=== PATIENT | female | born 1930 | race Caucasian/White ===

== ENCOUNTER → 2016-06-21 | Outpatient (CLI) | payer OTHER, MEDICARE ==
[~2016-06-21] MED LIST: ALPR-411 PO; ASPI81TA21 PO; CRG125 PO; CYM/30 PO; DLM30 PO; FEBU40TA PO; LZL125 PO
[2016-06-21 12:59] LABS: BASO % 0.5 %; BASO ABS # 0.03 K/uL (0-0.2); COMPLETE YES; EOS % 7.6 %; HEMATOCRIT 43.6 % (37-47); IG% 0.3 %; LYMPH % 29.8 %; LYMPH ABS # 1.95 K/uL (1.2-3.4); MEAN CELL VOLUME 91.4 fL (80-100); MEAN CORPUSCULAR HEMOGLOBIN 30.4 pg (25-34); MEAN CORPUSCULAR HGB CONC 33.3 g/dl (32-36); MEAN PLATELET VOLUME 12.8 fL (7.4-10.4); MONO % 9.5 %; NEUT % 52.3 %; PLATELET COUNT 169 K/uL (130-400); RED BLOOD COUNT 4.77 M/uL (4.2-5.4); WHITE BLOOD COUNT 6.55 K/uL (4.8-10.8)
[2016-06-21 13:07] LABS: BLOOD UREA NITROGEN 35 mg/dl (7-18); BUN/CREATININE RATIO 23.3 (10-20); CALCIUM 9.9 mg/dl (8.5-10.1); CARBON DIOXIDE 24 mmol/L (21-32); CHLORIDE 110 mmol/L (98-107); GLUCOSE 96 mg/dl (70-99); POTASSIUM 4.9 mmol/L (3.5-5.1); SODIUM 142 mmol/L (136-145)
== END | disposition home or self-care (01) ==
LOC: C.LAB1850 11:29
PROVIDERS: ATTEND Internal Medicine
DX: I10 Essential (primary) hypertension (principal)

== ENCOUNTER 2016-08-06 18:25 | Emergency (ER) | payer OTHER, MEDICARE ==
[~2016-08-06] VITALS: Ht 160 cm; Wt 82.5 kg
[2016-08-06 18:28] VITALS: BP 167/81; PULSE 85; TEMP 36.9; O2SAT 95; Ht 160 cm; Wt 82.5 kg
--- NOTE | 2016-08-06 19:19 | DIAGNOSTIC IMAGING REPORT ---
LEFT FOOT MIN 3 VIEWS ROUTINE CLINICAL HISTORY: Left foot pain. Trauma. COMPARISON: 07/21/2015 DISCUSSION: The bones are osteopenic. There is a stable spur arising from the lateral aspect of the fifth metatarsal head. There is a plantar calcaneal spur. There are small erosions at the level the first metatarsal phalangeal joint. There are cystic changes/erosions involving the bases of the mid tarsals. IMPRESSION: 1. No acute fractures 2. Stable fifth metatarsal head spur 3. Stable erosive changes 4. Osteopenia Electronically signed by: Philippe Sullivan M.D. 08/06/2016 7:17 PM Dictated Date/Time: 08/06/2016 7:16 PM
--- NOTE | 2016-08-06 19:46 | EMERGENCY ROOM VISIT NOTE ---
ED Visit Note First contact with patient: 18:33 CHIEF COMPLAINT: Foot pain HISTORY OF PRESENT ILLNESS: This 85-year-old female patient presents to the emergency department ambulatory complaining of swelling and pain in the left foot at rest and worse with weight bearing. The patient reports that 4 days ago , she caught her left foot caught in a doorway. She reports that the same day, she again got her foot caught in the door of an elevator. She reports pain and bruising in the foot. She rates the discomfort a 5/10. She has been taking Tylenol at home for the pain with some relief. The patient is able to walk with the aid of her walker. No numbness or weakness. No ankle pain. There are no lacerations of the foot. The patient is able to move all of their toes and their ankle without pain. No previous fracture to this foot. REVIEW OF SYSTEMS: GENERAL: A 6 system review of systems was completed with positives and pertinent negatives in the HPI. ALLERGIES: See EMR MEDICATIONS: See med list PMH: Hypertension, DJD SOCIAL HISTORY: The patient lives locally with family. PHYSICAL EXAM: Vital Signs: Reviewed Nurse's notes, vital signs stable. GENERAL : This is an 85-year-old female, in no acute distress, but appears in pain, well -developed, well-nourished. MUSCULOSKELETAL: There is no visual deformity of the left foot. There is ecchymosis over the area of the distal fifth metatarsal. There is no warmth. There is tenderness and swelling over the lateral aspect of the left foot. There is no tenderness over the lateral or medial malleolus. No tenderness of the tib/fib. The range of motion of the ankle is full. The patient is able to wiggle her toes. There is no tenderness over the plantar fascia. The skin is intact and there are no lacerations or puncture wounds. Dorsalis pedis pulse 2+. Capillary refill less than 2 seconds. RADIOGRAPHIC FINDINGS: LEFT FOOT MIN 3 VIEWS ROUTINE DISCUSSION: The bones are osteopenic. There is a stable spur arising from the lateral aspect of the fifth metatarsal head. There is a plantar calcaneal spur. There are small erosions at the level the first metatarsal phalangeal joint. There are cystic changes/erosions involving the bases of the mid tarsals. IMPRESSION: 1. No acute fractures 2. Stable fifth metatarsal head spur 3. Stable erosive changes 4. Osteopenia EMERGENCY DEPARTMENT COURSE: I examined the patient. An X-ray of the left foot was reviewed by myself and radiology and reveals no acute fracture. The patient was placed in a postoperative shoe. She has a walker at home and will continue to use this. The patient declined analgesics. The patient was independently evaluated by Dr. Johnson, ED attending physician, who agreed with my assessment and treatment plan. The patient was discharged home in good condition. DIAGNOSIS: Foot pain Problem List Medical Problems: (1) Benign essential hypertension Status: Chronic (2) Degenerative joint disease Status: Chronic (3) Gout Status: Chronic (4) Renal insufficiency Status: Chronic (5) solitary left kidney Status: Chronic (6) Spinal stenosis of lumbar region Status: Chronic Current/Historical Medications Scheduled Aspirin Enteric Coated (Ecotrin Or Generic), 81 MG PO QAM Carvedilol (Carvedilol), 12.5 MG PO BID Duloxetine HCl (Cymbalta), 30 MG PO QAM Flurazepam Hcl (Dalmane), 30 MG PO HS Indapamide (Indapamide), 1.25 MG PO QAM Scheduled PRN Alprazolam (Alprazolam), 0.5 MG PO TID PRN for Anxiety Febuxostat (Uloric), 1 TAB PO DAILY PRN for GOUT Allergies Coded Allergies: Amoxicillin (Verified Allergy, Unknown, RASH AND SWELLING TONGUE, 08/06/16) Levofloxacin (Verified Allergy, Unknown, RASH AND SWELLING TONGUE, 08/06/16 ) Penicillins (Verified Allergy, Unknown, RASH & HIVES, 08/06/16) Sulfamethoxazole w/Trimethoprim (Verified Allergy, Unknown, ?, 08/06/16) Nitrofurantoin (Verified Adverse Reaction, Mild, HEADACHE, 08/06/16) Vital Signs Date Time Temp Pulse Resp B/P Pulse Ox O2 Delivery O2 Flow Rate FiO2 08/06/16 18:28 36.9 85 18 167/81 95 Room Air Departure Information Impression Primary Impression: Injury of foot, left Dispostion Home / Self-Care Condition GOOD Referrals Soto Sloan M.D. (PCP) Patient Instructions My [facility] Additional Instructions You have been treated in the Emergency Department for a foot injury. For pain control, you can use the following [id number] medicines (if >12 yo): - Regular strength (325mg/tab) Tylenol (acetaminophen) 2 tabs every 4-6 hours as needed. Do not exceed 12 tablets in a 24 hour period. Avoid taking more than 4 grams (4000 mg) of Tylenol per day. This includes any other sources of acetaminophen you may take on a regular basis. - Regular strength (200 mg/tab) Advil (ibuprofen) 1-2 tabs every 4-6 hours as needed. Do not exceed a dose of 3200 mg per day. If this is a recent injury (<24 hrs), ice can be applied to the area of pain for the first 3 days to help decrease pain and inflammation. Wear the boot and use the walker until you are able to bear weight without any pain. Follow up with your primary care provider in 4-5 days if you have continued pain. Return to the Emergency Department if your current symptoms worsen despite treatment course outlined above, or if you develop any of the following symptoms : intractable pain despite aforementioned treatment course or new onset of numbness or tingling of the foot. Problem Qualifiers Primary Impression: Injury of foot, left Encounter type: initial encounter Qualified Codes: S99.922A - Unspecified injury of left foot, initial encounter
--- NOTE | 2016-08-07 21:33 | EMERGENCY ROOM VISIT NOTE ---
ED Visit Note First contact with patient: 18:33 I have personally evaluated this patient examined her and reviewed the pertinent labs and data. I have discussed the case with Katt Caraballo, the physician physician assistant primary care and agree with the plan. Please refer to the PA note This patient comes in after injuring her foot. On my exam , she has a bruise along the dorsal aspect. She seems comfortable. X-rays do not show any fractures. She is can use a walker and follow-up with her doctor symptoms worsen and return ER if any new problems or concerns.
== END 2016-08-06 19:50 | disposition home or self-care (01) ==
LOC: C.EDB 18:26 → C.EDD 19:50
DX: S99.922A Unspecified injury of left foot, initial encounter (principal); W23.0XXA Caught, crushed, jammed, or pinched between moving objects, initial encounter; I12.9 Hypertensive chronic kidney disease with stage 1 through stage 4 chronic kidney disease, or unspecified chronic kidney disease; M10.9 Gout, unspecified; N18.9 Chronic kidney disease, unspecified; Z90.5 Acquired absence of kidney; Z79.82 Long term (current) use of aspirin; Z88.1 Allergy status to other antibiotic agents; Z88.0 Allergy status to penicillin; Z82.2 Family history of deafness and hearing loss; Z88.8 Allergy status to other drugs, medicaments and biological substances

== ENCOUNTER → 2016-11-30 | Day surgery (SDC) | payer OTHER, MEDICARE ==
[2016-11-15 07:36] VITALS: Ht 161.3 cm; Wt 81.4 kg
[~2016-11-30] VITALS: Ht 161.3 cm; Wt 81.4 kg
[~2016-11-30] MED LIST changes: +BUPIVACAINE 0.25% 2.5MG/ML PF 10 ML VIAL ONE; +CEFD300C2 PO; +IOPAMIDOL INJ 61% 15 ML VIAL ONE; +KETO75CA PO; +LIDOCAINE HCL 1% MPF 5 ML VIAL ONE; +LISI-729 PO
--- NOTE | 2016-11-30 13:52 | History & Physical Bridge - SC ---
H&P Re-Evaluation Bridge Note: I have examined the patient, reviewed the History & Physical and in the interval since the performance of the History & Physical I have noted the following changes of clinical significance: No changes noted
[2016-11-30 14:14] VITALS: TEMP 36.9
--- NOTE | 2016-11-30 14:22 | Discharge Instructions ---
Discharge Instructions Date of Service Nov 30, 2016. Visit Reason for Visit: Sacroiliitis Discharge Discharge Diagnosis / Problem: low back pain Discharge Goals Goal(s): Decrease discomfort, Improve function Medications Stopped Medications Name(s): did not take baby asprin today Activity Recommendations Activity Limitations: resume your previous activity Anesthesia . Post Anesthesia Instructions: If you have had General Anesthesia or IV Sedation: * Do not drive today. * Resume driving when surgeon permits. * Do not make important decisions or sign legal documents today. * Call surgeon for: 1. Temperature elevations greater than 101 degrees F. 2. Uncontrollable pain. 3. Excessive bleeding. 4. Persistent nausea and vomiting. 5. Medication intolerance (nausea, vomiting or rash). * For nausea and vomiting use only clear liquids such as: tea, soda, bouillon until nausea subsides, then gradually increase diet as tolerated. * If you have any concerns or questions, call your surgeon's office. If physician is unavailable and it is an emergency, call 911 or go to the nearest emergency room. . Diet Recommendations Recommended Home Diet: resume previous diet Procedures Procedures Performed: Bilateral Sacroiliac Joint Injections Pending Studies Studies pending at discharge: no Medical Emergencies . Who to Call and When: Medical Emergencies: If at any time you feel your situation is an emergency, please call 911 immediately. . Non-Emergent Contact Non-Emergency issues call your: Specialist . . "Provider Documentation" section prepared by Warren Rios. .
[2016-11-30 14:35] VITALS: BP 169/66; PULSE 73; O2SAT 94
--- NOTE | 2016-11-30 14:38 | OPERATIVE REPORT ---
DATE OF OPERATION: 11/30/2016 PREOPERATIVE DIAGNOSIS: Bilateral sacroiliitis, underlying lumbar fusion. POSTOPERATIVE DIAGNOSIS: Same. PROCEDURE: Bilateral sacroiliac joint injections under fluoroscopic guidance. INDICATIONS: The patient is an 86-year-old white female who presents today for sacroiliac joint injection. She has received these in the past, most recently in February 2006, in which she had great benefit up until recently began having increasing pain. PHYSICAL EXAMINATION: GENERAL: Pleasant female seated comfortably in no apparent distress. MUSCULOSKELETAL: Lumbar paraspinal muscles were palpated and noted to be nontender. She had tenderness to palpation of her SI joints bilaterally, more on the right than the left. She had normal lower extremity strength. Negative seated straight leg raises. Positive modified Arlin maneuver bilaterally and a sacral compression maneuver. CONSENT: Verbal and written consent was obtained from the patient. Risks and benefits were reviewed. Risks include but are not limited to abscess and allergic reaction. She wishes to proceed. PROCEDURE IN DETAIL: The patient was taken back to the special procedures room of the [facility] where she was maintained in a prone position. Backside was cleansed with Betadine x3 and a dry sterile dressing was applied. Fluoroscope was used to identify the left SI joint and the overlying skin was anesthetized with 2.5 mL of lidocaine 1% with a 25 gauge 1.5-inch needle. A 25 gauge 3.5-inch needle was then under fluoroscopic guidance, placed into the joint. Isovue-300 contrast 0.25 mL demonstrated intraarticular uptake. This was then followed by injection of 40 mg of Depo-Medrol and 1.5 mL of bupivacaine 0.25%. The right SI joint was then fluoroscopically identified. The overlying skin was anesthetized with 2.5 mL of lidocaine 1% and then she underwent injection of 40 mg of Depo-Medrol and 1.5 mL of bupivacaine 0.25%. Injection was well tolerated. DISPOSITION: 1. The patient is taken out into the discharge recovery area where she will be discharged home once discharge criteria have been met. 2. Follow up in the [facility] office in 4 weeks' time. I attest to the content of the Intraoperative Record and any orders documented therein. Any exception s are noted below.
== END | disposition home or self-care (01) ==
LOC: X.SURG 12:49
PROVIDERS: ATTEND Physical Medicine & Rehabilitation
DX: M46.1 Sacroiliitis, not elsewhere classified (principal); Z98.890 Other specified postprocedural states; Z79.82 Long term (current) use of aspirin

== ENCOUNTER → 2017-01-02 | Outpatient (CLI) | payer OTHER, MEDICARE ==
[~2017-01-02] MED LIST changes: -BUPIVACAINE 0.25% 2.5MG/ML PF 10 ML VIAL ONE; -CEFD300C2 PO; -IOPAMIDOL INJ 61% 15 ML VIAL ONE; -KETO75CA PO; -LIDOCAINE HCL 1% MPF 5 ML VIAL ONE; -LISI-729 PO
== END | disposition home or self-care (01) ==
LOC: C.RDSM 13:47
PROVIDERS: ATTEND Physical Medicine & Rehabilitation
DX: M53.3 Sacrococcygeal disorders, not elsewhere classified (principal); R29.898 Other symptoms and signs involving the musculoskeletal system

== ENCOUNTER 2017-03-26 19:50 | Emergency (ER) | payer OTHER, MEDICARE ==
[~2017-03-26] VITALS: Ht 157.5 cm; Wt 84.9 kg
[2017-03-26 19:57] VITALS: TEMP 36.5; Ht 157.5 cm; Wt 84.9 kg
[2017-03-26] MEDS ORDERED: LISI-729 PO (20:18)
[2017-03-26] MEDS ORDERED: KETO75CA PO (20:18)
[2017-03-26] MEDS ORDERED: SODIUM CHLORIDE 0.9% 1000ML 250 ML IV STA (20:19)
[2017-03-26] MEDS ORDERED: SODIUM CHLORIDE 0.9% 1000ML 1,000 ML IV STA (20:19)
[2017-03-26 20:46] LABS: BASO % 0.3 %; BASO ABS # 0.02 K/uL (0-0.2); COMPLETE YES; EOS % 8.9 %; HEMATOCRIT 41.3 % (37-47); IG% 0.2 %; LYMPH % 33.2 %; LYMPH ABS # 2.09 K/uL (1.2-3.4); MEAN CELL VOLUME 90.4 fL (80-100); MEAN CORPUSCULAR HEMOGLOBIN 30.2 pg (25-34); MEAN CORPUSCULAR HGB CONC 33.4 g/dl (32-36); MEAN PLATELET VOLUME 12.7 fL (7.4-10.4); MONO % 12.9 %; NEUT % 44.5 %; PLATELET COUNT 165 K/uL (130-400); RED BLOOD COUNT 4.57 M/uL (4.2-5.4); WHITE BLOOD COUNT 6.29 K/uL (4.8-10.8)
[2017-03-26 20:55] LABS: ALT/SGPT 17 U/L (12-78); BLOOD UREA NITROGEN 50 mg/dl (7-18); BUN/CREATININE RATIO 25.7 (10-20); CALCIUM 9.3 mg/dl (8.5-10.1); CARBON DIOXIDE 23 mmol/L (21-32); CHLORIDE 110 mmol/L (98-107); CREATININE 1.95 mg/dl (0.60-1.20); GLUCOSE 102 mg/dl (70-99); POTASSIUM 4.4 mmol/L (3.5-5.1); SODIUM 141 mmol/L (136-145)
[2017-03-26 20:57] LABS: MANUAL MICROSCOPIC REQUIRED? NO; REVIEW REQ? NO; URINE APPEARANCE CLOUDY (CLEAR); URINE BILIRUBIN NEG (NEG); URINE COLOR YELLOW; URINE NITRITE NEG (NEG); URINE PH 5.5 (4.5-7.5); URINE SPECIFIC GRAVITY 1.014 (1.000-1.030); UROBILINOGEN NEG (NEG); ZZURINE CULT IF INDIC CATH YES
[2017-03-26 20:59] LABS: PROTHROMBIN TIME (PATIENT) 10.4 SECONDS (9.0-12.0)
[2017-03-26 21:00] LABS: ALKALINE PHOSPHATASE 122 U/L (45-117); AST/SGOT 17 U/L (15-37); CKMB/CK RATIO 1.3 (0-3.0)
--- NOTE | 2017-03-26 21:04 | DIAGNOSTIC IMAGING REPORT ---
CHEST ONE VIEW PORTABLE CLINICAL HISTORY: Chest pain. COMPARISON STUDY: Chest radiograph September 20, 2015. FINDINGS: Lumbar spine fusion hardware is partially imaged. Widening of the right paratracheal stripe is unchanged. There is no evidence of pulmonary edema. Mild left lower lung opacity favors atelectasis or epicardial fat pad. Cardiomediastinal silhouette is stable. 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 IMPRESSION: No acute cardiopulmonary findings. No change in appearance of the chest. Electronically signed by: Ender Coulter M.D. 03/26/2017 9:02 PM Dictated Date/Time: 03/26/2017 9:00 PM
--- NOTE | 2017-03-26 21:49 | DIAGNOSTIC IMAGING REPORT ---
CT OF THE LUMBAR SPINE WITHOUT CONTRAST CLINICAL HISTORY: Bilateral leg weakness. COMPARISON STUDY: Lumbar spine CT September 12, 2013 and lumbar spine radiographs January 02, 2017. TECHNIQUE: Axial images of the lumbar spine were obtained without IV contrast. Sagittal and coronal reconstructions were viewed. FINDINGS: For purposes of numbering on this exam, the L5-S1 disc space is assigned to axial image 257 of [id number]. Moderate levoscoliosis of the lumbar spine is unchanged. There are findings consistent with a posterior decompression with bilateral pedicle screws at the L3, L4 and L5 levels. Hardware is intact. No acute lumbar spine fracture is identified. Moderate to severe multilevel disc space narrowing, osteophytosis and vacuum disc phenomenon is noted at multiple levels. The patient is status post L4-L5 discectomy. Postoperative appearance is similar to CT of September 12, 2013. Central canal and neural foramen are suboptimally assessed by CT. Slight retrolisthesis of L1 on L2 and slight anterolisthesis of L4 and L5 is unchanged. Paravertebral soft tissues are unremarkable by CT. No suspicious osseous lesion is identified. IMPRESSION: 1. No acute lumbar spine fracture or subluxation. 2. Posterior decompression from L3 through L5. Hardware intact. 3. No change in moderate levoscoliosis of lumbar spine. 4. Multilevel degenerative disc disease and facet arthrosis, as described above. Suboptimal evaluation of the central canal and neural foramen given CT technique. Electronically signed by: Ender Coulter M.D. 03/26/2017 9:48 PM Dictated Date/Time: 03/26/2017 9:38 PM
[2017-03-27 00:39] VITALS: BP 156/76; PULSE 63; O2SAT 95
--- NOTE | 2017-03-27 04:01 | EMERGENCY ROOM VISIT NOTE ---
History Report prepared by Leyla: Madiha Hines Under the Supervision of: Dr. Andrei Johnson M.D. First contact with patient: 20:01 Chief Complaint: BILATERAL LEG WEAKNESS Stated Complaint: LEG WEAKNESS History of Present Illness The patient is an 86 year old female who presents to the Emergency Room with complaints of worsening bilateral leg weakness starting a few months ago. The patient states that she was trying to get ready for bed and she couldn't stay standing to take her pants off. She reports that her legs felt like rubber and she kept falling onto the bed. She reports that she has a history of chronic back pain that she wears a brace for when she walks. She reports that she has had back surgery in the past. She notes that she has bladder incontinence, but that is normal. The patient complains of chills. The patient denies chest pain, shortness of breath, numbness in legs, fever, urinary symptoms, and head trauma. She notes that she takes half an Aspirin daily. Source of History: patient Onset: a few months ago Position: leg (bilateral) Quality: other (weakness) Timing: worsening Modifying Factors (Worsening): other (standing) Associated Symptoms: + chills, No fevers, No chest pain, No SOB, No urinary symptoms, No numbness Note: The patient denies head trauma. Review of Systems See HPI for pertinent positives & negatives. A total of 10 systems reviewed and were otherwise negative. 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 Surgical Problems: (1) History of bilateral knee replacement Family History No significant family history Social History Smoking Status: Never Smoker Drug Use: none Marital Status: Housing Status: lives alone Occupation Status: retired Current/Historical Medications Scheduled Aspirin Enteric Coated (Ecotrin Or Generic), 81 MG PO QAM Carvedilol (Carvedilol), 12.5 MG PO BID Duloxetine HCl (Cymbalta), 30 MG PO QAM Flurazepam Hcl (Dalmane), 30 MG PO HS Indapamide (Indapamide), 1.25 MG PO QAM Ketoprofen (Ketoprofen), 75 MG PO QAM Lisinopril (Prinivil), 5 MG PO QAM Scheduled PRN Alprazolam (Alprazolam), 0.5 MG PO TID PRN for Anxiety Febuxostat (Uloric), 1 TAB PO DAILY PRN for GOUT Allergies Coded Allergies: Amoxicillin (Verified Allergy, Unknown, RASH AND SWELLING TONGUE, 03/26/17 ) Levofloxacin (Verified Allergy, Unknown, RASH AND SWELLING TONGUE, ) Penicillins (Verified Allergy, Unknown, RASH & HIVES, 03/26/17) Sulfamethoxazole w/Trimethoprim (Verified Allergy, Unknown, ?, 03/26/17) Nitrofurantoin (Verified Adverse Reaction, Mild, HEADACHE, 03/26/17) Physical Exam Vital Signs Date Time Temp Pulse Resp B/P (MAP) Pulse Ox O2 Delivery O2 Flow Rate FiO2 03/27/17 00:39 63 18 156/76 95 03/27/17 00:19 64 03/26/17 23:10 64 18 163/63 95 Room Air 03/26/17 22:16 68 20 141/68 94 Room Air 03/26/17 21:04 65 19 137/55 94 Room Air 03/26/17 20:23 74 03/26/17 19:57 36.5 77 22 145/72 94 Room Air Physical Exam General: Non-ill appearing older female in no acute distress. HEENT: Normal cephalic atraumatic. Pupils are equal round and reactive to light. Extraocular movements are intact. Oropharynx is pink with moist mucous membranes. No swelling of the mouth lips or tongue. Neck: Supple with a midline trachea. No meningeal signs or stiffness, no JVD or bruits. No Stridor. Chest: Clear to auscultation bilaterally. No wheezes or rhonchi. No increased work of breathing. Heart: regular rate and rhythm. Abdomen: Soft nontender, nondistended without rebound guarding or rigidity. Extremities: No cyanosis clubbing or edema. No calf tenderness or assymetry Spine/Back. Non tender to palpation. No CVA tenderness Skin: Good turgor without rashes. Neurologic exam: Cranial nerves two through 12 are intact. Mild weakness in both legs, left greater than right which she states is chronic. Normal vascular and sensation on exam. Medical Decision & Procedures ER Provider Diagnostic Interpretation: Radiology results as stated below per my review and radiologist interpretation: CT OF THE LUMBAR SPINE WITHOUT CONTRAST CLINICAL HISTORY: Bilateral leg weakness. COMPARISON STUDY: Lumbar spine CT September 12, 2013 and lumbar spine radiographs January 02, 2017. TECHNIQUE: Axial images of the lumbar spine were obtained without IV contrast. Sagittal and coronal reconstructions were viewed. FINDINGS: For purposes of numbering on this exam, the L5-S1 disc space is assigned to axial image 257 of [id number]. Moderate levoscoliosis of the lumbar spine is unchanged. There are findings consistent with a posterior decompression with bilateral pedicle screws at the L3, L4 and L5 levels. Hardware is intact. No acute lumbar spine fracture is identified. Moderate to severe multilevel disc space narrowing, osteophytosis and vacuum disc phenomenon is noted at multiple levels. The patient is status post L4-L5 discectomy. Postoperative appearance is similar to CT of September 12, 2013. Central canal and neural foramen are suboptimally assessed by CT. Slight retrolisthesis of L1 on L2 and slight anterolisthesis of L4 and L5 is unchanged. Paravertebral soft tissues are unremarkable by CT. No suspicious osseous lesion is identified. IMPRESSION: 1. No acute lumbar spine fracture or subluxation. 2. Posterior decompression from L3 through L5. Hardware intact. 3. No change in moderate levoscoliosis of lumbar spine. 4. Multilevel degenerative disc disease and facet arthrosis, as described above. Suboptimal evaluation of the central canal and neural foramen given CT technique. Electronically signed by: Ender Coulter M.D. 03/26/2017 9:48 PM Dictated Date/Time: 03/26/2017 9:38 PM CHEST ONE VIEW PORTABLE CLINICAL HISTORY: Chest pain. COMPARISON STUDY: Chest radiograph September 20, 2015. FINDINGS: Lumbar spine fusion hardware is partially imaged. Widening of the right paratracheal stripe is unchanged. There is no evidence of pulmonary edema. Mild left lower lung opacity favors atelectasis or epicardial fat pad. Cardiomediastinal silhouette is stable. 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 IMPRESSION: No acute cardiopulmonary findings. No change in appearance of the chest. Electronically signed by: Ender Coulter M.D. 03/26/2017 9:02 PM Dictated Date/Time: 03/26/2017 9:00 PM Laboratory Results 03/26/17 20:08 Red Blood Count 4.57, Mean Corpuscular Volume 90.4, Mean Corpuscular Hemoglobin 30.2, Mean Corpuscular Hemoglobin Concent 33.4, Mean Platelet Volume 12.7, Neutrophils (%) (Auto) 44.5, Lymphocytes (%) (Auto) 33.2, Monocytes (%) (Auto) 12.9, Eosinophils (%) (Auto) 8.9, Basophils (%) (Auto) 0.3, Neutrophils # (Auto ) 2.80, Lymphocytes # (Auto) 2.09, Monocytes # (Auto) 0.81, Eosinophils # (Auto ) 0.56, Basophils # (Auto) 0.02 03/26/17 20:08 Test 03/26/17 20:08 03/26/17 20:19 03/26/17 20:30 03/26/17 20:37 White Blood Count 6.29 K/uL (4.8-10.8) Red Blood Count 4.57 M/uL (4.2-5.4) Hemoglobin 13.8 g/dL (12.0-16.0) Hematocrit 41.3 % (37-47) Mean Corpuscular Volume 90.4 fL (80-100) Mean Corpuscular Hemoglobin 30.2 pg (25-34) Mean Corpuscular Hemoglobin Concent 33.4 g/dl (32-36) Platelet Count 165 K/uL (130-400) Mean Platelet Volume 12.7 fL (7.4-10.4) Neutrophils (%) (Auto) 44.5 % Lymphocytes (%) (Auto) 33.2 % Monocytes (%) (Auto) 12.9 % Eosinophils (%) (Auto) 8.9 % Basophils (%) (Auto) 0.3 % Neutrophils # (Auto) 2.80 K/uL (1.4-6.5) Lymphocytes # (Auto) 2.09 K/uL (1.2-3.4) Monocytes # (Auto) 0.81 K/uL (0.11-0.59) Eosinophils # (Auto) 0.56 K/uL (0-0.5) Basophils # (Auto) 0.02 K/uL (0-0.2) RDW Standard Deviation 42.2 fL (36.4-46.3) RDW Coefficient of Variation 12.8 % (11.5-14.5) Immature Granulocyte % (Auto) 0.2 % Immature Granulocyte # (Auto) 0.01 K/uL (0.00-0.02) Prothrombin Time 10.4 SECONDS (9.0-12.0) Prothromb Time International Ratio 1.0 (0.9-1.1) Activated Partial Thromboplast Time 26.5 SECONDS (21.0-31.0) Partial Thromboplastin Ratio 1.0 Anion Gap 9.0 mmol/L (3-11) Est Creatinine Clear Calc Drug Dose 21.7 ml/min Estimated GFR () 26.7 Estimated GFR (Non- 23.1 BUN/Creatinine Ratio 25.7 (10-20) Calcium Level 9.3 mg/dl (8.5-10.1) Total Bilirubin 0.3 mg/dl (0.2-1) Direct Bilirubin < 0.1 mg/dl (0-0.2) Aspartate Amino Transf (AST/SGOT) 17 U/L (15-37) Alanine Aminotransferase (ALT/SGPT) 17 U/L (12-78) Alkaline Phosphatase 122 U/L (45-117) Total Creatine Kinase 62 U/L (26-192) Creatine Kinase MB 0.8 ng/ml (0.5-3.6) Total Protein 7.2 gm/dl (6.4-8.2) Albumin 3.9 gm/dl (3.4-5.0) Lipase 359 U/L (73-393) Creatine Kinase MB Ratio (0-3.0) Urine Color YELLOW Urine Appearance CLOUDY (CLEAR) Urine pH 5.5 (4.5-7.5) Urine Specific [place] 1.014 (1.000-1.030) Urine Protein 1+ (NEG) Urine Glucose (UA) NEG (NEG) Urine Ketones NEG (NEG) Urine Occult Blood TRACE (NEG) Urine Nitrite NEG (NEG) Urine Bilirubin NEG (NEG) Urine Urobilinogen NEG (NEG) Urine Leukocyte Esterase LARGE (NEG) Urine WBC (Auto) >30 /hpf (0-5) Urine RBC (Auto) 0-4 /hpf (0-4) Urine Hyaline Casts (Auto) 0 /lpf (0-5) Urine Epithelial Cells (Auto) 10-20 /lpf (0-5) Urine Bacteria (Auto) 4+ (NEG) Bedside Troponin I < 0.030 ng/ml (0-0.045) Laboratory studies as stated above per my review. Medications Administered Medications (Trade) Dose Ordered Sig/Jasmina Route Start Time Stop Time Status Last Admin Dose Admin Sodium Chloride 250 ml @ 999 mls/hr Q16M STAT IV 03/26/17 20:19 03/26/17 20:34 DC 03/26/17 20:58 999 MLS/HR Sodium Chloride 1,000 ml @ 100 mls/hr Q10H STAT IV 03/26/17 20:19 03/27/17 06:18 03/26/17 20:57 100 MLS/HR ECG Indication: weakness Rate (beats per minute): 79 Rhythm: normal sinus Findings: no acute ischemic change, no ectopy, other (old inferior infarct) Comparison ECG Date: September 19, 2015 Change: no significant change ED Course 2002: Past medical records reviewed. The patient was evaluated in room C2B, and a complete history and physical examination were performed. 2019: Ordered NSS 1000 mml @ 100 mls/hr IV, NSS 250 ml @ 999 mls/hr IV. 9: I spoke with the patient's family and they reported this has happened once before. They state that it required rehab. 2238: I reevaluated the patient and she is doing fine. The family does not believe she can go home. 2344: The patient refuses to go to [facility]. We are going to do an ambulatory trial and then talk. 0020: Upon reevaluation, the patient is resting comfortably. She does not want to stay and she wants to go home. Her family believes that she is at baseline. I discussed the results and treatment plan with her. She verbalized agreement of the treatment plan. The patient was discharged home. Medical Decision Differential diagnoses include infection, UTI, electrolyte abnormality, metabolic abnormality, spinous process, dehydration. This patient comes in as described above. She was placed in room C2. She is here for treatment evaluation of bilateral lower extremity weakness. She does live by herself and walk with a walker . She's had no recent fall or traum. A she's had no recent illness. No dysuria or hematuria. Denies any urinary symptoms at all. No back pain or abdominal pain. She has had weakness like this before and is adamant that she doesn't want to be placed or go to [facility]. She wants to be at home. EKG does not suggest acute coronary syndrome or arrhythmia. Chest x-ray was unremarkable lumbar spine CT shows no acute findings. Her urinalysis does suggest a UTI however she has no urinary symptoms and has multiple antibiotic allergies at this point we will wait on a culture as she does not want to put on antibiotics either. She has renal insufficiency. She is slightly worse than her previous however it's been worse than this in the past as well so she is about baseline. I had our case management team talked to her she does not want to go to [facility]. She does not want to be admitted. They're going to help arrange that she gets in with Dr. Lerner this week and will help arrange for outpatient rehabilitation at home. The patient and her family are happy the plan and as per her desire she was discharged to home. Medication Reconcilliation Current Medication List: was personally reviewed by me Blood Pressure Screening Patient's blood pressure: Elevated blood pressure Blood pressure disposition: Referred to PCP Impression Primary Impression: Weakness Scribe Attestation The scribe's documentation has been prepared under my direction and personally reviewed by me in its entirety. I confirm that the note above accurately reflects all work, treatment, procedures, and medical decision making performed by me. Departure Information Dispostion Home / Self-Care Referrals Soto Sloan M.D. (PCP) Forms HOME CARE DOCUMENTATION FORM, IMPORTANT VISIT INFORMATION Patient Instructions My [facility] Additional Instructions Rest. Use your walker and be extremely careful getting up and down Follow up with Dr. Sloan over the next couple days and increase your help at home Return to the ER if: Worsening of symptoms, fever or chills, chest pain, shortness of breath, any new problems or concerns.
== END 2017-03-27 00:39 | disposition home or self-care (01) ==
LOC: EDBD 19:50 → C.EDC 19:52
DX: R53.1 Weakness (principal); I12.9 Hypertensive chronic kidney disease with stage 1 through stage 4 chronic kidney disease, or unspecified chronic kidney disease; I42.9 Cardiomyopathy, unspecified; N18.4 Chronic kidney disease, stage 4 (severe); Z96.653 Presence of artificial knee joint, bilateral; Z79.82 Long term (current) use of aspirin; Z79.899 Other long term (current) drug therapy

== ENCOUNTER 2017-03-28 10:57 | Inpatient (IN) | payer OTHER, MEDICARE ==
[~2017-03-28] VITALS: Ht 162.6 cm; Wt 83.0 kg
[~2017-03-28 10:57] MED LIST changes: +KETO75CA PO; +LISI-729 PO
[2017-03-28] MEDS ORDERED: CEFEPIME IV 2,000 MG in DEXTROSE 5% 100ML 100 ML IV STA (11:04)
[2017-03-28] MEDS ORDERED: SODIUM CHLORIDE 0.9% 1000ML 500 ML IV ONE (11:04)
--- NOTE | 2017-03-28 11:17 | EMERGENCY ROOM VISIT NOTE ---
History Report prepared by Leyla: Berenice Leos Under the Supervision of: Dr. Nilson Denis M.D. First contact with patient: 11:02 Chief Complaint: ABNORMAL LABS Stated Complaint: ABNORMAL LAB History of Present Illness The patient is an 86 year old female who presents to the Emergency Room with complaints of persistent weakness for the past several days. Per records, the patient was evaluated in the emergency department on March 26 with persistent weakness. Records indicate that the patient was discharged home and had a blood culture that returned with gram negative bacilli and a urine culture that showed Klebsiella pneumoniae, which was [place]-sensitive. Records indicate that the patient was called this morning regarding her results and instructed to come back to the emergency department. The patient states that she has not felt different since her emergency department visit. She denies any recent fall. The patient reports diaphoresis, but denies any chills or fever. She states that she is always incontinent of urine. The patient states that she is experiencing lower back pain. She denies any abdominal pain. The patient's states that the patient has been fatigued with short, small exertions. Source of History: patient, other (records) Onset: past several days Position: other (global) Quality: other (weakness) Timing: other (persistent) Associated Symptoms: + fatigue, No fevers, No chills Review of Systems See HPI for pertinent positives & negatives. A total of 10 systems reviewed and were otherwise negative. 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 Surgical Problems: (1) History of bilateral knee replacement Family History No significant family history Social History Smoking Status: Never Smoker Drug Use: none Marital Status: Housing Status: lives alone Occupation Status: retired Current/Historical Medications Scheduled Aspirin Enteric Coated (Ecotrin Or Generic), 81 MG PO QAM Carvedilol (Carvedilol), 12.5 MG PO BID Duloxetine HCl (Cymbalta), 30 MG PO QAM Flurazepam Hcl (Dalmane), 30 MG PO HS Indapamide (Indapamide), 1.25 MG PO QAM Ketoprofen (Ketoprofen), 75 MG PO QAM Lisinopril (Prinivil), 5 MG PO QAM Scheduled PRN Alprazolam (Alprazolam), 0.5 MG PO TID PRN for Anxiety Febuxostat (Uloric), 1 TAB PO DAILY PRN for GOUT Allergies Coded Allergies: Amoxicillin (Verified Allergy, Unknown, RASH AND SWELLING TONGUE, 03/28/17 ) Levofloxacin (Verified Allergy, Unknown, RASH AND SWELLING TONGUE, ) Penicillins (Verified Allergy, Unknown, RASH & HIVES, 03/28/17) Sulfamethoxazole w/Trimethoprim (Verified Allergy, Unknown, ?, 03/28/17) Nitrofurantoin (Verified Adverse Reaction, Mild, HEADACHE, 03/28/17) Physical Exam Vital Signs Date Time Temp Pulse Resp B/P (MAP) Pulse Ox O2 Delivery O2 Flow Rate FiO2 03/28/17 11:02 36.8 72 18 129/70 96 Room Air Physical Exam GENERAL: Patient is in no acute distress. HEENT: No acute trauma, normocephalic atraumatic, mucous membranes moist, no nasal congestion, no scleral icterus. NECK: No stridor, no adenopathy, no meningismus, trachea is midline. LUNGS: Clear to auscultation bilaterally, no wheeze, no rhonchi, breath sounds equal. HEART: Without murmurs gallops or rubs, regular rate and rhythm. ABDOMEN: Soft, nontender, bowel sounds positive, no hernias, no peritonitis. EXTREMITIES: No cyanosis or edema, full range of motion of all the joints without pain or difficulty, no signs for acute trauma. NEUROLOGIC: Oriented x 3, no acute motor or sensory deficits, no focal weakness. SKIN: No rash, no jaundice, no diaphoresis. Medical Decision & Procedures ER Provider Diagnostic Interpretation: X-ray results as stated below per interpretation by me and the radiologist: CHEST ONE VIEW PORTABLE CLINICAL HISTORY: Sepsis COMPARISON STUDY: 03/26/2017 FINDINGS: The heart is at the upper limits of normal in size. There is a stable right paratracheal soft tissue opacity, likely representing either a thoracic inlet mass as a thyroid goiter or ectatic or aneurysmal great vessels. There is no focal pulmonary consolidation. There is no failure. There are no pleural effusions. There is chronic left basilar scarring.[ Advanced arthritic changes are present within the left shoulder. IMPRESSION: No active disease in the chest. Electronically signed by: Philippe Sullivan M.D. 03/28/2017 11:29 AM Dictated Date/Time: 03/28/2017 11:28 AM Laboratory Results 03/28/17 11:30 Red Blood Count 4.59, Mean Corpuscular Volume 91.7, Mean Corpuscular Hemoglobin 29.8, Mean Corpuscular Hemoglobin Concent 32.5, Mean Platelet Volume 12.9, Neutrophils (%) (Auto) 61.8, Lymphocytes (%) (Auto) 17.1, Monocytes (%) (Auto) 12.1, Eosinophils (%) (Auto) 8.4, Basophils (%) (Auto) 0.4, Neutrophils # (Auto ) 2.86, Lymphocytes # (Auto) 0.79, Monocytes # (Auto) 0.56, Eosinophils # (Auto ) 0.39, Basophils # (Auto) 0.02 03/28/17 11:30 Test 03/28/17 11:30 03/28/17 11:36 White Blood Count 4.63 K/uL (4.8-10.8) Red Blood Count 4.59 M/uL (4.2-5.4) Hemoglobin 13.7 g/dL (12.0-16.0) Hematocrit 42.1 % (37-47) Mean Corpuscular Volume 91.7 fL (80-100) Mean Corpuscular Hemoglobin 29.8 pg (25-34) Mean Corpuscular Hemoglobin Concent 32.5 g/dl (32-36) Platelet Count 143 K/uL (130-400) Mean Platelet Volume 12.9 fL (7.4-10.4) Neutrophils (%) (Auto) 61.8 % Lymphocytes (%) (Auto) 17.1 % Monocytes (%) (Auto) 12.1 % Eosinophils (%) (Auto) 8.4 % Basophils (%) (Auto) 0.4 % Neutrophils # (Auto) 2.86 K/uL (1.4-6.5) Lymphocytes # (Auto) 0.79 K/uL (1.2-3.4) Monocytes # (Auto) 0.56 K/uL (0.11-0.59) Eosinophils # (Auto) 0.39 K/uL (0-0.5) Basophils # (Auto) 0.02 K/uL (0-0.2) RDW Standard Deviation 43.5 fL (36.4-46.3) RDW Coefficient of Variation 13.0 % (11.5-14.5) Immature Granulocyte % (Auto) 0.2 % Immature Granulocyte # (Auto) 0.01 K/uL (0.00-0.02) Prothrombin Time 10.7 SECONDS (9.0-12.0) Prothromb Time International Ratio 1.0 (0.9-1.1) Activated Partial Thromboplast Time 27.2 SECONDS (21.0-31.0) Partial Thromboplastin Ratio 1.0 Anion Gap 5.0 mmol/L (3-11) Est Creatinine Clear Calc Drug Dose 23.0 ml/min Estimated GFR () 27.6 Estimated GFR (Non- 23.8 BUN/Creatinine Ratio 25.5 (10-20) Calcium Level 9.5 mg/dl (8.5-10.1) Magnesium Level 2.1 mg/dl (1.8-2.4) Total Bilirubin 0.5 mg/dl (0.2-1) Aspartate Amino Transf (AST/SGOT) 13 U/L (15-37) Alanine Aminotransferase (ALT/SGPT) 14 U/L (12-78) Alkaline Phosphatase 120 U/L (45-117) Total Protein 7.3 gm/dl (6.4-8.2) Albumin 3.8 gm/dl (3.4-5.0) Globulin 3.5 gm/dl (2.5-4.0) Albumin/Globulin Ratio 1.1 (0.9-2) Bedside Lactic Acid Venous 0.73 mmol/L (0.90-1.70) Laboratory results reviewed by me. Medications Administered Medications (Trade) Dose Ordered Sig/Jasmina Route Start Time Stop Time Status Last Admin Dose Admin Sodium Chloride 500 ml @ 999 mls/hr Q31M ONCE IV 03/28/17 11:04 03/28/17 11:34 DC 03/28/17 11:50 999 MLS/HR Cefepime HCl 2000 mg/Dextrose 112.5 ml @ 200 mls/hr ONE STAT IV 03/28/17 11:04 03/28/17 11:37 DC 03/28/17 11:51 200 MLS/HR ED Course 1104: Ordered Cefepime HCl 2000 mg/Dextrose 112.5 ml @ 200 mls/hr IV, Sodium Chloride 500 ml @ 999 mls/hr IV. 1107: The patient was evaluated in room B6. A complete history and physical exam was performed. 1116: LAYO Trejo was notified about the patient. He is going to evaluate the patient for further treatment. 1132: I discussed the patients case with LAYO Trejo. He is going to evaluate the patient for further treatment. Medical Decision The patient is an 86 year old female who presents to the ED with complaints of weakness. Differential diagnoses considered include bacteremia, sepsis, UTI, pyelonephritis, pneumonia, electrolyte imbalance, dehydration, anemia. There is no leukocytosis or concerning anemia. There is renal insufficiency noted. This appears baseline looking back at previous numbers. No significant electrolyte abnormality requiring correction. There was no hepatitis. Lactic acid level is not elevated making severe sepsis less likely. Chest film does not show pneumonia or CHF. Urinalysis does suggest infection. Urine culture and blood cultures are pending. I reviewed the testing from a few days ago, the urine did show Klebsiella. This organism was pansensitive. Blood cultures have returned with one of 2 positive for gram-negative bacilli. The patient received IV saline, she was given IV cefepime. Given the positive blood culture and the positive urine culture, given her weakness and lack of improvement from a few days ago, admission/observation was felt warranted. I spoke to the patient and the family independence case manager. The on-call hospitalist was consulted. Medication Reconcilliation Current Medication List: was personally reviewed by me Blood Pressure Screening Patient's blood pressure: Normal blood pressure Blood pressure disposition: Did not require urgent referral Consults Time Called: 1113 Consulting Physician: LAYO Trejo Returned Call: 1132 I discussed the patients case with LAYO Trejo. He is going to evaluate the patient for further treatment. Impression Primary Impression: Bacteremia Additional Impressions: UTI (urinary tract infection) Weakness Scribe Attestation The scribe's documentation has been prepared under my direction and personally reviewed by me in its entirety. I confirm that the note above accurately reflects all work, treatment, procedures, and medical decision making performed by me. Departure Information Dispostion Being Evaluated By Hospitalist Referrals Soto Sloan M.D. (PCP) Problem Qualifiers
--- NOTE | 2017-03-28 11:31 | DIAGNOSTIC IMAGING REPORT ---
CHEST ONE VIEW PORTABLE CLINICAL HISTORY: Sepsis COMPARISON STUDY: 03/26/2017 FINDINGS: The heart is at the upper limits of normal in size. There is a stable right paratracheal soft tissue opacity, likely representing either a thoracic inlet mass as a thyroid goiter or ectatic or aneurysmal great vessels. There is no focal pulmonary consolidation. There is no failure. There are no pleural effusions. There is chronic left basilar scarring.[ Advanced arthritic changes are present within the left shoulder. IMPRESSION: No active disease in the chest. Electronically signed by: Philippe Sullivan M.D. 03/28/2017 11:29 AM Dictated Date/Time: 03/28/2017 11:28 AM
[2017-03-28] MEDS ORDERED: SODIUM CHLORIDE 0.9% 1000ML 1,000 ML IV SCH (11:45)
[2017-03-28] MEDS ORDERED: ALUMINUM/MAGNESIUM/SIMETH (MAALOX MAX) 30 ML UDC PO PRN (11:45)
[2017-03-28] MEDS ORDERED: TRAMADOL HCL 50 MG TAB PO PRN (11:45)
[2017-03-28] MEDS ORDERED: ONDANSETRON INJ 2 MG/ML 2 ML VIAL IV. SCH (11:45)
[2017-03-28] MEDS ORDERED: ALPRAZOLAM 0.5 MG TAB PO PRN (11:45)
[2017-03-28] MEDS ORDERED: MAGNESIUM HYDROXIDE SUSP 30 ML UDC PO PRN (11:45)
[2017-03-28] MEDS ORDERED: ONDANSETRON INJ 2 MG/ML 2 ML VIAL IV PRN (11:45)
[2017-03-28] MEDS ORDERED: ACETAMINOPHEN 325 MG TAB PO PRN ×2 (11:45)
[2017-03-28] MEDS ORDERED: POLYETHYLENE (MIRALAX) 17 GM PACK PO PRN (11:45)
--- NOTE | 2017-03-28 11:52 | History and Physical ---
History & Physical Date & Time of Service: Mar 28, 2017 at 11:44 Chief Complaint: Abnormal Lab Primary Care Physician: Soto Sloan M.D. History of Present Illness Source: patient 85 y/o F Hx HTN, gout, anxiety, CKD III - solitary L kidney, lumbar stenosis. Pt was in the ER 2 days prior with c/o weakness. A UA was obtained in addition to blood cultures. She was treated for mild dehydration and discharged. Blood cultures returned as + for G- bacteremia 2 days later. Urine culture returned + for rowland-sensitive Klebsiella. The pt was phoned at home and reported that she continued to feel very week and was having chills. She was instructed to attend the hospital for admission. She denies any CP, SOB, N/V/D or significant dysuria although she is chronically incontinent. Labs are pending on admission. Labs from 2 days prior were notable for a degree of acute on chronic RF. Past Medical/Surgical History Medical Problems: (1) Benign essential hypertension Status: Chronic (2) Degenerative joint disease Status: Chronic (3) Gout Status: Chronic (4) CKD III Status: Chronic (5) Solitary left kidney Status: Chronic (6) Spinal stenosis of lumbar region Status: Chronic Family History No significant family history Father NC Mother "old age" mid 80s Social History Smoking Status: Never Smoker Drug Use: none Marital Status: Housing status: lives alone Occupational Status: retired Immunizations History of Influenza Vaccine: Yes History of Tetanus Vaccine?: Yes History of Pneumococcal: Yes Pneumococcal Date: Mar 01, 2011 History of Hepatitis B Vaccine: No Multi-Drug Resistant Organisms History of MDRO: No Allergies Coded Allergies: Amoxicillin (Verified Allergy, Unknown, RASH AND SWELLING TONGUE, 03/26/17 ) Levofloxacin (Verified Allergy, Unknown, RASH AND SWELLING TONGUE, ) Penicillins (Verified Allergy, Unknown, RASH & HIVES, 03/26/17) Sulfamethoxazole w/Trimethoprim (Verified Allergy, Unknown, ?, 03/26/17) Nitrofurantoin (Verified Adverse Reaction, Mild, HEADACHE, 03/26/17) Home Medications Scheduled Aspirin Enteric Coated (Ecotrin Or Generic), 81 MG PO QAM Carvedilol (Carvedilol), 12.5 MG PO BID Duloxetine HCl (Cymbalta), 30 MG PO QAM Flurazepam Hcl (Dalmane), 30 MG PO HS Indapamide (Indapamide), 1.25 MG PO QAM Ketoprofen (Ketoprofen), 75 MG PO QAM Lisinopril (Prinivil), 5 MG PO QAM Scheduled PRN Alprazolam (Alprazolam), 0.5 MG PO TID PRN for Anxiety Febuxostat (Uloric), 1 TAB PO DAILY PRN for GOUT Review of Systems Constitutional: + sweats, + weakness, + fatigue, + problem reported (Describes chills/rigors - could not confirm a fever) Eyes: No worsening of vision ENT: No hearing loss, No unusual epistaxis, No nasal symptoms Respiratory: No cough, No sputum, No wheezing Cardiovascular: No chest pain Abdomen: No pain, No nausea, No vomiting Musculoskeletal: + muscle pain (Chronic LBP), No joint pain Genitourinary - Female: + urinary incontinence (chronic), No dysuria, No urinary frequency Neurologic: No memory loss, No paralysis, No weakness Psychiatric: No depression symptoms Endocrine: No fatigue Hematologic / Lymphatic: No abnormal bleeding/bruising Integumentary: No rash Allergic / Immunologic: No environmental allergies Physical Exam Vital Signs Date Time Temp Pulse Resp B/P (MAP) Pulse Ox O2 Delivery O2 Flow Rate FiO2 03/28/17 11:02 36.8 72 18 129/70 96 Room Air General Appearance: WD/WN, no apparent distress, + pertinent finding (PLeasant elderly female - AAO x 3 - no distress ) Head: normocephalic Eyes: normal inspection ENT: normal ENT inspection, pharynx normal Neck: supple, no JVD Respiratory/Chest: chest non-tender, lungs clear, normal breath sounds Cardiovascular: regular rate, rhythm, no edema, no gallop Abdomen/GI: normal bowel sounds, non tender, soft Back: normal inspection, no CVA tenderness Extremities/Musculoskelatal: normal inspection, no calf tenderness, normal capillary refill, no pedal edema, normal range of motion Neurologic/Psych: multimedia artist II-XII nml as tested, no motor/sensory deficits, alert, oriented x 3 Skin: normal color, warm/dry, no rash Diagnostics Laboratory Results Results Past 24 Hours Test 03/28/17 11:04 Range/Units Microbiology Results 03/28/17 Blood Culture, Ordered Pending 03/28/17 Blood Culture, Ordered Pending Diagnostic Radiology CXR: no infiltrates noted Impression Assessment and Plan 85 y/o F Hx HTN, gout, anxiety, CKD III - solitary L kidney, lumbar stenosis. Pt was in the ER 2 days prior with c/o weakness. A UA was obtained in addition to blood cultures. She was treated for mild dehydration and discharged. Blood cultures returned as + for G- bacteremia 2 days later. Urine culture returned + for rowland-sensitive Klebsiella. The pt was phoned at home and reported that she continued to feel very week and was having chills. She was instructed to attend the hospital for admission. She denies any CP, SOB, N/V/D or significant dysuria although she is chronically incontinent. Labs are pending on admission. Labs from 2 days prior were notable for a degree of acute on chronic RF. 1) Klebsiella UTI with bacteremia - Pt placed on Ceftriaxone per sensitivities and allergy restrictions. Eventual DC can be considered with Omnicef. 2) CKD - acute impairment on labs 2 days prior - placed on IVF - trend BMP 3) HTN - Lisinopril held pending BMP result Full code - Heparin prophylaxis - total time for this admit including review of labs, meds, imaging - discussion with pt, family, ER attending - 34 min Level of Care Med/Surg Resuscitation Status FULL RESUSCITATION VTE Prophylaxis VTE Risk Assessment Done? Y/N: Yes Risk Level: Moderate Given or contraindicated: Unfractionated heparin SQ
[2017-03-28 11:56] VITALS: Ht 162.6 cm; Wt 83.0 kg
[2017-03-28 11:56] LABS: BASO % 0.4 %; BASO ABS # 0.02 K/uL (0-0.2); COMPLETE YES; EOS % 8.4 %; HEMATOCRIT 42.1 % (37-47); IG% 0.2 %; LYMPH % 17.1 %; LYMPH ABS # 0.79 K/uL (1.2-3.4); MEAN CELL VOLUME 91.7 fL (80-100); MEAN CORPUSCULAR HEMOGLOBIN 29.8 pg (25-34); MEAN CORPUSCULAR HGB CONC 32.5 g/dl (32-36); MEAN PLATELET VOLUME 12.9 fL (7.4-10.4); MONO % 12.1 %; NEUT % 61.8 %; PLATELET COUNT 143 K/uL (130-400); RED BLOOD COUNT 4.59 M/uL (4.2-5.4); WHITE BLOOD COUNT 4.63 K/uL (4.8-10.8)
[2017-03-28 12:06] LABS: PROTHROMBIN TIME (PATIENT) 10.7 SECONDS (9.0-12.0)
[2017-03-28 12:07] LABS: URINE APPEARANCE CLOUDY (CLEAR); URINE BILIRUBIN NEG (NEG); URINE COLOR YELLOW; URINE EPITHELIAL CELL AUTO 0-5 /lpf (0-5); URINE NITRITE POS (NEG); URINE PH 5.5 (4.5-7.5); URINE SPECIFIC GRAVITY 1.015 (1.000-1.030); UROBILINOGEN NEG (NEG)
[2017-03-28 12:08] LABS: MANUAL MICROSCOPIC REQUIRED? NO; REVIEW REQ? NO
[2017-03-28 12:14] LABS: BUN/CREATININE RATIO 25.5 (10-20); CALCIUM 9.5 mg/dl (8.5-10.1); CREATININE 1.9 mg/dl (0.60-1.20); MAGNESIUM 2.1 mg/dl (1.8-2.4); POTASSIUM 4.4 mmol/L (3.5-5.1)
[2017-03-28 12:17] LABS: ALB/GLOB RATIO 1.1 (0.9-2)
[2017-03-28 13:35] VITALS: BP 141/65; PULSE 61; TEMP 36.3; O2SAT 95
[2017-03-28] MEDS ORDERED: FEBUXOSTAT 40 MG TAB PO PRN (14:15)
[2017-03-28] MEDS ORDERED: INFLUENZA VACCINE HIGH DOSE 65+ 0.5 ML SYR IM. ONE (14:30)
[2017-03-28] MEDS ORDERED: INFLUENZA ADMINISTRATION CHARGE ONE (14:30)
[2017-03-28 20:00] VITALS: O2SAT 95
[2017-03-28] MEDS: CEFTRIAXONE SOD INJ 1 GM in DEXTROSE 5% ADD-VANTAGE 50ML 50 ML IV SCH (20:27)
[2017-03-28] MEDS: CARVEDILOL 12.5 MG TAB PO SCH (20:28)
[2017-03-28] MEDS: HEPARIN SOD 5000 UNIT/0.5 ML CARP SQ SCH (21:04)
[2017-03-28] MEDS: FLURAZEPAM HCL 15 MG CAP PO SCH (21:37)
[2017-03-28 23:00] VITALS: BP 109/50; PULSE 73; TEMP 36.4; O2SAT 97
[2017-03-29] VITALS: O2SAT 95
[2017-03-29 06:52] LABS: HEMATOCRIT 38.8 % (37-47); MEAN CELL VOLUME 92.4 fL (80-100); MEAN CORPUSCULAR HEMOGLOBIN 29.3 pg (25-34); MEAN CORPUSCULAR HGB CONC 31.7 g/dl (32-36); MEAN PLATELET VOLUME 12.9 fL (7.4-10.4); PLATELET COUNT 123 K/uL (130-400); WHITE BLOOD COUNT 5.19 K/uL (4.8-10.8)
[2017-03-29 06:53] LABS: PLT ESTIMATE DECREASED
[2017-03-29 06:59] LABS: CREATININE 1.89 mg/dl (0.60-1.20); MAGNESIUM 1.9 mg/dl (1.8-2.4); POTASSIUM 4.7 mmol/L (3.5-5.1)
[2017-03-29 08:10] VITALS: BP 102/55; PULSE 60; TEMP 36.7; O2SAT 98
[2017-03-29] MEDS: ASPIRIN 81 MG ECTAB PO SCH (08:24)
[2017-03-29] MEDS: DULOXETINE (CYMBALTA) 30 MG CAP PO SCH (08:24)
[2017-03-29] MEDS: CARVEDILOL 12.5 MG TAB PO SCH ×2 (08:25→20:31)
[2017-03-29] MEDS: INDAPAMIDE 1.25 MG TAB PO SCH (08:25)
[2017-03-29] MEDS: HEPARIN SOD 5000 UNIT/0.5 ML CARP SQ SCH ×2 (08:38→20:41)
--- NOTE | 2017-03-29 12:26 | Clinical Documentation Query ---
CLINICAL DOCUMENTATION QUERY 85 y/o F Hx HTN, gout, anxiety, CKD III - solitary L kidney, lumbar stenosis. Pt was in the ER 2 days prior with c/o weakness. A UA was obtained in addition to blood cultures. In your clinical opinion is this patient being managed for: ( x ) Chronic kidney disease, stage 4 ( ) Not Agree ( ) Other explanation of clinical findings (Please Explain) ( ) Unable to determine (Please Define) ( ) Need to Discuss The medical record reflects the following clinical findings, treatment, and risk factors. Clinical Indicators: GFR's in 23 range x 1 year Treatment: IV hydration, monitor PRP/BMP Risk Factors: Age, hx CKD 4 documented in Problem list, solitary L kidney Chronic Kidney Disease (CKD), stages 1-5. Documenting the stage of CKD will improve data integrity and will help clarify vague terms such as "renal insufficiency" or "chronic renal failure." The stages of CKD according to the [employer] are as follows: Stage I: GFR >90 Stage II: GFR 60-89 Stage III: GFR 30-59 Stage IV: GFR 15-29 Stage V: GFR <15 Please clarify and document your clinical opinion in the progress notes and discharge summary. Terms such as "probable", "suspected", "likely", "questionable", "possible", or "still to be ruled out" are acceptable. IF IN AGREEMENT, YOU MUST DOCUMENT ABOVE DIAGNOSTIC STATEMENT IN DAILY PROGRESS NOTES AND DISCHARGE SUMMARY. This document is not part of the patient's record. Thank You, Jenn Good RN [phone]
--- NOTE | 2017-03-29 13:21 | Hospitalist Progress Note ---
Hospitalist Progress Note Date of Service Mar 29, 2017. (Aurea Pacheco ., CHERRIEC) Subjective Pt evaluation today including: conversation w/ patient, physical exam, lab review, review of studies, review of inpatient medication list Voiding: no voiding problems Patient states she is feeling well. +fever/sweats. Eating and drinking OK. +constipation- no BM since Monday- usually takes MiraLAX at home with resolution. Denies urinary symptoms. Patient denies any chills, sweats, lightheadedness, dizziness, vision changes, CP, palpitations, edema, SOB, wheezing, cough, abdominal pain, nausea, vomiting , diarrhea, urinary symptoms, melena, numbness/tingling, weakness, muscle/joint pain, anxiety/depression, active bleeding, or new skin discoloration/changes. (Aurea Pacheco ., KENNETH-C) Medications Current Inpatient Medications Medications (Trade) Dose Ordered Sig/Jasmina Route Start Time Stop Time Status Last Admin Dose Admin Alprazolam (Xanax Tab) 0.5 mg TID PRN PO 03/28/17 11:45 04/27/17 11:44 03/29/17 00:20 0.5 MG Aspirin (Ecotrin Tab) 81 mg QAM PO 03/29/17 08:00 04/28/17 08:59 03/29/17 08:24 81 MG Carvedilol (Coreg Tab) 12.5 mg BID PO 03/28/17 20:00 04/27/17 20:59 03/29/17 08:25 12.5 MG Duloxetine HCl (Cymbalta Cap) 30 mg QAM PO 03/29/17 08:00 04/28/17 08:59 03/29/17 08:24 30 MG Flurazepam HCl (Dalmane Cap) 30 mg HS PO 03/28/17 22:00 04/27/17 21:59 03/28/17 21:37 30 MG Indapamide (Lozol Tab) 1.25 mg QAM PO 03/29/17 08:00 04/28/17 08:59 03/29/17 08:25 1.25 MG Febuxostat (Uloric) 40 mg DAILY PRN PO 03/28/17 14:15 04/27/17 14:14 Ceftriaxone Sodium 1 gm/ Dextrose 50 ml @ 100 mls/hr Q24H IV 03/28/17 21:00 04/07/17 20:59 03/28/17 20:27 100 MLS/HR Acetaminophen (Tylenol Tab) 650 mg Q4H PRN PO 03/28/17 11:45 04/27/17 11:44 Al Hydrox/Mg Hydrox/Simethicone (Maalox Max Susp) 15 ml Q4H PRN PO 03/28/17 11:45 04/27/17 11:44 Magnesium Hydroxide (Milk Of Magnesia Susp) 30 ml Q6H PRN PO 03/28/17 11:45 04/27/17 11:44 Polyethylene (Miralax Powder Packet) 17 gm DAILY PRN PO 03/28/17 11:45 04/27/17 11:44 03/28/17 16:30 17 GM Ondansetron HCl (Zofran Inj) 4 mg Q6H PRN IV 03/28/17 11:45 04/27/17 11:44 Heparin Sodium (Porcine) (Heparin Sq 5000 Unit/0.5ml) 5,000 unit Q12 SQ 03/28/17 21:00 04/27/17 20:59 03/29/17 08:38 5,000 UNIT Tramadol HCl (Ultram Tab) 50 mg Q4H PRN PO 03/28/17 11:45 04/27/17 11:44 (Aurea Pacheco, CHERRIEC) Objective Vital Signs Date Time Temp Pulse Resp B/P (MAP) Pulse Ox O2 Delivery O2 Flow Rate FiO2 03/29/17 08:10 36.7 60 18 102/55 (71) 98 2.0 03/29/17 08:00 Room Air 03/29/17 00:00 95 Nasal Cannula 2.0 03/28/17 23:00 36.4 73 18 109/50 (69) 97 Nasal Cannula 1.0 03/28/17 20:00 95 Nasal Cannula 2.0 03/28/17 16:00 Room Air 03/28/17 13:35 36.3 61 20 141/65 (90) 95 03/28/17 13:13 64 22 131/72 94 Room Air (Aurea Pacheco PA-C) Physical Exam General Appearance: no apparent distress Eyes: normal inspection, PERRL ENT: hearing grossly normal Neck: supple Respiratory/Chest: lungs clear, no respiratory distress, no accessory muscle use Cardiovascular: regular rate, rhythm Abdomen: normal bowel sounds, non tender, soft Extremities: no pedal edema, no calf tenderness Neurologic/Psychiatric: alert, normal mood/affect, oriented x 3 Skin: normal color, warm/dry, no rash (Aurea Pacheco ., PA-C) Laboratory Results Last 24 Hours Test 03/29/17 06:00 White Blood Count 5.19 K/uL Red Blood Count 4.20 M/uL Hemoglobin 12.3 g/dL Hematocrit 38.8 % Mean Corpuscular Volume 92.4 fL Mean Corpuscular Hemoglobin 29.3 pg Mean Corpuscular Hemoglobin Concent 31.7 g/dl RDW Standard Deviation 43.1 fL RDW Coefficient of Variation 12.8 % Platelet Count 123 K/uL Mean Platelet Volume 12.9 fL Platelet Estimate DECREASED Sodium Level 142 mmol/L Potassium Level 4.7 mmol/L Chloride Level 113 mmol/L Carbon Dioxide Level 25 mmol/L Anion Gap 4.0 mmol/L Blood Urea Nitrogen 45 mg/dl Creatinine 1.89 mg/dl Est Creatinine Clear Calc Drug Dose 23.1 ml/min Estimated GFR () 27.8 Estimated GFR (Non- 23.9 BUN/Creatinine Ratio 24.0 Random Glucose 91 mg/dl Calcium Level 9.0 mg/dl Magnesium Level 1.9 mg/dl (Aurea Pacheco ., PA-C) Assessment and Plan 85 y/o F Hx HTN, gout, anxiety, CKD III - solitary L kidney, lumbar stenosis. Pt was in the ER 2 days prior with c/o weakness. A UA was obtained in addition to blood cultures. She was treated for mild dehydration and discharged. Blood cultures returned as + for G- bacteremia 2 days later. Urine culture returned + for rowland-sensitive Klebsiella. Klebsiella UTI with bacteremia: - Admitted to med/surg - IV Rocephin- started on 03/28 - Treated w/ IV NSS x2 - Repeat BCx pending - Repeat UCx- GNR- final pending CKD stage IV- baseline Cr. 1.80- STABLE, congenital solitary L kidney- follows w / Dr. Sloan: Follow PRP HTN: - Lisinopril 5 mg daily held due to pending BMP result at admission- will continue to hold due to low/normal BPs - Continue Coreg 12.5 mg BID w/ hold parameters, Lozol 1.25 mg daily Anxiety: Xanax 0.5 mg TID PRN, Cymbalta 30 mg daily, Dalmane 30 mg HS Gout: Uloric 40 mg PRN Constipation: MiraLAX daily DVT prophylaxis: Heparin SQ BID Code Status: LEVEL I, FULL Dispo: Hope discharge within the next 1-2 days- CM consulted (Aurea Pacheco, PADarrickC) Reviewed: Pt Seen/Exam by Me (Ashanti Young MD) History Physician Inking Machine Tender Supervision Note: I interviewed and examined the patient. Discussed with KENNETH Pacheco and agree with findings and plan as documented in the note. Any exceptions or clarifications are listed here: Pt says she feels stronger today than yesterday, but RN said pt was very weak with transfer from bed to bedside commode and back again. Had large BM recently so Miralax not given as ordered. Pt adamantly against going to a SNF/Rehab upon discharge. No CP or SOB, no abd pain. Vitals reviewed NAD, obese, lying in bed, pleasant RRR no mgr CTAB no wcr but diminished slightly throughout Abd +BS, soft NT ND Ext trace pitting edema legs to knees bilat SKin no rashes 86 yo female with a h/o CKD stage III and congenital solitary kidney, HTN, gout , anxiety, ambulatory dysfunction, lumbar stenosis, here with Klebsiella UTI and GNR bacteremia. Most likely will be Klebsiella bacteremia as well but awaiting BCxs I&D from to result. Following repeat BCx and Urine cx now with 2 GNRs organisms. -continue Rocephin and will need 14 day course of po abx if sensitivities allow for po abx -Creatinine at baseline, renally dose meds -PT/OT evals, pt adamantly against rehab but may need 24 hr caregiver upon discharge-perhaps her DIL can help Documented By: Ashanti Young (Ashanti Young MD)
[2017-03-29] MEDS: POLYETHYLENE (MIRALAX) 17 GM PACK PO SCH (13:59)
[2017-03-29 15:36] VITALS: BP 114/72; PULSE 59; TEMP 36.3; O2SAT 94
[2017-03-29 15:56] VITALS: O2SAT 94
[2017-03-29] MEDS: CEFTRIAXONE SOD INJ 1 GM in DEXTROSE 5% ADD-VANTAGE 50ML 50 ML IV SCH (20:31)
[2017-03-29] MEDS: FLURAZEPAM HCL 15 MG CAP PO SCH (20:32)
[2017-03-29 20:40] VITALS: PULSE 66
[2017-03-29 22:54] VITALS: BP 114/71; PULSE 62; TEMP 36.8; O2SAT 94
[2017-03-30] VITALS: O2SAT 95
[2017-03-30 07:10] LABS: BUN/CREATININE RATIO 25.1 (10-20); CREATININE 1.63 mg/dl (0.60-1.20); POTASSIUM 4.8 mmol/L (3.5-5.1)
[2017-03-30 07:35] VITALS: BP 145/54; PULSE 61; TEMP 36.6; O2SAT 94
[2017-03-30] MEDS: HEPARIN SOD 5000 UNIT/0.5 ML CARP SQ SCH ×2 (08:45→20:07)
[2017-03-30] MEDS: CARVEDILOL 12.5 MG TAB PO SCH ×2 (08:45→20:03)
[2017-03-30] MEDS: POLYETHYLENE (MIRALAX) 17 GM PACK PO SCH (08:46)
[2017-03-30] MEDS: INDAPAMIDE 1.25 MG TAB PO SCH (08:46)
[2017-03-30] MEDS: ASPIRIN 81 MG ECTAB PO SCH (08:46)
[2017-03-30] MEDS: DULOXETINE (CYMBALTA) 30 MG CAP PO SCH (08:46)
[2017-03-30] MEDS ORDERED: NURSING DECISION MEDICATION ORDER SCH (09:45)
[2017-03-30] MEDS ORDERED: ALBUT/IPRATROP 3MG/0.5MG NEB 3 ML VIAL INH PRN (09:45)
[2017-03-30] MEDS ORDERED: MICONAZOLE NITRATE POWDER 43 GM EXT PRN (10:00)
[2017-03-30 10:08] VITALS: PULSE 64; O2SAT 96
[2017-03-30 10:21] VITALS: PULSE 64; O2SAT 93
--- NOTE | 2017-03-30 10:58 | Hospitalist Progress Note ---
Hospitalist Progress Note Date of Service Mar 30, 2017. (Aurea Pacheco ., PA-C) Subjective Pt evaluation today including: conversation w/ patient, physical exam, lab review, review of studies, review of inpatient medication list Voiding: no voiding problems Patient states she is feeling well. Eating and drinking OK. +BM yesterday. +wheezing and non-productive cough. +weakness, feels as though she is getting stronger. Patient denies any fever, chills, sweats, lightheadedness, dizziness, vision changes, CP, palpitations, edema, SOB, abdominal pain, nausea, vomiting, diarrhea, urinary symptoms, melena, numbness/tingling, muscle/joint pain, anxiety/depression, active bleeding, or new skin discoloration/changes. Per RN, patient is extremely weak. It takes 1-2 max assist to transition patient. (Aurea Pacheco ., PA-C) Medications Current Inpatient Medications Medications (Trade) Dose Ordered Sig/Jasmina Route Start Time Stop Time Status Last Admin Dose Admin Alprazolam (Xanax Tab) 0.5 mg TID PRN PO 03/28/17 11:45 04/27/17 11:44 03/29/17 00:20 0.5 MG Aspirin (Ecotrin Tab) 81 mg QAM PO 03/29/17 08:00 04/28/17 08:59 03/30/17 08:46 81 MG Carvedilol (Coreg Tab) 12.5 mg BID PO 03/28/17 20:00 04/27/17 20:59 03/30/17 08:45 12.5 MG Duloxetine HCl (Cymbalta Cap) 30 mg QAM PO 03/29/17 08:00 04/28/17 08:59 03/30/17 08:46 30 MG Flurazepam HCl (Dalmane Cap) 30 mg HS PO 03/28/17 22:00 04/27/17 21:59 03/29/17 20:32 30 MG Indapamide (Lozol Tab) 1.25 mg QAM PO 03/29/17 08:00 04/28/17 08:59 03/30/17 08:46 1.25 MG Febuxostat (Uloric) 40 mg DAILY PRN PO 03/28/17 14:15 04/27/17 14:14 Ceftriaxone Sodium 1 gm/ Dextrose 50 ml @ 100 mls/hr Q24H IV 03/28/17 21:00 04/07/17 20:59 03/29/17 20:31 100 MLS/HR Acetaminophen (Tylenol Tab) 650 mg Q4H PRN PO 03/28/17 11:45 04/27/17 11:44 Al Hydrox/Mg Hydrox/Simethicone (Maalox Max Susp) 15 ml Q4H PRN PO 03/28/17 11:45 04/27/17 11:44 Magnesium Hydroxide (Milk Of Magnesia Susp) 30 ml Q6H PRN PO 03/28/17 11:45 04/27/17 11:44 Polyethylene (Miralax Powder Packet) 17 gm DAILY PRN PO 03/28/17 11:45 04/27/17 11:44 03/28/17 16:30 17 GM Ondansetron HCl (Zofran Inj) 4 mg Q6H PRN IV 03/28/17 11:45 04/27/17 11:44 Heparin Sodium (Porcine) (Heparin Sq 5000 Unit/0.5ml) 5,000 unit Q12 SQ 03/28/17 21:00 04/27/17 20:59 03/30/17 08:45 5,000 UNIT Tramadol HCl (Ultram Tab) 50 mg Q4H PRN PO 03/28/17 11:45 04/27/17 11:44 Polyethylene (Miralax Powder Packet) 17 gm DAILY PO 03/29/17 14:00 04/28/17 13:59 03/30/17 08:46 17 GM Albuterol/ Ipratropium (Duoneb) 3 ml Q4R PRN INH 03/30/17 09:45 04/29/17 09:44 UNV Miscellaneous Information (Nursing Decision Medication Order) 1 ea UD N/A 03/30/17 09:45 04/29/17 09:44 UNV (Aurea Pacheco PA-C) Objective Vital Signs Date Time Temp Pulse Resp B/P (MAP) Pulse Ox O2 Delivery O2 Flow Rate FiO2 03/30/17 09:00 Room Air 03/30/17 07:35 36.6 61 18 145/54 (84) 94 Room Air 03/30/17 00:00 95 Room Air 03/29/17 22:54 36.8 62 18 114/71 (85) 94 Room Air 03/29/17 20:40 66 03/29/17 15:56 94 Room Air 03/29/17 15:36 36.3 59 18 114/72 (86) 94 Room Air (Aurea Pacheco, KENNETH-C) Physical Exam General Appearance: no apparent distress Eyes: PERRL ENT: hearing grossly normal Neck: supple Respiratory/Chest: no respiratory distress, no accessory muscle use, + wheezing (bilateral anterior/upper lobes expiratory wheeze) Cardiovascular: regular rate, rhythm Abdomen: normal bowel sounds, non tender, soft Extremities: no pedal edema, no calf tenderness Neurologic/Psychiatric: alert, normal mood/affect, oriented x 3 Skin: normal color, warm/dry, no rash (Aurea Pacheco, KENNETH-C) Laboratory Results Last 24 Hours Test 03/30/17 06:26 Sodium Level 142 mmol/L Potassium Level 4.8 mmol/L Chloride Level 112 mmol/L Carbon Dioxide Level 22 mmol/L Anion Gap 8.0 mmol/L Blood Urea Nitrogen 41 mg/dl Creatinine 1.63 mg/dl Est Creatinine Clear Calc Drug Dose 26.8 ml/min Estimated GFR () 33.2 Estimated GFR (Non- 28.6 BUN/Creatinine Ratio 25.1 Random Glucose 89 mg/dl Calcium Level 9.0 mg/dl (Aurea Pacheco ., KENNETH-C) Assessment and Plan 85 y/o F Hx HTN, gout, anxiety, CKD III - solitary L kidney, lumbar stenosis. Pt was in the ER 2 days prior with c/o weakness. A UA was obtained in addition to blood cultures. She was treated for mild dehydration and discharged. Blood cultures returned as + for G- bacteremia 2 days later. Urine culture returned + for rowland-sensitive Klebsiella. Pansensitive Klebsiella UTI w/GNR bacteremia: - Admitted to med/surg - IV Rocephin- started on 03/28 - Treated w/ IV NSS x2 - BCx on 03/26- 12 +GNR, pending final; repeat BCx NGTD - UCx on 03/26- Klebsiella, pansensitive; repeat UCx- Klebsiella, pansensitive Weakness: PT/OT consultation Wheezing, ?secondary to inactivity vs fluid overload vs chronic lung disease: - CXR on 03/28- unremarkable - Incentive spirometer, DuoNeb PRN, and encouraged bedside chair - ECHO in 11/2015- EF= 50%%, diastolic dysfunction - Continue to monitor for fluid overload- no JVD, SOB, edema, hypoxia- if worsens, consider repeat CXR and/or diuretic treatment - Per records, was instructed to have PFTs outpatient at prior admission- no PFTs found on record- recommend f/u outpatient and complete PFTs Right paratracheal soft tissue opacity- STABLE: Studies reviewed back to 2007, unchanged- continue outpatient f/u CKD stage IV- baseline Cr. 1.80- STABLE, congenital solitary L kidney- follows w / Dr. 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, chronic diastolic CHF: - Lisinopril 5 mg daily held due to pending BMP result at admission- BPs stable , continue to hold - Continue Coreg 12.5 mg BID w/ hold parameters, Lozol 1.25 mg daily Anxiety: Xanax 0.5 mg TID PRN, Cymbalta 30 mg daily, Dalmane 30 mg HS Gout: Uloric 40 mg PRN Constipation: MiraLAX daily DVT prophylaxis: Heparin SQ BID Code Status: LEVEL I, FULL Dispo: Pending final BCx results and PT/OT evaluations- ?home w/ HHS vs acute rehab- CM consulted (Aurea Pacheco, DANII) Reviewed: Pt Seen/Exam by Me (Ashanti Young MD) History Physician Gunstock Spray Unit Adjuster Supervision Note: I interviewed and examined the patient. Discussed with KENNETH Pacheco and agree with findings and plan as documented in the note. Any exceptions or clarifications are listed here: Pt feeling well, RN reports pt still very weak, has not yet had PT/OT evals. Pt still adamant against SNF or rehab placement. Pt reports long h/o both secondhand smoke exposure from her father in childhood, as well as thirdhand and some secondhand smoker from her son and DIL. No formal dx ever of asthma or COPD, no h/o allergies. Does note MILLS with getting dressed each AM; has not had formal PFTs as recommended last year after wheezing noted during hospitalization. Feels better now after receiving albuterol here today. Vitals reviewed NAD, obese, sitting in chair, AAOx3 RRR no mgr CTAB no wcr but diminished slightly throughout Abd +BS, soft NT ND Ext no edema SKin no rashes 86 yo female with a h/o CKD stage III and congenital solitary kidney, HTN, gout , anxiety, ambulatory dysfunction, lumbar stenosis, here with Klebsiella UTI and GNR bacteremia. Most likely will be Klebsiella bacteremia as well but awaiting BCxs I&D from to result. Following repeat BCx and Urine cx now with Klebsiella again -continue Rocephin and will need 14 day course of po abx if sensitivities allow for po abx--> most likely will be same Klebsiella as noted on both Ur cxs and could do po Omnicef or Levaquin renally dosed -Creatinine now below baseline, renally dose meds -Ok to restart lisinopril in AM -albuterol prn wheezing, needs PFTs as outpt--> suspect asthma or COPD -Will send home with Ventolin inhaler for prn use -Anxiety-on long acting benzo qhs and xanax prn throughout the day, Cymbalta- continue those and avoid abrupt withdrawal of benzos -PT/OT evals, pt adamantly against rehab but may need 24 hr caregiver upon discharge-perhaps her DIL can help Dispo- to home likely tomorrow Documented By: Ashanti Young (Ashanti Young MD)
--- NOTE | 2017-03-30 12:32 | Clinical Documentation Query ---
CLINICAL DOCUMENTATION QUERY 85 y/o F admitted with blood cultures returned as + for G- bacteremia 2 days later. Urine culture returned + for rowland-sensitive Klebsiella. In your clinical opinion is this patient being managed for: ( X ) Sepsis, in the setting of UTI treated with IV rocephin ( ) Not Agree ( ) Other explanation of clinical findings (Please Explain) ( ) Unable to determine (Please Define) ( ) Need to Discuss The medical record reflects the following clinical findings, treatment, and risk factors. Clinical Indicator: Klebsiella UTI w/bacteremia, weakness Treatment:IV Rocephin, BC, UC Risk Factors: Age, CKD, CHF, solitary kidney, freq UTIs Please clarify and document your clinical opinion in the progress notes and discharge summary. Terms such as "probable", "suspected", "likely", "questionable", "possible", or "still to be ruled out" are acceptable. IF IN AGREEMENT, YOU MUST DOCUMENT ABOVE DIAGNOSTIC STATEMENT IN DAILY PROGRESS NOTES AND DISCHARGE SUMMARY. This document is not part of the patient's record. Thank You, Jenn Good RN [phone]
[2017-03-30 15:53] VITALS: BP 113/64; PULSE 64; TEMP 36.4; O2SAT 93
[2017-03-30 16:00] VITALS: O2SAT 93
[2017-03-30] MEDS: CEFTRIAXONE SOD INJ 1 GM in DEXTROSE 5% ADD-VANTAGE 50ML 50 ML IV SCH (20:04)
[2017-03-30] MEDS: FLURAZEPAM HCL 15 MG CAP PO SCH (21:38)
[2017-03-31] VITALS: O2SAT 95
[2017-03-31 00:12] VITALS: BP 108/63; PULSE 60; TEMP 37.1; O2SAT 94
[2017-03-31 07:44] VITALS: BP 132/76; PULSE 57; TEMP 36.5; O2SAT 94
[2017-03-31 07:46] VITALS: BP 132/76; PULSE 57; TEMP 36.5; O2SAT 94
[2017-03-31 07:54] LABS: BUN/CREATININE RATIO 25.3 (10-20); CALCIUM 9.1 mg/dl (8.5-10.1); CREATININE 1.88 mg/dl (0.60-1.20); POTASSIUM 5.4 mmol/L (3.5-5.1)
[2017-03-31] MEDS: ASPIRIN 81 MG ECTAB PO SCH (07:59)
[2017-03-31] MEDS: DULOXETINE (CYMBALTA) 30 MG CAP PO SCH (07:59)
[2017-03-31] MEDS: CARVEDILOL 12.5 MG TAB PO SCH (07:59)
[2017-03-31] MEDS: POLYETHYLENE (MIRALAX) 17 GM PACK PO SCH (08:00)
[2017-03-31] MEDS: INDAPAMIDE 1.25 MG TAB PO SCH (08:00)
[2017-03-31] MEDS ORDERED: LISINOPRIL 5 MG TAB PO SCH (08:00)
[2017-03-31] MEDS: HEPARIN SOD 5000 UNIT/0.5 ML CARP SQ SCH (08:03)
[2017-03-31 08:13] LABS: HEMATOCRIT 38.9 % (37-47); MEAN CELL VOLUME 91.7 fL (80-100); MEAN CORPUSCULAR HEMOGLOBIN 29.2 pg (25-34); MEAN CORPUSCULAR HGB CONC 31.9 g/dl (32-36); MEAN PLATELET VOLUME 13.2 fL (7.4-10.4); PLATELET COUNT 120 K/uL (130-400); RED BLOOD COUNT 4.24 M/uL (4.2-5.4)
[2017-03-31 08:16] LABS: PLT ESTIMATE DECREASED
[2017-03-31] MEDS ORDERED: CEFD300C2 PO (11:00)
--- NOTE | 2017-03-31 11:03 | Discharge Instructions ---
Discharge Instructions Date of Service Mar 31, 2017. Admission Reason for Admission: Bacteremia, Uti Discharge Discharge Diagnosis / Problem: Bacteremia, UTI Discharge Goals Goal(s): Decrease discomfort, Improve function, Increase independence, Improve disease control, Learn about illness, Diagnostic testing, Therapeutic intervention, Prevent Disease Progression Activity Recommendations Activity Limitations: resume your previous activity Exercise/Sports Limitations: as tolerated Shower/Bathe: no limitations . Instructions / Follow-Up Instructions / Follow-Up Patient to be discharged home with home health Please take antibiotic omnicef twice a day (with meals) for 10 more days Please do not stop taking antibiotic even if feeling better Please resume all other medications as indicated If worsening fever, shortness of breath, chest pain, weakness, urinary symptoms please report to ER Please follow up with Dr Sloan in 1-2 weeks Current Hospital Diet Patient's current hospital diet: Regular Diet Discharge Diet Recommended Diet: Regular Diet Pending Studies Studies pending at discharge: no Medical Emergencies . Who to Call and When: Medical Emergencies: If at any time you feel your situation is an emergency, please call 911 immediately. . Non-Emergent Contact Non-Emergency issues call your: Primary Care Provider Call Non-Emergent contact if: you have a fever, your pain is worsening . . "Provider Documentation" section prepared by Luigi Johns. . VTE Core Measure Inpt VTE Proph given/why not?: Unfractionated heparin SQ
[2017-03-31 11:48] VITALS: BP 132/76; PULSE 57; TEMP 36.5; O2SAT 94
--- NOTE | 2017-03-31 13:09 | Discharge Summary ---
Discharge Summary Date of Service Mar 31, 2017. Discharge Summary Admission Date: Mar 28, 2017 at 11:40 Discharge Date: Mar 31, 2017 Discharge Disposition: Home with services Principal Diagnosis: UTI, bacteremia Immunizations: Have You Had Influenza Vaccine: Yes History of Tetanus Vaccine?: Yes History of Pneumococcal: Yes Pneumococcal Date: Mar 01, 2011 History of Hepatitis B Vaccine: No Medication Reconciliation New Medications: Cefdinir (Omnicef) 300 Mg Cap 1 CAP PO BID for 10 Days, #20 CAP Continued Medications: Alprazolam (Alprazolam) 0.5 Mg Tab 0.5 MG PO TID PRN for Anxiety Aspirin Enteric Coated (Ecotrin Or Generic) 81 Mg Tab 81 MG PO QAM, TAB Carvedilol (Carvedilol) 12.5 Mg Tab 12.5 MG PO BID for 30 Days, #60 TAB Duloxetine HCl (Cymbalta) 30 Mg Cap 30 MG PO QAM, CAP Febuxostat (Uloric) 40 Mg Tab 1 TAB PO DAILY PRN for GOUT for 90 Days, #90 TAB 3 Refills Flurazepam Hcl (Dalmane) 30 Mg Cap 30 MG PO HS, CAP Indapamide (Indapamide) 1.25 Mg Tab 1.25 MG PO QAM Ketoprofen (Ketoprofen) 75 Mg Cap 75 MG PO QAM, CAP Lisinopril (Prinivil) 5 Mg Tab 5 MG PO QAM, TAB Discharge Exam Review of Systems: Constitutional: + weakness, + fatigue, No fever, No chills, No sweats Respiratory: No cough, No sputum, No wheezing, No shortness of breath, No dyspnea on exertion, No dyspnea at rest Cardiovascular: No chest pain, No orthopnea, No PND, No edema, No claudication Abdomen: No pain, No nausea, No vomiting, No diarrhea, No constipation Musculoskeletal: No joint pain, No muscle pain, No swelling, No calf pain Genitourinary - Female: No dysuria, No urinary frequency, No urinary urgency , No urinary incontinence Neurologic: No memory loss, No paralysis, No weakness, No numbness/tingling Psychiatric: No depression symptoms, No anhedonism, No anxiety, No insomnia Endocrine: No fatigue, No excessive thirst Integumentary: No rash, No itch Physical Exam: General Appearance: WD/WN, no apparent distress Eyes: normal inspection, PERRL, EOMI, sclerae normal Neck: supple, no adenopathy, thyroid normal, no JVD Respiratory/Chest: chest non-tender, lungs clear, normal breath sounds, no respiratory distress Cardiovascular: regular rate, rhythm, no edema, no gallop, no JVD Abdomen / GI: normal bowel sounds, non tender, soft, no organomegaly Neurologic/Psychiatric: no motor/sensory deficits, alert, normal mood/affect , oriented x 3 Skin: normal color, warm/dry, no rash Lymphatic: no adenopathy Hospital Course 85 y/o F Hx HTN, gout, anxiety, CKD III - solitary L kidney, lumbar stenosis. Pt was in the ER 2 days prior with c/o weakness. A UA was obtained in addition to blood cultures. She was treated for mild dehydration and discharged. Blood cultures returned as + for G- bacteremia 2 days later. Urine culture returned + for rowland-sensitive Klebsiella. Pansensitive Klebsiella UTI w/GNR bacteremia: - Admitted to med/surg - IV Rocephin- started on 03/28 - Treated w/ IV NSS x2 - BCx on 03/26- 06/13 +GNR, pending final; repeat BCx NGTD - UCx on 03/26- Klebsiella, pansensitive; repeat UCx- Klebsiella, pansensitive - DC on omnicef 300 mg PO x 10 more days for 14 day total course Weakness: PT/OT consultation, rec rehab, pt refuses, dc home with home health Wheezing, ?secondary to inactivity vs fluid overload vs chronic lung disease: - CXR on 03/28- unremarkable - Incentive spirometer, DuoNeb PRN, and encouraged bedside chair - ECHO in 11/2015- EF= 50%%, diastolic dysfunction - Continue to monitor for fluid overload- no JVD, SOB, edema, hypoxia- if worsens, consider repeat CXR and/or diuretic treatment - Per records, was instructed to have PFTs outpatient at prior admission- no PFTs found on record- recommend f/u outpatient and complete PFTs Right paratracheal soft tissue opacity- STABLE: Studies reviewed back to 2007, unchanged- continue outpatient f/u CKD stage IV- baseline Cr. 1.80- STABLE, congenital solitary L kidney- follows w / Dr. 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 Discharge Instructions Please refer to the electronic Patient Visit Report (Discharge Instructions) for additional information. Additional Copies To Soto Sloan M.D.
== END 2017-03-31 13:24 | disposition home health service (06) | DRG 690 ==
LOC: C.EDB 10:59 → C.MS4W 11:40 → ENRESERV 12:33
PROVIDERS: ADMIT Internal Medicine; ATTEND Hospitalist
DX: N39.0 Urinary tract infection, site not specified (principal); Q60.0 Renal agenesis, unilateral; I13.0 Hypertensive heart and chronic kidney disease with heart failure and stage 1 through stage 4 chronic kidney disease, or unspecified chronic kidney disease; N18.4 Chronic kidney disease, stage 4 (severe); R78.81 Bacteremia; I50.32 Chronic diastolic (congestive) heart failure; B96.1 Klebsiella pneumoniae [K. pneumoniae] as the cause of diseases classified elsewhere; M10.9 Gout, unspecified; F41.9 Anxiety disorder, unspecified; K59.00 Constipation, unspecified; Z79.82 Long term (current) use of aspirin; Z79.899 Other long term (current) drug therapy

== ENCOUNTER 2017-07-08 00:15 | Inpatient (IN) | payer OTHER, MEDICARE ==
[~2017-07-08] VITALS: Ht 162.6 cm; Wt 82.0 kg
[2017-07-08 00:31] VITALS: Ht 162.6 cm; Wt 82.0 kg
[2017-07-08] MEDS ORDERED: ONDANSETRON INJ 2 MG/ML 2 ML VIAL IV STA ×2 (00:54→19:08)
[2017-07-08] MEDS ORDERED: SODIUM CHLORIDE 0.9% 500ML 500 ML IV STA (00:54)
[2017-07-08 01:15] LABS: MEAN CORPUSCULAR HGB CONC 32.8 g/dl (32-36)
[2017-07-08 01:22] LABS: HEMATOCRIT 46.1 % (37-47); HEMOGLOBIN 15.1 g/dL (12.0-16.0); MEAN CELL VOLUME 92.4 fL (80-100); MEAN CORPUSCULAR HEMOGLOBIN 30.3 pg (25-34); RED CELL DISTRIBUTION WIDTH CV 13.2 % (11.5-14.5); RED CELL DISTRIBUTION WIDTH SD 44.6 fL (36.4-46.3); WHITE BLOOD COUNT 10.18 K/uL (4.8-10.8)
[2017-07-08 01:32] LABS: ALBUMIN 3.8 gm/dl (3.4-5.0); ALT/SGPT 16 U/L (12-78); AST/SGOT 12 U/L (15-37); BLOOD UREA NITROGEN 43 mg/dl (7-18); CALCIUM 9.1 mg/dl (8.5-10.1); CARBON DIOXIDE 24 mmol/L (21-32); CREATININE 1.82 mg/dl (0.60-1.20); GLUCOSE 136 mg/dl (70-99); LIPASE 1277 U/L (73-393); POTASSIUM 4.5 mmol/L (3.5-5.1); SODIUM 140 mmol/L (136-145)
[2017-07-08 01:35] LABS: EOS ABS # 0.41 K/uL (0-0.5); IG# 0.03 K/uL (0.00-0.02); LYMPH % 2.5 %; LYMPH ABS # 0.25 K/uL (1.2-3.4); MEAN PLATELET VOLUME 12.9 fL (7.4-10.4); MONO % 5.7 %; MONO ABS # 0.58 K/uL (0.11-0.59); NEUT % 87.5 %; NEUT ABS # 8.91 K/uL (1.4-6.5); PLATELET COUNT 143 K/uL (130-400)
[2017-07-08 01:37] LABS: ALKALINE PHOSPHATASE 137 U/L (45-117); CKMB 0.9 ng/ml (0.5-3.6); TOTAL PROTEIN 7.5 gm/dl (6.4-8.2)
[2017-07-08 02:36] LABS: INFLUENZA B ANTIGEN Neg for Influ B (NEG)
[2017-07-08] MEDS ORDERED: SODIUM CHLORIDE 0.9% 1000ML 1,000 ML IV STA (04:41)
[2017-07-08] MEDS ORDERED: FENTANYL CITRATE INJ 50 MCG/1 ML 2 ML VIAL IV STA (04:55)
[2017-07-08] MEDS ORDERED: ALPRAZOLAM 0.5 MG TAB PO PRN (05:00)
[2017-07-08] MEDS ORDERED: POLYETHYLENE (MIRALAX) 17 GM PACK PO PRN (05:00)
[2017-07-08] MEDS ORDERED: FEBUXOSTAT 40 MG TAB PO PRN (05:00)
[2017-07-08] MEDS ORDERED: MoRPHine SULFATE 2 MG/ML CARP IV PRN (05:00)
--- NOTE | 2017-07-08 05:39 | History and Physical ---
History & Physical Date & Time of Service: Jul 08, 2017 at 05:38 Chief Complaint: Nausea/Vomiting/Diarrhea Primary Care Physician: Soto Sloan M.D. History of Present Illness Source: patient, family 86-year-old female with a past medical history of hypertension, cardiomyopathy, gout, solitary left kidney present to the ER with complaints of sudden onset nausea and vomiting which started when she was getting prepared to go to bed. She also complained of several episodes of watery, nonbloody diarrhea associated with vomiting. Denies any abdominal pain, fevers or chills. Denies any exposure to sick contacts, traveling or eating unusual food. Past Medical/Surgical History Medical Problems: (1) Benign essential hypertension Status: Chronic (2) Degenerative joint disease Status: Chronic (3) Gout Status: Chronic (4) Renal insufficiency Status: Chronic (5) solitary left kidney Status: Chronic (6) Spinal stenosis of lumbar region Status: Chronic Family History No significant family history Social History Smoking Status: Never Smoker Smokeless Tobacco Use: No Alcohol Use: none Drug Use: none Marital Status: Housing status: lives alone Occupational Status: retired Immunizations History of Influenza Vaccine: Yes History of Tetanus Vaccine?: Yes History of Pneumococcal: Yes Pneumococcal Date: Mar 01, 2011 History of Hepatitis B Vaccine: No Multi-Drug Resistant Organisms History of MDRO: No Allergies Coded Allergies: Amoxicillin (Verified Allergy, Unknown, RASH AND SWELLING TONGUE, 07/08/17) Levofloxacin (Verified Allergy, Unknown, RASH AND SWELLING TONGUE, 07/08/17 ) Penicillins (Verified Allergy, Unknown, RASH & HIVES, 07/08/17) Sulfamethoxazole w/Trimethoprim (Verified Allergy, Unknown, ?, 07/08/17) Nitrofurantoin (Verified Adverse Reaction, Mild, HEADACHE, 07/08/17) Home Medications Scheduled Aspirin Enteric Coated (Ecotrin Or Generic), 81 MG PO QAM Carvedilol (Carvedilol), 12.5 MG PO BID Duloxetine HCl (Cymbalta), 30 MG PO QAM Flurazepam Hcl (Dalmane), 30 MG PO HS Indapamide (Indapamide), 1.25 MG PO QAM Ketoprofen (Ketoprofen), 75 MG PO QAM Lisinopril (Prinivil), 5 MG PO QAM Scheduled PRN Alprazolam (Alprazolam), 0.5 MG PO TID PRN for Anxiety Febuxostat (Uloric), 1 TAB PO DAILY PRN for GOUT Review of Systems Constitutional: No fever, No chills Eyes: No worsening of vision ENT: No hearing loss Respiratory: No cough Cardiovascular: No chest pain Abdomen: + nausea, + vomiting, + diarrhea Musculoskeletal: No joint pain Genitourinary - Female: No dysuria, No urinary frequency, No urinary urgency Neurologic: No memory loss Psychiatric: No depression symptoms Endocrine: No fatigue Physical Exam Vital Signs Date Time Temp Pulse Resp B/P (MAP) Pulse Ox O2 Delivery O2 Flow Rate FiO2 07/08/17 04:31 154/68 07/08/17 04:30 89 24 94 Room Air 07/08/17 04:00 85 20 163/72 94 Room Air 07/08/17 03:30 89 20 154/68 94 Room Air 07/08/17 03:00 91 20 159/84 94 Room Air 07/08/17 02:43 87 18 159/76 95 Room Air 07/08/17 01:54 85 16 146/63 94 Room Air 07/08/17 00:39 87 07/08/17 00:31 36.9 87 18 156/71 96 Room Air General Appearance: WD/WN, no apparent distress Eyes: normal inspection ENT: normal ENT inspection, hearing grossly normal Neck: supple Respiratory/Chest: chest non-tender, lungs clear, normal breath sounds Cardiovascular: regular rate, rhythm Abdomen/GI: normal bowel sounds, non tender, soft Neurologic/Psych: alert, normal mood/affect, oriented x 3 Skin: normal color Diagnostics Laboratory Results Results Past 24 Hours Test 07/08/17 01:04 07/08/17 01:31 Range/Units White Blood Count 10.18 4.8-10.8 K/uL Red Blood Count 4.99 4.2-5.4 M/uL Hemoglobin 15.1 12.0-16.0 g/dL Hematocrit 46.1 37-47 % Mean Corpuscular Volume 92.4 80-100 fL Mean Corpuscular Hemoglobin 30.3 25-34 pg Mean Corpuscular Hemoglobin Concent 32.8 32-36 g/dl Platelet Count 143 130-400 K/uL Mean Platelet Volume 12.9 7.4-10.4 fL Neutrophils (%) (Auto) 87.5 % Lymphocytes (%) (Auto) 2.5 % Monocytes (%) (Auto) 5.7 % Eosinophils (%) (Auto) 4.0 % Basophils (%) (Auto) 0.0 % Neutrophils # (Auto) 8.91 1.4-6.5 K/uL Lymphocytes # (Auto) 0.25 1.2-3.4 K/uL Monocytes # (Auto) 0.58 0.11-0.59 K/uL Eosinophils # (Auto) 0.41 0-0.5 K/uL Basophils # (Auto) 0.00 0-0.2 K/uL RDW Standard Deviation 44.6 36.4-46.3 fL RDW Coefficient of Variation 13.2 11.5-14.5 % Immature Granulocyte % (Auto) 0.3 % Immature Granulocyte # (Auto) 0.03 0.00-0.02 K/uL Platelet Estimate NORMAL Sodium Level 140 136-145 mmol/L Potassium Level 4.5 3.5-5.1 mmol/L Chloride Level 109 98-107 mmol/L Carbon Dioxide Level 24 21-32 mmol/L Anion Gap 7.0 3-11 mmol/L Blood Urea Nitrogen 43 7-18 mg/dl Creatinine 1.82 0.60-1.20 mg/dl Est Creatinine Clear Calc Drug Dose 23.8 ml/min Estimated GFR () 29.0 Estimated GFR (Non- 25.1 BUN/Creatinine Ratio 23.7 10-20 Random Glucose 136 70-99 mg/dl Calcium Level 9.1 8.5-10.1 mg/dl Total Bilirubin 0.4 0.2-1 mg/dl Direct Bilirubin < 0.1 0-0.2 mg/dl Aspartate Amino Transf (AST/SGOT) 12 15-37 U/L Alanine Aminotransferase (ALT/SGPT) 16 12-78 U/L Alkaline Phosphatase 137 45-117 U/L Total Creatine Kinase 40 26-192 U/L Creatine Kinase MB 0.9 0.5-3.6 ng/ml Creatine Kinase MB Ratio 2.3 0-3.0 Troponin I < 0.015 0-0.045 ng/ml Total Protein 7.5 6.4-8.2 gm/dl Albumin 3.8 3.4-5.0 gm/dl Lipase 1277 73-393 U/L Influenza Type A Antigen Neg for Influ A NEG Influenza Type B Antigen Neg for Influ B NEG Impression Assessment and Plan 86-year-old female with a past medical history of hypertension, cardiomyopathy , gout, solitary left kidney present to the ER with complaints of sudden onset nausea and vomiting and diarrhea which started when she was getting prepared to go to bed. She did not have any associated abdominal pain. Partial small bowel obstruction versus nonspecific enteritis - CT abdomen and pelvis suggestive of mildly dilated loops of small bowel with gradual decrease in bowel caliber distally suggesting nonspecific enteritis versus low-grade partial small bowel obstruction - Nasogastric tube to suction - Stool cultures currently pending - Lipase elevated at 1277, trend lipases - Nothing by mouth - IV fluids - Morphine as needed for pain, Zofran for nausea Hypertension: - Continue lisinopril 5 mg Cardiomyopathy: - Continue Coreg 12.5 mg twice a day - Continue aspirin Gout - Continue febuxostat Anxiety: -Continue Xanax and Cymbalta Left solitary kidney with elevated creatinine: Stable Creatinine at baseline DVT prophylaxis: Heparin subcutaneous DO NOT RESUSCITATE Disposition: Admitted to [facility] Attending addendum: I have physically seen this patient, have supervised the medical residents activities, and agree with the H&P unless as otherwise noted. Assessment and Plan: Partial small bowel obstruction/nonspecific enteritis-- NG tube to low intermittent suction Follow stool culture and C. difficile testing IV fluid Serial CBC with differential, chemistry profile and magnesium levels May have a mild element of pancreatitis not seen on CT, follow serial lipase levels Hypertension/cardiomyopathy-- Hold lisinopril and aspirin Continue carvedilol 12.5 mg twice a day with hold parameters Level of Care Med/Surg Resuscitation Status DO NOT RESUSCITATE VTE Prophylaxis VTE Risk Assessment Done? Y/N: Yes Risk Level: Moderate Resident Tracking Resident Involvement: Resident Care Provided Care Provided: Adult Hospital Medicine
[2017-07-08] MEDS: SODIUM CHLORIDE 0.9% 1000ML 1,000 ML IV SCH ×2 (07:18→18:29)
[2017-07-08] MEDS: ONDANSETRON INJ 2 MG/ML 2 ML VIAL IV PRN ×3 (07:18→19:09)
[2017-07-08 07:22] VITALS: BP 130/67; PULSE 95; TEMP 36.7; O2SAT 94
[2017-07-08] MEDS: CARVEDILOL 12.5 MG TAB PO SCH ×2 (08:00→20:35)
[2017-07-08] MEDS: INDAPAMIDE 1.25 MG TAB PO SCH (08:00)
[2017-07-08] MEDS: DULOXETINE (CYMBALTA) 30 MG CAP PO SCH (08:00)
[2017-07-08] MEDS: ASPIRIN 81 MG ECTAB PO SCH (08:00)
[2017-07-08] MEDS: LISINOPRIL 5 MG TAB PO SCH (08:00)
--- NOTE | 2017-07-08 08:45 | DIAGNOSTIC IMAGING REPORT ---
CHEST ONE VIEW PORTABLE CLINICAL HISTORY: Shortness of breath COMPARISON STUDY: Chest radiograph March 28, 2017. FINDINGS: Left basilar opacity is unchanged and represents epicardial fat pad. Cardiomediastinal silhouette is stable. There is no evidence for pulmonary edema. No pneumothorax or pleural effusion is noted. Upper mediastinal widening is unchanged. IMPRESSION: No acute cardiopulmonary findings. No change in appearance of the chest. Electronically signed by: Ender Coulter M.D. 07/08/2017 8:43 AM Dictated Date/Time: 07/08/2017 8:42 AM
[2017-07-08] MEDS: HEPARIN SOD 5000 UNIT/0.5 ML CARP SQ SCH ×3 (09:01→20:44)
--- NOTE | 2017-07-08 09:11 | DIAGNOSTIC IMAGING REPORT ---
CT OF THE ABDOMEN AND PELVIS WITHOUT CONTRAST CLINICAL HISTORY: Abdominal pain, nausea and vomiting. Evaluate for pancreatitis COMPARISON STUDY: CT of the pelvis April 07, 2016. TECHNIQUE: Axial images of the abdomen and pelvis were obtained without IV contrast. Images were reviewed in the axial, sagittal, and coronal planes. A dose lowering technique was utilized adhering to the principles of ALARA. FINDINGS: No pneumatosis, free air or portal venous gas is present. A small hiatal hernia is present. Evaluation of the abdomen and pelvis is suboptimal on this unenhanced examination. The right kidney is not visualized. Linear material within the right nephrectomy bed is unchanged and CT of March 26, 2017. Several water attenuation left renal lesions are suboptimally assessed on this unenhanced exam but favor cysts. There are postoperative finding within the spine. No abdominal or pelvic lymphadenopathy is present. Unenhanced images of the liver, right adrenal gland and pancreas are unremarkable. Mild left adrenal gland nodularity is unchanged since prior CT of March 26, 2017. The proximal to mid small bowel is mildly dilated and fluid-filled. There is no transition point. There is relative decrease in caliber of the distal small bowel. The appendix is normal. Portions of the colon are also fluid-filled. No suspicious osseous lesions are present. IMPRESSION: 1. Mildly dilated fluid-filled proximal to mid small bowel with relative decrease in caliber of the distal small bowel without discrete transition point. The findings favor an enteritis or ileus. A low-grade partial small bowel obstruction could appear similar. Normal appendix. 2. Several water attenuation left renal lesions which are suboptimally assessed on this unenhanced exam but favor cysts. Electronically signed by: Ender Coulter M.D. 07/08/2017 9:10 AM Dictated Date/Time: 07/08/2017 9:04 AM
[2017-07-08 10:08] LABS: ALBUMIN 3.3 gm/dl (3.4-5.0); CALCIUM 8.8 mg/dl (8.5-10.1); CREATININE 1.58 mg/dl (0.60-1.20); TOTAL PROTEIN 6.6 gm/dl (6.4-8.2)
[2017-07-08] MEDS: ACETAMINOPHEN IV 100 ML IV PRN ×2 (10:09→19:41)
[2017-07-08 11:10] LABS: POTASSIUM 4.7 mmol/L (3.5-5.1)
[2017-07-08] MEDS ORDERED: NURSING VERBAL MED ORDER ONE ×2 (13:30→19:15)
[2017-07-08] MEDS: LIDODERM (LIDOCAINE) PATCH 5% TD SCH (15:07)
--- NOTE | 2017-07-08 15:19 | DIAGNOSTIC IMAGING REPORT ---
KUB HISTORY: Verify NGT placement COMPARISON: Abdomen and pelvis CT 07/08/2017. FINDINGS: Nasogastric tube is seen within the distal esophagus. This should be advanced by at least 15 cm. Mildly dilated small bowel loops are again noted. There is gas seen within the colon. Lumbar spinal fusion hardware is again noted. No renal calculi. No ureteral calculi. No pneumoperitoneum or pneumatosis. IMPRESSION: The nasogastric tube terminates in the distal esophagus. This should be advanced by at least 15 cm. Electronically signed by: Kali Levine M.D. 07/08/2017 3:18 PM Dictated Date/Time: 07/08/2017 3:17 PM
--- NOTE | 2017-07-08 18:21 | Family Medicine Progress Note ---
Progress Note Date of Service Jul 08, 2017. Subjective Pt evaluation today including: conversation w/ patient, conversation w/ family , physical exam, chart review, lab review Patient describes diffused abdominal tenderness and nausea. She denies vomiting since last evening. She has a NG tube in place. Pt reports in the past having open cholecystectomy and nephrectomy. Patient describes having intermittent diarrhea in the days prior to acute onset of N/V. Otherwise, the patient reports normal bowel habits at baseline, one movement every other day. During the family meeting, the pt family reports that the patient nutrition and bowel habits are less than ideal. Constitutional: No fever, No chills Respiratory: No cough, No sputum, No wheezing Cardiovascular: No chest pain, No orthopnea Abdomen: + pain, + nausea, No vomiting, No diarrhea Female : No dysuria Medications Current Inpatient Medications Medications (Trade) Dose Ordered Sig/Jasmina Route Start Time Stop Time Status Last Admin Dose Admin Acetaminophen (Tylenol Tab) 650 mg Q4H PRN PO 07/08/17 05:00 08/07/17 04:59 Polyethylene (Miralax Powder Packet) 17 gm DAILY PRN PO 07/08/17 05:00 08/07/17 04:59 Ondansetron HCl (Zofran Inj) 4 mg Q6H PRN IV 07/08/17 05:00 08/07/17 04:59 07/08/17 15:49 4 MG Alprazolam (Xanax Tab) 0.5 mg TID PRN PO 07/08/17 05:00 08/07/17 04:59 Aspirin (Ecotrin Tab) 81 mg QAM PO 07/08/17 08:00 08/07/17 08:59 Carvedilol (Coreg Tab) 12.5 mg BID PO 07/08/17 08:00 08/07/17 08:59 Duloxetine HCl (Cymbalta Cap) 30 mg QAM PO 07/08/17 08:00 08/07/17 08:59 Flurazepam HCl (Dalmane Cap) 30 mg HS PO 07/08/17 21:00 08/07/17 20:59 Indapamide (Lozol Tab) 1.25 mg QAM PO 07/08/17 08:00 08/07/17 08:59 Lisinopril (Zestril Tab) 5 mg QAM PO 07/08/17 08:00 08/07/17 08:59 Febuxostat (Uloric) 40 mg DAILY PRN PO 07/08/17 05:00 08/07/17 04:59 Sodium Chloride 1,000 ml @ 80 mls/hr [id number] IV 07/08/17 07:00 08/07/17 06:59 07/08/17 07:18 80 MLS/HR Morphine Sulfate (MoRPHine SULFATE INJ) 2 mg Q4H PRN IV 07/08/17 05:00 07/22/17 04:59 07/08/17 15:16 2 MG Heparin Sodium (Porcine) (Heparin Sq 5000 Unit/0.5ml) 5,000 unit Q8 SQ 07/08/17 08:00 08/07/17 07:59 07/08/17 15:10 5,000 UNIT Acetaminophen 100 ml @ 400 mls/hr Q8H PRN IV 07/08/17 09:30 08/07/17 09:29 07/08/17 10:09 400 MLS/HR Lidocaine (Lidoderm Patch 5%) 1 patch DAILY@09 TD 07/08/17 14:00 08/07/17 13:59 07/08/17 15:07 1 PATCH Miscellaneous (Remove Lidoderm Patch) 1 ea HS N/A 07/08/17 22:00 08/07/17 21:59 Objective Vital Signs Date Time Temp Pulse Resp B/P (MAP) Pulse Ox O2 Delivery O2 Flow Rate FiO2 07/08/17 08:00 Room Air 07/08/17 07:22 36.7 95 18 130/67 (88) 94 07/08/17 05:36 86 25 96 07/08/17 05:30 163/68 07/08/17 05:06 89 34 94 07/08/17 05:01 166/86 07/08/17 04:36 87 13 93 07/08/17 04:31 154/68 07/08/17 04:30 89 24 94 Room Air 07/08/17 04:00 85 20 163/72 94 Room Air 07/08/17 03:30 89 20 154/68 94 Room Air 07/08/17 03:00 91 20 159/84 94 Room Air 07/08/17 02:43 87 18 159/76 95 Room Air 07/08/17 01:54 85 16 146/63 94 Room Air 07/08/17 00:39 87 07/08/17 00:31 36.9 87 18 156/71 96 Room Air Physical Exam General Appearance: WD/WN, no apparent distress Respiratory/Chest: chest non-tender, lungs clear, normal breath sounds Cardiovascular: regular rate, rhythm, no murmur Abdomen: non tender, soft, + abnormal bowel sounds (hyperactive), + distended Neurologic/Psychiatric: alert, normal mood/affect, oriented x 3 Skin: normal color, warm/dry, no rash Laboratory Results 07/08/17 01:04 Red Blood Count 4.99, Mean Corpuscular Volume 92.4, Mean Corpuscular Hemoglobin 30.3, Mean Corpuscular Hemoglobin Concent 32.8, Mean Platelet Volume 12.9, Neutrophils (%) (Auto) 87.5, Lymphocytes (%) (Auto) 2.5, Monocytes (%) (Auto) 5.7, Eosinophils (%) (Auto) 4.0, Basophils (%) (Auto) 0.0, Neutrophils # (Auto) 8.91, Lymphocytes # (Auto) 0.25, Monocytes # (Auto) 0.58, Eosinophils # (Auto) 0.41, Basophils # (Auto) 0.00 07/08/17 09:21 07/08/17 10:22 Test 07/08/17 00:00 07/08/17 01:04 07/08/17 01:31 07/08/17 07:07 Urine Color YELLOW Urine Appearance CLOUDY (CLEAR) Urine pH 5.0 (4.5-7.5) Urine Specific [place] 1.014 (1.000-1.030) Urine Protein TRACE (NEG) Urine Glucose (UA) NEG (NEG) Urine Ketones NEG (NEG) Urine Occult Blood NEG (NEG) Urine Nitrite POS (NEG) Urine Bilirubin NEG (NEG) Urine Urobilinogen NEG (NEG) Urine Leukocyte Esterase SMALL (NEG) Urine WBC (Auto) 10-30 /hpf (0-5) Urine RBC (Auto) 0-4 /hpf (0-4) Urine Hyaline Casts (Auto) 5-10 /lpf (0-5) Urine Epithelial Cells (Auto) >30 /lpf (0-5) Urine Bacteria (Auto) 2+ (NEG) Urine Renal Epithelial Cells /lpf (0-5) White Blood Count 10.18 K/uL (4.8-10.8) Red Blood Count 4.99 M/uL (4.2-5.4) Hemoglobin 15.1 g/dL (12.0-16.0) Hematocrit 46.1 % (37-47) Mean Corpuscular Volume 92.4 fL (80-100) Mean Corpuscular Hemoglobin 30.3 pg (25-34) Mean Corpuscular Hemoglobin Concent 32.8 g/dl (32-36) Platelet Count 143 K/uL (130-400) Mean Platelet Volume 12.9 fL (7.4-10.4) Neutrophils (%) (Auto) 87.5 % Lymphocytes (%) (Auto) 2.5 % Monocytes (%) (Auto) 5.7 % Eosinophils (%) (Auto) 4.0 % Basophils (%) (Auto) 0.0 % Neutrophils # (Auto) 8.91 K/uL (1.4-6.5) Lymphocytes # (Auto) 0.25 K/uL (1.2-3.4) Monocytes # (Auto) 0.58 K/uL (0.11-0.59) Eosinophils # (Auto) 0.41 K/uL (0-0.5) Basophils # (Auto) 0.00 K/uL (0-0.2) RDW Standard Deviation 44.6 fL (36.4-46.3) RDW Coefficient of Variation 13.2 % (11.5-14.5) Immature Granulocyte % (Auto) 0.3 % Immature Granulocyte # (Auto) 0.03 K/uL (0.00-0.02) Platelet Estimate NORMAL Direct Bilirubin < 0.1 mg/dl (0-0.2) Total Creatine Kinase 40 U/L (26-192) Creatine Kinase MB 0.9 ng/ml (0.5-3.6) Creatine Kinase MB Ratio 2.3 (0-3.0) Troponin I < 0.015 ng/ml (0-0.045) Influenza Type A Antigen Neg for Influ A (NEG) Influenza Type B Antigen Neg for Influ B (NEG) Prothrombin Time 10.1 SECONDS (9.0-12.0) Prothromb Time International Ratio 1.0 (0.9-1.1) Test 07/08/17 09:21 07/08/17 10:22 Anion Gap 7.0 mmol/L (3-11) Est Creatinine Clear Calc Drug Dose 27.5 ml/min Estimated GFR () 34.5 Estimated GFR (Non- 29.7 BUN/Creatinine Ratio 24.6 (10-20) Calcium Level 8.8 mg/dl (8.5-10.1) Total Bilirubin 0.6 mg/dl (0.2-1) Alanine Aminotransferase (ALT/SGPT) 14 U/L (12-78) Alkaline Phosphatase 111 U/L (45-117) Total Protein 6.6 gm/dl (6.4-8.2) Albumin 3.3 gm/dl (3.4-5.0) Globulin 3.3 gm/dl (2.5-4.0) Albumin/Globulin Ratio 1.0 (0.9-2) Lipase 259 U/L (73-393) Aspartate Amino Transf (AST/SGOT) 11 U/L (15-37) Assessment and Plan 86-year-old female with a past medical history of hypertension, cardiomyopathy , gout, solitary left kidney present to the ER with complaints of sudden onset nausea and vomiting and diarrhea which started when she was getting prepared to go to bed. She did not have any associated abdominal pain. 07/08-- Pt did not have any episodes of emesis throughout the day. Pt is being treated for SBO with bowel rest, IVF. While reassessing the patient in the evening, the patients sx are improving and it was decided to remove the NG tube. Patients symptoms have subsided throughout the day; decreased ab tenderness, less nausea once the NG tube was withdrawn. Decided to advance diet to clear liquids tonight. Will continue to advance as tolerated and access tomorrow. Patient can continue PO medications. Partial small bowel obstruction versus nonspecific enteritis - CT abdomen and pelvis suggestive of mildly dilated loops of small bowel with gradual decrease in bowel caliber distally suggesting nonspecific enteritis versus low-grade partial small bowel obstruction - Nasogastric tube dc'ed. - Stool cultures currently pending - Lipase elevated at 1277. Second lipase decreased to 259, likely 2/2 to acute vomiting - Advancing diet to clear liquids - IV fluids - Zofran for nausea Hypertension: - Continue lisinopril 5 mg Cardiomyopathy: - Continue Coreg 12.5 mg twice a day - Continue aspirin Gout - Continue febuxostat Anxiety: -Continue Xanax and Cymbalta Left solitary kidney with elevated creatinine: Stable Creatinine 1.58 DVT prophylaxis: Heparin subcutaneous DO NOT RESUSCITATE Resident Physician Supervision Note: I interviewed and examined the patient. Discussed with Dr. Braxton and agree with findings and plan as documented in the note. Any exceptions or clarifications are listed here: None Documented By: Roe Buchanan NGT out and actually feeling better abd softer nontender vitals noted nad SBO vs less likely infectious enteritis (progression of sx fitting better w SBO) -likely adhesional -getting better -clear liquids
[2017-07-08 18:35] VITALS: BP 156/67; PULSE 102; TEMP 37.2; O2SAT 90
--- NOTE | 2017-07-08 19:18 | Progress Note ---
Progress Note Date of Service Jul 08, 2017. Progress Note Called by nursing to assess the patient. Nurse reported episode of emesis while lying. On arrival patient was actively vomiting. She reported becoming nauseous following advancing diet this evening to clears. Patient had bilateral wheezes on exam and sats were at 90%. Ordered KUB and portable CXR. Pt given 4mg of IV Zofran. Ordered NPO.
[2017-07-08 19:26] VITALS: BP 151/68; PULSE 91; TEMP 39.3; O2SAT 91
--- NOTE | 2017-07-08 19:50 | DIAGNOSTIC IMAGING REPORT ---
CHEST ONE VIEW PORTABLE HISTORY: dyspnea, possible aspiration COMPARISON: Chest 07/08/2017. FINDINGS: There are low lung volumes. The heart is stable in size. Mild diffuse interstitial thickening, unchanged. No pneumothorax. Stable left basilar density. This is consistent with epicardial fat. No pleural effusions. No new focal lung consolidations to suggest pneumonia. IMPRESSION: Low lung volumes. Otherwise, no change compared to the prior study. No acute process within the chest. Electronically signed by: Kali Levine M.D. 07/08/2017 7:48 PM Dictated Date/Time: 07/08/2017 7:47 PM
--- NOTE | 2017-07-08 19:53 | DIAGNOSTIC IMAGING REPORT ---
KUB HISTORY: Small bowel obstruction. COMPARISON: KUB 07/08/2017. FINDINGS: A few borderline gas-filled loops of small bowel are again seen throughout the abdomen. There is gas within the colon. Lumbar spinal fusion hardware is noted. No renal or ureteral calculi. There are surgical clips seen within the left side the abdomen. No definite pneumoperitoneum. No pneumatosis. IMPRESSION: No change in the borderline dilated gas-filled loops of small bowel. This could represent an ileus versus a low-grade partial small bowel obstruction. Electronically signed by: Kali Levine M.D. 07/08/2017 7:52 PM Dictated Date/Time: 07/08/2017 7:50 PM
[2017-07-08 20:00] VITALS: PULSE 82
[2017-07-08] MEDS: ALBUT/IPRATROP 3MG/0.5MG NEB 3 ML VIAL INH SCH (20:00)
[2017-07-08] MEDS: FLURAZEPAM HCL 15 MG CAP PO SCH (20:41)
[2017-07-08 21:31] VITALS: TEMP 37.1
[2017-07-08] MEDS: CLINDAMYCIN IV 600 MG in DEXTROSE 5% 50ML 50 ML IV SCH (22:20)
--- NOTE | 2017-07-08 22:38 | EMERGENCY ROOM VISIT NOTE ---
History Report prepared by Leyla: Madiha Hines Under the Supervision of: Dr. Aparna Castillo D.O. First contact with patient: 00:19 Chief Complaint: ILLNESS Stated Complaint: NAUSEA/VOMITING/DIARRHEA History of Present Illness The patient is an 86 year old female who presents to the Emergency Room with complaints of sudden illness starting five hours ago. The patient states that she felt fine all day and was getting ready for bed when all of a sudden she felt nauseous. She reports that when she laid down, she started vomiting. The patient states that soon after diarrhea started and she would have a bowel movement each time she vomited. She reports that after 3 hours she called 911 because she couldn't take it anymore. The patient complains of nausea, headache , shortness of breath, and abdominal pain from vomiting. She notes that she ate a cup of mixed fruit and a glass of iced tea for dinner which is normal for her. Source of History: patient Onset: five hours ago Position: other (global) Quality: other (global) Timing: other (sudden) Associated Symptoms: + headache, + nausea, + vomiting, + abdominal pain, + diarrhea Review of Systems See HPI for pertinent positives & negatives. A total of 10 systems reviewed and were otherwise negative. 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 Surgical Problems: (1) History of bilateral knee replacement Family History No significant family history Social History Smoking Status: Never Smoker Drug Use: none Marital Status: Housing Status: lives alone Occupation Status: retired Current/Historical Medications Scheduled Aspirin Enteric Coated (Ecotrin Or Generic), 81 MG PO QAM Carvedilol (Carvedilol), 12.5 MG PO BID Duloxetine HCl (Cymbalta), 30 MG PO QAM Flurazepam Hcl (Dalmane), 30 MG PO HS Indapamide (Indapamide), 1.25 MG PO QAM Ketoprofen (Ketoprofen), 75 MG PO QAM Lisinopril (Prinivil), 5 MG PO QAM Scheduled PRN Alprazolam (Alprazolam), 0.5 MG PO TID PRN for Anxiety Febuxostat (Uloric), 1 TAB PO DAILY PRN for GOUT Allergies Coded Allergies: Amoxicillin (Verified Allergy, Unknown, RASH AND SWELLING TONGUE, 07/08/17) Levofloxacin (Verified Allergy, Unknown, RASH AND SWELLING TONGUE, 07/08/17 ) Penicillins (Verified Allergy, Unknown, RASH & HIVES, 07/08/17) Sulfamethoxazole w/Trimethoprim (Verified Allergy, Unknown, ?, 07/08/17) Nitrofurantoin (Verified Adverse Reaction, Mild, HEADACHE, 07/08/17) Physical Exam Vital Signs Date Time Temp Pulse Resp B/P (MAP) Pulse Ox O2 Delivery O2 Flow Rate FiO2 07/08/17 04:36 87 13 93 07/08/17 04:31 154/68 07/08/17 04:30 89 24 94 Room Air 07/08/17 04:00 85 20 163/72 94 Room Air 07/08/17 03:30 89 20 154/68 94 Room Air 07/08/17 03:00 91 20 159/84 94 Room Air 07/08/17 02:43 87 18 159/76 95 Room Air 07/08/17 01:54 85 16 146/63 94 Room Air 07/08/17 00:39 87 07/08/17 00:31 36.9 87 18 156/71 96 Room Air Physical Exam General: Tachypneic, pale. HEENT: Head - normocephalic and atraumatic Pupils are equal, round, and reactive to light. Extraocular eye muscles are intact, and sclera are anicteric. Nose - moist nasal mucosa without discharge. Mouth - moist buccal mucosa. Oropharynx is nonerythematous and there is no tonsillar exudate or edema noted. Neck: Supple; no JVD, nuchal rigidity, cervical lymphadenopathy, or auscultated bruits. Heart: Regular rate and rhythm. There is a normal S1 and S2 with no murmurs, clicks, or gallops appreciated. Lungs: Clear to auscultation bilaterally with no wheezes, rales, or rhonchi. Abdomen: Soft, completely nontender, nondistended, with good bowel sounds. There are no palpable pulsatile masses or hepatosplenomegaly. There is no guarding, rigidity, or rebound noted. Extremities: No evidence of cyanosis, clubbing, or edema. There are easily palpable peripheral pulses. Skin: Pale warm and dry with good turgor and no rashes. Medical Decision & Procedures ER Provider Diagnostic Interpretation: Radiology results as stated below per my review and the radiologist's interpretation: CHEST X-RAY: The results were interpreted by me. Cardiomegaly. No free air under the diaphragm. Possible lower left lobe infiltrate. CT ABDOMEN & PELVIS Without Contrast: Clear lung bases. Small sliding-type hiatal hernia. Gallbladder is not visualized and may be surgically absent. The liver, spleen, pancreas, and adrenal glands are unremarkable. Left kidney cysts. No hydronephrosis. Absent right kidney. Normal appendix. Fluid-filled, mildly dilated loops of small bowel with gradual decrease in bowel caliber distally suggesting nonspecific enteritis versus low- grade partial small bowel obstruction. No free fluid or free air. Status post hysterectomy. Urinary bladder is unremarkable. Levoconvex curvature of the lumbar spine. Previous posterior decompression and fusion from L3-L5. Multilevel degenerative disc disease. No acute osseous findings. Radiologist: Agusto Valenzuela MD Study ready at 02:32 and initial results transmitted at 03:07. Laboratory Results 07/08/17 01:04 Red Blood Count 4.99, Mean Corpuscular Volume 92.4, Mean Corpuscular Hemoglobin 30.3, Mean Corpuscular Hemoglobin Concent 32.8, Mean Platelet Volume 12.9, Neutrophils (%) (Auto) 87.5, Lymphocytes (%) (Auto) 2.5, Monocytes (%) (Auto) 5.7, Eosinophils (%) (Auto) 4.0, Basophils (%) (Auto) 0.0, Neutrophils # (Auto) 8.91, Lymphocytes # (Auto) 0.25, Monocytes # (Auto) 0.58, Eosinophils # (Auto) 0.41, Basophils # (Auto) 0.00 Test 07/08/17 00:00 07/08/17 01:04 07/08/17 01:31 Urine Color YELLOW Urine Appearance CLOUDY (CLEAR) Urine pH 5.0 (4.5-7.5) Urine Specific [place] 1.014 (1.000-1.030) Urine Protein TRACE (NEG) Urine Glucose (UA) NEG (NEG) Urine Ketones NEG (NEG) Urine Occult Blood NEG (NEG) Urine Nitrite POS (NEG) Urine Bilirubin NEG (NEG) Urine Urobilinogen NEG (NEG) Urine Leukocyte Esterase SMALL (NEG) Urine WBC (Auto) 10-30 /hpf (0-5) Urine RBC (Auto) 0-4 /hpf (0-4) Urine Hyaline Casts (Auto) 5-10 /lpf (0-5) Urine Epithelial Cells (Auto) >30 /lpf (0-5) Urine Bacteria (Auto) 2+ (NEG) Urine Renal Epithelial Cells /lpf (0-5) White Blood Count 10.18 K/uL (4.8-10.8) Red Blood Count 4.99 M/uL (4.2-5.4) Hemoglobin 15.1 g/dL (12.0-16.0) Hematocrit 46.1 % (37-47) Mean Corpuscular Volume 92.4 fL (80-100) Mean Corpuscular Hemoglobin 30.3 pg (25-34) Mean Corpuscular Hemoglobin Concent 32.8 g/dl (32-36) Platelet Count 143 K/uL (130-400) Mean Platelet Volume 12.9 fL (7.4-10.4) Neutrophils (%) (Auto) 87.5 % Lymphocytes (%) (Auto) 2.5 % Monocytes (%) (Auto) 5.7 % Eosinophils (%) (Auto) 4.0 % Basophils (%) (Auto) 0.0 % Neutrophils # (Auto) 8.91 K/uL (1.4-6.5) Lymphocytes # (Auto) 0.25 K/uL (1.2-3.4) Monocytes # (Auto) 0.58 K/uL (0.11-0.59) Eosinophils # (Auto) 0.41 K/uL (0-0.5) Basophils # (Auto) 0.00 K/uL (0-0.2) RDW Standard Deviation 44.6 fL (36.4-46.3) RDW Coefficient of Variation 13.2 % (11.5-14.5) Immature Granulocyte % (Auto) 0.3 % Immature Granulocyte # (Auto) 0.03 K/uL (0.00-0.02) Platelet Estimate NORMAL Direct Bilirubin < 0.1 mg/dl (0-0.2) Total Creatine Kinase 40 U/L (26-192) Creatine Kinase MB 0.9 ng/ml (0.5-3.6) Creatine Kinase MB Ratio 2.3 (0-3.0) Troponin I < 0.015 ng/ml (0-0.045) Influenza Type A Antigen Neg for Influ A (NEG) Influenza Type B Antigen Neg for Influ B (NEG) Laboratory results per my review. Medications Administered Medications (Trade) Dose Ordered Sig/Jasmina Route Start Time Stop Time Status Last Admin Dose Admin Sodium Chloride 500 ml @ 999 mls/hr Q31M STAT IV 07/08/17 00:54 07/08/17 01:24 DC 07/08/17 01:17 999 MLS/HR Ondansetron HCl (Zofran Inj) 4 mg NOW STAT IV 07/08/17 00:54 07/08/17 00:56 DC 07/08/17 01:17 4 MG Sodium Chloride 1,000 ml @ 200 mls/hr Q5H STAT IV 07/08/17 04:41 07/08/17 06:44 DC 07/08/17 04:41 200 MLS/HR Fentanyl Citrate (Fentanyl Inj) 50 mcg NOW STAT IV 07/08/17 04:55 07/08/17 04:56 DC 07/08/17 05:32 50 MCG Procedure 0054: Ordered Zofran Inj 4 mg IV, NSS 500 ml @ 999 mls/hr IV. 0441: Ordered NSS 1000 ml @ 200 mls/hr IV. 0455: Ordered Fentanyl Inj 50 mcg IV. NG tube placement ECG Indication: vomiting Rate (beats per minute): 88 Rhythm: normal sinus Findings: no acute ischemic change, no ectopy ED Course 0042: Past medical records reviewed. The patient was evaluated in room B2. A complete history and physical exam was performed. A twelve-lead EKG was obtained. An IV lock was initiated and labs were drawn as above. A chest x- ray was performed. 0048: I interpreted the patient's EKG at this time. 0054: Ordered Zofran Inj 4 mg IV, NSS 500 ml @ 999 mls/hr IV. The patient has an elevated lipase with epigastric pain. She'll go for CT scan of the abdomen/ pelvis [id number]: I reevaluated the patient, but she is in CT. I discussed the labs with the family. 0340: I updated the family and the patient. The patient vomited bile twice. An NG tube be placed 0344: Discussed the patient's case with Dr. Claudette VASQUES. The patient will be evaluated for further management. 0441: Ordered NSS 1000 ml @ 200 mls/hr IV. 0456: The patient is uncomfortable in bed from back pain and has asked for something. 0457: Ordered Fentanyl Inj 50 mcg IV. Medical Decision The patient is an 86 year old female who presents to the Emergency Room with complaints of sudden illness starting five hours ago. Differential diagnoses include gastroenteritis, pancreatitis, influenza, small bowel obstruction, diverticulitis, viral illness, cardiac ischemia, dehydration. LABS: No leukocytosis Stable H&H Lipase 1277 Glucose 136 BUN 43 Creatine 1.8 LFTs normal Influenza negative This is an 86-year-old female patient presents to emergency department with a sudden onset of epigastric abdominal pain and vomiting and diarrhea. Otherwise , the patient had had a good day today. Her symptoms started abruptly prior to bed. The patient thought that she was suffering from the flu. While here in the emergency room, the patient continued to vomit bile. CT scan of the abdomen /pelvis showed a probable partial small bowel obstruction. An NG tube was placed. She remained hemodynamically stable. I discussed the case with the [facility] Hospitalist and they will evaluate for further management. Medication Reconcilliation Current Medication List: was personally reviewed by me Blood Pressure Screening Patient's blood pressure: Elevated blood pressure Will be further monitored by the hospitalist. Consults Time Called: 341 Consulting Physician: Dr. Claudette VASQUES Returned Call: [phone] Discussed the patient's case with Dr. Claudette VASQUES. The patient will be evaluated for further management. Impression Primary Impression: Partial small bowel obstruction Scribe Attestation The scribe's documentation has been prepared under my direction and personally reviewed by me in its entirety. I confirm that the note above accurately reflects all work, treatment, procedures, and medical decision making performed by me. Departure Information Dispostion Being Evaluated By Hospitalist Referrals Soto Sloan M.D. (PCP) Patient Instructions My [facility]
[2017-07-08 23:09] VITALS: BP 92/51; PULSE 76; TEMP 37.4; O2SAT 92
[2017-07-09] VITALS (9 sets, daily range): BP systolic 96–111; BP diastolic 58–61; PULSE 57–72; TEMP 36.5–36.7; O2SAT 90–96
[2017-07-09] MEDS: CLINDAMYCIN IV 600 MG in DEXTROSE 5% 50ML 50 ML IV SCH (05:51)
[2017-07-09] MEDS: HEPARIN SOD 5000 UNIT/0.5 ML CARP SQ SCH ×3 (05:53→20:39)
[2017-07-09 07:19] LABS: CALCIUM 8.4 mg/dl (8.5-10.1); CREATININE 2.01 mg/dl (0.60-1.20); POTASSIUM 4.6 mmol/L (3.5-5.1)
[2017-07-09 07:29] LABS: MEAN CELL VOLUME 93.4 fL (80-100); MEAN CORPUSCULAR HEMOGLOBIN 30.3 pg (25-34); MEAN CORPUSCULAR HGB CONC 32.4 g/dl (32-36); MEAN PLATELET VOLUME 12.9 fL (7.4-10.4); PLATELET COUNT 90 K/uL (130-400); RED CELL DISTRIBUTION WIDTH CV 13.7 % (11.5-14.5); RED CELL DISTRIBUTION WIDTH SD 46.7 fL (36.4-46.3); WHITE BLOOD COUNT 3.47 K/uL (4.8-10.8)
[2017-07-09] MEDS: ALBUT/IPRATROP 3MG/0.5MG NEB 3 ML VIAL INH SCH ×4 (07:30→19:06)
[2017-07-09] MEDS: INDAPAMIDE 1.25 MG TAB PO SCH (08:00)
[2017-07-09] MEDS: ASPIRIN 81 MG ECTAB PO SCH (08:00)
[2017-07-09] MEDS: LISINOPRIL 5 MG TAB PO SCH (08:00)
[2017-07-09] MEDS: CARVEDILOL 12.5 MG TAB PO SCH ×2 (08:00→20:35)
[2017-07-09] MEDS: DULOXETINE (CYMBALTA) 30 MG CAP PO SCH (08:16)
[2017-07-09] MEDS: LIDODERM (LIDOCAINE) PATCH 5% TD SCH (08:19)
[2017-07-09] MEDS: SODIUM CHLORIDE 0.9% 1000ML 1,000 ML IV SCH ×2 (08:19→20:31)
--- NOTE | 2017-07-09 09:23 | DIAGNOSTIC IMAGING REPORT ---
CHEST ONE VIEW PORTABLE CLINICAL HISTORY: Crackles within the left lung base. COMPARISON STUDY: Chest radiograph July 08, 2017. FINDINGS: Lung volumes are diminished. This is unchanged. Cardiomediastinal silhouette is stable. There is no evidence for pulmonary edema. Left basilar opacity is unchanged. IMPRESSION: Diminished lung volumes with left basilar opacity which is unchanged since previous exam. This favors atelectasis with epicardial fat pad. Electronically signed by: Ender Coultre M.D. 07/09/2017 9:21 AM Dictated Date/Time: 07/09/2017 9:16 AM
--- NOTE | 2017-07-09 10:05 | Family Medicine Progress Note ---
Progress Note Date of Service Jul 09, 2017. Subjective Pt evaluation today including: conversation w/ patient, physical exam, chart review, lab review Patient reports feeling well this am. Denies abdominal pain, nausea or vomiting. Pt denies chest pain, SOB or cough. Constitutional: No fever, No chills Respiratory: No cough, No sputum, No wheezing, No shortness of breath, No dyspnea on exertion Cardiovascular: No chest pain, No palpitations Abdomen: No pain, No nausea, No vomiting Medications Current Inpatient Medications Medications (Trade) Dose Ordered Sig/Jasmina Route Start Time Stop Time Status Last Admin Dose Admin Acetaminophen (Tylenol Tab) 650 mg Q4H PRN PO 07/08/17 05:00 08/07/17 04:59 Polyethylene (Miralax Powder Packet) 17 gm DAILY PRN PO 07/08/17 05:00 08/07/17 04:59 Ondansetron HCl (Zofran Inj) 4 mg Q6H PRN IV 07/08/17 05:00 08/07/17 04:59 07/08/17 19:09 4 MG Alprazolam (Xanax Tab) 0.5 mg TID PRN PO 07/08/17 05:00 08/07/17 04:59 Aspirin (Ecotrin Tab) 81 mg QAM PO 07/08/17 08:00 08/07/17 08:59 Carvedilol (Coreg Tab) 12.5 mg BID PO 07/08/17 08:00 08/07/17 08:59 07/08/17 20:35 12.5 MG Duloxetine HCl (Cymbalta Cap) 30 mg QAM PO 07/08/17 08:00 08/07/17 08:59 07/09/17 08:16 30 MG Flurazepam HCl (Dalmane Cap) 30 mg HS PO 07/08/17 21:00 08/07/17 20:59 07/08/17 20:41 30 MG Indapamide (Lozol Tab) 1.25 mg QAM PO 07/08/17 08:00 08/07/17 08:59 Lisinopril (Zestril Tab) 5 mg QAM PO 07/08/17 08:00 08/07/17 08:59 Febuxostat (Uloric) 40 mg DAILY PRN PO 07/08/17 05:00 08/07/17 04:59 Sodium Chloride 1,000 ml @ 80 mls/hr [id number] IV 07/08/17 07:00 08/07/17 06:59 07/09/17 08:19 80 MLS/HR Morphine Sulfate (MoRPHine SULFATE INJ) 2 mg Q4H PRN IV 07/08/17 05:00 07/22/17 04:59 07/08/17 15:16 2 MG Heparin Sodium (Porcine) (Heparin Sq 5000 Unit/0.5ml) 5,000 unit Q8 SQ 07/08/17 08:00 08/07/17 07:59 07/09/17 05:53 5,000 UNIT Acetaminophen 100 ml @ 400 mls/hr Q8H PRN IV 07/08/17 09:30 08/07/17 09:29 07/08/17 19:41 400 MLS/HR Lidocaine (Lidoderm Patch 5%) 1 patch DAILY@09 TD 07/08/17 14:00 08/07/17 13:59 07/09/17 08:19 1 PATCH Miscellaneous (Remove Lidoderm Patch) 1 ea HS N/A 07/08/17 22:00 08/07/17 21:59 07/08/17 22:21 1 EA Albuterol/ Ipratropium (Duoneb) 3 ml QIDR INH 07/08/17 20:00 08/07/17 19:59 07/09/17 07:30 3 ML Clindamycin Phosphate 300 mg/ Dextrose 52 ml @ 100 mls/hr Q8H IV 07/09/17 14:00 07/16/17 08:44 Objective Vital Signs Date Time Temp Pulse Resp B/P (MAP) Pulse Ox O2 Delivery O2 Flow Rate FiO2 07/09/17 07:30 63 16 92 Room Air 07/09/17 07:21 36.6 57 18 96/61 (73) 91 Room Air 07/09/17 00:00 96 Room Air 07/08/17 23:09 37.4 76 18 92/51 (65) 92 Room Air 07/08/17 21:31 37.1 07/08/17 20:00 82 16 Room Air 07/08/17 19:26 39.3 91 20 151/68 (95) 91 07/08/17 18:35 37.2 102 28 156/67 (96) 90 Room Air 07/08/17 16:00 Room Air Physical Exam General Appearance: WD/WN, no apparent distress Respiratory/Chest: chest non-tender, normal breath sounds, no respiratory distress, + crackles (left base) Cardiovascular: regular rate, rhythm, no edema, no gallop Abdomen: normal bowel sounds, non tender, soft Neurologic/Psychiatric: alert, normal mood/affect, oriented x 3 Skin: normal color, warm/dry, no rash Laboratory Results 07/09/17 06:22 07/09/17 06:22 Test 07/08/17 10:22 07/09/17 06:22 Aspartate Amino Transf (AST/SGOT) 11 U/L (15-37) Red Blood Count 3.96 M/uL (4.2-5.4) Mean Corpuscular Volume 93.4 fL (80-100) Mean Corpuscular Hemoglobin 30.3 pg (25-34) Mean Corpuscular Hemoglobin Concent 32.4 g/dl (32-36) RDW Standard Deviation 46.7 fL (36.4-46.3) RDW Coefficient of Variation 13.7 % (11.5-14.5) Mean Platelet Volume 12.9 fL (7.4-10.4) Anion Gap 5.0 mmol/L (3-11) Est Creatinine Clear Calc Drug Dose 21.6 ml/min Estimated GFR () 25.8 Estimated GFR (Non- 22.2 BUN/Creatinine Ratio 21.8 (10-20) Calcium Level 8.4 mg/dl (8.5-10.1) Lipase 87 U/L (73-393) Assessment and Plan 07/09- Last night - the patient became nauseous and had several episodes of emesis following NG tube removal and diet advancement. Patient was returned to NPO. There was concern for aspiration and today the patient had crackles in the left base. Sats were normal overnight. Chest Xray this am was normal as compared to previous films. Continuing IVF and bowel rest at this time, NPO. Would like to advance her diet to clear liquids this afternoon. Pressures were low overnight, holding BP meds this am, but continuing other PO medications. Serial BP throughout the day. Partial small bowel obstruction versus nonspecific enteritis - CT abdomen and pelvis suggestive of mildly dilated loops of small bowel with gradual decrease in bowel caliber distally suggesting nonspecific enteritis versus low-grade partial small bowel obstruction - Nasogastric tube dc'ed. - Stool cultures currently pending - Lipase elevated at 1277. Second lipase decreased to 259, likely 2/2 to acute vomiting - Advancing diet to clear liquids - IV fluids - Zofran for nausea Emesis/concern for aspiration PNA -Added Clindamycin -CXR was normal, crackles in left base -Zofran for nausea -Continue to access breathing, O2 sats Hypertension: - Hold lisinopril 5 mg Cardiomyopathy: - Hold Coreg 12.5 mg twice a day - Continue aspirin Gout - Continue febuxostat Anxiety: -Continue Xanax and Cymbalta Left solitary kidney with elevated creatinine: Stable Creatinine 1.58 DVT prophylaxis: Heparin subcutaneous DO NOT RESUSCITATE Resident Physician Supervision Note: I interviewed and examined the patient. Discussed with Dr. Braxton and agree with findings and plan as documented in the note. Any exceptions or clarifications are listed here: None Documented By: Roe Buchanan feeling better agian no sob. abdomen soft nd surprisingly nontender no guarding no hernias lungs base rales otherwise clear SBO -improving again, after last nights vomiting and concern on aspiration will hold on restartign diet until ongoing improvement - probalby tomorrow vomitign and aspiration event, probable aspiration pneumonitis - clinda started , no evidence of evolving pneumonia, possibly can stop by tomorrow
[2017-07-09] MEDS: CLINDAMYCIN IV 300 MG in DEXTROSE 5% 50ML 50 ML IV SCH ×2 (14:38→20:31)
[2017-07-09] MEDS: FLURAZEPAM HCL 15 MG CAP PO SCH (20:35)
[2017-07-10] VITALS (10 sets, daily range): BP systolic 94–112; BP diastolic 51–61; PULSE 57–129; TEMP 36.4–36.7; O2SAT 92–94
[2017-07-10] MEDS: CLINDAMYCIN IV 300 MG in DEXTROSE 5% 50ML 50 ML IV SCH ×2 (05:41→14:17)
[2017-07-10] MEDS: HEPARIN SOD 5000 UNIT/0.5 ML CARP SQ SCH ×3 (05:44→20:41)
--- NOTE | 2017-07-10 06:39 | Family Medicine Progress Note ---
Progress Note Date of Service Jul 10, 2017. Subjective Patient is doing well. Denies ab pain, N/V. Says that her appetite has returned. Medications Current Inpatient Medications Medications (Trade) Dose Ordered Sig/Jasmina Route Start Time Stop Time Status Last Admin Dose Admin Acetaminophen (Tylenol Tab) 650 mg Q4H PRN PO 07/08/17 05:00 08/07/17 04:59 Polyethylene (Miralax Powder Packet) 17 gm DAILY PRN PO 07/08/17 05:00 08/07/17 04:59 Ondansetron HCl (Zofran Inj) 4 mg Q6H PRN IV 07/08/17 05:00 08/07/17 04:59 07/08/17 19:09 4 MG Alprazolam (Xanax Tab) 0.5 mg TID PRN PO 07/08/17 05:00 08/07/17 04:59 Aspirin (Ecotrin Tab) 81 mg QAM PO 07/08/17 08:00 08/07/17 08:59 07/10/17 09:10 81 MG Carvedilol (Coreg Tab) 12.5 mg BID PO 07/08/17 08:00 08/07/17 08:59 07/10/17 09:10 12.5 MG Duloxetine HCl (Cymbalta Cap) 30 mg QAM PO 07/08/17 08:00 08/07/17 08:59 07/10/17 09:10 30 MG Flurazepam HCl (Dalmane Cap) 30 mg HS PO 07/08/17 21:00 08/07/17 20:59 07/09/17 20:35 30 MG Indapamide (Lozol Tab) 1.25 mg QAM PO 07/08/17 08:00 08/07/17 08:59 07/10/17 09:10 1.25 MG Lisinopril (Zestril Tab) 5 mg QAM PO 07/08/17 08:00 08/07/17 08:59 07/10/17 09:10 5 MG Febuxostat (Uloric) 40 mg DAILY PRN PO 07/08/17 05:00 08/07/17 04:59 Sodium Chloride 1,000 ml @ 80 mls/hr [id number] IV 07/08/17 07:00 08/07/17 06:59 07/10/17 09:09 80 MLS/HR Morphine Sulfate (MoRPHine SULFATE INJ) 2 mg Q4H PRN IV 07/08/17 05:00 07/22/17 04:59 07/08/17 15:16 2 MG Heparin Sodium (Porcine) (Heparin Sq 5000 Unit/0.5ml) 5,000 unit Q8 SQ 07/08/17 08:00 08/07/17 07:59 07/10/17 05:44 5,000 UNIT Acetaminophen 100 ml @ 400 mls/hr Q8H PRN IV 07/08/17 09:30 08/07/17 09:29 07/08/17 19:41 400 MLS/HR Lidocaine (Lidoderm Patch 5%) 1 patch DAILY@09 TD 07/08/17 14:00 08/07/17 13:59 07/10/17 09:10 1 PATCH Miscellaneous (Remove Lidoderm Patch) 1 ea HS N/A 07/08/17 22:00 08/07/17 21:59 07/09/17 20:36 1 EA Albuterol/ Ipratropium (Duoneb) 3 ml QIDR INH 07/08/17 20:00 08/07/17 19:59 07/10/17 15:14 3 ML Cefdinir (Omnicef Cap) 300 mg DAILY PO 07/11/17 08:00 07/18/17 07:59 UNV Metronidazole (Flagyl Tab) 500 mg TID PO 07/10/17 20:00 07/17/17 19:59 UNV Objective Vital Signs Date Time Temp Pulse Resp B/P (MAP) Pulse Ox O2 Delivery O2 Flow Rate FiO2 07/10/17 15:14 60 14 93 Room Air 07/10/17 14:49 36.4 57 20 94/52 (66) 94 Room Air 07/10/17 11:15 129 15 93 Room Air 07/10/17 08:32 92 Room Air 07/10/17 07:09 36.7 69 18 106/61 (76) 93 Room Air 07/10/17 07:05 70 15 92 Room Air 07/10/17 00:00 92 Room Air 07/09/17 22:56 36.7 63 18 107/59 (75) 93 Room Air 07/09/17 19:08 69 16 91 Room Air 07/09/17 16:00 Room Air Physical Exam General Appearance: WD/WN, no apparent distress Respiratory/Chest: chest non-tender, no respiratory distress, no accessory muscle use, + crackles (left base) Cardiovascular: regular rate, rhythm, no murmur Abdomen: normal bowel sounds, non tender, soft Neurologic/Psychiatric: alert, normal mood/affect, oriented x 3 Skin: normal color, warm/dry, no rash Laboratory Results 07/10/17 06:03 07/10/17 06:03 Test 07/10/17 06:03 Red Blood Count 4.14 M/uL (4.2-5.4) Mean Corpuscular Volume 92.3 fL (80-100) Mean Corpuscular Hemoglobin 30.0 pg (25-34) Mean Corpuscular Hemoglobin Concent 32.5 g/dl (32-36) RDW Standard Deviation 45.8 fL (36.4-46.3) RDW Coefficient of Variation 13.6 % (11.5-14.5) Mean Platelet Volume 12.5 fL (7.4-10.4) Anion Gap 8.0 mmol/L (3-11) Est Creatinine Clear Calc Drug Dose 26.0 ml/min Estimated GFR () 32.2 Estimated GFR (Non- 27.8 BUN/Creatinine Ratio 23.9 (10-20) Calcium Level 8.6 mg/dl (8.5-10.1) Assessment and Plan 86-year-old female with a past medical history of hypertension, cardiomyopathy , gout, solitary left kidney present to the ER with complaints of sudden onset nausea and vomiting and diarrhea which started when she was getting prepared to go to bed. She did not have any associated abdominal pain. 07/10- Patient appetite has returned. Abdominal exam; patient is soft, NT, normal bowel sounds. Will advance diet to clear liquids today and proceed to full liquids tomorrow am. Patient still has some crackles in bottom left bases. Will continue to treat for suspected aspiration pneumonia. Switching to PO medications; Omnicef and Flagyl. Continue to hold BP medications. Pressure likely low due to volume status, nutrition. Partial small bowel obstruction versus nonspecific enteritis - CT abdomen and pelvis suggestive of mildly dilated loops of small bowel with gradual decrease in bowel caliber distally suggesting nonspecific enteritis versus low-grade partial small bowel obstruction - Nasogastric tube dc'ed. - Stool cultures currently pending - Lipase elevated at 1277. Second lipase decreased to 259, likely 2/2 to acute vomiting - Advancing diet to clear liquids - Continue IV fluids - Zofran for nausea Emesis/concern for aspiration PNA -Abx day 2; switching to Omnicef and Flagyl PO -CXR was normal, crackles in left base -Zofran for nausea -Continue to access breathing, O2 sats Asymptomatic UTI - Ecoli +culture - Afebrile, asymptomatic - Cross coverage from abx; Omnicef, Flagyl Hypertension: - Hold lisinopril 5 mg. Cardiomyopathy: - Hold Coreg 12.5 mg twice a day - Continue aspirin Gout - Continue febuxostat Anxiety: -Continue Xanax and Cymbalta Left solitary kidney with elevated creatinine: Stable Creatinine 1.58 DVT prophylaxis: Heparin subcutaneous History Resident Physician Supervision Note: I was present with Dr. Braxton during the history and exam. I discussed the case with the resident and agree with the findings and plan as documented in the note. Any exceptions or clarifications are listed here. Pt reports resolved nausea and abdominal pain, currently with returned alimentary drive. General Appearance: WD/WN, no apparent distress Respiratory: chest non-tender, lungs clear, normal breath sounds, no respiratory distress Cardiovascular: normal peripheral pulses, regular rate, rhythm, no murmur Gastrointestinal: normal bowel sounds, non tender, soft, no organomegaly Assessment/Plan 86 y/o female h/o HTN, gout, cardiomyopathy, solitary kidney w/ enteritis w/ ? pSBO Enteritis - advance diet, if tolerated and hydrating can D/C IVF. Zofran PRN nausea. Aspiration pneumonitis/PNA - transition to omnicef and metronidazole 2/2 allergy profile as noted. Monitor Asymptomatic bacturia - covered by above. HTN - holding lisinopril
[2017-07-10 06:52] LABS: HEMATOCRIT 38.2 % (37-47); HEMOGLOBIN 12.4 g/dL (12.0-16.0); MEAN CELL VOLUME 92.3 fL (80-100); MEAN CORPUSCULAR HGB CONC 32.5 g/dl (32-36); MEAN PLATELET VOLUME 12.5 fL (7.4-10.4); PLATELET COUNT 105 K/uL (130-400); RED CELL DISTRIBUTION WIDTH CV 13.6 % (11.5-14.5); RED CELL DISTRIBUTION WIDTH SD 45.8 fL (36.4-46.3); WHITE BLOOD COUNT 4.86 K/uL (4.8-10.8)
[2017-07-10] MEDS: ALBUT/IPRATROP 3MG/0.5MG NEB 3 ML VIAL INH SCH ×4 (07:04→19:05)
[2017-07-10 07:16] LABS: CALCIUM 8.6 mg/dl (8.5-10.1); CREATININE 1.67 mg/dl (0.60-1.20); POTASSIUM 3.9 mmol/L (3.5-5.1)
[2017-07-10] MEDS: SODIUM CHLORIDE 0.9% 1000ML 1,000 ML IV SCH ×2 (09:09→20:31)
[2017-07-10] MEDS: INDAPAMIDE 1.25 MG TAB PO SCH (09:10)
[2017-07-10] MEDS: LISINOPRIL 5 MG TAB PO SCH (09:10)
[2017-07-10] MEDS: LIDODERM (LIDOCAINE) PATCH 5% TD SCH (09:10)
[2017-07-10] MEDS: ASPIRIN 81 MG ECTAB PO SCH (09:10)
[2017-07-10] MEDS: CARVEDILOL 12.5 MG TAB PO SCH ×2 (09:10→20:28)
[2017-07-10] MEDS: DULOXETINE (CYMBALTA) 30 MG CAP PO SCH (09:10)
[2017-07-10] MEDS ORDERED: DEXTROSE 50% 50 ML SYR IV ONE (11:15)
[2017-07-10] MEDS: METRONIDAZOLE 500 MG TAB PO SCH ×2 (16:43→20:28)
[2017-07-10] MEDS: CEFDINIR 300 MG CAP PO SCH (16:43)
[2017-07-10] MEDS: FLURAZEPAM HCL 15 MG CAP PO SCH (20:31)
[2017-07-11] VITALS (9 sets, daily range): BP systolic 110–149; BP diastolic 52–77; PULSE 58–76; TEMP 36.6–36.8; O2SAT 92–96
[2017-07-11] MEDS: HEPARIN SOD 5000 UNIT/0.5 ML CARP SQ SCH ×3 (06:17→21:01)
[2017-07-11] MEDS: ALBUT/IPRATROP 3MG/0.5MG NEB 3 ML VIAL INH SCH ×4 (07:08→20:23)
[2017-07-11 07:39] LABS: HEMATOCRIT 35.8 % (37-47); HEMOGLOBIN 11.7 g/dL (12.0-16.0); MEAN CELL VOLUME 91.3 fL (80-100); MEAN CORPUSCULAR HEMOGLOBIN 29.8 pg (25-34); MEAN CORPUSCULAR HGB CONC 32.7 g/dl (32-36); MEAN PLATELET VOLUME 12.8 fL (7.4-10.4); PLATELET COUNT 113 K/uL (130-400); RED CELL DISTRIBUTION WIDTH CV 13.6 % (11.5-14.5); RED CELL DISTRIBUTION WIDTH SD 45.3 fL (36.4-46.3); WHITE BLOOD COUNT 5.47 K/uL (4.8-10.8)
[2017-07-11 07:41] LABS: CALCIUM 8.2 mg/dl (8.5-10.1); CREATININE 1.46 mg/dl (0.60-1.20); POTASSIUM 3.8 mmol/L (3.5-5.1)
--- NOTE | 2017-07-11 08:30 | Family Medicine Progress Note ---
Progress Note Date of Service Jul 11, 2017. Subjective Pt evaluation today including: conversation w/ patient, physical exam, chart review, lab review Patient is doing well, tolerating full liquids, denies nvd or f Constitutional: No fever, No chills, No sweats Respiratory: No cough, No sputum, No wheezing Cardiovascular: No chest pain, No palpitations Abdomen: No pain, No nausea, No vomiting Female : No dysuria Medications Current Inpatient Medications Medications (Trade) Dose Ordered Sig/Jasmina Route Start Time Stop Time Status Last Admin Dose Admin Acetaminophen (Tylenol Tab) 650 mg Q4H PRN PO 07/08/17 05:00 08/07/17 04:59 Polyethylene (Miralax Powder Packet) 17 gm DAILY PRN PO 07/08/17 05:00 08/07/17 04:59 Ondansetron HCl (Zofran Inj) 4 mg Q6H PRN IV 07/08/17 05:00 08/07/17 04:59 07/08/17 19:09 4 MG Alprazolam (Xanax Tab) 0.5 mg TID PRN PO 07/08/17 05:00 08/07/17 04:59 07/10/17 22:25 0.5 MG Aspirin (Ecotrin Tab) 81 mg QAM PO 07/08/17 08:00 08/07/17 08:59 07/11/17 08:31 81 MG Carvedilol (Coreg Tab) 12.5 mg BID PO 07/08/17 08:00 08/07/17 08:59 07/11/17 08:32 12.5 MG Duloxetine HCl (Cymbalta Cap) 30 mg QAM PO 07/08/17 08:00 08/07/17 08:59 07/11/17 08:32 30 MG Flurazepam HCl (Dalmane Cap) 30 mg HS PO 07/08/17 21:00 08/07/17 20:59 07/10/17 20:31 30 MG Indapamide (Lozol Tab) 1.25 mg QAM PO 07/08/17 08:00 08/07/17 08:59 07/11/17 08:31 1.25 MG Lisinopril (Zestril Tab) 5 mg QAM PO 07/08/17 08:00 08/07/17 08:59 07/11/17 08:32 5 MG Febuxostat (Uloric) 40 mg DAILY PRN PO 07/08/17 05:00 08/07/17 04:59 Morphine Sulfate (MoRPHine SULFATE INJ) 2 mg Q4H PRN IV 07/08/17 05:00 07/22/17 04:59 07/08/17 15:16 2 MG Heparin Sodium (Porcine) (Heparin Sq 5000 Unit/0.5ml) 5,000 unit Q8 SQ 07/08/17 08:00 08/07/17 07:59 07/11/17 13:57 5,000 UNIT Acetaminophen 100 ml @ 400 mls/hr Q8H PRN IV 07/08/17 09:30 08/07/17 09:29 07/08/17 19:41 400 MLS/HR Lidocaine (Lidoderm Patch 5%) 1 patch DAILY@09 TD 07/08/17 14:00 08/07/17 13:59 07/11/17 08:32 1 PATCH Miscellaneous (Remove Lidoderm Patch) 1 ea HS N/A 07/08/17 22:00 08/07/17 21:59 07/10/17 20:29 1 EA Albuterol/ Ipratropium (Duoneb) 3 ml QIDR INH 07/08/17 20:00 08/07/17 19:59 07/11/17 20:23 3 ML Cefdinir (Omnicef Cap) 300 mg DAILY PO 07/10/17 16:00 07/17/17 15:59 07/11/17 09:04 300 MG Metronidazole (Flagyl Tab) 500 mg TID PO 07/10/17 16:00 07/17/17 15:59 07/11/17 13:55 500 MG Objective Vital Signs Date Time Temp Pulse Resp B/P (MAP) Pulse Ox O2 Delivery O2 Flow Rate FiO2 07/11/17 20:23 65 16 93 Room Air 07/11/17 16:22 36.6 58 18 110/63 (79) 94 Room Air 07/11/17 15:42 69 16 94 Room Air 07/11/17 15:30 Room Air 07/11/17 11:16 62 15 92 Room Air 07/11/17 08:00 Room Air 07/11/17 07:22 36.8 66 20 112/56 (74) 94 1/30/18 07:11 76 14 96 Room Air 07/11/17 00:13 Room Air 07/11/17 00:13 36.8 59 16 115/52 (73) 94 Room Air 07/10/17 20:45 Room Air Physical Exam General Appearance: WD/WN, no apparent distress Respiratory/Chest: chest non-tender, lungs clear, normal breath sounds Cardiovascular: regular rate, rhythm, no edema, no murmur Abdomen: normal bowel sounds, non tender, soft, no organomegaly Neurologic/Psychiatric: alert, normal mood/affect, oriented x 3 Skin: normal color, warm/dry, no rash Laboratory Results 07/11/17 06:35 07/11/17 06:35 Test 07/11/17 06:35 Red Blood Count 3.92 M/uL (4.2-5.4) Mean Corpuscular Volume 91.3 fL (80-100) Mean Corpuscular Hemoglobin 29.8 pg (25-34) Mean Corpuscular Hemoglobin Concent 32.7 g/dl (32-36) RDW Standard Deviation 45.3 fL (36.4-46.3) RDW Coefficient of Variation 13.6 % (11.5-14.5) Mean Platelet Volume 12.8 fL (7.4-10.4) Anion Gap 9.0 mmol/L (3-11) Est Creatinine Clear Calc Drug Dose 29.7 ml/min Estimated GFR () 37.9 Estimated GFR (Non- 32.7 BUN/Creatinine Ratio 22.1 (10-20) Calcium Level 8.2 mg/dl (8.5-10.1) Assessment and Plan 86-year-old female with a past medical history of hypertension, cardiomyopathy , gout, solitary left kidney present to the ER with complaints of sudden onset nausea and vomiting and diarrhea which started when she was getting prepared to go to bed. She did not have any associated abdominal pain. 07/11- Patient tolerating full liquid diet, will advance tomorrow to low residual. Patient was seen by PT who recommends outpatient rehab. The patient refuses inpatient or outpatient therapy. Of concern, when addressing reason against, the patient admitted to not having anything to live for and expressing occassional suicide ideation. On attending rounds, assessed the patient for depression. Patient reports follow up regarding geriatric depression with her PCP, Dr. Sloan. Recommend that the patient continue depression meds and f/u upon discharge. Will continue to reassess pt mental state. Likely Dc tomorrow. Partial small bowel obstruction versus nonspecific enteritis - CT abdomen and pelvis suggestive of mildly dilated loops of small bowel with gradual decrease in bowel caliber distally suggesting nonspecific enteritis versus low-grade partial small bowel obstruction - Nasogastric tube dc'ed. - Lipase elevated at 1277. Second lipase decreased to 259, likely 2/2 to acute vomiting - Advancing diet to low residual - Continue IV fluids - Zofran for nausea Emesis/concern for aspiration PNA -Abx day 3; switching to Omnicef and Flagyl PO -CXR negative -Zofran for nausea -Continue to access breathing, O2 sats Asymptomatic UTI - Ecoli +culture - Afebrile, asymptomatic - Cross coverage from abx; Omnicef, Flagyl Hypertension: - Hold lisinopril 5 mg. Cardiomyopathy: - Hold Coreg 12.5 mg twice a day - Continue aspirin Gout - Continue febuxostat Depression/anxiety: -Continue Xanax and Cymbalta Left solitary kidney with elevated creatinine: Stable Creatinine 1.46 DVT prophylaxis: Heparin subcutaneous History Resident Physician Supervision Note: I was present with Dr. Braxton during the history and exam. I discussed the case with the resident and agree with the findings and plan as documented in the note. Any exceptions or clarifications are listed here. Pt reports improving appetite and lack of abdominal discomfort at this time. Upon discussing further management including rehab, the patient expresses a lack of motivation or interest that spreads to many aspects of her life. She reports having lots of contact with her grandchildren and multiple hobbies, but has a passive borderline suicidal disinterest in her life. She has discussed this previously with her PCP (Dr. Sloan) and has been on medication which she does not feel has been greatly helpful. General Appearance: WD/WN, no apparent distress Respiratory: chest non-tender, lungs clear, normal breath sounds, no respiratory distress Cardiovascular: normal peripheral pulses, regular rate, rhythm, no murmur Gastrointestinal: normal bowel sounds, non tender, soft, no organomegaly Assessment/Plan 86 y/o female h/o HTN, gout, cardiomyopathy, solitary kidney w/ enteritis w/ ? pSBO Enteritis - advance diet, D/C IVF. Zofran PRN nausea. Deconditioning - has been an issue in the past and has had home PT twice with no benefit subjectively. When confronted with a strong recommendation, she expresses disinterest and hopelessness and wishes to go home and 'take her chances' with falls, knowing the consequences and understanding that she may come back. Will d/w her and family tm if willing. Depression - continue cymbalta. Will defer changes/escalation to PCP per patient request, but strongly recommend further intervention to improve anhedonia Aspiration pneumonitis/PNA - omnicef and metronidazole 2/2 allergy profile as noted. Monitor Asymptomatic bacturia - covered by above. HTN - lisinopril
[2017-07-11] MEDS: ASPIRIN 81 MG ECTAB PO SCH (08:31)
[2017-07-11] MEDS: METRONIDAZOLE 500 MG TAB PO SCH ×3 (08:31→20:55)
[2017-07-11] MEDS: INDAPAMIDE 1.25 MG TAB PO SCH (08:31)
[2017-07-11] MEDS: LISINOPRIL 5 MG TAB PO SCH (08:32)
[2017-07-11] MEDS: CARVEDILOL 12.5 MG TAB PO SCH ×2 (08:32→20:55)
[2017-07-11] MEDS: LIDODERM (LIDOCAINE) PATCH 5% TD SCH (08:32)
[2017-07-11] MEDS: DULOXETINE (CYMBALTA) 30 MG CAP PO SCH (08:32)
[2017-07-11] MEDS: CEFDINIR 300 MG CAP PO SCH (09:04)
[2017-07-11] MEDS: SODIUM CHLORIDE 0.9% 1000ML 1,000 ML IV SCH (09:37)
[2017-07-11] MEDS: FLURAZEPAM HCL 15 MG CAP PO SCH (20:56)
[2017-07-12] MEDS: HEPARIN SOD 5000 UNIT/0.5 ML CARP SQ SCH ×3 (05:58→21:28)
[2017-07-12 06:16] LABS: HEMATOCRIT 36.2 % (37-47); HEMOGLOBIN 11.9 g/dL (12.0-16.0); MEAN CELL VOLUME 90.3 fL (80-100); MEAN CORPUSCULAR HEMOGLOBIN 29.7 pg (25-34); MEAN CORPUSCULAR HGB CONC 32.9 g/dl (32-36); PLATELET COUNT 113 K/uL (130-400); RED CELL DISTRIBUTION WIDTH CV 13.3 % (11.5-14.5); RED CELL DISTRIBUTION WIDTH SD 43.8 fL (36.4-46.3); WHITE BLOOD COUNT 4.92 K/uL (4.8-10.8)
[2017-07-12 06:53] LABS: CALCIUM 8.3 mg/dl (8.5-10.1); CREATININE 1.47 mg/dl (0.60-1.20); POTASSIUM 3.6 mmol/L (3.5-5.1)
[2017-07-12] MEDS: ALBUT/IPRATROP 3MG/0.5MG NEB 3 ML VIAL INH SCH (06:57)
[2017-07-12 06:58] VITALS: PULSE 61; O2SAT 95
[2017-07-12 07:13] VITALS: BP 129/70; PULSE 64; TEMP 36.4; O2SAT 94
[2017-07-12] MEDS ORDERED: ALBUT/IPRATROP 3MG/0.5MG NEB 3 ML VIAL INH PRN (08:00)
[2017-07-12] MEDS: ASPIRIN 81 MG ECTAB PO SCH (08:06)
[2017-07-12] MEDS: METRONIDAZOLE 500 MG TAB PO SCH ×3 (08:06→20:07)
[2017-07-12] MEDS: CARVEDILOL 12.5 MG TAB PO SCH ×2 (08:06→20:07)
[2017-07-12] MEDS: DULOXETINE (CYMBALTA) 30 MG CAP PO SCH (08:06)
[2017-07-12] MEDS: INDAPAMIDE 1.25 MG TAB PO SCH (08:07)
[2017-07-12] MEDS: CEFDINIR 300 MG CAP PO SCH (08:07)
[2017-07-12] MEDS: LISINOPRIL 5 MG TAB PO SCH (08:07)
[2017-07-12] MEDS: LIDODERM (LIDOCAINE) PATCH 5% TD SCH (08:08)
[2017-07-12 08:46] VITALS: O2SAT 94
[2017-07-12] MEDS: ACETAMINOPHEN 325 MG TAB PO PRN (11:03)
[2017-07-12 15:26] VITALS: BP 119/72; PULSE 62; TEMP 36.6; O2SAT 94
[2017-07-12 16:41] VITALS: O2SAT 94
--- NOTE | 2017-07-12 17:52 | Family Medicine Progress Note ---
Progress Note Date of Service Jul 12, 2017. Subjective Pt evaluation today including: conversation w/ patient, physical exam, chart review, lab review Patient doing well. Will work with PT today. Denies n/v/d. Tolerating low residual diet well. Constitutional: No fever, No chills Respiratory: No cough, No sputum Cardiovascular: No chest pain, No palpitations Abdomen: No pain, No nausea, No vomiting, No diarrhea Female : No dysuria Medications Current Inpatient Medications Medications (Trade) Dose Ordered Sig/Jasmina Route Start Time Stop Time Status Last Admin Dose Admin Acetaminophen (Tylenol Tab) 650 mg Q4H PRN PO 07/08/17 05:00 08/07/17 04:59 07/12/17 11:03 650 MG Polyethylene (Miralax Powder Packet) 17 gm DAILY PRN PO 07/08/17 05:00 08/07/17 04:59 Ondansetron HCl (Zofran Inj) 4 mg Q6H PRN IV 07/08/17 05:00 08/07/17 04:59 07/08/17 19:09 4 MG Alprazolam (Xanax Tab) 0.5 mg TID PRN PO 07/08/17 05:00 08/07/17 04:59 07/10/17 22:25 0.5 MG Aspirin (Ecotrin Tab) 81 mg QAM PO 07/08/17 08:00 08/07/17 08:59 07/12/17 08:06 81 MG Carvedilol (Coreg Tab) 12.5 mg BID PO 07/08/17 08:00 08/07/17 08:59 07/12/17 20:07 12.5 MG Duloxetine HCl (Cymbalta Cap) 30 mg QAM PO 07/08/17 08:00 08/07/17 08:59 07/12/17 08:06 30 MG Flurazepam HCl (Dalmane Cap) 30 mg HS PO 07/08/17 21:00 08/07/17 20:59 07/12/17 21:25 30 MG Indapamide (Lozol Tab) 1.25 mg QAM PO 07/08/17 08:00 08/07/17 08:59 07/12/17 08:07 1.25 MG Lisinopril (Zestril Tab) 5 mg QAM PO 07/08/17 08:00 08/07/17 08:59 07/12/17 08:07 5 MG Febuxostat (Uloric) 40 mg DAILY PRN PO 07/08/17 05:00 08/07/17 04:59 Heparin Sodium (Porcine) (Heparin Sq 5000 Unit/0.5ml) 5,000 unit Q8 SQ 07/08/17 08:00 08/07/17 07:59 07/12/17 21:28 5,000 UNIT Acetaminophen 100 ml @ 400 mls/hr Q8H PRN IV 07/08/17 09:30 08/07/17 09:29 07/08/17 19:41 400 MLS/HR Lidocaine (Lidoderm Patch 5%) 1 patch DAILY@09 TD 07/08/17 14:00 08/07/17 13:59 07/12/17 08:08 1 PATCH Miscellaneous (Remove Lidoderm Patch) 1 ea HS N/A 07/08/17 22:00 08/07/17 21:59 07/12/17 21:30 1 EA Cefdinir (Omnicef Cap) 300 mg DAILY PO 07/10/17 16:00 07/17/17 15:59 07/12/17 08:07 300 MG Metronidazole (Flagyl Tab) 500 mg TID PO 07/10/17 16:00 07/17/17 15:59 07/12/17 20:07 500 MG Albuterol/ Ipratropium (Duoneb) 3 ml QIDR PRN INH 07/12/17 08:00 08/11/17 07:59 Objective Vital Signs Date Time Temp Pulse Resp B/P (MAP) Pulse Ox O2 Delivery O2 Flow Rate FiO2 07/12/17 16:41 94 Room Air 07/12/17 15:26 36.6 62 18 119/72 (88) 94 Room Air 07/12/17 08:46 94 Room Air 07/12/17 08:00 Room Air 07/12/17 07:13 36.4 64 18 129/70 (89) 94 Room Air 07/12/17 06:58 61 16 95 Room Air 07/12/17 00:22 Room Air 07/11/17 22:55 36.8 66 18 119/61 (80) 94 Room Air Physical Exam General Appearance: WD/WN, no apparent distress Respiratory/Chest: chest non-tender, lungs clear, normal breath sounds Cardiovascular: regular rate, rhythm, no edema, no murmur Abdomen: normal bowel sounds, non tender, soft Extremities: no pedal edema, no calf tenderness Neurologic/Psychiatric: alert, normal mood/affect, oriented x 3 Skin: normal color, warm/dry, no rash Laboratory Results 07/12/17 05:39 07/12/17 05:39 Test 07/12/17 05:39 Red Blood Count 4.01 M/uL (4.2-5.4) Mean Corpuscular Volume 90.3 fL (80-100) Mean Corpuscular Hemoglobin 29.7 pg (25-34) Mean Corpuscular Hemoglobin Concent 32.9 g/dl (32-36) RDW Standard Deviation 43.8 fL (36.4-46.3) RDW Coefficient of Variation 13.3 % (11.5-14.5) Mean Platelet Volume 13.0 fL (7.4-10.4) Anion Gap 8.0 mmol/L (3-11) Est Creatinine Clear Calc Drug Dose 29.5 ml/min Estimated GFR () 37.6 Estimated GFR (Non- 32.4 BUN/Creatinine Ratio 17.9 (10-20) Calcium Level 8.3 mg/dl (8.5-10.1) Assessment and Plan 86-year-old female with a past medical history of hypertension, cardiomyopathy , gout, solitary left kidney present to the ER with complaints of sudden onset nausea and vomiting and diarrhea which started when she was getting prepared to go to bed. She did not have any associated abdominal pain. 07/12- Patient tolerating low residual diet. Patient was seen by PT who recommends outpatient rehab. The patient refuses inpatient or outpatient therapy. Of concern, when addressing reason against, the patient admitted to not having anything to live for and expressing occasional suicide ideation. On attending rounds, assessed the patient for depression. Patient reports follow up regarding geriatric depression with her PCP, Dr. Sloan. Recommend that the patient continue depression meds and f/u upon discharge. Will continue to reassess pt mental state. Likely Dc tomorrow. Recommend repeat BMP in the outpatient. Partial small bowel obstruction versus nonspecific enteritis - CT abdomen and pelvis suggestive of mildly dilated loops of small bowel with gradual decrease in bowel caliber distally suggesting nonspecific enteritis versus low-grade partial small bowel obstruction - Nasogastric tube dc'ed. - Lipase elevated at 1277. Second lipase decreased to 259, likely 2/2 to acute vomiting - Advancing diet to low residual - Continue IV fluids - Zofran for nausea Emesis/concern for aspiration PNA -Abx day 4; switching to Omnicef and Flagyl PO -CXR negative -Zofran for nausea -Continue to access breathing, O2 sats Asymptomatic UTI - Ecoli +culture - Afebrile, asymptomatic - Cross coverage from abx; Omnicef, Flagyl Hypertension: - Hold lisinopril 5 mg. Cardiomyopathy: - Hold Coreg 12.5 mg twice a day - Continue aspirin Gout - Continue febuxostat Depression/anxiety: -Continue Xanax and Cymbalta Left solitary kidney with elevated creatinine: Stable baseline Creatinine 1.46 DVT prophylaxis: Heparin subcutaneous History Pt reports diminished appetite in the setting of recent complaints but tolerating full diet without nausea vomiting and with loose bowel movement this AM. On discussion, the patient is willing to participate in inpatient physical therapy but, after much consideration, still declines a course of inpatient rehabilitation. We asked to discuss this with her and family, she was not keen on the idea. General Appearance: WD/WN, no apparent distress Respiratory: chest non-tender, lungs clear, normal breath sounds, no respiratory distress Cardiovascular: normal peripheral pulses, regular rate, rhythm, no murmur Gastrointestinal: normal bowel sounds, non tender, soft, no organomegaly Assessment/Plan 86 y/o female h/o HTN, gout, cardiomyopathy, solitary kidney w/ enteritis w/ ? pSBO Deconditioning - known issue to patient and has had home PT twice. Willing to participate here but still declining inpatient rehab. Enteritis - tolerating regular diet with minimal sx. Zofran PRN nausea. Depression - continue cymbalta. Will defer changes/escalation to PCP per patient request, but strongly recommend further intervention to improve anhedonia Aspiration pneumonitis/PNA - omnicef and metronidazole 2/2 allergy profile as noted. Monitor Asymptomatic bacturia - covered by above. HTN - lisinopril
[2017-07-12] MEDS: FLURAZEPAM HCL 15 MG CAP PO SCH (21:25)
[2017-07-12 23:05] VITALS: BP 130/66; PULSE 65; TEMP 36.5; O2SAT 95
[2017-07-13] MEDS: ACETAMINOPHEN 325 MG TAB PO PRN (04:07)
[2017-07-13] MEDS: HEPARIN SOD 5000 UNIT/0.5 ML CARP SQ SCH (05:10)
--- NOTE | 2017-07-13 07:34 | Family Medicine Progress Note ---
Progress Note Date of Service Jul 13, 2017. History Pt seen and examined at bedside. Tolerating full diet without nausea, abd pain or distention. Bowel movements have been improved per patient, no diarrhea/ constipation. Still feeling unsteady on her feet and refusing to do rehab or home PT despite encouragement and support. General Appearance: no apparent distress, obese Respiratory: chest non-tender, lungs clear, normal breath sounds, no respiratory distress Cardiovascular: normal peripheral pulses, regular rate, rhythm, no murmur Gastrointestinal: normal bowel sounds, non tender, soft, no organomegaly Assessment/Plan 86 y/o female h/o HTN, gout, cardiomyopathy, solitary kidney w/ enteritis w/ ? pSBO Deconditioning - known issue to patient and has had home PT twice. Willing to participate inpatient but still declining inpatient rehab. Enteritis - tolerating regular diet with minimal sx Depression - continue cymbalta. Will defer changes/escalation to PCP per patient request, but strongly recommend further intervention to improve anhedonia Aspiration pneumonitis/PNA - omnicef and metronidazole 2/2 allergy profile as noted. Monitor Asymptomatic bacturia - covered by above. HTN - lisinopril
[2017-07-13 07:49] VITALS: BP 118/77; PULSE 64; TEMP 36.4; O2SAT 92
[2017-07-13] MEDS: CEFDINIR 300 MG CAP PO SCH (08:03)
[2017-07-13] MEDS: LISINOPRIL 5 MG TAB PO SCH (08:03)
[2017-07-13] MEDS: CARVEDILOL 12.5 MG TAB PO SCH (08:03)
[2017-07-13] MEDS: ASPIRIN 81 MG ECTAB PO SCH (08:03)
[2017-07-13] MEDS: METRONIDAZOLE 500 MG TAB PO SCH ×2 (08:03→13:57)
[2017-07-13] MEDS: DULOXETINE (CYMBALTA) 30 MG CAP PO SCH (08:03)
[2017-07-13] MEDS: LIDODERM (LIDOCAINE) PATCH 5% TD SCH (08:40)
[2017-07-13] MEDS: INDAPAMIDE 1.25 MG TAB PO SCH (08:40)
[2017-07-13 11:57] VITALS: BP 118/77; PULSE 64; TEMP 36.4; O2SAT 92
[2017-07-13] MEDS ORDERED: MTR500 PO (13:19)
[2017-07-13] MEDS ORDERED: CEFD300C3 PO (13:19)
--- NOTE | 2017-07-13 13:34 | Discharge Instructions ---
Discharge Instructions Date of Service Jul 13, 2017. Admission Reason for Admission: SBO Discharge Discharge Diagnosis / Problem: Small bowel obstruction Discharge Goals Goal(s): Decrease discomfort, Improve function, Improve disease control, Improve nutritional status Activity Recommendations Activity Limitations: per Instructions/Follow-up section . Instructions / Follow-Up Instructions / Follow-Up Ms. Moran, Teofilo came into to the hospital for treatment for a small bowel obstruction. When you came in, you had severe vomiting and nausea. The cause of your bowel obstruction is likely related to you past bowel surgeries. While in the hospital , we treated your small bowel obstruction with IV fluids and bowel rest. Throughout the course of your illness, you showed marked improvements and we were able to advance your diet to a low fiber diet. In addition, we treated you for a possible lung infection. We were concerned for aspiration of vomit. We are sending you home to finish a course of antibiotics. Plan after discharge; 1. Follow up with Dr. Sloan in the next week. Take it slow with foods and continue to eat low fiber soft foods until you feel you can tolerate a a diabetic diet. 2. Continue antibiotics; Cefdinir once a day for 4 days, Metronidazole three times a day for 2 more days 3. During your stay we highly recommended inpatient rehab and physical therapy despite your choice not to pursue such therapies. Keep in mind that you are deconditioned from your illness and stay in the hospital. Continue home exercise regimen, get help from family and follow up with Dr. Sloan if are interested in referral for physical therapy. Current Hospital Diet Patient's current hospital diet: Low Fiber Diet, AHA Diet (Heart Healthy) Discharge Diet Recommended Diet: Diabetes Type 2 Diet, Low Fiber Diet Pending Studies Studies pending at discharge: no Medical Emergencies . Who to Call and When: Medical Emergencies: If at any time you feel your situation is an emergency, please call 911 immediately. . Non-Emergent Contact Non-Emergency issues call your: Primary Care Provider . . "Provider Documentation" section prepared by Jarad Braxton. . VTE Core Measure Inpt VTE Proph given/why not?: Unfractionated heparin SQ
--- NOTE | 2017-07-13 22:01 | Discharge Summary ---
Discharge Summary Date of Service Jul 13, 2017. Discharge Summary Admission Date: Jul 08, 2017 at 04:57 Discharge Date: Jul 13, 2017 Discharge Disposition: Home Principal Diagnosis: small bowel obstruction Immunizations: Have You Had Influenza Vaccine: Yes History of Tetanus Vaccine?: Yes History of Pneumococcal: Yes Pneumococcal Date: Mar 01, 2011 History of Hepatitis B Vaccine: No Discharge Exam Review of Systems: Constitutional: No fever, No chills, No sweats Respiratory: No cough, No sputum, No wheezing Cardiovascular: No chest pain, No orthopnea, No palpitations Abdomen: No pain, No nausea, No vomiting Genitourinary - Female: No dysuria Physical Exam: General Appearance: WD/WN, no apparent distress Respiratory/Chest: chest non-tender, lungs clear, normal breath sounds Cardiovascular: regular rate, rhythm, no edema, no murmur Abdomen / GI: normal bowel sounds, non tender, soft Neurologic/Psychiatric: alert, normal mood/affect, normal reflexes Skin: normal color, warm/dry, no rash Hospital Course 86 female presents to [facility] with acute vomiting, nausea and abdominal distension. CT revealed SBO obstruction. The patient was put on bowel rest, administered NG tube and put on IVF. After one day, the patient abdomen was soft with normal bowel sounds. It was then decided to remove the patients NG tube and advance her diet to clear liquids. Following removal and diet advancement, the pt had a couple episodes of emesis, one episode while the patient was lying down. There was concern for aspiration following incident despite unremarkable CXR. Patient lung exam demonstrated crackles in left bases. Pt was subsequently started on IV clindamycin. Patient was stepped down to PO cefdinir and Flagyl. Patient's condition improved progressively. At discharge patient was tolerating a low fiber diet without ab pain, n or vomiting. Physical therapy recommended that the pt receive inpt rehab. Pt adamantly refuses care despite counseling regarding deconditioning and falls risk. During her visit the patient expressed anhedonia and suicide ideation. She is currently treated for depression which is managed by Dr. Sloan who was informed. Patient recommended to follow up this week with PCP. Total Time Spent: Less than 30 minutes This includes examination of the patient, discharge planning, medication reconciliation, and communication with other providers. Discharge Instructions Please refer to the electronic Patient Visit Report (Discharge Instructions) for additional information. Additional Copies To Soto Sloan M.D. Assessment/Plan Resident Physician Supervision Note: I was present with Dr. Braxton during the history and exam. I discussed the case with the resident and agree with the findings and plan as documented in the note. Any exceptions or clarifications are listed here: For full attending history and exam, please see note from day of discharge. 86 y/o female h/o HTN, gout, cardiomyopathy, solitary kidney w/ enteritis w/ ? pSBO Deconditioning - known issue to patient and has had home PT twice. Willing to participate inpatient but still declining inpatient rehab. Enteritis - tolerating regular diet with minimal sx Depression - continue cymbalta. Will defer changes/escalation to PCP per patient request, but strongly recommend further intervention to improve anhedonia Aspiration pneumonitis/PNA - omnicef and metronidazole 2/2 allergy profile as noted. Monitor Asymptomatic bacturia - covered by above. HTN - lisinopril
== END 2017-07-13 14:15 | disposition home health service (06) | DRG 388 ==
LOC: EDBD 00:15 → C.EDB 00:16 → C.MS4W 04:57 → ENRESERV 05:16 → C.MS4W 07-12 19:11
PROVIDERS: ADMIT Family Medicine; ATTEND Family Medicine
DX: K56.51 Intestinal adhesions [bands], with partial obstruction (principal); J69.0 Pneumonitis due to inhalation of food and vomit; A09 Infectious gastroenteritis and colitis, unspecified; N39.0 Urinary tract infection, site not specified; I42.9 Cardiomyopathy, unspecified; B96.20 Unspecified Escherichia coli [E. coli] as the cause of diseases classified elsewhere; I10 Essential (primary) hypertension; M10.9 Gout, unspecified; F41.9 Anxiety disorder, unspecified; F32.9 Major depressive disorder, single episode, unspecified; Z66 Do not resuscitate; Z90.5 Acquired absence of kidney; Z90.49 Acquired absence of other specified parts of digestive tract; Z79.1 Long term (current) use of non-steroidal anti-inflammatories (NSAID); Z79.82 Long term (current) use of aspirin; Z79.899 Other long term (current) drug therapy; Z88.0 Allergy status to penicillin; Z88.1 Allergy status to other antibiotic agents; Z88.2 Allergy status to sulfonamides

== ENCOUNTER 2017-09-14 20:52 | Inpatient (IN) | payer OTHER, MEDICARE ==
[~2017-09-14] VITALS: Ht 160 cm; Wt 79.8 kg
[~2017-09-14 20:52] MED LIST changes: -ASPI81TA21 PO; +CEFD300C3 PO; +MTR500 PO
[2017-09-14] MEDS ORDERED: CARV12.52 PO (21:35)
[2017-09-14] MEDS ORDERED: SODIUM CHLORIDE 0.9% 1000ML 1,000 ML IV STA (21:45)
--- NOTE | 2017-09-14 22:01 | DIAGNOSTIC IMAGING REPORT ---
HEAD WITHOUT CONTRAST (CT) CLINICAL HISTORY: 86 years-old Female presenting with EVALUATE ALTERED MENTAL STATUS/WEAKNESS. TECHNIQUE: Multidetector CT imaging of the head was performed without the use of intravenous contrast. IV contrast: None. A dose lowering technique was used consistent with the principles of ALARA (as low as reasonably achievable). COMPARISON: 09/17/2015. CT DOSE (mGy.cm): The estimated cumulative dose is 623.48 mGy.cm. FINDINGS: [employer] Project Manager topogram: Unremarkable. Proportional ventricular and sulcal prominence, likely age-related parenchymal volume loss. Periventricular and subcortical white matter hypoattenuation, nonspecific but likely indicative of chronic small vessel ischemic change. Old lacunar infarct suggested in the bilateral basal ganglia. No mass effect or midline shift. No hemorrhage or acute territorial infarct. No extra-axial fluid collection. Paranasal sinuses and mastoid air cells clear. Calvarium intact. IMPRESSION: 1. Chronic small vessel ischemic change. No acute intracranial abnormality. Electronically signed by: Isidro Archibald M.D. 09/14/2017 10:00 PM Dictated Date/Time: 09/14/2017 9:57 PM
[2017-09-14 22:11] LABS: BASO % 0.4 %; BASO ABS # 0.03 K/uL (0-0.2); EOS % 8.5 %; EOS ABS # 0.59 K/uL (0-0.5); HEMOGLOBIN 13.6 g/dL (12.0-16.0); IG# 0.02 K/uL (0.00-0.02); LYMPH % 18.9 %; LYMPH ABS # 1.31 K/uL (1.2-3.4); MEAN CELL VOLUME 91.3 fL (80-100); MEAN CORPUSCULAR HEMOGLOBIN 30.3 pg (25-34); MEAN CORPUSCULAR HGB CONC 33.2 g/dl (32-36); MEAN PLATELET VOLUME 12.3 fL (7.4-10.4); MONO % 9.7 %; MONO ABS # 0.67 K/uL (0.11-0.59); NEUT % 62.2 %; PLATELET COUNT 157 K/uL (130-400); RED CELL DISTRIBUTION WIDTH CV 13.5 % (11.5-14.5); RED CELL DISTRIBUTION WIDTH SD 44.7 fL (36.4-46.3); WHITE BLOOD COUNT 6.92 K/uL (4.8-10.8)
[2017-09-14 22:34] LABS: PTT PATIENT 25.3 SECONDS (21.0-31.0)
--- NOTE | 2017-09-14 22:36 | DIAGNOSTIC IMAGING REPORT ---
CHEST ONE VIEW PORTABLE CLINICAL HISTORY: 86 years-old Female presenting with EVALUATE ALTERED MENTAL STATUS/WEAKNESS. TECHNIQUE: Portable upright AP view of the chest was obtained. COMPARISON: 07/09/2017. FINDINGS: Atherosclerosis of the aortic arch. Cardiac silhouette top normal in size. Mild apparent prominence of the right paratracheal region in the superior mediastinum may relate to vascular prominence. Mildly low lung volumes, unchanged. No focal opacity. No large effusion or pneumothorax. Degenerative changes of the thoracic spine. Upper abdomen normal. IMPRESSION: 1. Borderline cardiomegaly. Otherwise no acute cardiopulmonary disease. 2. Prominence of the right paratracheal region is felt to most likely be vascular in etiology. Electronically signed by: Isidro Archibald M.D. 09/14/2017 10:34 PM Dictated Date/Time: 09/14/2017 10:33 PM
[2017-09-14 22:39] LABS: ALBUMIN 3.6 gm/dl (3.4-5.0); ALKALINE PHOSPHATASE 109 U/L (45-117); ALT/SGPT 26 U/L (12-78); AST/SGOT 29 U/L (15-37); BLOOD UREA NITROGEN 35 mg/dl (7-18); CALCIUM 9.1 mg/dl (8.5-10.1); CARBON DIOXIDE 23 mmol/L (21-32); CKMB 0.7 ng/ml (0.5-3.6); CREATININE 1.89 mg/dl (0.60-1.20); GLUCOSE 106 mg/dl (70-99); LIPASE 247 U/L (73-393); POTASSIUM 4.4 mmol/L (3.5-5.1); SODIUM 140 mmol/L (136-145); TOTAL PROTEIN 6.8 gm/dl (6.4-8.2)
[2017-09-14] MEDS ORDERED: ASPI-319 PO (23:00)
[2017-09-14] MEDS ORDERED: CEFTRIAXONE SOD INJ 1 GM ADDVIAL IV STA (23:30)
[2017-09-15] VITALS (8 sets, daily range): BP systolic 117–178; BP diastolic 60–75; PULSE 62–78; TEMP 36.4–36.7; O2SAT 92–95; Ht 160 cm; Wt 79.8 kg
--- NOTE | 2017-09-15 00:11 | History and Physical ---
History & Physical Date & Time of Service: Sep 15, 2017 at 00:08 Chief Complaint: Weakness Primary Care Physician: Soto Sloan M.D. History of Present Illness Source: patient 86F with a PMH of CHF (Echo in 2017 had an EF of 35% & multiple wall motion abnormalities) p/w confusion starting tonight. She states she has had 100s of UTIs in the past and thinks she might have a UTI because she is peeing more frequently, but her urine isn't burning. She was sleeping when I entered the room but able to successfully tell me the time, date and place. When asked if she wanted to go home she said she thinks she should stay because she is still confused and feels weak. PMHx: Sees Dr. Sloan, many UTIs in the past. Denies any cardiac history. SHX: Lives by herself, having difficulty taking care of herself in the past two weeks. ROS: Pt reports a longstanding history of loose stools alternating with hard stools. Past Medical/Surgical History Medical Problems: (1) Back pain (2) Bacteremia (3) Benign essential hypertension (4) Cardiomyopathy (5) Contusion (6) Contusion of foot (7) Degenerative joint disease (8) Fall (9) Falls (10) Gout (11) Hyperkalemia, diminished renal excretion (12) Injury of foot, left (13) Injury of foot, left (14) left leg weakness (15) Leg weakness (16) Neck strain (17) NSTEMI (non-ST elevated myocardial infarction) (18) Partial small bowel obstruction (19) Renal insufficiency (20) SBO (small bowel obstruction) (21) Sciatica (22) Shoulder contusion (23) SOB (shortness of breath) (24) solitary left kidney (25) Spinal stenosis of lumbar region (26) 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 (27) Urinary tract infection (28) Urinary tract infection (29) UTI (urinary tract infection) (30) Weakness (31) Weakness (32) Weakness Surgical Problems: (1) History of bilateral knee replacement Family History No significant family history Social History Smoking Status: Never Smoker Smokeless Tobacco Use: No Alcohol Use: none Drug Use: none Marital Status: Housing status: lives alone Occupational Status: retired Immunizations History of Influenza Vaccine: Yes History of Tetanus Vaccine?: Yes History of Pneumococcal: Yes Pneumococcal Date: Mar 01, 2011 History of Hepatitis B Vaccine: No Allergies Coded Allergies: Amoxicillin (Verified Allergy, Unknown, RASH AND SWELLING TONGUE, 07/08/17) Levofloxacin (Verified Allergy, Unknown, RASH AND SWELLING TONGUE, 07/08/17 ) Penicillins (Verified Allergy, Unknown, RASH & HIVES, 07/08/17) Sulfamethoxazole w/Trimethoprim (Verified Allergy, Unknown, ?, 07/08/17) Nitrofurantoin (Verified Adverse Reaction, Mild, HEADACHE, 07/08/17) Home Medications Scheduled Aspirin Enteric Coated (Ecotrin Or Generic), 81 MG PO QAM Carvedilol (Coreg), 12.5 MG PO BID Duloxetine HCl (Cymbalta), 30 MG PO QAM Febuxostat (Uloric), 1 TAB PO DAILY Flurazepam Hcl (Dalmane), 30 MG PO HS Indapamide (Indapamide), 1.25 MG PO QAM Lisinopril (Prinivil), 5 MG PO QAM Scheduled PRN Alprazolam (Alprazolam), 0.5 MG PO TID PRN for Anxiety Review of Systems Constitutional: No fever, No chills Respiratory: No cough, No sputum, No wheezing, No shortness of breath Abdomen: No pain, No nausea, No vomiting, No diarrhea, No constipation Musculoskeletal: No joint pain Genitourinary - Female: + urinary frequency, + urinary urgency, + urinary incontinence, No dysuria, No urinary retention Neurologic: + problem reported (confusion) Integumentary: No rash Physical Exam Vital Signs Date Time Temp Pulse Resp B/P (MAP) Pulse Ox O2 Delivery O2 Flow Rate FiO2 09/14/17 23:08 71 22 161/71 93 Room Air 09/14/17 22:30 88 20 178/84 97 Room Air 09/14/17 21:43 70 09/14/17 21:01 36.5 73 20 132/61 95 Room Air General Appearance: WD/WN, + pertinent finding (appears tired ) Eyes: normal inspection, PERRL ENT: normal ENT inspection Neck: supple, no adenopathy Respiratory/Chest: chest non-tender, lungs clear, normal breath sounds, no respiratory distress, no accessory muscle use Cardiovascular: regular rate, rhythm, no edema, no gallop, no JVD, normal peripheral pulses Abdomen/GI: normal bowel sounds, no organomegaly, no pulsatile mass, + pertinent finding (suprapubic tenderness) Back: normal inspection, no CVA tenderness Extremities/Musculoskelatal: normal inspection, no calf tenderness, normal capillary refill, no pedal edema 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, no motor/sensory deficits, alert, normal mood/affect, oriented x 3 Skin: normal color, warm/dry, no rash Diagnostics Laboratory Results Results Past 24 Hours Test 09/14/17 21:31 09/14/17 21:50 09/14/17 22:09 09/14/17 22:21 Range/Units White Blood Count 6.92 4.8-10.8 K/uL Red Blood Count 4.49 4.2-5.4 M/uL Hemoglobin 13.6 12.0-16.0 g/dL Hematocrit 41.0 37-47 % Mean Corpuscular Volume 91.3 80-100 fL Mean Corpuscular Hemoglobin 30.3 25-34 pg Mean Corpuscular Hemoglobin Concent 33.2 32-36 g/dl Platelet Count 157 130-400 K/uL Mean Platelet Volume 12.3 7.4-10.4 fL Neutrophils (%) (Auto) 62.2 % Lymphocytes (%) (Auto) 18.9 % Monocytes (%) (Auto) 9.7 % Eosinophils (%) (Auto) 8.5 % Basophils (%) (Auto) 0.4 % Neutrophils # (Auto) 4.30 1.4-6.5 K/uL Lymphocytes # (Auto) 1.31 1.2-3.4 K/uL Monocytes # (Auto) 0.67 0.11-0.59 K/uL Eosinophils # (Auto) 0.59 0-0.5 K/uL Basophils # (Auto) 0.03 0-0.2 K/uL RDW Standard Deviation 44.7 36.4-46.3 fL RDW Coefficient of Variation 13.5 11.5-14.5 % Immature Granulocyte % (Auto) 0.3 % Immature Granulocyte # (Auto) 0.02 0.00-0.02 K/uL Sodium Level 140 136-145 mmol/L Potassium Level 4.4 3.5-5.1 mmol/L Chloride Level 110 98-107 mmol/L Carbon Dioxide Level 23 21-32 mmol/L Anion Gap 7.0 3-11 mmol/L Blood Urea Nitrogen 35 7-18 mg/dl Creatinine 1.89 0.60-1.20 mg/dl Est Creatinine Clear Calc Drug Dose 23.3 ml/min Estimated GFR () 27.8 Estimated GFR (Non- 23.9 BUN/Creatinine Ratio 18.5 10-20 Random Glucose 106 70-99 mg/dl Calcium Level 9.1 8.5-10.1 mg/dl Magnesium Level 1.8 1.8-2.4 mg/dl Total Bilirubin 0.4 0.2-1 mg/dl Direct Bilirubin 0-0.2 mg/dl Aspartate Amino Transf (AST/SGOT) 29 15-37 U/L Alanine Aminotransferase (ALT/SGPT) 26 12-78 U/L Alkaline Phosphatase 109 45-117 U/L Total Creatine Kinase 64 26-192 U/L Creatine Kinase MB 0.7 0.5-3.6 ng/ml Creatine Kinase MB Ratio 1.1 0-3.0 Troponin I < 0.015 0-0.045 ng/ml Total Protein 6.8 6.4-8.2 gm/dl Albumin 3.6 3.4-5.0 gm/dl Lipase 247 73-393 U/L Thyroid Stimulating Hormone (TSH) 3.900 0.300-4.500 uIu/ml Chemistry Specimen Hemolysis Bedside Glucose 107 70-90 mg/dl Prothrombin Time 10.2 9.0-12.0 SECONDS Prothromb Time International Ratio 1.0 0.9-1.1 Activated Partial Thromboplast Time 25.3 21.0-31.0 SECONDS Partial Thromboplastin Ratio 1.0 Urine Color YELLOW Urine Appearance CLOUDY CLEAR Urine pH 7.0 4.5-7.5 Urine Specific Sheldon 1.014 1.000-1.030 Urine Protein 2+ NEG Urine Glucose (UA) NEG NEG Urine Ketones NEG NEG Urine Occult Blood TRACE NEG Urine Nitrite POS NEG Urine Bilirubin NEG NEG Urine Urobilinogen NEG NEG Urine Leukocyte Esterase LARGE NEG Urine WBC (Auto) >30 0-5 /hpf Urine RBC (Auto) 0-4 0-4 /hpf Urine Hyaline Casts (Auto) 1-5 0-5 /lpf Urine Epithelial Cells (Auto) 0-5 0-5 /lpf Urine Bacteria (Auto) 4+ NEG Microbiology Results 09/14/17 Blood Culture, Received Pending 09/14/17 Blood Culture, Received Pending 09/14/17 Urine Culture, Received Pending Diagnostic Radiology HEAD WITHOUT CONTRAST (CT) CLINICAL HISTORY: 86 years-old Female presenting with EVALUATE ALTERED MENTAL STATUS/WEAKNESS. TECHNIQUE: Multidetector CT imaging of the head was performed without the use of intravenous contrast. IV contrast: None. A dose lowering technique was used consistent with the principles of ALARA (as low as reasonably achievable). COMPARISON: 09/17/2015. CT DOSE (mGy.cm): The estimated cumulative dose is 623.48 mGy.cm. FINDINGS: Stage Technician topogram: Unremarkable. Proportional ventricular and sulcal prominence, likely age-related parenchymal volume loss. Periventricular and subcortical white matter hypoattenuation, nonspecific but likely indicative of chronic small vessel ischemic change. Old lacunar infarct suggested in the bilateral basal ganglia. No mass effect or midline shift. No hemorrhage or acute territorial infarct. No extra-axial fluid collection. Paranasal sinuses and mastoid air cells clear. Calvarium intact. IMPRESSION: 1. Chronic small vessel ischemic change. No acute intracranial abnormality. Electronically signed by: Isidro Archibald M.D. 09/14/2017 10:00 PM Dictated Date/Time: 09/14/2017 9:57 PM CHEST ONE VIEW PORTABLE CLINICAL HISTORY: 86 years-old Female presenting with EVALUATE ALTERED MENTAL STATUS/WEAKNESS. TECHNIQUE: Portable upright AP view of the chest was obtained. COMPARISON: 07/09/2017. FINDINGS: Atherosclerosis of the aortic arch. Cardiac silhouette top normal in size. Mild apparent prominence of the right paratracheal region in the superior mediastinum may relate to vascular prominence. Mildly low lung volumes, unchanged. No focal opacity. No large effusion or pneumothorax. Degenerative changes of the thoracic spine. Upper abdomen normal. IMPRESSION: 1. Borderline cardiomegaly. Otherwise no acute cardiopulmonary disease. 2. Prominence of the right paratracheal region is felt to most likely be vascular in etiology. Electronically signed by: Isidro Archibald M.D. 09/14/2017 10:34 PM Dictated Date/Time: 09/14/2017 10:33 PM MRI Head: Artifact or tiny infarct in the left cerebellar vermis region. Query lesion, possibly meningioma measuring 8 mm in the right tentorial region Involutional changes with small vessel disease. Cataract surgery. Retention cyst in left maxillary sinus. Radiologist: Adrian Felix M.D. Study ready at 23:09 and initial results transmitted at 23:16. 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 Found to have a UTI. Head MRI ordered by ER doc because per nurse there was facial droop and acute worsening of mentation. Encephalopathy 2/2 UTI Pt talks to me and is oriented x 3. Appears tired. UA dirty & pt symptomatic. We ordered a CT Abdomen to assess for obstruction or other renal pathology. IVF at 70mls/hr - low rate due to low EF. Ceftriaxone IV daily. Follow urine and blood cultures. CAD / HTN ASA, coreg, indapamide, Lisinopril Mood - c/w cymbalta Gout - HOLD uloric Insomnia - c/w Flurazepam. Anxiety - Alprazolam PRN. DVT Proph: Hep SQ BID Diet: Heart Healthy Dispo: Pt lives on her own, family told her to move to a different place with services, takes care of herself but has found it difficult to do so in the past two weeks, will get Discharge planning eval. PT and OT ordered. FULL CODE Attending addendum: I have physically seen this patient, have supervised the medical residents activities, and agree with the H&P unless as otherwise noted. Assessment and Plan: Encephalopathy/sepsis secondary to UTI-- Normal saline at 70 mL's per hour. Follow urine culture and sensitivity Ceftriaxone 1 g IV daily CAD/hypertension-- Continue aspirin, Coreg and lisinopril. Hold indapamide. Advanced Directives Existing Advance Directive: No Existing Living Will: No Existing Power of Tailor Garment Fitter: No Resuscitation Status VTE Prophylaxis Will order VTE Prophylaxis: Yes Resident Involvement: Resident Care Provided Care Provided: Adult Hospital Medicine
--- NOTE | 2017-09-15 00:20 | EMERGENCY ROOM VISIT NOTE ---
History Report prepared by Leyla: Jaswant Ortiz Under the Supervision of: Dr. Adam Combs D.O. First contact with patient: 21:31 Chief Complaint: WEAKNESS Stated Complaint: WEAKNESS Nursing Triage Summary: see triage note History of Present Illness The patient is a 86 year old female who presents to the Emergency Room with complaints of worsening weakness that began 2 hours ago. She was brought from her apartment via EMS; per nursing staff, when the patient arrived, she was forming complete sentences and her facial droop and confusion is new from baseline. She was confused that her doctor's appointment, scheduled for 09/15/2017 , was actually today. Per her family, she states she has diarrhea and weakness. The patient denies nausea and vomiting. Per her family, the patient wears diapers and potentially might have a bladder infection. Per family, she has an appointment with Dr. Rios because she has difficulty walking due to a previous back surgery. Source of History: patient, family Onset: 2 hours ago Position: other (global) Symptom Intensity: pain rated as 0/10 Quality: other (weakness) Timing: worsening Associated Symptoms: + diarrhea, + weakness, No nausea, No vomiting Review of Systems See HPI for pertinent positives & negatives. A total of 10 systems reviewed and were otherwise negative. 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 Surgical Problems: (1) History of bilateral knee replacement Family History No significant family history Social History Smoking Status: Never Smoker Drug Use: none Marital Status: Housing Status: lives alone Occupation Status: retired Current/Historical Medications Scheduled Aspirin Enteric Coated (Ecotrin Or Generic), 81 MG PO QAM Carvedilol (Coreg), 12.5 MG PO BID Duloxetine HCl (Cymbalta), 30 MG PO QAM Febuxostat (Uloric), 1 TAB PO DAILY Flurazepam Hcl (Dalmane), 30 MG PO HS Indapamide (Indapamide), 1.25 MG PO QAM Lisinopril (Prinivil), 5 MG PO QAM Scheduled PRN Alprazolam (Alprazolam), 0.5 MG PO TID PRN for Anxiety Allergies Coded Allergies: Amoxicillin (Verified Allergy, Unknown, RASH AND SWELLING TONGUE, 07/08/17) Levofloxacin (Verified Allergy, Unknown, RASH AND SWELLING TONGUE, 07/08/17 ) Penicillins (Verified Allergy, Unknown, RASH & HIVES, 07/08/17) Sulfamethoxazole w/Trimethoprim (Verified Allergy, Unknown, ?, 07/08/17) Nitrofurantoin (Verified Adverse Reaction, Mild, HEADACHE, 07/08/17) Physical Exam Vital Signs Date Time Temp Pulse Resp B/P (MAP) Pulse Ox O2 Delivery O2 Flow Rate FiO2 09/15/17 00:01 167/72 09/14/17 23:52 71 25 94 Room Air 09/14/17 23:31 169/84 09/14/17 23:08 71 22 161/71 93 Room Air 09/14/17 23:06 161/71 09/14/17 22:31 178/84 09/14/17 22:30 88 20 178/84 97 Room Air 09/14/17 21:43 70 09/14/17 21:01 36.5 73 20 132/61 95 Room Air 09/14/17 20:57 132/61 Physical Exam CONSTITUTIONAL/VITAL SIGNS: Reviewed / noted above. GENERAL: Generalized weakness. Non-toxic in appearance. INTEGUMENTARY: Warm, dry, and [place]. HEAD: Normocephalic. EYES: without scleral icterus or trauma. ENT/OROPHARYNX: clear and moist. LYMPHADENOPATHY/NECK: Is supple without lymphadenopathy or meningismus. RESPIRATORY: Lungs clear and equal. CARDIOVASCULAR: Regular rate and rhythm. GI/ABDOMEN: Soft and nontender. No organomegaly or pulsatile mass. No rebound or guarding. Normal bowel sounds. EXTREMITIES: Warm and well perfused. BACK: No CVA tenderness. NEUROLOGICAL: Slurring speech. No clear focal deficits. PSYCHIATRIC: normal affect. MUSCULOSKELETAL: Normally developed with good muscle tone. Medical Decision & Procedures ER Provider Diagnostic Interpretation: Radiology results as stated below per my review and radiologist interpretation: HEAD WITHOUT CONTRAST (CT) CLINICAL HISTORY: 86 years-old Female presenting with EVALUATE ALTERED MENTAL STATUS/WEAKNESS. TECHNIQUE: Multidetector CT imaging of the head was performed without the use of intravenous contrast. IV contrast: None. A dose lowering technique was used consistent with the principles of ALARA (as low as reasonably achievable). COMPARISON: 09/17/2015. CT DOSE (mGy.cm): The estimated cumulative dose is 623.48 mGy.cm. FINDINGS: Water Meter Reader topogram: Unremarkable. Proportional ventricular and sulcal prominence, likely age-related parenchymal volume loss. Periventricular and subcortical white matter hypoattenuation, nonspecific but likely indicative of chronic small vessel ischemic change. Old lacunar infarct suggested in the bilateral basal ganglia. No mass effect or midline shift. No hemorrhage or acute territorial infarct. No extra-axial fluid collection. Paranasal sinuses and mastoid air cells clear. Calvarium intact. IMPRESSION: 1. Chronic small vessel ischemic change. No acute intracranial abnormality. Electronically signed by: Isidro Archibald M.D. 09/14/2017 10:00 PM Dictated Date/Time: 09/14/2017 9:57 PM CHEST ONE VIEW PORTABLE CLINICAL HISTORY: 86 years-old Female presenting with EVALUATE ALTERED MENTAL STATUS/WEAKNESS. TECHNIQUE: Portable upright AP view of the chest was obtained. COMPARISON: 07/09/2017. FINDINGS: Atherosclerosis of the aortic arch. Cardiac silhouette top normal in size. Mild apparent prominence of the right paratracheal region in the superior mediastinum may relate to vascular prominence. Mildly low lung volumes, unchanged. No focal opacity. No large effusion or pneumothorax. Degenerative changes of the thoracic spine. Upper abdomen normal. IMPRESSION: 1. Borderline cardiomegaly. Otherwise no acute cardiopulmonary disease. 2. Prominence of the right paratracheal region is felt to most likely be vascular in etiology. Electronically signed by: Isidro Archibald M.D. 09/14/2017 10:34 PM Dictated Date/Time: 09/14/2017 10:33 PM MRI Head: Artifact or tiny infarct in the left cerebellar vermis region. Query lesion, possibly meningioma measuring 8 mm in the right tentorial region Involutional changes with small vessel disease. Cataract surgery. Retention cyst in left maxillary sinus. Radiologist: Adrian Felix M.D. Study ready at 23:09 and initial results transmitted at 23:16. Laboratory Results 09/14/17 21:31 Red Blood Count 4.49, Mean Corpuscular Volume 91.3, Mean Corpuscular Hemoglobin 30.3, Mean Corpuscular Hemoglobin Concent 33.2, Mean Platelet Volume 12.3, Neutrophils (%) (Auto) 62.2, Lymphocytes (%) (Auto) 18.9, Monocytes (%) (Auto) 9.7, Eosinophils (%) (Auto) 8.5, Basophils (%) (Auto) 0.4, Neutrophils # (Auto) 4.30, Lymphocytes # (Auto) 1.31, Monocytes # (Auto) 0.67, Eosinophils # (Auto) 0.59, Basophils # (Auto) 0.03 09/14/17 21:31 Test 09/14/17 21:31 09/14/17 21:50 09/14/17 22:09 09/14/17 22:21 White Blood Count 6.92 K/uL (4.8-10.8) Red Blood Count 4.49 M/uL (4.2-5.4) Hemoglobin 13.6 g/dL (12.0-16.0) Hematocrit 41.0 % (37-47) Mean Corpuscular Volume 91.3 fL (80-100) Mean Corpuscular Hemoglobin 30.3 pg (25-34) Mean Corpuscular Hemoglobin Concent 33.2 g/dl (32-36) Platelet Count 157 K/uL (130-400) Mean Platelet Volume 12.3 fL (7.4-10.4) Neutrophils (%) (Auto) 62.2 % Lymphocytes (%) (Auto) 18.9 % Monocytes (%) (Auto) 9.7 % Eosinophils (%) (Auto) 8.5 % Basophils (%) (Auto) 0.4 % Neutrophils # (Auto) 4.30 K/uL (1.4-6.5) Lymphocytes # (Auto) 1.31 K/uL (1.2-3.4) Monocytes # (Auto) 0.67 K/uL (0.11-0.59) Eosinophils # (Auto) 0.59 K/uL (0-0.5) Basophils # (Auto) 0.03 K/uL (0-0.2) RDW Standard Deviation 44.7 fL (36.4-46.3) RDW Coefficient of Variation 13.5 % (11.5-14.5) Immature Granulocyte % (Auto) 0.3 % Immature Granulocyte # (Auto) 0.02 K/uL (0.00-0.02) Anion Gap 7.0 mmol/L (3-11) Est Creatinine Clear Calc Drug Dose 23.3 ml/min Estimated GFR () 27.8 Estimated GFR (Non- 23.9 BUN/Creatinine Ratio 18.5 (10-20) Calcium Level 9.1 mg/dl (8.5-10.1) Magnesium Level 1.8 mg/dl (1.8-2.4) Total Bilirubin 0.4 mg/dl (0.2-1) Direct Bilirubin mg/dl (0-0.2) Aspartate Amino Transf (AST/SGOT) 29 U/L (15-37) Alanine Aminotransferase (ALT/SGPT) 26 U/L (12-78) Alkaline Phosphatase 109 U/L (45-117) Total Creatine Kinase 64 U/L (26-192) Creatine Kinase MB 0.7 ng/ml (0.5-3.6) Creatine Kinase MB Ratio 1.1 (0-3.0) Troponin I < 0.015 ng/ml (0-0.045) Total Protein 6.8 gm/dl (6.4-8.2) Albumin 3.6 gm/dl (3.4-5.0) Lipase 247 U/L (73-393) Thyroid Stimulating Hormone (TSH) 3.900 uIu/ml (0.300-4.500) Chemistry Specimen Hemolysis Bedside Glucose 107 mg/dl (70-90) Prothrombin Time 10.2 SECONDS (9.0-12.0) Prothromb Time International Ratio 1.0 (0.9-1.1) Activated Partial Thromboplast Time 25.3 SECONDS (21.0-31.0) Partial Thromboplastin Ratio 1.0 Urine Color YELLOW Urine Appearance CLOUDY (CLEAR) Urine pH 7.0 (4.5-7.5) Urine Specific [place] 1.014 (1.000-1.030) Urine Protein 2+ (NEG) Urine Glucose (UA) NEG (NEG) Urine Ketones NEG (NEG) Urine Occult Blood TRACE (NEG) Urine Nitrite POS (NEG) Urine Bilirubin NEG (NEG) Urine Urobilinogen NEG (NEG) Urine Leukocyte Esterase LARGE (NEG) Urine WBC (Auto) >30 /hpf (0-5) Urine RBC (Auto) 0-4 /hpf (0-4) Urine Hyaline Casts (Auto) 1-5 /lpf (0-5) Urine Epithelial Cells (Auto) 0-5 /lpf (0-5) Urine Bacteria (Auto) 4+ (NEG) Laboratory results as stated above per my review. Medications Administered Medications (Trade) Dose Ordered Sig/Jasmina Route Start Time Stop Time Status Last Admin Dose Admin Sodium Chloride 1,000 ml @ 200 mls/hr Q5H STAT IV 09/14/17 21:45 09/15/17 02:44 09/14/17 22:10 200 MLS/HR Ceftriaxone Sodium (Rocephin Inj) 1 gm NOW STAT IV 09/14/17 23:30 09/14/17 23:31 DC 09/14/17 23:39 1 GM ECG Per My Interpretation Indication: weakness, other (confusion) Rate (beats per minute): 68 Rhythm: normal sinus Findings: no ectopy, other (No ST elevation) ED Course 2130: Previous medical records were reviewed. The patient was evaluated in room A2. A complete history and physical examination was performed. 5: Sodium Chloride 1000 ml @ 200 mls/hr IV. 2330: Rocephin Inj, 1 gm, IV. 2355: Discussed the patient's case with Dr. Garcia. The patient will be evaluated for further treatment and disposition. 2350: On reevaluation, the patient is resting. I discussed the results and findings with the patient and her family. They verbalized agreement of the treatment plan. I spoke with Dr. Garcia of the [facility] Hospitalist Service. The patient will be evaluated for further management and care. Medical Decision Differential includes acute coronary syndrome, myocardial infarction, CVA, TIA, anemia, infection, pneumonia, UTI, pyelonephritis, poor nutrition, dehydration, electrolyte disturbance,hypoglycemia. This is an 86-year-old female who presents to the ED with a chief complaint of generalized weakness and confusion. The symptoms were noticed around 8 PM tonight. The patient feels confused. The patient on her arrival was more conversant but when I saw the patient, the patient seems to be slurring her words somewhat and seems to be increasingly tired. The nurse that originally saw the patient felt that her right face might be drooping slightly and she might have a slight increase weakness in her right arm. The patient's physical exam for myself revealed some generalized weakness. She also appears tired. Her vital signs are normal. EKG shows a normal sinus rhythm. CT scan of the brain did not show acute process. CBC and complete metabolic panel were normal , BUN is 35 and creatinine is 1.8. Troponin was negative and a TSH was normal. Urine is suggestive of UTI. An MRI of the brain was also performed that did not show acute findings to suggest CVA. The patient was treated with IV Rocephin and IV fluids. She will be seen by the hospitalist service for further inpatient evaluation and care. Medication Reconcilliation Current Medication List: was personally reviewed by me Blood Pressure Screening Patient's blood pressure: Normal blood pressure Blood pressure disposition: Did not require urgent referral Consults Time Called: [phone] Consulting Physician: Returned Call: [phone] Discussed the patient's case. The patient will be evaluated for further treatment and disposition. Impression Primary Impression: UTI (urinary tract infection) Additional Impression: Confusion Scribe Attestation The scribe's documentation has been prepared under my direction and personally reviewed by me in its entirety. I confirm that the note above accurately reflects all work, treatment, procedures, and medical decision making performed by me. Departure Information Dispostion Being Evaluated By Hospitalist Referrals Soto Sloan M.D. (PCP) Patient Instructions My [facility] Problem Qualifiers
[2017-09-15] MEDS ORDERED: ONDANSETRON INJ 2 MG/ML 2 ML VIAL IV PRN (00:30)
[2017-09-15] MEDS ORDERED: POLYETHYLENE (MIRALAX) 17 GM PACK PO PRN (00:30)
[2017-09-15] MEDS ORDERED: ALPRAZOLAM 0.5 MG TAB PO PRN (00:30)
[2017-09-15] MEDS ORDERED: ALUMINUM/MAGNESIUM/SIMETH (MAALOX MAX) 30 ML UDC PO PRN (00:30)
[2017-09-15] MEDS ORDERED: MAGNESIUM HYDROXIDE SUSP 30 ML UDC PO PRN (00:30)
[2017-09-15] MEDS ORDERED: IV FLUIDS COMPLETED PRN (01:15)
[2017-09-15] MEDS ORDERED: D5W AND 1/2NSS + 20MEQ KCL 1,000 ML IV SCH (01:45)
[2017-09-15] MEDS: ACETAMINOPHEN 325 MG TAB PO PRN ×4 (02:05→23:27)
--- NOTE | 2017-09-15 07:21 | DIAGNOSTIC IMAGING REPORT ---
Brain MRI WITHOUT CONTRAST HISTORY: Altered mental status. r/o stroke TECHNIQUE: Multiplanar multisequence MRI of the brain was performed without the use of contrast. COMPARISON STUDY: Head CT 09/14/2017. FINDINGS: There is no hematoma, midline shift, or acute infarct. Small retention cysts within the left maxillary sinus.. The mastoid air cells are clear. The ventricles and sulci demonstrate mild age-related involutional changes. Scattered foci of T2 hyperintensity seen within the periventricular and subcortical white matter are nonspecific but suggestive of mild microvascular ischemic changes. The major vascular flow voids at the skull base are well-maintained. There is a 1 cm T2 hyperintense extra-axial well-circumscribed focus along the midline of the tentorium. This is best seen on coronal image 20. This demonstrates restricted diffusion. Therefore, this favors a small meningioma. IMPRESSION: 1. No acute intracranial abnormality. 2. A 1 cm extra-axial lesion along the midline of the tentorium. This favors a meningioma. Electronically signed by: Kali Levine M.D. 09/15/2017 7:20 AM Dictated Date/Time: 09/15/2017 7:14 AM
--- NOTE | 2017-09-15 07:59 | Progress Note ---
Subjective Date of Service: Sep 15, 2017. Subjective this pt is intermittently confused, she is concerned about not returning home but family is concerned about her falling frequently Problem List Medical Problems: (1) Bacteremia Status: Acute (2) Confusion Status: Acute (3) Fall Status: Acute (4) Injury of foot, left Status: Acute (5) Neck strain Status: Acute (6) NSTEMI (non-ST elevated myocardial infarction) Status: Acute (7) Partial small bowel obstruction Status: Acute (8) Shoulder contusion Status: Acute (9) UTI (urinary tract infection) Status: Acute (10) Weakness Status: Acute (11) Weakness Status: Acute (12) Weakness Status: Acute Review of Systems Constitutional: No fever, No chills, No weakness, No fatigue Respiratory: No cough, No shortness of breath Cardiac: No chest pain, No edema Abdomen: No pain, No nausea, No vomiting, No diarrhea Neurologic: + memory loss, + weakness Psychiatric: + depression symptoms, + anxiety Objective Vital Signs Date Time Temp Pulse Resp B/P (MAP) Pulse Ox O2 Delivery O2 Flow Rate FiO2 09/15/17 07:45 36.4 65 17 140/60 (86) 92 Room Air 128/67 (87) 09/15/17 06:37 36.5 62 18 123/68 (86) 94 Room Air 09/15/17 01:45 36.5 72 20 178/75 Room Air 09/15/17 01:21 77 24 146/77 92 09/15/17 00:01 167/72 09/14/17 23:52 71 25 94 Room Air 09/14/17 23:31 169/84 09/14/17 23:08 71 22 161/71 93 Room Air 09/14/17 23:06 161/71 09/14/17 22:31 178/84 09/14/17 22:30 88 20 178/84 97 Room Air 09/14/17 21:43 70 09/14/17 21:01 36.5 73 20 132/61 95 Room Air 09/14/17 20:57 132/61 Physical Exam General Appearance: WD/WN, + mild distress Eyes: normal inspection, sclerae normal Neck: supple Respiratory/Chest: chest non-tender, lungs clear, normal breath sounds Cardiovascular: regular rate, rhythm, no murmur Abdomen: normal bowel sounds, non tender, soft Neurologic/Psychiatric: alert, + depressed affect, + disoriented Laboratory Results Last 24 Hours Test 09/14/17 21:31 09/14/17 21:50 09/14/17 22:09 09/14/17 22:21 White Blood Count 6.92 K/uL Red Blood Count 4.49 M/uL Hemoglobin 13.6 g/dL Hematocrit 41.0 % Mean Corpuscular Volume 91.3 fL Mean Corpuscular Hemoglobin 30.3 pg Mean Corpuscular Hemoglobin Concent 33.2 g/dl Platelet Count 157 K/uL Mean Platelet Volume 12.3 fL Neutrophils (%) (Auto) 62.2 % Lymphocytes (%) (Auto) 18.9 % Monocytes (%) (Auto) 9.7 % Eosinophils (%) (Auto) 8.5 % Basophils (%) (Auto) 0.4 % Neutrophils # (Auto) 4.30 K/uL Lymphocytes # (Auto) 1.31 K/uL Monocytes # (Auto) 0.67 K/uL Eosinophils # (Auto) 0.59 K/uL Basophils # (Auto) 0.03 K/uL RDW Standard Deviation 44.7 fL RDW Coefficient of Variation 13.5 % Immature Granulocyte % (Auto) 0.3 % Immature Granulocyte # (Auto) 0.02 K/uL Sodium Level 140 mmol/L Potassium Level 4.4 mmol/L Chloride Level 110 mmol/L Carbon Dioxide Level 23 mmol/L Anion Gap 7.0 mmol/L Blood Urea Nitrogen 35 mg/dl Creatinine 1.89 mg/dl Est Creatinine Clear Calc Drug Dose 23.3 ml/min Estimated GFR () 27.8 Estimated GFR (Non- 23.9 BUN/Creatinine Ratio 18.5 Random Glucose 106 mg/dl Calcium Level 9.1 mg/dl Magnesium Level 1.8 mg/dl Total Bilirubin 0.4 mg/dl Direct Bilirubin mg/dl Aspartate Amino Transf (AST/SGOT) 29 U/L Alanine Aminotransferase (ALT/SGPT) 26 U/L Alkaline Phosphatase 109 U/L Total Creatine Kinase 64 U/L Creatine Kinase MB 0.7 ng/ml Creatine Kinase MB Ratio 1.1 Troponin I < 0.015 ng/ml Total Protein 6.8 gm/dl Albumin 3.6 gm/dl Lipase 247 U/L Thyroid Stimulating Hormone (TSH) 3.900 uIu/ml Chemistry Specimen Hemolysis Bedside Glucose 107 mg/dl Prothrombin Time 10.2 SECONDS Prothromb Time International Ratio 1.0 Activated Partial Thromboplast Time 25.3 SECONDS Partial Thromboplastin Ratio 1.0 Urine Color YELLOW Urine Appearance CLOUDY Urine pH 7.0 Urine Specific [place] 1.014 Urine Protein 2+ Urine Glucose (UA) NEG Urine Ketones NEG Urine Occult Blood TRACE Urine Nitrite POS Urine Bilirubin NEG Urine Urobilinogen NEG Urine Leukocyte Esterase LARGE Urine WBC (Auto) >30 /hpf Urine RBC (Auto) 0-4 /hpf Urine Hyaline Casts (Auto) 1-5 /lpf Urine Epithelial Cells (Auto) 0-5 /lpf Urine Bacteria (Auto) 4+ Assessment and Plan 89F metabolic encephalopathy with UTI poa. Encephalopathy 2/2 UTI poa , gram negative bacteria seen in urine IVF at 70mls/hr - low rate due to low EF. Ceftriaxone IV daily. pending urine and blood cultures. CAD / HTN ASA, coreg, indapamide, Lisinopril depression - c/w cymbalta Gout - HOLD uloric, no clinical issues noted Insomnia - seems to work with Flurazepam. Anxiety - Alprazolam PRN. DVT Proph: Hep SQ BID Dispo: Pt lives on her own, family told her to move to a different place with services, takes care of herself but has found it difficult to do so in the past two weeks, will get Discharge planning eval. PT and OT ordered. FULL CODE
[2017-09-15] MEDS: INDAPAMIDE 1.25 MG TAB PO SCH (08:09)
[2017-09-15] MEDS: DULOXETINE (CYMBALTA) 30 MG CAP PO SCH (08:09)
[2017-09-15] MEDS: CARVEDILOL 12.5 MG TAB PO SCH ×2 (08:10→20:32)
[2017-09-15] MEDS: ASPIRIN 81 MG ECTAB PO SCH (08:10)
[2017-09-15] MEDS: LISINOPRIL 5 MG TAB PO SCH (08:10)
[2017-09-15] MEDS: HEPARIN SOD 5000 UNIT/0.5 ML CARP SQ SCH ×2 (08:16→20:30)
[2017-09-15] MEDS: FLURAZEPAM HCL 15 MG CAP PO SCH (20:35)
[2017-09-15] MEDS: CEFTRIAXONE SOD INJ 1 GM in DEXTROSE 5% ADD-VANTAGE 50ML 50 ML IV SCH (23:15)
[2017-09-16] VITALS (7 sets, daily range): BP systolic 116–167; BP diastolic 61–79; PULSE 58–69; TEMP 36.2–36.7; O2SAT 93–96
--- NOTE | 2017-09-16 07:27 | Progress Note ---
Subjective Date of Service: Sep 16, 2017. Subjective pt remains pleasantly confused is incontinent of urine and c/o right rib pain, son is at bedside and updated Problem List Medical Problems: (1) Bacteremia Status: Acute (2) Confusion Status: Acute (3) Fall Status: Acute (4) Injury of foot, left Status: Acute (5) Neck strain Status: Acute (6) NSTEMI (non-ST elevated myocardial infarction) Status: Acute (7) Partial small bowel obstruction Status: Acute (8) Shoulder contusion Status: Acute (9) UTI (urinary tract infection) Status: Acute (10) Weakness Status: Acute (11) Weakness Status: Acute (12) Weakness Status: Acute Review of Systems Constitutional: + weakness, + fatigue, No fever Eyes: No worsening of vision, No redness Cardiac: + chest pain (right rib and reproduceable), No edema Abdomen: No pain, No nausea, No vomiting, No diarrhea Female : + incontinence, No dysuria Neurologic: + memory loss, + weakness Objective Vital Signs Date Time Temp Pulse Resp B/P (MAP) Pulse Ox O2 Delivery O2 Flow Rate FiO2 09/16/17 00:00 95 Room Air 09/15/17 23:22 36.7 73 19 174/72 (106) 95 Room Air 09/15/17 16:00 Room Air 09/15/17 15:28 36.6 68 17 159/68 (98) 95 Room Air 09/15/17 15:22 71 95 09/15/17 14:46 36.6 78 20 117/72 (87) 95 Room Air 09/15/17 08:33 92 Room Air 09/15/17 08:00 Room Air 09/15/17 07:45 36.4 65 17 140/60 (86) 92 Room Air 128/67 (87) Physical Exam General Appearance: WD/WN, + mild distress Eyes: normal inspection, PERRL, EOMI, sclerae normal Respiratory/Chest: chest non-tender, lungs clear, normal breath sounds Cardiovascular: regular rate, rhythm, no murmur Abdomen: normal bowel sounds, soft, + tenderness (right ribs not robin sign like) Extremities: no pedal edema, no calf tenderness Neurologic/Psychiatric: alert, + disoriented Assessment and Plan 89F metabolic encephalopathy with UTI poa. likely from chronic incontinence , has right rib pain and suspect fracture of ribs Encephalopathy 2/2 UTI poa , gram negative bacteria seen in urine, sensitivities are pending IVF at 70mls/hr - low rate due to low EF. Ceftriaxone IV daily. Rib pain with recent fall, given the degree of pain look for alternate issues such as shingles but no signs currently will use scheduled tylenol and celebrex CAD / HTN ASA, coreg, indapamide, Lisinopril depression - c/w cymbalta Gout - HOLD uloric, no clinical issues noted Insomnia - seems to work with Flurazepam. Anxiety - Alprazolam PRN. DVT Proph: Hep SQ BID Dispo: Pt lives on her own, family is looking into [facility] in [place], PT and OT ordered. case management assistance in process FULL CODE
[2017-09-16] MEDS ORDERED: OXYCODONE HCL IR 5 MG TAB (IMMEDIATE RELEASE) PO PRN (09:15)
[2017-09-16] MEDS: CARVEDILOL 12.5 MG TAB PO SCH ×2 (09:17→20:53)
[2017-09-16] MEDS: ASPIRIN 81 MG ECTAB PO SCH (09:20)
[2017-09-16] MEDS: DULOXETINE (CYMBALTA) 30 MG CAP PO SCH (09:20)
[2017-09-16] MEDS: INDAPAMIDE 1.25 MG TAB PO SCH (09:21)
[2017-09-16] MEDS: LISINOPRIL 5 MG TAB PO SCH (09:21)
[2017-09-16] MEDS: ACETAMINOPHEN 325 MG TAB PO PRN (09:23)
[2017-09-16] MEDS: HEPARIN SOD 5000 UNIT/0.5 ML CARP SQ SCH ×2 (09:28→20:51)
[2017-09-16] MEDS: LIDODERM (LIDOCAINE) PATCH 5% TD SCH (09:57)
[2017-09-16] MEDS: CeleBREX 100 MG CAP PO SCH (16:00)
[2017-09-16] MEDS: ACETAMINOPHEN 500 MG TAB PO SCH (20:53)
[2017-09-16] MEDS: FLURAZEPAM HCL 15 MG CAP PO SCH (20:58)
[2017-09-16] MEDS: CEFTRIAXONE SOD INJ 1 GM in DEXTROSE 5% ADD-VANTAGE 50ML 50 ML IV SCH (23:34)
[2017-09-17] MEDS: ACETAMINOPHEN 500 MG TAB PO SCH ×3 (04:37→20:53)
[2017-09-17 06:59] VITALS: BP 149/67; PULSE 63; TEMP 36.5; O2SAT 91
--- NOTE | 2017-09-17 07:06 | DIAGNOSTIC IMAGING REPORT ---
CT HEAD WITHOUT CONTRAST (CT) CLINICAL HISTORY: aphasia COMPARISON STUDY: 09/14/2017 TECHNIQUE: Axial CT of the brain is performed from the vertex to the skull base. IV contrast was not administered for this examination. A dose lowering technique was utilized adhering to the principles of ALARA. CT DOSE: 614.27 mGy.cm FINDINGS: No intra or extra-axial mass lesions are visualized. There is no CT evidence of acute cortical infarction. There is no evidence of midline shift. There is no acute hemorrhage. No calvarial fractures are visualized. There are patchy white matter hypodensities likely on a small vessel basis. There is no evidence of pathologic ventricular dilatation. There is a left maxillary sinus retention cyst. There is no evidence of acute sinusitis. IMPRESSION: No acute intracranial findings Electronically signed by: Philippe Sullivan M.D. 09/17/2017 7:04 AM Dictated Date/Time: 09/17/2017 7:04 AM
[2017-09-17] MEDS: ASPIRIN 81 MG ECTAB PO SCH (08:07)
[2017-09-17] MEDS: DULOXETINE (CYMBALTA) 30 MG CAP PO SCH (08:07)
[2017-09-17] MEDS: CARVEDILOL 12.5 MG TAB PO SCH ×2 (08:07→20:52)
[2017-09-17] MEDS: INDAPAMIDE 1.25 MG TAB PO SCH (08:07)
[2017-09-17] MEDS: CeleBREX 100 MG CAP PO SCH (08:07)
[2017-09-17] MEDS: LISINOPRIL 5 MG TAB PO SCH (08:08)
[2017-09-17] MEDS: LIDODERM (LIDOCAINE) PATCH 5% TD SCH (08:08)
[2017-09-17] MEDS: HEPARIN SOD 5000 UNIT/0.5 ML CARP SQ SCH ×2 (08:10→20:55)
--- NOTE | 2017-09-17 14:43 | Progress Note ---
Subjective Date of Service: Sep 17, 2017. Subjective Pt is having intermittent episodes of confusion and sundowning, overnight 09/16- did have CT head due to same, no focal changes seen Family is at bedside and informs of desire to take to [facility] after discharge, we did discuss that the pt has to see PT/OT first and then will apply Pt is pleasantly confused and only states she does not want to go to assisted Problem List Medical Problems: (1) Bacteremia Status: Acute (2) Confusion Status: Acute (3) Fall Status: Acute (4) Injury of foot, left Status: Acute (5) Neck strain Status: Acute (6) NSTEMI (non-ST elevated myocardial infarction) Status: Acute (7) Partial small bowel obstruction Status: Acute (8) Shoulder contusion Status: Acute (9) UTI (urinary tract infection) Status: Acute (10) Weakness Status: Acute (11) Weakness Status: Acute (12) Weakness Status: Acute Review of Systems Constitutional: + weakness, + fatigue, No fever, No chills Respiratory: No cough, No shortness of breath Cardiac: No chest pain, No edema Abdomen: No pain, No nausea, No vomiting Neurologic: + memory loss, + weakness, + balance problems Objective Vital Signs Date Time Temp Pulse Resp B/P (MAP) Pulse Ox O2 Delivery O2 Flow Rate FiO2 09/17/17 06:59 36.5 63 18 149/67 (94) 91 Room Air 09/17/17 00:00 Room Air 09/16/17 22:56 36.6 67 20 116/61 (79) 93 Room Air 09/16/17 22:47 36.2 64 19 135/73 (93) 93 Room Air 09/16/17 21:02 65 96 Room Air 09/16/17 16:00 94 Room Air 09/16/17 15:21 36.6 58 20 121/66 (84) 94 Room Air 09/16/17 14:26 Room Air Physical Exam General Appearance: WD/WN, + mild distress Eyes: normal inspection, sclerae normal Neck: supple, no JVD Respiratory/Chest: chest non-tender, lungs clear, normal breath sounds Cardiovascular: regular rate, rhythm, + systolic murmur Neurologic/Psychiatric: alert, + depressed affect, + disoriented Assessment and Plan 91F metabolic encephalopathy with Pansensitive Ecoi UTI poa. likely from chronic incontinence, has right rib pain and suspect fracture of ribs Encephalopathy 2/2 UTI poa , Perez sensitive E coli Ceftriaxone IV daily. urinary incontinence, family states pt typically does not change depends regularly and this may lead to issue Rib pain with recent fall, given the degree of pain look for alternate issues such as shingles but no signs currently greatly improved with scheduled tylenol and celebrex CAD / HTN ASA, coreg, indapamide, Lisinopril depression - c/w cymbalta Gout - HOLD uloric, no clinical issues noted Insomnia - seems to work with Flurazepam. Anxiety - Alprazolam PRN. DVT Proph: Hep SQ BID Dispo: Pt lives on her own, family is looking into [facility] [employer], PT and OT ordered. case management assistance in process FULL CODE
[2017-09-17 14:49] VITALS: BP 129/66; PULSE 60; TEMP 36.4; O2SAT 95
[2017-09-17] MEDS: CEFTRIAXONE SOD INJ 1 GM in DEXTROSE 5% ADD-VANTAGE 50ML 50 ML IV SCH (22:59)
[2017-09-17 23:52] VITALS: BP 114/65; PULSE 70; TEMP 36.4; O2SAT 92
[2017-09-18] VITALS: O2SAT 92
[2017-09-18] MEDS: ACETAMINOPHEN 500 MG TAB PO SCH ×3 (04:30→20:16)
[2017-09-18 07:53] VITALS: BP 116/68; PULSE 65; TEMP 36.4; O2SAT 92
[2017-09-18] MEDS: HEPARIN SOD 5000 UNIT/0.5 ML CARP SQ SCH ×2 (08:09→20:19)
[2017-09-18] MEDS: CeleBREX 100 MG CAP PO SCH (08:10)
[2017-09-18] MEDS: INDAPAMIDE 1.25 MG TAB PO SCH (08:11)
[2017-09-18] MEDS: CARVEDILOL 12.5 MG TAB PO SCH ×2 (08:11→20:16)
[2017-09-18] MEDS: LISINOPRIL 5 MG TAB PO SCH (08:11)
[2017-09-18] MEDS: LIDODERM (LIDOCAINE) PATCH 5% TD SCH (08:11)
[2017-09-18] MEDS: ASPIRIN 81 MG ECTAB PO SCH (08:11)
[2017-09-18] MEDS: DULOXETINE (CYMBALTA) 30 MG CAP PO SCH (08:11)
[2017-09-18 09:46] LABS: HEMATOCRIT 38.3 % (37-47); HEMOGLOBIN 12.5 g/dL (12.0-16.0); MEAN CELL VOLUME 93.2 fL (80-100); MEAN CORPUSCULAR HEMOGLOBIN 30.4 pg (25-34); MEAN CORPUSCULAR HGB CONC 32.6 g/dl (32-36); MEAN PLATELET VOLUME 12.3 fL (7.4-10.4); PLATELET COUNT 146 K/uL (130-400); RED CELL DISTRIBUTION WIDTH CV 13.5 % (11.5-14.5); RED CELL DISTRIBUTION WIDTH SD 46.2 fL (36.4-46.3); WHITE BLOOD COUNT 5.89 K/uL (4.8-10.8)
[2017-09-18 10:15] VITALS: O2SAT 92
[2017-09-18 10:23] LABS: CALCIUM 9.1 mg/dl (8.5-10.1); CREATININE 2.05 mg/dl (0.60-1.20); POTASSIUM 4.1 mmol/L (3.5-5.1)
[2017-09-18 14:48] VITALS: BP 146/78; PULSE 66; TEMP 36.4; O2SAT 94
--- NOTE | 2017-09-18 16:00 | Hospitalist Progress Note ---
Hospitalist Progress Note Date of Service Sep 18, 2017. (Anupama Guzman ., PA-C) Subjective Pt evaluation today including: conversation w/ patient, conversation w/ family (niece at bedside), physical exam, chart review, lab review, review of inpatient medication list Pain: Rib pain PO Intake: Tolerating PO diet Voiding: incontinence Patient reports feeling. She denies any dysuria. She states she is incontinent of urine. She denies any fevers, chills, or sweats and is eating well. Per her niece, the patient appears less confused. The patient does continue to complain of right lateral rib pain, although currently it is improved. She currently rates it a 5/10 aching pain. Today she also noticed back pain when she sat up. She states today is the first day she's been sitting up. The patient denies fevers, chills, sweats, chest pain, palpitations , claudication, cough, wheezing, shortness of breath, nausea, vomiting, abdominal pain, dysuria, hematuria, urinary retention, paralysis, weakness, numbness and tingling. Additional Comments: See HPI for pertinent positives and negatives. All other systems reviewed and negative. (Anupama Guzman ., PA-C) Objective Vital Signs Date Time Temp Pulse Resp B/P (MAP) Pulse Ox O2 Delivery O2 Flow Rate FiO2 09/18/17 14:48 36.4 66 18 146/78 (100) 94 Room Air 09/18/17 10:33 Room Air 09/18/17 10:15 92 Room Air 09/18/17 07:53 36.4 65 16 116/68 (84) 92 Room Air 09/18/17 00:00 92 Room Air 09/17/17 23:52 36.4 70 20 114/65 (81) 92 Room Air 09/17/17 16:00 Room Air (Anupama Guzman ., PA-C) Physical Exam Notes: General appearance: +Obese. Well-developed, well-nourished, no apparent distress Head: Normocephalic, atraumatic Eyes: Normal inspection, PERRL, EOMI ENT: Normal ENT inspection, hearing grossly normal, pharynx normal Neck: Supple, no JVD, trachea midline Respiratory/Chest: +Decreased breath sounds due to poor effort. Right lateral ribs under breast TTP (recent fall). Lungs clear to auscultation, no respiratory distress Cardiovascular: Regular rate & rhythm, no gallop, no murmur Abdomen/GI: Normal bowel sounds, non-tender, soft Extremities/Musculoskeletal: Normal inspection, no calf tenderness, no pedal edema Neurological/Psych: +Disoriented to time. Alert, normal mood/affect, oriented x 2 Skin: Normal color, warm/dry, no rash (Anupama Guzman ., PA-C) Laboratory Results Last 24 Hours Test 09/18/17 09:37 White Blood Count 5.89 K/uL Red Blood Count 4.11 M/uL Hemoglobin 12.5 g/dL Hematocrit 38.3 % Mean Corpuscular Volume 93.2 fL Mean Corpuscular Hemoglobin 30.4 pg Mean Corpuscular Hemoglobin Concent 32.6 g/dl RDW Standard Deviation 46.2 fL RDW Coefficient of Variation 13.5 % Platelet Count 146 K/uL Mean Platelet Volume 12.3 fL Sodium Level 140 mmol/L Potassium Level 4.1 mmol/L Chloride Level 108 mmol/L Carbon Dioxide Level 24 mmol/L Anion Gap 8.0 mmol/L Blood Urea Nitrogen 41 mg/dl Creatinine 2.05 mg/dl Est Creatinine Clear Calc Drug Dose 20.4 ml/min Estimated GFR () 25.2 Estimated GFR (Non- 21.7 BUN/Creatinine Ratio 20.2 Random Glucose 112 mg/dl Calcium Level 9.1 mg/dl (Anupama Guzman ., PA-C) Assessment and Plan 86 y/o female a history of HTN, COPD, neuropathy, gout, anxiety and depression who presents with altered mental status. Metabolic encephalopathy due to UTI POA, chronic urge incontinence--improving -Admit to med/surg -Urine culture positive for pansensitive E. coli -Continue Rocephin 1 gm IV qd, day #5 -Per family, does not change Depends regularly enough Rib pain, back pain, recent fall--stable -Continue Tylenol 1000 mg PO q8h scheduled, Celebrex 100 mg PO qd, Lidoderm patch -Continue oxycodone prn HTN -Continue ASA, Coreg 12.5 mg PO BID, lisinopril 5 mg PO qd, indapamide 1.25 COPD--stable -No maintenance meds at home Neuropathy, anxiety, depression, insomnia -Continue Cymbalta 30 mg PO qd, Xanax 0.5 mg PO TID prn anxiety, flurazepam 30 mg PO hs Gout -Uloric held DVT prophylaxis -Heparin 5000 units SC q12h Code Status -Level I, FULL RESUSCITATION STATUS Dispo -Currently lives alone at home -PT/OT recommend rehab -Case management following, medically stable for discharge Continued [facility] stay due to: home environment unsafe for pt (Anupama Guzman, DANII) I personally interviewed and examined the patient. I agree with history of present illness and physical exam mentioned above, I also performed my own history taking and examination. Past medical history and review of system has been obtained by myself I reviewed all pertinent labs and studies Reviewed current medications I discussed and formulated of the assessment and plan mentioned above. Please refer to the Summary mentioned below. 86-year-old female with past medical history of COPD, hypertension, neuropathy, gout and anxiety presented to the hospital with urinary tract infection and metabolic encephalopathy. Urine culture grew pansensitive E. coli, patient is being treated with ceftriaxone with a good response. Also Lactinex was added to prevent C. difficile, patient was found to have deconditioning and protein caloric malnutrition. Also have generalized weakness and decreased mobility. Currently looking into inpatient rehab discharge. General Appearance: not in acute distress Eyes: normal Sclerae, extraocular muscle intact ENT: hearing grossly normal Neck: supple Respiratory/Chest: normal air entry bilateral ,no respiratory distress, no accessory muscle use Cardiovascular: regular rate, rhythm, no murmur Abdomen: non tender, soft, no masses Extremities: no edema musculoskeletal: no significant swelling or inflammation in any joint Neurologic/Psychiatric: Awake despite of slight confusion she followed command and moves all extremities sensation intact cranial nerves II-12 appear to be intact Skin: normal color, warm/dry, no rash Rashid Warren MD, [facility] hospitalist group (Rashid Watt MD)
[2017-09-18 16:29] VITALS: O2SAT 94
[2017-09-18] MEDS: CEFTRIAXONE SOD INJ 1 GM in DEXTROSE 5% ADD-VANTAGE 50ML 50 ML IV SCH (20:15)
[2017-09-18] MEDS: ZOLPIDEM TARTRATE 10 MG TAB PO PRN (20:25)
[2017-09-18 23:09] VITALS: BP 130/68; PULSE 60; TEMP 36.3; O2SAT 93
[2017-09-19] MEDS: ACETAMINOPHEN 500 MG TAB PO SCH ×3 (04:30→20:40)
[2017-09-19 07:05] LABS: HEMATOCRIT 38.1 % (37-47); HEMOGLOBIN 12.5 g/dL (12.0-16.0); MEAN CELL VOLUME 92.5 fL (80-100); MEAN CORPUSCULAR HEMOGLOBIN 30.3 pg (25-34); MEAN CORPUSCULAR HGB CONC 32.8 g/dl (32-36); MEAN PLATELET VOLUME 12.3 fL (7.4-10.4); PLATELET COUNT 156 K/uL (130-400); RED CELL DISTRIBUTION WIDTH CV 13.8 % (11.5-14.5); RED CELL DISTRIBUTION WIDTH SD 46.3 fL (36.4-46.3); WHITE BLOOD COUNT 5.79 K/uL (4.8-10.8)
[2017-09-19] MEDS: LIDODERM (LIDOCAINE) PATCH 5% TD SCH (07:40)
[2017-09-19 07:43] LABS: CALCIUM 9.4 mg/dl (8.5-10.1); CREATININE 1.82 mg/dl (0.60-1.20); POTASSIUM 4.8 mmol/L (3.5-5.1)
[2017-09-19 07:44] VITALS: BP_SYST 137; BP_DIAS 66; BP_DIAS 87; PULSE 65; TEMP 36.4; O2SAT 95
[2017-09-19] MEDS: HEPARIN SOD 5000 UNIT/0.5 ML CARP SQ SCH ×2 (07:44→20:57)
[2017-09-19] MEDS: CARVEDILOL 12.5 MG TAB PO SCH ×2 (07:45→20:39)
[2017-09-19] MEDS: INDAPAMIDE 1.25 MG TAB PO SCH (07:46)
[2017-09-19] MEDS: DULOXETINE (CYMBALTA) 30 MG CAP PO SCH (07:46)
[2017-09-19] MEDS: ASPIRIN 81 MG ECTAB PO SCH (07:47)
[2017-09-19 08:00] VITALS: O2SAT 95
[2017-09-19] MEDS: LACTOBACILLUS ACIDOPHILUS (FLORANEX) TAB PO SCH ×3 (09:28→17:40)
[2017-09-19 14:53] VITALS: BP 121/66; PULSE 60; TEMP 36.3; O2SAT 93
[2017-09-19 16:00] VITALS: O2SAT 95
--- NOTE | 2017-09-19 16:32 | Hospitalist Progress Note ---
Hospitalist Progress Note Date of Service Sep 19, 2017. (Anupama Guzman PA-C) Subjective Pt evaluation today including: conversation w/ patient, physical exam, chart review, lab review, review of inpatient medication list Pain: None PO Intake: Tolerating PO diet Voiding: incontinence Patient reports feeling well today. She remains incontinent of urine but denies any dysuria. She reports feeling weak and fatigued. The patient denies fevers , chills, sweats, chest pain, palpitations, claudication, cough, wheezing, shortness of breath, nausea, vomiting, abdominal pain, dysuria, hematuria, urinary retention, paralysis, weakness, numbness and tingling. Additional Comments: See HPI for pertinent positives and negatives. All other systems reviewed and negative. (Anupama Guzman PA-C) Objective Vital Signs Date Time Temp Pulse Resp B/P (MAP) Pulse Ox O2 Delivery O2 Flow Rate FiO2 09/19/17 14:53 36.3 60 20 121/66 (84) 93 09/19/17 08:00 95 Room Air 09/19/17 07:44 36.4 65 18 137/66 (89) 95 Room Air 09/19/17 00:01 Room Air 09/18/17 23:09 36.3 60 17 130/68 (88) 93 Room Air 09/18/17 16:29 94 Room Air (Anupama Guzman PA-C) Physical Exam Notes: General appearance: +Obese. Well-developed, well-nourished, no apparent distress Head: Normocephalic, atraumatic Eyes: Normal inspection, PERRL, EOMI ENT: Normal ENT inspection, hearing grossly normal, pharynx normal Neck: Supple, no JVD, trachea midline Respiratory/Chest: +Decreased breath sounds. Right lateral ribs under breast TTP (recent fall). Lungs clear to auscultation, no respiratory distress Cardiovascular: Regular rate & rhythm, no gallop, no murmur Abdomen/GI: Normal bowel sounds, non-tender, soft Extremities/Musculoskeletal: Normal inspection, no calf tenderness, no pedal edema Neurological/Psych: +Disoriented to time. Alert, normal mood/affect, oriented x 2 Skin: Normal color, warm/dry, no rash (Anupama Guzman PA-C) Laboratory Results Last 24 Hours Test 09/19/17 06:30 White Blood Count 5.79 K/uL Red Blood Count 4.12 M/uL Hemoglobin 12.5 g/dL Hematocrit 38.1 % Mean Corpuscular Volume 92.5 fL Mean Corpuscular Hemoglobin 30.3 pg Mean Corpuscular Hemoglobin Concent 32.8 g/dl RDW Standard Deviation 46.3 fL RDW Coefficient of Variation 13.8 % Platelet Count 156 K/uL Mean Platelet Volume 12.3 fL Sodium Level 141 mmol/L Potassium Level 4.8 mmol/L Chloride Level 108 mmol/L Carbon Dioxide Level 24 mmol/L Anion Gap 8.0 mmol/L Blood Urea Nitrogen 47 mg/dl Creatinine 1.82 mg/dl Est Creatinine Clear Calc Drug Dose 23.0 ml/min Estimated GFR () 29.0 Estimated GFR (Non- 25.1 BUN/Creatinine Ratio 25.5 Random Glucose 88 mg/dl Calcium Level 9.4 mg/dl (Anupama Guzman ., DANII) Assessment and Plan 86 y/o female a history of HTN, COPD, neuropathy, gout, anxiety and depression who presents with altered mental status. Metabolic encephalopathy due to UTI POA, chronic urge incontinence--improving -Admit to med/surg -Urine culture positive for pansensitive E. coli -Continue Rocephin 1 gm IV qd, day #6 -Per family, does not change Depends regularly enough Rib pain, back pain, recent fall--stable -Continue Tylenol 1000 mg PO q8h scheduled, Lidoderm patch -Celebrex held due to JACKLYN -Continue oxycodone prn HTN -Continue ASA, Coreg 12.5 mg PO BID, lisinopril 5 mg PO qd, indapamide 1.25 -Lisinopril held due to JACKLYN JACKLYN on CKD stage IV--resolved -Baseline creatinine around 1.8 -Creatinine 1.85 on 09/19, down from 2.05 COPD--stable -No maintenance meds at home Neuropathy, anxiety, depression, insomnia -Continue Cymbalta 30 mg PO qd, Xanax 0.5 mg PO TID prn anxiety, flurazepam 30 mg PO hs Gout -Uloric held DVT prophylaxis -Heparin 5000 units SC q12h Code Status -Level I, FULL RESUSCITATION STATUS Dispo -Currently lives alone at home -PT/OT recommend rehab -Case management following, medically stable for discharge. Referral sent to [facility], will require 3 midnight stay. Admitted inpt 09/18 Continued [facility] stay due to: home environment unsafe for pt (Anupama Guzman, DANII) I personally interviewed and examined the patient. I agree with history of present illness and physical exam mentioned above, I also performed my own history taking and examination. Past medical history and review of system has been obtained by myself I reviewed all pertinent labs and studies Reviewed current medications I discussed and formulated of the assessment and plan mentioned above. Please refer to the Summary mentioned below. 86-year-old female with past medical history of COPD, hypertension, neuropathy, gout and anxiety presented to the hospital with urinary tract infection and metabolic encephalopathy. Urine culture grew pansensitive E. coli, patient is being treated with ceftriaxone with a good response. Also Lactinex was added to prevent C. difficile, patient was found to have deconditioning and protein caloric malnutrition. Also have generalized weakness and decreased mobility. Currently looking into inpatient rehab discharge. Discussed plan of care with patient's son who agreed to rehab. Ceftriaxone can be switched to cefdinir for 2 more days and rehab General Appearance: not in acute distress Eyes: normal Sclerae, extraocular muscle intact ENT: hearing grossly normal Neck: supple Respiratory/Chest: normal air entry bilateral ,no respiratory distress, no accessory muscle use Cardiovascular: regular rate, rhythm, no murmur Abdomen: non tender, soft, no masses Extremities: no edema musculoskeletal: no significant swelling or inflammation in any joint Neurologic/Psychiatric: Awake despite of slight confusion she followed command and moves all extremities sensation intact cranial nerves II-12 appear to be intact Skin: normal color, warm/dry, no rash Rashid Warren MD, [facility] hospitalist group (Rashid Watt MD)
[2017-09-19 20:00] VITALS: O2SAT 95
[2017-09-19 22:51] VITALS: BP 129/70; PULSE 64; TEMP 36.3; O2SAT 95
[2017-09-19] MEDS: CEFTRIAXONE SOD INJ 1 GM in DEXTROSE 5% ADD-VANTAGE 50ML 50 ML IV SCH (23:33)
[2017-09-20] VITALS: O2SAT 95
[2017-09-20] MEDS: ZOLPIDEM TARTRATE 10 MG TAB PO PRN (02:07)
[2017-09-20] MEDS: ACETAMINOPHEN 500 MG TAB PO SCH ×3 (04:30→20:37)
[2017-09-20 07:02] LABS: HEMATOCRIT 39.3 % (37-47); HEMOGLOBIN 12.8 g/dL (12.0-16.0); MEAN CELL VOLUME 92.7 fL (80-100); MEAN CORPUSCULAR HEMOGLOBIN 30.2 pg (25-34); MEAN CORPUSCULAR HGB CONC 32.6 g/dl (32-36); MEAN PLATELET VOLUME 12.5 fL (7.4-10.4); PLATELET COUNT 174 K/uL (130-400); RED CELL DISTRIBUTION WIDTH CV 13.7 % (11.5-14.5); RED CELL DISTRIBUTION WIDTH SD 45.9 fL (36.4-46.3); WHITE BLOOD COUNT 5.82 K/uL (4.8-10.8)
[2017-09-20 07:30] VITALS: BP 138/73; PULSE 66; TEMP 36.6; O2SAT 96
[2017-09-20 07:34] LABS: CALCIUM 9.3 mg/dl (8.5-10.1); CREATININE 1.89 mg/dl (0.60-1.20); POTASSIUM 4.7 mmol/L (3.5-5.1)
[2017-09-20] MEDS: CARVEDILOL 12.5 MG TAB PO SCH ×2 (07:55→20:36)
[2017-09-20] MEDS: DULOXETINE (CYMBALTA) 30 MG CAP PO SCH (07:55)
[2017-09-20] MEDS: ASPIRIN 81 MG ECTAB PO SCH (07:55)
[2017-09-20] MEDS: INDAPAMIDE 1.25 MG TAB PO SCH (07:56)
[2017-09-20] MEDS: LACTOBACILLUS ACIDOPHILUS (FLORANEX) TAB PO SCH ×3 (07:56→17:20)
[2017-09-20] MEDS: LIDODERM (LIDOCAINE) PATCH 5% TD SCH (07:57)
[2017-09-20] MEDS: HEPARIN SOD 5000 UNIT/0.5 ML CARP SQ SCH ×2 (07:59→20:34)
[2017-09-20 08:00] VITALS: O2SAT 96
--- NOTE | 2017-09-20 15:53 | Hospitalist Progress Note ---
Hospitalist Progress Note Date of Service Sep 20, 2017. (Anupama Guzman ., CHERRIEC) Subjective Pt evaluation today including: conversation w/ patient, physical exam, chart review, lab review, review of inpatient medication list Voiding: incontinence Patient reports feeling well. She denies any rib pain today. She remains incontinent of urine but denies dysuria. The patient denies fevers, chills, sweats, chest pain, palpitations, claudication, cough, wheezing, shortness of breath, nausea, vomiting, abdominal pain, dysuria, hematuria, urinary retention , paralysis, weakness, numbness and tingling. Additional Comments: See HPI for pertinent positives and negatives. All other systems reviewed and negative. (Anupama Guzman PA-C) Objective Vital Signs Date Time Temp Pulse Resp B/P (MAP) Pulse Ox O2 Delivery O2 Flow Rate FiO2 09/20/17 08:00 96 Room Air 09/20/17 07:30 36.6 66 18 138/73 (94) 96 Room Air 09/20/17 00:00 95 Room Air 09/19/17 22:51 36.3 64 18 129/70 (89) 95 Room Air 09/19/17 20:00 95 Room Air 09/19/17 16:00 95 Room Air (Anupama Guzman ., KENNETH-C) Physical Exam Notes: General appearance: +Obese. Well-developed, well-nourished, no apparent distress Head: Normocephalic, atraumatic Eyes: Normal inspection, PERRL, EOMI ENT: Normal ENT inspection, hearing grossly normal, pharynx normal Neck: Supple, no JVD, trachea midline Respiratory/Chest: +Decreased breath sounds. Lungs clear to auscultation, no respiratory distress Cardiovascular: Regular rate & rhythm, no gallop, no murmur Abdomen/GI: Normal bowel sounds, non-tender, soft Extremities/Musculoskeletal: Normal inspection, no calf tenderness, no pedal edema Neurological/Psych: +Disoriented to time. Alert, normal mood/affect, oriented x 2 Skin: Normal color, warm/dry, no rash (Anupama Guzman, KENNETH-C) Laboratory Results Last 24 Hours Test 09/20/17 06:27 White Blood Count 5.82 K/uL Red Blood Count 4.24 M/uL Hemoglobin 12.8 g/dL Hematocrit 39.3 % Mean Corpuscular Volume 92.7 fL Mean Corpuscular Hemoglobin 30.2 pg Mean Corpuscular Hemoglobin Concent 32.6 g/dl RDW Standard Deviation 45.9 fL RDW Coefficient of Variation 13.7 % Platelet Count 174 K/uL Mean Platelet Volume 12.5 fL Sodium Level 140 mmol/L Potassium Level 4.7 mmol/L Chloride Level 109 mmol/L Carbon Dioxide Level 23 mmol/L Anion Gap 8.0 mmol/L Blood Urea Nitrogen 51 mg/dl Creatinine 1.89 mg/dl Est Creatinine Clear Calc Drug Dose 22.2 ml/min Estimated GFR () 27.8 Estimated GFR (Non- 23.9 BUN/Creatinine Ratio 27.1 Random Glucose 85 mg/dl Calcium Level 9.3 mg/dl (Anupama Guzman, PADarrickC) Assessment and Plan 86 y/o female a history of HTN, COPD, neuropathy, gout, anxiety and depression who presents with altered mental status. Metabolic encephalopathy due to UTI POA, chronic urge incontinence--improving -Admit to med/surg -Urine culture positive for pansensitive E. coli -Rocephin converted to cefdinir 300 mg PO q24h (renal dosing). Tonight day #7 -Per family, does not change Depends regularly enough Rib pain, back pain, recent fall--stable -Continue Tylenol 1000 mg PO q8h scheduled, Lidoderm patch -Celebrex held due to JACKLYN -Continue oxycodone prn HTN -Continue ASA, Coreg 12.5 mg PO BID, indapamide 1.25 -Resume lisinopril as creatinine remains at baseline JACKLYN on CKD stage IV--resolved -Baseline creatinine around 1.8 -Creatinine 1.89 on 09/20, stable from 1.85 COPD--stable -No maintenance meds at home Neuropathy, anxiety, depression, insomnia -Continue Cymbalta 30 mg PO qd, Xanax 0.5 mg PO TID prn anxiety, flurazepam 30 mg PO hs Gout -Uloric held DVT prophylaxis -Heparin 5000 units SC q12h Code Status -Level I, FULL RESUSCITATION STATUS Dispo -Currently lives alone at home -PT/OT recommend rehab -Case management following, medically stable for discharge. Referral sent to [facility], will require 3 midnight stay. Admitted inpt 09/18, can d/c 09/21 (Anupama Guzman ., DANII) I personally interviewed and examined the patient. I agree with history of present illness and physical exam mentioned above, I also performed my own history taking and examination. Past medical history and review of system has been obtained by myself I reviewed all pertinent labs and studies Reviewed current medications I discussed and formulated of the assessment and plan mentioned above. Please refer to the Summary mentioned below. 86-year-old female with past medical history of COPD, hypertension, neuropathy, gout and anxiety presented to the hospital with urinary tract infection and metabolic encephalopathy. Urine culture grew pansensitive E. coli, patient is being treated with ceftriaxone with a good response. Also Lactinex was added to prevent C. difficile, patient was found to have deconditioning and protein caloric malnutrition. Also have generalized weakness and decreased mobility. Currently looking into inpatient rehab discharge. Discussed plan of care with patient's son who agreed to rehab. Ceftriaxone can be switched to cefdinir upon discharge Currently awaiting placement in rehab General Appearance: not in acute distress Eyes: normal Sclerae, extraocular muscle intact ENT: hearing grossly normal Neck: supple Respiratory/Chest: normal air entry bilateral ,no respiratory distress, no accessory muscle use Cardiovascular: regular rate, rhythm, no murmur Abdomen: non tender, soft, no masses Extremities: no edema musculoskeletal: no significant swelling or inflammation in any joint Neurologic/Psychiatric: Awake despite of slight confusion she followed command and moves all extremities sensation intact cranial nerves II-12 appear to be intact Skin: normal color, warm/dry, no rash Rashid Warren MD, [facility] hospitalist group (Rashid Watt MD)
[2017-09-20 16:00] VITALS: O2SAT 96
[2017-09-20 16:05] VITALS: BP 135/78; PULSE 62; TEMP 36.2; O2SAT 95
[2017-09-20] MEDS ORDERED: CEFDINIR 300 MG CAP PO SCH (20:00)
[2017-09-20 23:25] VITALS: BP 147/71; PULSE 66; TEMP 36.7; O2SAT 94
[2017-09-21] VITALS: O2SAT 95
[2017-09-21] MEDS: ACETAMINOPHEN 500 MG TAB PO SCH ×2 (04:30→12:06)
[2017-09-21 06:47] LABS: HEMATOCRIT 38.9 % (37-47); HEMOGLOBIN 12.5 g/dL (12.0-16.0); MEAN CELL VOLUME 93.1 fL (80-100); MEAN CORPUSCULAR HEMOGLOBIN 29.9 pg (25-34); MEAN CORPUSCULAR HGB CONC 32.1 g/dl (32-36); MEAN PLATELET VOLUME 12.3 fL (7.4-10.4); PLATELET COUNT 177 K/uL (130-400); RED CELL DISTRIBUTION WIDTH CV 13.9 % (11.5-14.5); RED CELL DISTRIBUTION WIDTH SD 47.2 fL (36.4-46.3); WHITE BLOOD COUNT 5.71 K/uL (4.8-10.8)
[2017-09-21 07:21] LABS: CALCIUM 9.4 mg/dl (8.5-10.1); CREATININE 1.69 mg/dl (0.60-1.20); POTASSIUM 4.9 mmol/L (3.5-5.1)
[2017-09-21 07:25] VITALS: BP 146/74; PULSE 70; TEMP 36.4; O2SAT 92
[2017-09-21] MEDS ORDERED: LISINOPRIL 5 MG TAB PO SCH (08:00)
[2017-09-21] MEDS: LACTOBACILLUS ACIDOPHILUS (FLORANEX) TAB PO SCH ×2 (08:16→12:06)
[2017-09-21] MEDS: CARVEDILOL 12.5 MG TAB PO SCH (08:17)
[2017-09-21] MEDS: DULOXETINE (CYMBALTA) 30 MG CAP PO SCH (08:17)
[2017-09-21] MEDS: ASPIRIN 81 MG ECTAB PO SCH (08:18)
[2017-09-21] MEDS: INDAPAMIDE 1.25 MG TAB PO SCH (08:18)
[2017-09-21] MEDS: LIDODERM (LIDOCAINE) PATCH 5% TD SCH (08:18)
[2017-09-21] MEDS: HEPARIN SOD 5000 UNIT/0.5 ML CARP SQ SCH (08:20)
[2017-09-21 08:30] VITALS: O2SAT 92
[2017-09-21] MEDS ORDERED: LDDP5 TD ×2 (10:48→10:56)
[2017-09-21] MEDS ORDERED: CEFD300C3 PO (10:48)
[2017-09-21] MEDS ORDERED: ACET-1693 PO (10:48)
--- NOTE | 2017-09-21 10:59 | Discharge Instructions ---
Discharge Instructions Date of Service Sep 21, 2017. Admission Reason for Admission: Encephalopathy Acute, Uti Discharge Discharge Diagnosis / Problem: Acute encephalopathy due to urinary tract infection Discharge Goals Goal(s): Decrease discomfort, Improve function, Diagnostic testing, Therapeutic intervention Activity Recommendations Activity Level: Assistance Required Therapies: Physical Therapy, Occupational Therapy . Additional Information Patient informed of condition: Yes Advance Directives: Yes DNR: No Level of Care: Skilled (subacute rehab) Communicable Disease: No Prognosis: Stable Alba Catheter: No Instructions / Follow-Up Instructions / Follow-Up The patient was admitted with confusion and acute encephalopathy. She was found to have a urinary tract infection. The patient has a history of frequent UTIs as she is incontinent of urine. Per family, she may not have been changing her adult diapers as frequently as she should, increasing her risk. She was initially treated with IV antibiotics and her encephalopathy has since resolved. The patient had a recent fall prior to arrival. She has right lateral rib pain and back pain from this fall that is controlled with Tylenol and Lidoderm. The patient's family has wanted her to move to a facility with services for some time as she has been declining slowly and she is now more deconditioned after her hospital stay, requiring rehab. She is now medically stable for transfer to [facility] for subacute rehab. Medications: *Patient has 1 day left to complete her antibiotic course for complicated UTI w/ encephalopathy. Please administer cefdinir 300 mg daily x 1 more day, dose due tonight on 09/21. *May apply Lidoderm patch to right lateral ribs every morning. Apply for 12 hours, then remove for 12 hours. *May use Tylenol 650 mg by mouth up to every four hours as needed for pain. *Continue other home medications as prescribed. Follow up: *Patient should follow up with primary care provider within 1 week of discharge. Please seek medical attention if patient experiences fevers, chills, sweats, dizziness/lightheadedness, loss of consciousness, chest pain, shortness of breath, nausea, vomiting, numbness or tingling. Current Hospital Diet Patient's current hospital diet: AHA Diet (Heart Healthy) Discharge Diet Recommended Diet: AHA Diet (Heart Healthy) Pending Studies Studies pending at discharge: no Physician Orders On Transfer Special Precautions: Fall precautions Vital Signs: Routine Medical Emergencies . Who to Call and When: Medical Emergencies: If at any time you feel your situation is an emergency, please call 911 immediately. . Non-Emergent Contact Non-Emergency issues call your: Primary Care Provider Call Non-Emergent contact if: you have a fever, you have any medication questions . Past History Medical & Surgical History: (1) Encephalopathy acute (2) UTI (urinary tract infection) . "Provider Documentation" section prepared by Anupama Guzman. . Core Measure Problem Core Measures: None
[2017-09-21 11:40] VITALS: BP 146/74; PULSE 70; TEMP 36.4; O2SAT 92
[2017-09-21 14:22] VITALS: BP 144/73; PULSE 68; TEMP 36.3; O2SAT 95
--- NOTE | 2017-09-21 15:29 | Discharge Summary ---
Discharge Summary Date of Service Sep 21, 2017. Discharge Summary Admission Date: Sep 15, 2017 at 00:33 Discharge Date: Sep 21, 2017 [facility]charge Disposition[facility] (subacute rehab at [facility]) Principal Diagnosis: Acute encephalopathy due to UTI Problems/Secondary Diagnoses: HTN, COPD, neuropathy, gout, anxiety and depression Immunizations: Have You Had Influenza Vaccine: Yes History of Tetanus Vaccine?: Yes History of Pneumococcal: Yes Pneumococcal Date: Mar 01, 2011 History of Hepatitis B Vaccine: No Procedures: Brain MRI WITHOUT CONTRAST HISTORY: Altered mental status. r/o stroke TECHNIQUE: Multiplanar multisequence MRI of the brain was performed without the use of contrast. COMPARISON STUDY: Head CT 09/14/2017. FINDINGS: There is no hematoma, midline shift, or acute infarct. Small retention cysts within the left maxillary sinus.. The mastoid air cells are clear. The ventricles and sulci demonstrate mild age-related involutional changes. Scattered foci of T2 hyperintensity seen within the periventricular and subcortical white matter are nonspecific but suggestive of mild microvascular ischemic changes. The major vascular flow voids at the skull base are well-maintained. There is a 1 cm T2 hyperintense extra-axial well-circumscribed focus along the midline of the tentorium. This is best seen on coronal image 20. This demonstrates restricted diffusion. Therefore, this favors a small meningioma. IMPRESSION: 1. No acute intracranial abnormality. 2. A 1 cm extra-axial lesion along the midline of the tentorium. This favors a meningioma. Medication Reconciliation New Medications: Acetaminophen Tab (Tylenol) 325 Mg Tab 650 MG PO Q4H PRN for Pain for 30 Days, #240 TAB Cefdinir (Cefdinir) 300 Mg Cap 300 MG PO Q24H for 1 Day, #1 CAP Due evening of 09/21 Lidocaine (Lidocaine) 1 Patch Tdsy 1 PATCH TD QAM for 30 Days, #30 PATCH Apply to right lateral ribs every morning. Leave on for 12 hours, then remove for 12 hours Continued Medications: Alprazolam (Alprazolam) 0.5 Mg Tab 0.5 MG PO TID PRN for Anxiety Aspirin Enteric Coated (Ecotrin Or Generic) 81 Mg Tab 81 MG PO QAM, TAB Carvedilol (Coreg) 12.5 Mg Tab 12.5 MG PO BID, TAB Duloxetine HCl (Cymbalta) 30 Mg Cap 30 MG PO QAM, CAP Febuxostat (Uloric) 40 Mg Tab 1 TAB PO DAILY for 90 Days, #90 TAB 3 Refills Flurazepam Hcl (Dalmane) 30 Mg Cap 30 MG PO HS, CAP Indapamide (Indapamide) 1.25 Mg Tab 1.25 MG PO QAM Lisinopril (Prinivil) 5 Mg Tab 5 MG PO QAM, TAB Discharge Exam Patient reports feeling well. She does still have some right lateral rib pain and back pain from her recent fall. She is otherwise feeling well and denies complaints. She is incontinent of urine. The patient denies fevers, chills, sweats, chest pain, palpitations, claudication, cough, wheezing, shortness of breath, nausea, vomiting, abdominal pain, dysuria, hematuria, urinary retention , paralysis, weakness, numbness and tingling. Constitutional: No fever, No chills, No sweats Eyes: No worsening of vision, No eye pain, No diplopia ENT: No hearing loss, No nasal symptoms, No trouble swallowing Respiratory: No cough, No wheezing, No shortness of breath Cardiovascular: No chest pain, No claudication, No palpitations Abdomen: No pain, No nausea, No vomiting Musculoskeletal: No joint pain, No muscle pain, No swelling Genitourinary - Female: +Urinary incontinence. No dysuria, No urinary retention, No hematuria Neurologic: No paralysis, No weakness, No numbness/tingling Integumentary: No rash, No itch, No color change General appearance: +Obese. Well-developed, well-nourished, no apparent distress Head: Normocephalic, atraumatic Eyes: Normal inspection, PERRL, EOMI ENT: Normal ENT inspection, hearing grossly normal, pharynx normal Neck: Supple, no JVD, trachea midline Respiratory/Chest: +Decreased breath sounds. Lungs clear to auscultation, no respiratory distress Cardiovascular: Regular rate & rhythm, no gallop, no murmur Abdomen/GI: Normal bowel sounds, non-tender, soft Extremities/Musculoskeletal: Normal inspection, no calf tenderness, no pedal edema Neurological/Psych: +Disoriented to time. Alert, normal mood/affect, oriented x 2 Skin: Normal color, warm/dry, no rash Hospital Course 86 y/o female a history of HTN, COPD, neuropathy, gout, anxiety and depression who presents with altered mental status. Metabolic encephalopathy due to UTI POA, chronic urge incontinence--resolving -Admit to med/surg -Urine culture positive for pansensitive E. coli -Received Rocephin IV while inpatient, converted to cefdinir PO w/renal dosing. 1 day left of course, due evening of 09/21 -Per family, does not change Depends regularly enough Rib pain, back pain, recent fall--stable -Continue Tylenol 1000 mg PO q8h scheduled, Lidoderm patch. Will discharge to SNF with Lidoderm and prn Tylenol -Celebrex may have caused JACKLYN, will discontinue HTN--stable -Continue ASA, Coreg 12.5 mg PO BID, lisinopril 5 mg PO qd, indapamide 1.25 JACKLYN on CKD stage IV--resolved -Baseline creatinine around 1.8 -Creatinine 1.69 on 09/21, down from 1.89, lisinopril resumed 09/21 COPD--stable -No maintenance meds at home Neuropathy, anxiety, depression, insomnia -Continue Cymbalta 30 mg PO qd, Xanax 0.5 mg PO TID prn anxiety, flurazepam 30 mg PO hs Gout -Uloric held, can resume at discharge DVT prophylaxis -Heparin 5000 units SC q12h Code Status -Level I, FULL RESUSCITATION STATUS Dispo -Currently lives alone at home -PT/OT recommend rehab -Case management following, medically stable for discharge. Referral sent to [facility], will require 3 midnight stay. Admitted inpt 09/18, can d/c 09/21 I personally interviewed and examined the patient. I agree with history of present illness and physical exam mentioned above, I also performed my own history taking and examination. Past medical history and review of system has been obtained by myself I reviewed all pertinent labs and studies Reviewed current medications I discussed and formulated of the assessment and plan mentioned above. Please refer to the Summary mentioned below. 86-year-old female with past medical history of COPD, hypertension, neuropathy, gout and anxiety presented to the hospital with urinary tract infection and metabolic encephalopathy. Urine culture grew pansensitive E. coli, patient was treated with ceftriaxone with a good response. Also Lactinex was added to prevent C. difficile, patient was found to have deconditioning and protein caloric malnutrition. Also have generalized weakness and decreased mobility. . Discussed plan of care with patient's son who agreed to rehab. Ceftriaxone can be switched to cefdinir upon discharge currently stable to go to rehab General Appearance: not in acute distress Eyes: normal Sclerae, extraocular muscle intact ENT: hearing grossly normal Neck: supple Respiratory/Chest: normal air entry bilateral ,no respiratory distress, no accessory muscle use Cardiovascular: regular rate, rhythm, no murmur Abdomen: non tender, soft, no masses Extremities: no edema musculoskeletal: no significant swelling or inflammation in any joint Neurologic/Psychiatric: Awake despite of slight confusion she followed command and moves all extremities sensation intact cranial nerves II-12 appear to be intact Skin: normal color, warm/dry, no rash Rashid Warren MD, [facility] hospitalist group Total Time Spent: Greater than 30 minutes This includes examination of the patient, discharge planning, medication reconciliation, and communication with other providers. Discharge Instructions Please refer to the electronic Patient Visit Report (Discharge Instructions) for additional information. Additional Copies To Soto Sloan M.D.
== END 2017-09-21 17:15 | DRG 689 ==
LOC: EDBD 20:52 → C.EDA 20:54 → OBSVTOIN 09-15 00:33 → C.4E 09-15 00:33 → ENRESERV 09-15 01:10
PROVIDERS: ADMIT Hospitalist; ATTEND Internal Medicine
DX: N39.0 Urinary tract infection, site not specified (principal); G93.41 Metabolic encephalopathy; I42.9 Cardiomyopathy, unspecified; M19.90 Unspecified osteoarthritis, unspecified site; I12.9 Hypertensive chronic kidney disease with stage 1 through stage 4 chronic kidney disease, or unspecified chronic kidney disease; M10.9 Gout, unspecified; M48.061 Spinal stenosis, lumbar region without neurogenic claudication; Z96.653 Presence of artificial knee joint, bilateral; Z88.1 Allergy status to other antibiotic agents; Z88.0 Allergy status to penicillin; G47.00 Insomnia, unspecified; Z88.2 Allergy status to sulfonamides; I25.2 Old myocardial infarction; R29.810 Facial weakness; I25.10 Atherosclerotic heart disease of native coronary artery without angina pectoris; J44.9 Chronic obstructive pulmonary disease, unspecified; G62.9 Polyneuropathy, unspecified; F41.8 Other specified anxiety disorders; N39.41 Urge incontinence; N17.9 Acute kidney failure, unspecified; N18.4 Chronic kidney disease, stage 4 (severe); B96.20 Unspecified Escherichia coli [E. coli] as the cause of diseases classified elsewhere

== ENCOUNTER → 2017-12-15 | Outpatient (CLI) | payer OTHER, MEDICARE ==
[~2017-12-15] MED LIST changes: -ALPR-411 PO; +ASPI81TA28 PO; +CARV12.5 PO; +CARV25TA PO; +CEFD1CAP14 PO; -CEFD300C3 PO; -CRG125 PO; +DOXY100T17 PO; -KETO75CA PO; +LDDP5 TOP; -LISI-729 PO; -MTR500 PO; +NRN100 PO; +RBTDMUDL5 PO; +TRAM-10 PO
== END | disposition home or self-care (01) ==
LOC: C.LABSPEC 17:05
PROVIDERS: ATTEND Internal Medicine
DX: N39.0 Urinary tract infection, site not specified (principal)

== ENCOUNTER → 2017-12-28 | Outpatient (CLI) | payer OTHER, MEDICARE | END | disposition home or self-care (01) | LOC: C.LABSPEC 08:06 | PROVIDERS: ATTEND Internal Medicine | DX: N39.41 Urge incontinence (principal) ==

== ENCOUNTER → 2018-01-04 | Outpatient (CLI) | payer OTHER, MEDICARE ==
[~2018-01-04] MED LIST changes: -CARV25TA PO; -DOXY100T17 PO
[2018-01-04 12:11] LABS: BASO % 0.2 %; BASO ABS # 0.01 K/uL (0-0.2); EOS % 10.7 %; EOS ABS # 0.58 K/uL (0-0.5); HEMATOCRIT 39.4 % (37-47); HEMOGLOBIN 12.6 g/dL (12.0-16.0); IG# 0.01 K/uL (0.00-0.02); LYMPH % 22.6 %; LYMPH ABS # 1.22 K/uL (1.2-3.4); MEAN CELL VOLUME 92.9 fL (80-100); MEAN CORPUSCULAR HEMOGLOBIN 29.7 pg (25-34); MEAN PLATELET VOLUME 12.6 fL (7.4-10.4); MONO % 11.3 %; MONO ABS # 0.61 K/uL (0.11-0.59); NEUT ABS # 2.98 K/uL (1.4-6.5); PLATELET COUNT 147 K/uL (130-400); RED CELL DISTRIBUTION WIDTH CV 13.1 % (11.5-14.5); RED CELL DISTRIBUTION WIDTH SD 44.3 fL (36.4-46.3); WHITE BLOOD COUNT 5.41 K/uL (4.8-10.8)
[2018-01-04 12:29] LABS: BLOOD UREA NITROGEN 44 mg/dl (7-18); CALCIUM 8.8 mg/dl (8.5-10.1); CARBON DIOXIDE 24 mmol/L (21-32); CREATININE 1.73 mg/dl (0.60-1.20); GLUCOSE 96 mg/dl (70-99); SODIUM 142 mmol/L (136-145)
== END | disposition home or self-care (01) ==
LOC: C.LAB1850 10:39
PROVIDERS: ATTEND Internal Medicine
DX: N39.0 Urinary tract infection, site not specified (principal); G62.9 Polyneuropathy, unspecified; Q60.2 Renal agenesis, unspecified

== ENCOUNTER 2018-06-08 03:26 | Inpatient (IN) ==
[2018-06-08] MEDS ORDERED: ONDANSETRON INJ 2 MG/ML 2 ML VIAL IV STA (04:16)
[2018-06-08] MEDS ORDERED: SODIUM CHLORIDE 0.9% 500 ML IV SCH ×2 (04:30)
[2018-06-08 04:31] LABS: Eosinophils # (auto) 0.11 K/uL (0-0.5); Eosinophils % (auto) 1.1 %; Hematocrit (blood only) 45.8 % (37-47); Hemoglobin 14.6 g/dL (12.0-16.0); Immature Granulocytes # (auto) 0.02 K/uL (0.00-0.02); Immature Granulocytes % (auto) 0.2 %; Lymphocytes # (auto) 0.36 K/uL (1.2-3.4); Lymphocytes % (auto) 3.6 %; Mean Corpuscular Hgb Conc 31.9 g/dL (32-36); Mean Platelet Volume 12.9 fL (7.4-10.4); Neutrophils # (auto) 9.36 K/uL (1.4-6.5); Neutrophils % (auto) 93.1 %; Platelet Count 216 K/uL (130-400); RDW Coefficient of Variation 13.8 % (11.5-14.5); Red Blood Count 4.87 M/uL (4.2-5.4); White Blood Count 10.05 K/uL (4.8-10.8)
[2018-06-08 04:39] LABS: Alanine Aminotransferase 24 U/L (12-78); Albumin Level 3.9 gm/dl (3.4-5.0); Aspartate Aminotransferase 14 U/L (15-37); Blood Urea Nitrogen 74 mg/dl (7-18); Calcium 9.7 mg/dl (8.5-10.1); Carbon Dioxide 27 mmol/L (21-32); Chloride 104 mmol/L (98-107); Creatinine Clr Calc Pharmacy 14.1 ml/min; Est GFR (African American) 14.6; Est GFR (Non-African American) 12.6; Glucose 157 mg/dl (70-99); Potassium 4.4 mmol/L (3.5-5.1); Sodium 139 mmol/L (136-145)
[2018-06-08 04:44] LABS: Alkaline Phosphatase 125 U/L (45-117); Bilirubin,Total 0.5 mg/dl (0.1-1); Globulin 4.1 gm/dl (2.5-4.0); Troponin I < 0.015 ng/ml (0-0.045)
[2018-06-08 04:47] LABS: Appearance Urine Cloudy (Clear); Bacteria Urine Automated 4+ (Negative); Bilirubin Urine Negative (Negative); Color Urine Yellow; Epithelial Cell Urine Auto 20-30 /lpf (0-5); Glucose Urine UA Negative (Negative); Ketones Urine Negative (Negative); Leukocyte Esterase Urine 2+ (Negative); Nitrite Urine Negative (Negative); Protein Urine Trace (Negative); Specific Gravity Urine 1.013 (1.000-1.030); Urobilinogen Urine Negative (Negative); WBC Urine Automated >30 /hpf (0-5); pH Urine 5.5 (4.5-7.5)
[2018-06-08] MEDS ORDERED: cefTRIAXone SODIUM 1,000 MG/50 ML BAG IV STA (05:05)
[2018-06-08 05:14] LABS: Cast Urine Automated 0 /lpf (0-5)
--- NOTE | 2018-06-08 05:15 | Emergency Department Note ---
Entered by Gurpreet Jiang acting as a scribe for Milena Vasques MD History of Present Illness General Chief complaint: Illness Source: patient History of Present Illness Provider complaint: Abdominal pain Onset (ago): hour(s) (Prior to arrival) Location: abdomen Radiation: non-radiation Pain Consistency: + now resolved Associated symptoms: + nausea/vomiting and + other (Constipation, no urinary symptoms ) The patient is a 87 year old year old who presents to the Emergency Room with complaints of abdominal pain along with nausea and vomiting that began shortly prior to arrival. She notes that the symptoms have now resolved and she has not vomited since arriving at the ED. She was walking up the stairs to her apartment when the symptoms first began. Nursing staff state the pt resides at a nursing facility (no stairs). She denies any diarrhea or urinary symptoms but she has been constipated. Nothing has made the symptoms better or worse. She has a history of afib and UTI. Home Medications Home Medications Medication Instructions Recorded Confirmed Type duloxetine 30 mg PO QAM 02/25/18 06/08/18 History febuxostat [Uloric] 40 mg PO DAILY 02/25/18 06/08/18 History flurazepam 30 mg PO HS 02/25/18 06/08/18 History gabapentin 100 mg PO HS 02/25/18 06/08/18 History lidocaine 1 patch TOPICAL DAILY PRN 02/25/18 06/08/18 History tramadol 50 mg PO Q4 PRN 02/25/18 06/08/18 History acetaminophen [Tylenol] 650 mg PO Q4 PRN 03/08/18 06/08/18 History albuterol sulfate 2 - 4 puff INHALATION DIRECTED 04/07/18 06/08/18 History PRN dextromethorphan-guaifenesin 10 ml PO Q6H PRN 04/07/18 06/08/18 History [Robitussin Cough-Chest Jae DM] amiodarone 200 mg PO DAILY #30 tab 04/11/18 06/08/18 Rx apixaban [Eliquis] 2.5 mg PO BID #60 tab 04/11/18 06/08/18 Rx carvedilol 6.25 mg PO BID #0 tab 04/11/18 06/08/18 Rx prednisone See Taper PO DAILY #5 tab 04/11/18 06/08/18 Rx Lactobacillus acidoph-L.bulgar 4 tab PO QIDM #8 tab 06/12/18 Rx [Floranex] furosemide 40 mg PO Q48H #0 tab 06/12/18 06/08/18 Rx magnesium oxide 400 mg PO BID #20 tab 06/12/18 Rx potassium chloride [Klor-Con M20] 20 meq PO BID #6 tab 06/12/18 Rx Allergies Allergy/AdvReac Type Severity Reaction Status Date / Time amoxicillin Allergy Unknown RASH AND Verified 06/08/18 04:41 SWELLING TONGUE Bactrim Allergy Unknown ? 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 (Acute) Chronic kidney disease (Acute) Anxiety CHF (congestive heart failure) 35% ef Depression Gout Hypertension Lumbar stenosis Single kidney Surgical History History of bilateral knee replacement Family History Other Family history non-contributory Social History Current Living Situation: Personal Care Facility Current Living Situation Comment: [facility] Other Information That Helps Us Care for You: No Feels Safe at Home: Yes Safety Concerns: Feels Safe At This Time Smoking Status: Never smoker Hx Alcohol Use: No Hx Substance Use: No Beliefs That Will Affect Care: None Preferred Language: Azerbaijani Review of Systems See HPI for pertinent positives & negatives. and A total of 10 systems reviewed and were otherwise negative Physical Exam Vital Signs Vital Signs - 24 hr 06/11/18 21:33 06/11/18 23:35 06/12/18 00:00 Temperature 36.2 C L Temperature Source Oral Pulse Rate [Right Finger] 68 64 Respiratory Rate 16 Respiratory Effort / Characteristics Non-Labored Spontaneous Respiratory Depth Normal Respiratory Pattern Regular Blood Pressure [Left Arm] 161/70 H 135/69 Blood Pressure [Right Arm] Blood Pressure Mean [Left Arm] 100 91 Blood Pressure Position [Left Arm] Lying Lying Pulse Oximetry 92 90 Oxygen Delivery Method Room Air Room Air Room Air 06/12/18 07:48 06/12/18 13:43 Temperature 36.7 C 36.7 C Temperature Source Oral Pulse Rate [Right Finger] 63 63 Respiratory Rate 18 18 Respiratory Effort / Characteristics Respiratory Depth Respiratory Pattern Blood Pressure [Left Arm] 147/66 H 147/66 H Blood Pressure [Right Arm] 117/57 L Blood Pressure Mean [Left Arm] 93 Blood Pressure Position [Left Arm] Lying Pulse Oximetry 92 92 Oxygen Delivery Method Room Air Vital signs reviewed. General: Well-appearing 87 year old female on nasal cannula, in no significant distress. HEENT: No scleral icterus, PERRLA, neck supple. Atraumatic. Cardiovascular: Regular rate and rhythm, no extra sounds. Pulmonary: Clear to auscultation bilaterally, normal work of breathing. Abdomen: Obese, soft, nontender, nondistended, positive bowel sounds. Musculoskeletal: Atraumatic, no peripheral edema. Neurologic: Patient awake alert and pleasantly confused, equal strength in all 4 extremities. Facial muscles are symmetric. Skin: Warm, dry, no rash Course 0415: Past medical records reviewed. The patient was evaluated in room B02, and a complete history and physical examination were performed. 0540: I reevaluated the patient and she now has a headache and would like medication. 0605: I spoke with Dr. Garcia [facility] about the patient's case and he is going to accept her for further evaluation. Consultations Consultation #1: I spoke with Dr. Garcia [facility] about the patient's case and he is going to accept her for further evaluation. Time: 06:05 Administered Medications Discontinued Medications Acetaminophen (Ofirmev) 1,000 mg IV Q8H PRN PRN Reason: Pain or Fever Stop: 07/08/18 07:16 Last Admin: 06/08/18 09:54 Dose: 1,000 mg Acetaminophen (Tylenol) 650 mg PO Q4H PRN PRN Reason: pain/fever Stop: 07/08/18 07:16 Last Admin: 06/12/18 08:25 Dose: 650 mg Admin: 06/10/18 05:47 Dose: 650 mg Admin: 06/08/18 20:15 Dose: 650 mg Amiodarone HCl (Cordarone) 200 mg PO DAILY LARISSA Stop: 07/08/18 08:59 Last Admin: 06/12/18 08:16 Dose: 200 mg Admin: 06/11/18 07:58 Dose: 200 mg Admin: 06/10/18 08:39 Dose: 200 mg Admin: 06/09/18 08:37 Dose: 200 mg Admin: 06/08/18 09:17 Dose: 200 mg Apixaban (Eliquis) 2.5 mg PO BID LARISSA Stop: 07/08/18 08:59 Last Admin: 06/12/18 08:17 Dose: 2.5 mg Admin: 06/11/18 21:36 Dose: 2.5 mg Admin: 06/11/18 07:59 Dose: 2.5 mg Admin: 06/10/18 20:52 Dose: 2.5 mg Admin: 06/10/18 08:37 Dose: 2.5 mg Admin: 06/09/18 21:52 Dose: 2.5 mg Admin: 06/09/18 08:38 Dose: 2.5 mg Admin: 06/08/18 20:17 Dose: 2.5 mg Admin: 06/08/18 09:49 Dose: 2.5 mg Carvedilol (Coreg) 6.25 mg PO BID LARISSA Stop: 07/08/18 08:59 Last Admin: 06/12/18 08:16 Dose: 6.25 mg Admin: 06/11/18 21:35 Dose: 6.25 mg Admin: 06/11/18 07:59 Dose: 6.25 mg Admin: 06/10/18 20:52 Dose: 6.25 mg Admin: 06/10/18 08:36 Dose: Not Given Admin: 06/09/18 21:53 Dose: 6.25 mg Admin: 06/09/18 08:37 Dose: 6.25 mg Admin: 06/08/18 21:47 Dose: 6.25 mg Admin: 06/08/18 09:16 Dose: 6.25 mg Cefuroxime Axetil (Ceftin) 250 mg PO Q12H LARISSA Stop: 06/17/18 08:59 Last Admin: 06/12/18 10:12 Dose: 250 mg Duloxetine HCl (Cymbalta) 30 mg PO QAM [facility] Stop: 07/08/18 08:59 Last Admin: 06/12/18 08:16 Dose: 30 mg Admin: 06/11/18 07:59 Dose: 30 mg Admin: 06/10/18 08:38 Dose: 30 mg Admin: 06/09/18 08:38 Dose: 30 mg Admin: 06/08/18 09:17 Dose: 30 mg Febuxostat (Uloric) 40 mg PO DAILY LARISSA Stop: 07/08/18 08:59 Last Admin: 06/12/18 08:17 Dose: 40 mg Admin: 06/11/18 07:59 Dose: 40 mg Admin: 06/10/18 08:38 Dose: 40 mg Admin: 06/09/18 08:38 Dose: 40 mg Admin: 06/08/18 09:17 Dose: 40 mg Flurazepam HCl (Dalmane) 30 mg PO HSZ LARISSA Stop: 07/08/18 21:59 Last Admin: 06/11/18 21:41 Dose: 30 mg Admin: 06/10/18 21:20 Dose: 30 mg Admin: 06/09/18 21:53 Dose: 30 mg Admin: 06/08/18 21:48 Dose: 30 mg Gabapentin (Neurontin) 100 mg PO HS [facility] Stop: 07/08/18 20:59 Last Admin: 06/11/18 21:36 Dose: 100 mg Admin: 06/10/18 20:52 Dose: 100 mg Admin: 06/09/18 21:52 Dose: 100 mg Admin: 06/08/18 20:17 Dose: 100 mg Sodium Chloride (Nss) 500 mls @ 999 mls/hr IV .Q31M LARISSA Stop: 06/08/18 05:00 Last Infusion: 06/08/18 05:06 Dose: Admin: 06/08/18 04:24 Dose: 999 mls/hr Sodium Chloride (Nss) 500 mls @ 125 mls/hr IV .Q4H LARISSA Stop: 07/08/18 04:29 Last Infusion: 06/08/18 08:36 Dose: 125 mls/hr Infusion: 06/08/18 08:34 Dose: 300 mls/hr Admin: 06/08/18 05:06 Dose: 125 mls/hr Ceftriaxone Sodium (Rocephin) 1,000 mg in 50 mls @ 100 mls/hr IV NOW STA Stop: 06/08/18 05:34 Last Infusion: 06/08/18 05:36 Dose: Admin: 06/08/18 05:10 Dose: 100 mls/hr Ertapenem 1,000 mg/ Sodium (Chloride) 60 mls @ 100 mls/hr IV Q24H LARISSA Stop: 06/18/18 07:59 Last Infusion: 06/08/18 09:57 Dose: 0 mls/hr Admin: 06/08/18 09:16 Dose: 100 mls/hr Sodium Chloride (Nss 1000ml) 1,000 mls @ 100 mls/hr IV .Q10H [facility] Stop: 07/08/18 06:44 Last Infusion: 06/09/18 10:21 Dose: 0 mls/hr Admin: 06/09/18 05:19 Dose: 100 mls/hr Infusion: 06/09/18 05:18 Dose: 0 mls/hr Admin: 06/08/18 18:44 Dose: 100 mls/hr Infusion: 06/08/18 18:44 Dose: 100 mls/hr Admin: 06/08/18 09:16 Dose: 100 mls/hr Hydrocortisone Sodium (Succinate 100 mg/ Syringe) 2 mls @ 4 mls/min IV Q8H [facility] Stop: 07/08/18 07:59 Last Admin: 06/08/18 09:16 Dose: 4 mls/min Pantoprazole Sodium 40 mg/ (Syringe) 10 mls @ 5 mls/min IV DAILY@1100 [facility] Stop: 07/08/18 10:59 Last Admin: 06/10/18 10:20 Dose: 5 mls/min Admin: 06/09/18 11:11 Dose: 5 mls/min Admin: 06/08/18 12:30 Dose: 5 mls/min Ceftriaxone Sodium 1,000 mg/ (Dextrose) 50 mls @ 100 mls/hr IV Q24H [facility]; Protocol Stop: 06/13/18 10:59 Last Infusion: 06/11/18 12:18 Dose: 0 mls/hr Admin: 06/11/18 11:48 Dose: 100 mls/hr Infusion: 06/10/18 13:30 Dose: 0 mls/hr Admin: 06/10/18 12:59 Dose: 100 mls/hr Infusion: 06/09/18 12:18 Dose: 0 mls/hr Admin: 06/09/18 11:10 Dose: 100 mls/hr Infusion: 06/08/18 13:47 Dose: 0 mls/hr Admin: 06/08/18 12:30 Dose: 100 mls/hr Magnesium Sulfate/Dextrose (Magnesium Sulfate / D5w) 1 gm in 100 mls @ 100 mls/ hr IV ONE ONE Stop: 06/10/18 09:38 Last Infusion: 06/10/18 11:30 Dose: 0 mls/hr Admin: 06/10/18 10:20 Dose: 100 mls/hr Lorazepam (Ativan) 0.5 mg in 1 mls @ 1 mls/min IV NOW STA Stop: 06/10/18 11:14 Last Admin: 06/10/18 11:22 Dose: 1 mls/min Insulin Aspart (Novolog Flexpen) 0 units SC ACHS [facility]IS[facility] Stop: 07/08/18 07:29 Last Admin: 06/09/18 12:16 Dose: Not Given Admin: 06/09/18 08:40 Dose: Not Given Admin: 06/08/18 21:47 Dose: Not Given Admin: 06/08/18 19:05 Dose: Not Given Admin: 06/08/18 12:31 Dose: Not Given Admin: 06/08/18 08:31 Dose: Not Given Lactobacillus Acidophilus (Floranex) 4 tab PO QIDM [facility] Stop: 07/11/18 16:59 Last Admin: 06/12/18 12:19 Dose: 4 tab Admin: 06/12/18 08:16 Dose: 4 tab Admin: 06/11/18 21:36 Dose: 4 tab Admin: 06/11/18 17:07 Dose: 4 tab Magnesium Oxide (Mag-Ox) 400 mg PO BID LARISSA Stop: 07/12/18 12:29 Last Admin: 06/12/18 13:57 Dose: 400 mg Ondansetron HCl (Zofran) 4 mg IV NOW STA Stop: 06/08/18 04:17 Last Admin: 06/08/18 04:23 Dose: 4 mg Ondansetron HCl (Zofran) 4 mg IV Q6H PRN PRN Reason: NAUSEA/VOMITING Stop: 07/08/18 07:16 Last Admin: 06/08/18 09:49 Dose: 4 mg Pantoprazole Sodium (Protonix) 40 mg PO DAILY LARISSA; Protocol Stop: 06/11/18 23:59 Last Admin: 06/11/18 07:59 Dose: 40 mg Potassium Chloride (Klor-Con M20) 20 meq PO BID LARISSA Stop: 07/11/18 08:59 Last Admin: 06/12/18 08:17 Dose: 20 meq Admin: 06/11/18 21:36 Dose: 20 meq Admin: 06/11/18 09:31 Dose: 20 meq Tramadol HCl (Ultram) 50 mg PO NOW STA Stop: 06/08/18 05:56 Last Admin: 06/08/18 06:03 Dose: 50 mg Tramadol HCl (Ultram) 50 mg PO Q4 PRN PRN Reason: Pain Stop: 07/08/18 07:16 Last Admin: 06/12/18 08:24 Dose: 50 mg Admin: 06/11/18 20:24 Dose: 50 mg Admin: 06/11/18 09:31 Dose: 50 mg Admin: 06/10/18 05:47 Dose: 50 mg Admin: 06/09/18 16:11 Dose: 50 mg Admin: 06/08/18 20:16 Dose: 50 mg Medical Decision Making Differential Diagnosis Differential: Gastroenteritis, Food Borne, Esophageal Perforation, , Electrolyte Abnormality, Dehydration, Intraabdominal Infection, UTI/ Pyelonephritis, Bowel Obstruction, Biliary Pathology, amongst other pathology entertained. Medical Records Attestation: I reviewed the patient's medical records. Home Medications Current Medication List: was personally reviewed by me Laboratory Data Attestation: I reviewed the patient's lab results. Result diagrams: 06/12/18 08:36 06/12/18 08:36 Lab Results 06/08/18 06/08/18 06/08/18 Range/Units 03:14 03:14 03:40 WBC 10.05 (4.8-10.8) K/uL RBC 4.87 (4.2-5.4) M/uL Hgb 14.6 (12.0-16.0) g/dL Hct 45.8 (37-47) % MCV 94.0 (80-100) fL MCH 30.0 (25-34) pg MCHC 31.9 L (32-36) g/dL RDW Std Deviation 47.0 H (36.4-46.3) fL RDW Coeff of Gina 13.8 (11.5-14.5) % Plt Count 216 (130-400) K/uL MPV 12.9 H (7.4-10.4) fL Immature Gran % (Auto) 0.2 % Neut % (Auto) 93.1 % Lymph % (Auto) 3.6 % [place] % (Auto) 2.0 % Eos % (Auto) 1.1 % Baso % (Auto) 0.0 % Immature Gran # (Auto) 0.02 (0.00-0.02) K/uL Neut # (Auto) 9.36 H (1.4-6.5) K/uL Lymph # (Auto) 0.36 L (1.2-3.4) K/uL [place] # (Auto) 0.20 (0.11-0.59) K/uL Eos # (Auto) 0.11 (0-0.5) K/uL Baso # (Auto) 0.00 (0-0.2) K/uL PT (9.0-12.0) Seconds INR (0.9-1.1) APTT (21.0-31.0) Seconds PTT Ratio Sodium 139 (136-145) mmol/L Potassium 4.4 (3.5-5.1) mmol/L Chloride 104 (98-107) mmol/L Carbon Dioxide 27 (21-32) mmol/L Anion Gap 8.0 (3-11) BUN 74 H (7-18) mg/dl Creatinine 3.20 H (0.6-1.2) mg/dl Est Cr Clr Drug Dosing 14.1 ml/min Est GFR ( Amer) 14.6 Est GFR (Non-Af Amer) 12.6 BUN/Creatinine Ratio 23.0 H (10-20) Glucose 157 H (70-99) mg/dl POC Glucose (70-99) Estimat Average Glucose mg/dl Hemoglobin A1c (4.5-5.6) % Calcium 9.7 (8.5-10.1) mg/dl Magnesium (1.8-2.4) mg/dl Total Bilirubin 0.5 (0.1-1) mg/dl AST 14 L (15-37) U/L ALT 24 (12-78) U/L Alkaline Phosphatase 125 H (45-117) U/L Troponin I < 0.015 (0-0.045) ng/ml Total Protein 8.0 (6.4-8.2) gm/dl Albumin 3.9 (3.4-5.0) gm/dl Globulin 4.1 H (2.5-4.0) gm/dl Albumin/Globulin Ratio 1.0 (0.9-2) Lipase 228 (73-393) U/L Urine Color Yellow Urine Appearance Cloudy H (Clear) Urine pH 5.5 (4.5-7.5) Ur Specific [place] 1.013 (1.000-1.030) Urine Protein Trace H (Negative) Urine Glucose (UA) Negative (Negative) Urine Ketones Negative (Negative) Urine Blood Negative (Negative) Urine Nitrite Negative (Negative) Urine Bilirubin Negative (Negative) Urine Urobilinogen Negative (Negative) Ur Leukocyte Esterase 2+ H (Negative) Urine WBC (Auto) >30 H (0-5) /hpf Urine RBC (Auto) 0-4 (0-4) /hpf U Hyaline Cast (Auto) 0 (0-5) /lpf U Epithel Cells (Auto) 20-30 H (0-5) /lpf Urine Bacteria (Auto) 4+ H (Negative) Urine Yeast Not Reportable Stl C. diff Tox B Gene (Neg) 06/08/18 06/08/18 06/08/18 Range/Units 07:29 11:33 18:40 WBC (4.8-10.8) K/uL RBC (4.2-5.4) M/uL Hgb (12.0-16.0) g/dL Hct (37-47) % MCV (80-100) fL MCH (25-34) pg MCHC (32-36) g/dL RDW Std Deviation (36.4-46.3) fL RDW Coeff of Gina (11.5-14.5) % Plt Count (130-400) K/uL MPV (7.4-10.4) fL Immature Gran % (Auto) % Neut % (Auto) % Lymph % (Auto) % [place] % (Auto) % Eos % (Auto) % Baso % (Auto) % Immature Gran # (Auto) (0.00-0.02) K/uL Neut # (Auto) (1.4-6.5) K/uL Lymph # (Auto) (1.2-3.4) K/uL [place] # (Auto) (0.11-0.59) K/uL Eos # (Auto) (0-0.5) K/uL Baso # (Auto) (0-0.2) K/uL PT (9.0-12.0) Seconds INR (0.9-1.1) APTT (21.0-31.0) Seconds PTT Ratio Sodium (136-145) mmol/L Potassium (3.5-5.1) mmol/L Chloride (98-107) mmol/L Carbon Dioxide (21-32) mmol/L Anion Gap (3-11) BUN (7-18) mg/dl Creatinine (0.6-1.2) mg/dl Est Cr Clr Drug Dosing ml/min Est GFR ( Amer) Est GFR (Non-Af Amer) BUN/Creatinine Ratio (10-20) Glucose (70-99) mg/dl POC Glucose 155 H 142 H 145 H (70-99) Estimat Average Glucose mg/dl Hemoglobin A1c (4.5-5.6) % Calcium (8.5-10.1) mg/dl Magnesium (1.8-2.4) mg/dl Total Bilirubin (0.1-1) mg/dl AST (15-37) U/L ALT (12-78) U/L Alkaline Phosphatase (45-117) U/L Troponin I (0-0.045) ng/ml Total Protein (6.4-8.2) gm/dl Albumin (3.4-5.0) gm/dl Globulin (2.5-4.0) gm/dl Albumin/Globulin Ratio (0.9-2) Lipase (73-393) U/L Urine Color Urine Appearance (Clear) Urine pH (4.5-7.5) Ur Specific [place] (1.000-1.030) Urine Protein (Negative) Urine Glucose (UA) (Negative) Urine Ketones (Negative) Urine Blood (Negative) Urine Nitrite (Negative) Urine Bilirubin (Negative) Urine Urobilinogen (Negative) Ur Leukocyte Esterase (Negative) Urine WBC (Auto) (0-5) /hpf Urine RBC (Auto) (0-4) /hpf U Hyaline Cast (Auto) (0-5) /lpf U Epithel Cells (Auto) (0-5) /lpf Urine Bacteria (Auto) (Negative) Urine Yeast Stl C. diff Tox B Gene (Neg) 06/08/18 06/09/18 06/09/18 Range/Units 21:08 01:15 06:00 WBC 3.25 L (4.8-10.8) K/uL RBC 3.91 L (4.2-5.4) M/uL Hgb 11.5 L D (12.0-16.0) g/dL Hct 36.9 L (37-47) % MCV 94.4 (80-100) fL MCH 29.4 (25-34) pg MCHC 31.2 L (32-36) g/dL RDW Std Deviation 47.3 H (36.4-46.3) fL RDW Coeff of Gina 13.8 (11.5-14.5) % Plt Count 147 (130-400) K/uL MPV 12.4 H (7.4-10.4) fL Immature Gran % (Auto) 0.3 % Neut % (Auto) 70.8 % Lymph % (Auto) 18.5 % [place] % (Auto) 9.8 % Eos % (Auto) 0.3 % Baso % (Auto) 0.3 % Immature Gran # (Auto) 0.01 (0.00-0.02) K/uL Neut # (Auto) 2.30 (1.4-6.5) K/uL Lymph # (Auto) 0.60 L (1.2-3.4) K/uL [place] # (Auto) 0.32 (0.11-0.59) K/uL Eos # (Auto) 0.01 (0-0.5) K/uL Baso # (Auto) 0.01 (0-0.2) K/uL PT (9.0-12.0) Seconds INR (0.9-1.1) APTT (21.0-31.0) Seconds PTT Ratio Sodium (136-145) mmol/L Potassium (3.5-5.1) mmol/L Chloride (98-107) mmol/L Carbon Dioxide (21-32) mmol/L Anion Gap (3-11) BUN (7-18) mg/dl Creatinine (0.6-1.2) mg/dl Est Cr Clr Drug Dosing ml/min Est GFR ( Amer) Est GFR (Non-Af Amer) BUN/Creatinine Ratio (10-20) Glucose (70-99) mg/dl POC Glucose 86 (70-99) Estimat Average Glucose mg/dl Hemoglobin A1c (4.5-5.6) % Calcium (8.5-10.1) mg/dl Magnesium (1.8-2.4) mg/dl Total Bilirubin (0.1-1) mg/dl AST (15-37) U/L ALT (12-78) U/L Alkaline Phosphatase (45-117) U/L Troponin I (0-0.045) ng/ml Total Protein (6.4-8.2) gm/dl Albumin (3.4-5.0) gm/dl Globulin (2.5-4.0) gm/dl Albumin/Globulin Ratio (0.9-2) Lipase (73-393) U/L Urine Color Urine Appearance (Clear) Urine pH (4.5-7.5) Ur Specific [place] (1.000-1.030) Urine Protein (Negative) Urine Glucose (UA) (Negative) Urine Ketones (Negative) Urine Blood (Negative) Urine Nitrite (Negative) Urine Bilirubin (Negative) Urine Urobilinogen (Negative) Ur Leukocyte Esterase (Negative) Urine WBC (Auto) (0-5) /hpf Urine RBC (Auto) (0-4) /hpf U Hyaline Cast (Auto) (0-5) /lpf U Epithel Cells (Auto) (0-5) /lpf Urine Bacteria (Auto) (Negative) Urine Yeast Stl C. diff Tox B Gene Neg C.diff Toxin B (Neg) 06/09/18 06/09/18 06/09/18 Range/Units 06:00 06:00 06:00 WBC (4.8-10.8) K/uL RBC (4.2-5.4) M/uL Hgb (12.0-16.0) g/dL Hct (37-47) % MCV (80-100) fL MCH (25-34) pg MCHC (32-36) g/dL RDW Std Deviation (36.4-46.3) fL RDW Coeff of Gina (11.5-14.5) % Plt Count (130-400) K/uL MPV (7.4-10.4) fL Immature Gran % (Auto) % Neut % (Auto) % Lymph % (Auto) % [place] % (Auto) % Eos % (Auto) % Baso % (Auto) % Immature Gran # (Auto) (0.00-0.02) K/uL Neut # (Auto) (1.4-6.5) K/uL Lymph # (Auto) (1.2-3.4) K/uL [place] # (Auto) (0.11-0.59) K/uL Eos # (Auto) (0-0.5) K/uL Baso # (Auto) (0-0.2) K/uL PT 12.0 (9.0-12.0) Seconds INR 1.2 H (0.9-1.1) APTT 30.4 (21.0-31.0) Seconds PTT Ratio 1.2 Sodium 143 (136-145) mmol/L Potassium 3.4 L D (3.5-5.1) mmol/L Chloride 109 H (98-107) mmol/L Carbon Dioxide 28 (21-32) mmol/L Anion Gap 6.0 (3-11) BUN 64 H (7-18) mg/dl Creatinine 2.52 H D (0.6-1.2) mg/dl Est Cr Clr Drug Dosing 17.1 ml/min Est GFR ( Amer) 19.5 Est GFR (Non-Af Amer) 16.8 BUN/Creatinine Ratio 25.5 H (10-20) Glucose 82 (70-99) mg/dl POC Glucose (70-99) Estimat Average Glucose 111 mg/dl Hemoglobin A1c 5.5 (4.5-5.6) % Calcium 8.3 L (8.5-10.1) mg/dl Magnesium (1.8-2.4) mg/dl Total Bilirubin 0.3 (0.1-1) mg/dl AST 12 L (15-37) U/L ALT 14 (12-78) U/L Alkaline Phosphatase 87 (45-117) U/L Troponin I (0-0.045) ng/ml Total Protein 5.7 L D (6.4-8.2) gm/dl Albumin 2.7 L (3.4-5.0) gm/dl Globulin 3.0 (2.5-4.0) gm/dl Albumin/Globulin Ratio 0.9 (0.9-2) Lipase (73-393) U/L Urine Color Urine Appearance (Clear) Urine pH (4.5-7.5) Ur Specific [place] (1.000-1.030) Urine Protein (Negative) Urine Glucose (UA) (Negative) Urine Ketones (Negative) Urine Blood (Negative) Urine Nitrite (Negative) Urine Bilirubin (Negative) Urine Urobilinogen (Negative) Ur Leukocyte Esterase (Negative) Urine WBC (Auto) (0-5) /hpf Urine RBC (Auto) (0-4) /hpf U Hyaline Cast (Auto) (0-5) /lpf U Epithel Cells (Auto) (0-5) /lpf Urine Bacteria (Auto) (Negative) Urine Yeast Stl C. diff Tox B Gene (Neg) 06/09/18 06/09/18 06/10/18 Range/Units 07:49 11:58 07:05 WBC 3.85 L (4.8-10.8) K/uL RBC 3.84 L (4.2-5.4) M/uL Hgb 11.3 L (12.0-16.0) g/dL Hct 35.9 L (37-47) % MCV 93.5 (80-100) fL MCH 29.4 (25-34) pg MCHC 31.5 L (32-36) g/dL RDW Std Deviation 47.3 H (36.4-46.3) fL RDW Coeff of Gina 13.8 (11.5-14.5) % Plt Count 143 (130-400) K/uL MPV 12.7 H (7.4-10.4) fL Immature Gran % (Auto) 0.3 % Neut % (Auto) 39.5 % Lymph % (Auto) 31.9 % [place] % (Auto) 14.8 % Eos % (Auto) 13.2 % Baso % (Auto) 0.3 % Immature Gran # (Auto) 0.01 (0.00-0.02) K/uL Neut # (Auto) 1.52 (1.4-6.5) K/uL Lymph # (Auto) 1.23 (1.2-3.4) K/uL [place] # (Auto) 0.57 (0.11-0.59) K/uL Eos # (Auto) 0.51 H (0-0.5) K/uL Baso # (Auto) 0.01 (0-0.2) K/uL PT (9.0-12.0) Seconds INR (0.9-1.1) APTT (21.0-31.0) Seconds PTT Ratio Sodium (136-145) mmol/L Potassium (3.5-5.1) mmol/L Chloride (98-107) mmol/L Carbon Dioxide (21-32) mmol/L Anion Gap (3-11) BUN (7-18) mg/dl Creatinine (0.6-1.2) mg/dl Est Cr Clr Drug Dosing ml/min Est GFR ( Amer) Est GFR (Non-Af Amer) BUN/Creatinine Ratio (10-20) Glucose (70-99) mg/dl POC Glucose 101 H 81 (70-99) Estimat Average Glucose mg/dl Hemoglobin A1c (4.5-5.6) % Calcium (8.5-10.1) mg/dl Magnesium (1.8-2.4) mg/dl Total Bilirubin (0.1-1) mg/dl AST (15-37) U/L ALT (12-78) U/L Alkaline Phosphatase (45-117) U/L Troponin I (0-0.045) ng/ml Total Protein (6.4-8.2) gm/dl Albumin (3.4-5.0) gm/dl Globulin (2.5-4.0) gm/dl Albumin/Globulin Ratio (0.9-2) Lipase (73-393) U/L Urine Color Urine Appearance (Clear) Urine pH (4.5-7.5) Ur Specific [place] (1.000-1.030) Urine Protein (Negative) Urine Glucose (UA) (Negative) Urine Ketones (Negative) Urine Blood (Negative) Urine Nitrite (Negative) Urine Bilirubin (Negative) Urine Urobilinogen (Negative) Ur Leukocyte Esterase (Negative) Urine WBC (Auto) (0-5) /hpf Urine RBC (Auto) (0-4) /hpf U Hyaline Cast (Auto) (0-5) /lpf U Epithel Cells (Auto) (0-5) /lpf Urine Bacteria (Auto) (Negative) Urine Yeast Stl C. diff Tox B Gene (Neg) 06/10/18 06/10/18 06/11/18 Range/Units 07:05 07:05 05:38 WBC 4.30 L (4.8-10.8) K/uL RBC 4.00 L (4.2-5.4) M/uL Hgb 11.7 L (12.0-16.0) g/dL Hct 36.7 L (37-47) % MCV 91.8 (80-100) fL MCH 29.3 (25-34) pg MCHC 31.9 L (32-36) g/dL RDW Std Deviation 44.8 (36.4-46.3) fL RDW Coeff of Gina 13.4 (11.5-14.5) % Plt Count 147 (130-400) K/uL MPV 12.6 H (7.4-10.4) fL Immature Gran % (Auto) 0.2 % Neut % (Auto) 47.2 % Lymph % (Auto) 27.0 % [place] % (Auto) 12.3 % Eos % (Auto) 12.8 % Baso % (Auto) 0.5 % Immature Gran # (Auto) 0.01 (0.00-0.02) K/uL Neut # (Auto) 2.03 (1.4-6.5) K/uL Lymph # (Auto) 1.16 L (1.2-3.4) K/uL [place] # (Auto) 0.53 (0.11-0.59) K/uL Eos # (Auto) 0.55 H (0-0.5) K/uL Baso # (Auto) 0.02 (0-0.2) K/uL PT 11.7 (9.0-12.0) Seconds INR 1.2 H (0.9-1.1) APTT (21.0-31.0) Seconds PTT Ratio Sodium 142 (136-145) mmol/L Potassium 3.6 (3.5-5.1) mmol/L Chloride 108 H (98-107) mmol/L Carbon Dioxide 25 (21-32) mmol/L Anion Gap 9.0 (3-11) BUN 58 H (7-18) mg/dl Creatinine 2.35 H (0.6-1.2) mg/dl Est Cr Clr Drug Dosing 18.4 ml/min Est GFR ( Amer) 21.2 Est GFR (Non-Af Amer) 18.3 BUN/Creatinine Ratio 24.6 H (10-20) Glucose 75 (70-99) mg/dl POC Glucose (70-99) Estimat Average Glucose mg/dl Hemoglobin A1c (4.5-5.6) % Calcium 8.5 (8.5-10.1) mg/dl Magnesium 1.5 L (1.8-2.4) mg/dl Total Bilirubin 0.2 (0.1-1) mg/dl AST 14 L (15-37) U/L ALT 17 (12-78) U/L Alkaline Phosphatase 87 (45-117) U/L Troponin I (0-0.045) ng/ml Total Protein 5.4 L (6.4-8.2) gm/dl Albumin 2.6 L (3.4-5.0) gm/dl Globulin 2.8 (2.5-4.0) gm/dl Albumin/Globulin Ratio 0.9 (0.9-2) Lipase (73-393) U/L Urine Color Urine Appearance (Clear) Urine pH (4.5-7.5) Ur Specific [place] (1.000-1.030) Urine Protein (Negative) Urine Glucose (UA) (Negative) Urine Ketones (Negative) Urine Blood (Negative) Urine Nitrite (Negative) Urine Bilirubin (Negative) Urine Urobilinogen (Negative) Ur Leukocyte Esterase (Negative) Urine WBC (Auto) (0-5) /hpf Urine RBC (Auto) (0-4) /hpf U Hyaline Cast (Auto) (0-5) /lpf U Epithel Cells (Auto) (0-5) /lpf Urine Bacteria (Auto) (Negative) Urine Yeast Stl C. diff Tox B Gene (Neg) 06/11/18 06/11/18 06/12/18 Range/Units 05:38 05:38 06:31 WBC (4.8-10.8) K/uL RBC (4.2-5.4) M/uL Hgb (12.0-16.0) g/dL Hct (37-47) % MCV (80-100) fL MCH (25-34) pg MCHC (32-36) g/dL RDW Std Deviation (36.4-46.3) fL RDW Coeff of Gina (11.5-14.5) % Plt Count (130-400) K/uL MPV (7.4-10.4) fL Immature Gran % (Auto) % Neut % (Auto) % Lymph % (Auto) % [place] % (Auto) % Eos % (Auto) % Baso % (Auto) % Immature Gran # (Auto) (0.00-0.02) K/uL Neut # (Auto) (1.4-6.5) K/uL Lymph # (Auto) (1.2-3.4) K/uL [place] # (Auto) (0.11-0.59) K/uL Eos # (Auto) (0-0.5) K/uL Baso # (Auto) (0-0.2) K/uL PT 11.3 (9.0-12.0) Seconds INR 1.1 (0.9-1.1) APTT (21.0-31.0) Seconds PTT Ratio Sodium 144 (136-145) mmol/L Potassium 3.3 L (3.5-5.1) mmol/L Chloride 111 H (98-107) mmol/L Carbon Dioxide 26 (21-32) mmol/L Anion Gap 7.0 (3-11) BUN 48 H (7-18) mg/dl Creatinine 1.90 H D (0.6-1.2) mg/dl Est Cr Clr Drug Dosing 22.7 ml/min Est GFR ( Amer) 27.4 Est GFR (Non-Af Amer) 23.6 BUN/Creatinine Ratio 25.5 H (10-20) Glucose 85 (70-99) mg/dl POC Glucose (70-99) Estimat Average Glucose mg/dl Hemoglobin A1c (4.5-5.6) % Calcium 8.4 L (8.5-10.1) mg/dl Magnesium 1.6 L 1.6 L (1.8-2.4) mg/dl Total Bilirubin 0.3 (0.1-1) mg/dl AST 16 (15-37) U/L ALT 16 (12-78) U/L Alkaline Phosphatase 97 (45-117) U/L Troponin I (0-0.045) ng/ml Total Protein 5.7 L (6.4-8.2) gm/dl Albumin 2.7 L (3.4-5.0) gm/dl Globulin 3.0 (2.5-4.0) gm/dl Albumin/Globulin Ratio 0.9 (0.9-2) Lipase (73-393) U/L Urine Color Urine Appearance (Clear) Urine pH (4.5-7.5) Ur Specific [place] (1.000-1.030) Urine Protein (Negative) Urine Glucose (UA) (Negative) Urine Ketones (Negative) Urine Blood (Negative) Urine Nitrite (Negative) Urine Bilirubin (Negative) Urine Urobilinogen (Negative) Ur Leukocyte Esterase (Negative) Urine WBC (Auto) (0-5) /hpf Urine RBC (Auto) (0-4) /hpf U Hyaline Cast (Auto) (0-5) /lpf U Epithel Cells (Auto) (0-5) /lpf Urine Bacteria (Auto) (Negative) Urine Yeast Stl C. diff Tox B Gene (Neg) 06/12/18 06/12/18 Range/Units 08:36 08:36 WBC 4.18 L (4.8-10.8) K/uL RBC 4.09 L (4.2-5.4) M/uL Hgb 12.0 (12.0-16.0) g/dL Hct 37.5 (37-47) % MCV 91.7 (80-100) fL MCH 29.3 (25-34) pg MCHC 32.0 (32-36) g/dL RDW Std Deviation 44.8 (36.4-46.3) fL RDW Coeff of Gina 13.5 (11.5-14.5) % Plt Count 162 (130-400) K/uL MPV 11.6 H (7.4-10.4) fL Immature Gran % (Auto) 0.2 % Neut % (Auto) 50.7 % Lymph % (Auto) 29.7 % [place] % (Auto) 9.8 % Eos % (Auto) 9.1 % Baso % (Auto) 0.5 % Immature Gran # (Auto) 0.01 (0.00-0.02) K/uL Neut # (Auto) 2.12 (1.4-6.5) K/uL Lymph # (Auto) 1.24 (1.2-3.4) K/uL [place] # (Auto) 0.41 (0.11-0.59) K/uL Eos # (Auto) 0.38 (0-0.5) K/uL Baso # (Auto) 0.02 (0-0.2) K/uL PT (9.0-12.0) Seconds INR (0.9-1.1) APTT (21.0-31.0) Seconds PTT Ratio Sodium 145 (136-145) mmol/L Potassium 3.7 (3.5-5.1) mmol/L Chloride 114 H (98-107) mmol/L Carbon Dioxide 26 (21-32) mmol/L Anion Gap 6.0 (3-11) BUN 34 H (7-18) mg/dl Creatinine 1.81 H (0.6-1.2) mg/dl Est Cr Clr Drug Dosing 24.1 ml/min Est GFR ( Amer) 29.0 Est GFR (Non-Af Amer) 25.1 BUN/Creatinine Ratio 18.9 (10-20) Glucose 110 H (70-99) mg/dl POC Glucose (70-99) Estimat Average Glucose mg/dl Hemoglobin A1c (4.5-5.6) % Calcium 8.5 (8.5-10.1) mg/dl Magnesium (1.8-2.4) mg/dl Total Bilirubin (0.1-1) mg/dl AST (15-37) U/L ALT (12-78) U/L Alkaline Phosphatase (45-117) U/L Troponin I (0-0.045) ng/ml Total Protein (6.4-8.2) gm/dl Albumin (3.4-5.0) gm/dl Globulin (2.5-4.0) gm/dl Albumin/Globulin Ratio (0.9-2) Lipase (73-393) U/L Urine Color Urine Appearance (Clear) Urine pH (4.5-7.5) Ur Specific [place] (1.000-1.030) Urine Protein (Negative) Urine Glucose (UA) (Negative) Urine Ketones (Negative) Urine Blood (Negative) Urine Nitrite (Negative) Urine Bilirubin (Negative) Urine Urobilinogen (Negative) Ur Leukocyte Esterase (Negative) Urine WBC (Auto) (0-5) /hpf Urine RBC (Auto) (0-4) /hpf U Hyaline Cast (Auto) (0-5) /lpf U Epithel Cells (Auto) (0-5) /lpf Urine Bacteria (Auto) (Negative) Urine Yeast Stl C. diff Tox B Gene (Neg) Imaging Data Attestation: I personally reviewed and interpreted this imaging study as follows : My Impression: X ray results are stated below per my interpretation: Abdominal Xray Series: Poor inspiratory effort, no lung consolidation appreciated, no failure, significant scoliosis with hardware in place, non- specific bowel gas pattern. Per rads: CT abdomen and pelvis without contrast: Comparison: CT abdomen and pelvis Right kidney is absent. Similar appearance of soft tissue density at nephrectomy bed. Appearance of left kidney including multiple hypodense lesions is similar to prior. No hydronephrosis or stone. Mild urothelial thickening of the left renal pelvis is similar to prior. Levoscoliosis of the thoracolumbar spine and postsurgical changes at the lower lumbar spine are similar to prior. Sclerotic focus in the left iliac bone is similar to prior. Atherosclerotic calcifications of the aorta and its branches. Normal appendix. No free air or free fluid. No bowel obstruction. Mild to moderate stool in the colon. Post hysterectomy. Atelectasis/scarring at the visualized lower lungs. Bronchial wall thickening at the bilateral lung bases. Radiologist: Bubba Rodriguez MD ECG Data Attestation: I personally reviewed and interpreted this ECG as follows: Indication: vomiting Rate (beats per minute): 83 Rhythm: normal sinus Findings: + other (Previous inferior infarct) and + left axis deviation; no PAC , no PVC and no acute ischemic change Blood Pressure Blood Pressure Findings: Normal blood pressure Blood Pressure Disposition: did not require urgent referral MDM Narrative This pt was evaluated and appeared to be in no distress. IV access was obtained and lab work was drawn. Pt was hydrated with NSS and IV zofran. Pt appeared to be improving clinically and abd XR series was neg for acute SBO or FA. Abd CT was ordered. Pt lab work reveals an JACKLYN in setting of nephrectomy. UA is + for infection. Pt was given 1 gm IV ceftriaxone. Case was d/w Dr Foster of [facility] hospitalist service who will evaluate for further management. Impression & Plan JACKLYN (acute kidney injury), Acute UTI, Vomiting Discharge Plan Visit Data *Final* Discharge Date/Time: 06/08/18 07:07 Chief Complaint: Illness ED Provider: Milena Vasques Discharge Problem: JACKLYN (acute kidney injury), Acute UTI, Vomiting Patient Disposition: Admitted As Inpatient Condition: Fair Discharge Instructions Interventions: ED Discharge Assessment Last Done: 06/08/18 07:07 The scribe's documentation has been prepared under my direction and personally reviewed by me in its entirety. I confirm that the note above accurately reflects all work, treatment, procedures, and medical decision making performed by me.
[2018-06-08] MEDS ORDERED: TRAMADOL HCL 50 MG TABLET PO STA (05:55)
--- NOTE | 2018-06-08 06:05 | History & Physical Report ---
Date of Service June 08, 2018 Assessment & Plan (1) Acute UTI: Patient with multiple allergies. Placed on ertapenem 1 g IV daily. Follow urine culture and sensitivity results. Present on Admission?: Yes (2) Acute kidney injury superimposed on chronic kidney disease: Secondary to dehydration associated with nausea and vomiting this morning , but overall decreased intake over the past week. Placed on IV fluids, NSS at 100 mils per hour. Follow serial BMP and magnesium levels. Present on Admission?: Yes (3) Vomiting: Had one episode of vomiting this morning. Zofran 4 mg IV every [address] of abdomen pelvis negative. Present on Admission?: Yes (4) Atrial fibrillation with RVR: History of atrial fib with RVR/talk at [facility] cardia myopathy/hypertension -- Continue amiodarone, apixaban, carvedilol. Hold furosemide. Present on Admission?: Yes (5) Takotsubo cardiomyopathy: As above. Present on Admission?: Yes (6) Depression: Anxiety with depression-- Continue duloxetine Present on Admission?: Yes (7) Generalized weakness: Multifactorial. UTI. Progressive osteoarthritis. Decreased oral intake. As patient improves clinically, will need to have PT and OT. She may require a SNF stay as opposed to going straight back to [facility] Present on Admission?: Yes (8) HTN (hypertension): As above. Present on Admission?: Yes History of Present Illness Chief Complaint: The patient presents to the emergency department with complaint of abdominal pain, an episode of nausea and vomiting this morning, and persistent weakness of lower extremities over the past week. Primary Care Provider: Dariusz Sloan MD The patient is an 87-year-old female resident of [facility], who developed abdominal pain along with nausea and vomiting this morning prior to arrival. She reports decreased ability to ambulate over the past week due to generalized weakness in lower extremities, with chronic pain in her left knee and right hip. She denies any recent travels or sick exposures. She denies any unusual or questionable food intakes. She does have someone help her with medications to be taken properly. Allergies Allergy/AdvReac Type Severity Reaction Status Date / Time amoxicillin Allergy Unknown RASH AND Verified 06/08/18 04:41 SWELLING TONGUE Bactrim Allergy Unknown ? Verified 01/01/18 11:34 cephalexin Allergy Unknown Unknown Verified 06/08/18 04:41 levofloxacin Allergy Unknown RASH AND Verified 06/08/18 04:41 SWELLING TONGUE Penicillins Allergy Unknown RASH & Verified 06/08/18 04:41 HIVES sulfamethoxazole Allergy Unknown Unknown Verified 06/08/18 04:41 trimethoprim Allergy Unknown Unknown Verified 06/08/18 04:41 nitrofurantoin AdvReac Mild HEADACHE Verified 06/08/18 04:41 Home Medications Home Medications Medication Instructions Recorded Confirmed Type duloxetine 30 mg PO QAM 02/25/18 06/08/18 History febuxostat [Uloric] 40 mg PO DAILY 02/25/18 06/08/18 History flurazepam 30 mg PO HS 02/25/18 06/08/18 History gabapentin 100 mg PO HS 02/25/18 06/08/18 History lidocaine 1 patch TOPICAL DAILY PRN 02/25/18 06/08/18 History tramadol 50 mg PO Q4 PRN 02/25/18 06/08/18 History acetaminophen [Tylenol] 650 mg PO Q4 PRN 03/08/18 06/08/18 History albuterol sulfate 2 - 4 puff INHALATION DIRECTED 04/07/18 06/08/18 History PRN dextromethorphan-guaifenesin 10 ml PO Q6H PRN 04/07/18 06/08/18 History [Robitussin Cough-Chest Jae DM] amiodarone 200 mg PO DAILY #30 tab 04/11/18 06/08/18 Rx apixaban [Eliquis] 2.5 mg PO BID #60 tab 04/11/18 06/08/18 Rx carvedilol 6.25 mg PO BID #0 tab 04/11/18 06/08/18 Rx furosemide 40 mg PO DAILY #0 tab 04/11/18 06/08/18 Rx prednisone See Taper PO DAILY #5 tab 04/11/18 06/08/18 Rx Past Med/Surg History Medical History Hyperkalemia, diminished renal excretion Cardiomyopathy 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 (Acute) Chronic kidney disease (Acute) Anxiety CHF (congestive heart failure) 35% ef Depression Gout Hypertension Lumbar stenosis Single kidney Surgical History History of bilateral knee replacement Family History Other Family history non-contributory Social History Current Living Situation: Personal Care Facility Current Living Situation Comment: [facility] Feels Safe at Home: Yes Smoking Status: Never smoker Hx Alcohol Use: No Hx Substance Use: No Beliefs That Will Affect Care: None Preferred Language: [place] Visual Impairment: No Limitations Review of Systems The patient denies chest pain, palpitations, shortness of breath, dyspnea on exertion, cough, lower extremity swelling, sore throat, fevers, chills, sweats, blood in urine or stool, dysuria, urinary frequency or urgency, lightheadedness, dizziness, headache, loss of consciousness, rash, abnormal bruising or bleeding, or night sweats. The review of systems is otherwise negative other than for that already noted above, and at least 10 systems have been reviewed. Physical Exam 2 Vital Signs (Past 24 Hours): Last Vital Signs Temp 37.2 C 06/08/18 05:11 Pulse 83 06/08/18 06:03 Resp 22 06/08/18 06:03 BP 161/66 H 06/08/18 06:03 Pulse Ox 95 06/08/18 06:03 Physical Exam: The patient is awake, alert and oriented 3, normocephalic and atraumatic, lying in bed and in no acute distress. HEENT--PERRL, EOMI, mucous membranes and oropharynx dry. Neck--supple. No JVD. No bruits. Thyroid normal, trachea midline, no adenopathy. Heart--normal S1 and S2. No murmurs, rubs or gallops. Lungs--decreased breath sounds throughout Abdomen--normal bowel sounds and soft. Nontender. Nondistended. Obese Extremities--no cyanosis or clubbing. No edema. There are good distal pulses b/ l. Dermatologic--normal skin turgor, normal color, no abnormal lymph nodes, no rash. Neurologic--cranial nerves II through XII grossly intact. Rheumatologic--normal range of motion. Psychiatric--normal affect. Results & Data Laboratory Results Laboratory Results WBC 10.05 K/uL (4.8-10.8) 06/08/18 03:14 RBC 4.87 M/uL (4.2-5.4) 06/08/18 03:14 Hgb 14.6 g/dL (12.0-16.0) 06/08/18 03:14 Hct 45.8 % (37-47) 06/08/18 03:14 MCV 94.0 fL (80-100) 06/08/18 03:14 MCH 30.0 pg (25-34) 06/08/18 03:14 MCHC 31.9 g/dL (32-36) L 06/08/18 03:14 RDW Std Deviation 47.0 fL (36.4-46.3) H 06/08/18 03:14 RDW Coeff of Gina 13.8 % (11.5-14.5) 06/08/18 03:14 Plt Count 216 K/uL (130-400) 06/08/18 03:14 MPV 12.9 fL (7.4-10.4) H 06/08/18 03:14 Immature Gran % (Auto) 0.2 % 06/08/18 03:14 Neut % (Auto) 93.1 % 06/08/18 03:14 Lymph % (Auto) 3.6 % 06/08/18 03:14 [place] % (Auto) 2.0 % 06/08/18 03:14 Eos % (Auto) 1.1 % 06/08/18 03:14 Baso % (Auto) 0.0 % 06/08/18 03:14 Immature Gran # (Auto) 0.02 K/uL (0.00-0.02) 06/08/18 03:14 Neut # (Auto) 9.36 K/uL (1.4-6.5) H 06/08/18 03:14 Lymph # (Auto) 0.36 K/uL (1.2-3.4) L 06/08/18 03:14 [place] # (Auto) 0.20 K/uL (0.11-0.59) 06/08/18 03:14 Eos # (Auto) 0.11 K/uL (0-0.5) 06/08/18 03:14 Baso # (Auto) 0.00 K/uL (0-0.2) 06/08/18 03:14 Sodium 139 mmol/L (136-145) 06/08/18 03:14 Potassium 4.4 mmol/L (3.5-5.1) 06/08/18 03:14 Chloride 104 mmol/L (98-107) 06/08/18 03:14 Carbon Dioxide 27 mmol/L (21-32) 06/08/18 03:14 Anion Gap 8.0 (3-11) 06/08/18 03:14 BUN 74 mg/dl (7-18) H 06/08/18 03:14 Creatinine 3.20 mg/dl (0.6-1.2) H 06/08/18 03:14 Est Cr Clr Drug Dosing 14.1 ml/min 06/08/18 03:14 Est GFR ( Amer) 14.6 06/08/18 03:14 Est GFR (Non-Af Amer) 12.6 06/08/18 03:14 BUN/Creatinine Ratio 23.0 (10-20) H 06/08/18 03:14 Glucose 157 mg/dl (70-99) H 06/08/18 03:14 Calcium 9.7 mg/dl (8.5-10.1) 06/08/18 03:14 Total Bilirubin 0.5 mg/dl (0.1-1) 06/08/18 03:14 AST 14 U/L (15-37) L 06/08/18 03:14 ALT 24 U/L (12-78) 06/08/18 03:14 Alkaline Phosphatase 125 U/L (45-117) H 06/08/18 03:14 Troponin I < 0.015 ng/ml (0-0.045) 06/08/18 03:14 Total Protein 8.0 gm/dl (6.4-8.2) 06/08/18 03:14 Albumin 3.9 gm/dl (3.4-5.0) 06/08/18 03:14 Globulin 4.1 gm/dl (2.5-4.0) H 06/08/18 03:14 Albumin/Globulin Ratio 1.0 (0.9-2) 06/08/18 03:14 Lipase 228 U/L (73-393) 06/08/18 03:14 Urine Color Yellow 06/08/18 03:40 Urine Appearance Cloudy (Clear) H 06/08/18 03:40 Urine pH 5.5 (4.5-7.5) 06/08/18 03:40 Ur Specific [place] 1.013 (1.000-1.030) 06/08/18 03:40 Urine Protein Trace (Negative) H 06/08/18 03:40 Urine Glucose (UA) Negative (Negative) 06/08/18 03:40 Urine Ketones Negative (Negative) 06/08/18 03:40 Urine Blood Negative (Negative) 06/08/18 03:40 Urine Nitrite Negative (Negative) 06/08/18 03:40 Urine Bilirubin Negative (Negative) 06/08/18 03:40 Urine Urobilinogen Negative (Negative) 06/08/18 03:40 Ur Leukocyte Esterase 2+ (Negative) H 06/08/18 03:40 Urine WBC (Auto) >30 /hpf (0-5) H 06/08/18 03:40 Urine RBC (Auto) 0-4 /hpf (0-4) 06/08/18 03:40 U Hyaline Cast (Auto) 0 /lpf (0-5) 06/08/18 03:40 U Epithel Cells (Auto) 20-30 /lpf (0-5) H 06/08/18 03:40 Urine Bacteria (Auto) 4+ (Negative) H 06/08/18 03:40 Urine Yeast Not Reportable 06/08/18 03:40 Diagnostic Findings [place], [place] [phone] XRay Report Patient: ZACHERY FOSTER Date: 06/08/18 MR#: [id number]: [address] Acct ID:[id number]: [facility] Zip: [place] [address] Age: 87Location: ED Sex: F Room/Bed: Att Phy: Diagnosis: ILLNESS [place] Phy: Soto Sloan M.D.Service Date: 06/08/18 Fam Phy: Interpreting Phy: Ender Coulter MD Admit Phy: Ordering Phy: Milena Vasques M.D. cc: ~ PA CHEST RADIOGRAPH AND LEFT LATERAL DECUBITUS AND SUPINE AP RADIOGRAPHS OF THE ABDOMEN CLINICAL HISTORY: Vomiting. COMPARISON STUDY: Chest radiograph March 30, [address] of the abdomen and pelvis April 07, 2018. FINDINGS: There is no pneumothorax. No pleural effusion is identified. There is no consolidation to suggest pneumonia. Cardiomegaly is unchanged. No evidence for pulmonary edema. There is no evidence for free air. Postoperative findings within the spine are noted with levoscoliosis. Bowel gas pattern is normal. IMPRESSION: 1. No free air or evidence of bowel obstruction. 2. No acute cardiopulmonary findings. Electronically signed by: Ender Coulter M.D. 06/08/2018 6:37 AM Dictated: 06/08/1836 Transcribed: 06/08/18 0636 Code Status & VTE Plan Code Status DO NOT RESUSCITATE VTE Prophylaxis Plan VTE Prophylaxis will be ordered: Yes _ (1) Vomiting Nausea presence: with nausea Vomiting Intractability: non-intractable Vomiting type: unspecified Qualified Code(s): R11.2 - Nausea with vomiting, unspecified (2) Depression Depression Type: unspecified Major depression recurrence: Active/Remission status: Major depression episode severity: Psychotic features: Trimester: Qualified Code(s): F32.9 - Major depressive disorder, single episode, unspecified (3) HTN (hypertension) Hypertension type: essential hypertension Qualified Code(s): I10 - Essential (primary) hypertension
--- NOTE | 2018-06-08 06:39 | XRay Report ---
PA CHEST RADIOGRAPH AND LEFT LATERAL DECUBITUS AND SUPINE AP RADIOGRAPHS OF THE ABDOMEN CLINICAL HISTORY: Vomiting. COMPARISON STUDY: Chest radiograph March 30, [address] of the abdomen and pelvis April 07, 2018. FINDINGS: There is no pneumothorax. No pleural effusion is identified. There is no consolidation to suggest pneumonia. Cardiomegaly is unchanged. No evidence for pulmonary edema. There is no evidence f or free air. Postoperative findings within the spine are noted with levoscoliosis. Bowel gas pattern is normal. IMPRESSION: 1. No free air or evidence of bowel obstruction. 2. No acute cardiopulmonary findings. Electronically signed by: Ender Coulter M.D. 06/08/2018 6:37 AM
[2018-06-08] MEDS ORDERED: HYDROCORTISONE SOD SUCCINATE 100 MG/2 ML VIAL IV SCH (06:45)
[2018-06-08] MEDS ORDERED: GLUCAGON FOR INJ 1 MG VIAL SQ PRN (07:17)
[2018-06-08] MEDS ORDERED: DEXTROSE 50% 50 ML SYRINGE IV PRN (07:17)
[2018-06-08] MEDS ORDERED: ALUMINUM/MAGNESIUM SUSP 30 ML UDC PO PRN (07:17)
[2018-06-08] MEDS ORDERED: GLUCOSE 40% GEL 15 GM TUBE PO PRN (07:17)
[2018-06-08] MEDS ORDERED: SODIUM CHLORIDE 0.9% 1000ML 1,000 ML IV SCH (07:17)
[2018-06-08] MEDS ORDERED: ACETAMINOPHEN 325 MG TAB PO PRN (07:17)
[2018-06-08] MEDS ORDERED: GUAIFENESIN/DEXTROM SYRUP 200MG/20MG 10ML UDC PO PRN (07:17)
[2018-06-08] MEDS ORDERED: GLUCOSE 10 TABS/TUBE PO PRN (07:17)
[2018-06-08] MEDS ORDERED: MAGNESIUM HYDROXIDE SUSP 30 ML UDC PO PRN (07:17)
[2018-06-08] MEDS ORDERED: ACETAMINOPHEN 1000 MG/100 ML IV IV PRN (07:17)
[2018-06-08] MEDS ORDERED: ALBUTEROL HFA 8 GM INHALER INH PRN (07:17)
[2018-06-08] MEDS ORDERED: CARBOHYDRATES FOR HYPOGLYCEMIA PO PRN (07:17)
[2018-06-08] MEDS ORDERED: ONDANSETRON INJ 2 MG/ML 2 ML VIAL IV PRN (07:17)
[2018-06-08] MEDS ORDERED: HYDROCORTISONE SOD 100 MG in SYRINGE 0 ML IV SCH (08:00)
[2018-06-08] MEDS ORDERED: ERTAPENEM SODIUM 1,000 MG in SODIUM CHLORIDE 0.9% 50 ML IV SCH (08:00)
--- NOTE | 2018-06-08 08:03 | CT Scan Report ---
CT abd pelvis wo con CLINICAL HISTORY: 87 years-old Female presenting with renal failure, infection, ? renal obstruction, dyspnea, cough. TECHNIQUE: Multidetector CT of the abdomen and pelvis was performed without the use of intravenous co ntrast. IV contrast: None. A dose lowering technique was used consistent with the principles of ALARA (as low as reasonably achievable). COMPARISON: 04/07/2018. CT DOSE (mGy.cm): The estimated cumulative dose is 1330.95 mGy.cm. FINDINGS: Postmaster topogram: Posterior lumbar fusion hardware with significant scoliosis. Lung bases: Extensive bronchial wall thickening with subsegmental bronchial debris. Dependent subpleu ral consolidation and reticulation increased from prior. Normal heart size. Coronary artery and aorti c valve calcification. Trace right pleural effusion. No pericardial effusion. Liver: Normal morphology. Normal density. Biliary: Mild biliary ductal prominence likely a reservoir effect in the post cholecystectomy state. Gallbladder surgically absent. Pancreas: Mild parenchymal atrophy. Spleen: Normal noncontrast appearance. Adrenal glands: Normal noncontrast appearance. Kidneys and ureters: The left kidney contains multiple hypodense lesions, some of which are not consi stent with water density and indeterminate. The left kidney is significantly lobular in its contour w ith lower pole scarring/atrophy. Surgical material is noted at the left ureteropelvic junction. Mild urothelial thickening on the left is unchanged. Postsurgical changes of right nephrectomy. No left ne phrolithiasis or hydronephrosis. Stable laminar soft tissue in the right nephrectomy bed likely vascu lar in etiology. Left ureter nondistended. Bladder: Incompletely evaluated secondary to underdistention. Pelvic organs: Uterus surgically absent. Bowel: Mild stool burden throughout normal caliber colon. Few sigmoid with colonic diverticula. The a ppendix is normal. No bowel obstruction. Peritoneal cavity: No free fluid or intraperitoneal gas. Lymph nodes: No gross lymphadenopathy allowing for noncontrast technique. Vasculature: Atherosclerosis of the normal caliber abdominal aorta. Abdominal wall: Laxity of abdominal wall musculature. Right breast calcification or biopsy clip. Musculoskeletal: Scoliosis with posterior lumbar fusion hardware. Laminectomy defects also noted. Deg enerative changes of the sacroiliac joints. Suspected osteopenia. IMPRESSION: 1. Right nephrectomy. No suspicious soft tissue within the nephrectomy bed. 2. Multiple left renal lesions, some of which are indeterminate by density. These are be better eval uated with noncontrast MR if the patient cannot receive IV contrast. 3. Prominent lobulation of the left kidney with atrophy of the lower pole. This may represent chroni c reflux nephropathy, postsurgical change, or prior infection among other etiologies. 4. Mild left urothelial thickening is chronic. This suggest chronic reflux or acute or chronic upper tract infection. Correlate with urinalysis. 5. Findings at the lung bases suggest chronic aspiration, worsened from prior. Electronically signed by: Isidro Archibald M.D. 06/08/2018 8:01 AM
[2018-06-08] MEDS: INSULIN ASPART 100 UNITS/ML 3 ML PEN SC SCH ×4 (08:31→21:47)
[2018-06-08] MEDS: SODIUM CHLORIDE 0.9% 1000ML 1,000 ML IV SCH ×2 (09:16→18:44)
[2018-06-08] MEDS: CARVEDILOL 6.25 MG TAB PO SCH ×2 (09:16→21:47)
[2018-06-08] MEDS: FEBUXOSTAT 40 MG TABLET PO SCH (09:17)
[2018-06-08] MEDS: DULOXETINE HCL 30 MG CAP PO SCH (09:17)
[2018-06-08] MEDS: AMIODARONE 200 MG TAB PO SCH (09:17)
[2018-06-08] MEDS: APIXABAN 2.5 MG TAB PO SCH ×2 (09:49→20:17)
--- NOTE | 2018-06-08 11:00 | History & Physical Bridge Note ---
Date of Service June 08, 2018 History & Physical Bridge Note Seen and examined this morning. Still having some nausea and back pain. Discusses with me her prior back issues. Will continue antibiotics and monitor Cr.
[2018-06-08] MEDS: cefTRIAXone SODIUM 1,000 MG in DEXTROSE 5% 50 ML IV SCH (12:30)
[2018-06-08] MEDS: PANTOprazole 40 MG in SYRINGE 0 ML IV SCH (12:30)
[2018-06-08] MEDS: ACETAMINOPHEN 325 MG TAB PO PRN (20:15)
[2018-06-08] MEDS: TRAMADOL HCL 50 MG TABLET PO PRN (20:16)
[2018-06-08] MEDS: GABAPENTIN 100 MG CAP PO SCH (20:17)
[2018-06-08] MEDS: FLURAZEPAM HCL 15 MG CAP PO SCH (21:48)
[2018-06-09] MEDS: SODIUM CHLORIDE 0.9% 1000ML 1,000 ML IV SCH (05:19)
[2018-06-09 06:34] LABS: Basophils # (auto) 0.01 K/uL (0-0.2); Basophils % (auto) 0.3 %; Eosinophils # (auto) 0.01 K/uL (0-0.5); Eosinophils % (auto) 0.3 %; Hematocrit (blood only) 36.9 % (37-47); Hemoglobin 11.5 g/dL (12.0-16.0); Immature Granulocytes # (auto) 0.01 K/uL (0.00-0.02); Immature Granulocytes % (auto) 0.3 %; Lymphocytes % (auto) 18.5 %; Mean Corpuscular Hgb Conc 31.2 g/dL (32-36); Mean Corpuscular Volume 94.4 fL (80-100); Mean Platelet Volume 12.4 fL (7.4-10.4); Monocytes # (auto) 0.32 K/uL (0.11-0.59); Monocytes % (auto) 9.8 %; Neutrophils % (auto) 70.8 %; Platelet Count 147 K/uL (130-400); RDW Coefficient of Variation 13.8 % (11.5-14.5); RDW Standard Deviation 47.3 fL (36.4-46.3); Red Blood Count 3.91 M/uL (4.2-5.4); White Blood Count 3.25 K/uL (4.8-10.8)
[2018-06-09 06:39] LABS: INR 1.2 (0.9-1.1); Partial Thromboplastin Ratio 1.2; Partial Thromboplastin Time 30.4 Seconds (21.0-31.0)
[2018-06-09 06:54] LABS: Estimated Average Glucose 111 mg/dl
[2018-06-09 07:25] LABS: Albumin Globulin Ratio 0.9 (0.9-2); Albumin Level 2.7 gm/dl (3.4-5.0); BUN Creatinine Ratio 25.5 (10-20); Bilirubin,Total 0.3 mg/dl (0.1-1); Calcium 8.3 mg/dl (8.5-10.1); Creatinine Clr Calc Pharmacy 17.1 ml/min; Est GFR (African American) 19.5; Est GFR (Non-African American) 16.8; Potassium 3.4 mmol/L (3.5-5.1); Total Protein 5.7 gm/dl (6.4-8.2)
[2018-06-09] MEDS: CARVEDILOL 6.25 MG TAB PO SCH ×2 (08:37→21:53)
[2018-06-09] MEDS: AMIODARONE 200 MG TAB PO SCH (08:37)
[2018-06-09] MEDS: FEBUXOSTAT 40 MG TABLET PO SCH (08:38)
[2018-06-09] MEDS: DULOXETINE HCL 30 MG CAP PO SCH (08:38)
[2018-06-09] MEDS: APIXABAN 2.5 MG TAB PO SCH ×2 (08:38→21:52)
[2018-06-09] MEDS: INSULIN ASPART 100 UNITS/ML 3 ML PEN SC SCH ×2 (08:40→12:16)
--- NOTE | 2018-06-09 10:41 | XRay Report ---
LUMBAR SPINE 3 VIEWS HISTORY: back pain COMPARISON: Lumbar spine 01/02/2017. FINDINGS: There is no fracture. No subluxation. Levoscoliosis. Posterior decompression fusion from L 3 through L5 with pedicle screws and rods. The hardware appears intact. Mild disc space narrowing at L5-S1. Severe disc space narrowing within the upper lumbar spine with endplate osteophytes. This myke ins unchanged. IMPRESSION: No fracture or subluxation within the lumbar spine. Postoperative and degenerative changes remain unc hanged. Electronically signed by: Kali Levine M.D. 06/09/2018 10:39 AM
[2018-06-09] MEDS: cefTRIAXone SODIUM 1,000 MG in DEXTROSE 5% 50 ML IV SCH (11:10)
[2018-06-09] MEDS: PANTOprazole 40 MG in SYRINGE 0 ML IV SCH (11:11)
--- NOTE | 2018-06-09 11:59 | Hospitalist Progress Note ---
Date of Service June 09, 2018 Assessment & Plan (1) Acute UTI: UA on 06/08 showed infection with urine culture pending. Likely the cause of her nausea and vomiting which is improving. - Continue ceftriaxone (2) Acute kidney injury superimposed on chronic kidney disease: Baseline Cr ~1.8 with eGFR of ~25. On admission, Cr was 3.2. Secondary to dehydration associated with nausea and vomiting this morning and overall decreased intake over the past week. - Was on IVFs at 100 mL/hr, stopped on 06/09 for improved PO intake. - Cr improved to 2.5 on 06/09. - Monitor Cr (3) Atrial fibrillation with RVR: History of atrial fib on prior admission. EKG on admission showed she was back in sinus. - Continue amiodarone, apixaban, and carvedilol. - Hold furosemide for JACKLYN. (4) Takotsubo cardiomyopathy: History of. Per cardiology on last admission, she does not have heart failure. (5) Depression: Anxiety with depression. - Continue duloxetine (6) Generalized weakness: Multifactorial from UTI progressive osteoarthritis, and decreased oral intake. - PT/OT - She may require a SNF stay as opposed to going straight back to personal [facility]. (7) HTN (hypertension): Labile BP with range of 100/50 to 160/70 this admission. - Continue home meds - Monitor BP (8) DVT prophylaxis: On apixaban for afib Subjective 87yo F w/ hx of afib who presents with UTI causing nausea and vomiting. Reports improved nausea, but still with some loss of appetite. Fatigued this morning, but easily arousable and alert. Less back pain, but she has not been up recently. Physical Exam 2 Vital Signs (Past 24 Hours): Last Vital Signs Temp 36.1 C L 06/09/18 07:27 Pulse 62 06/09/18 07:27 Resp 16 06/09/18 07:27 BP 104/50 L 06/09/18 07:27 Pulse Ox 94 06/09/18 07:27 Constitutional: WD/WN, vitals as above cooperative and + lethargic Eyes: EOM intact bilaterally; no conjunctival abnormality ENMT: external ear and nose normal, oropharynx normal Neck: trachea midline, no thyromegaly normal visual inspection Respiratory: normal respiratory effort, lungs clear to auscultation no respiratory distress Cardiovascular: RRR, no murmur, no edema Gastrointestinal (Abdomen): Inspection/Auscultation: abdomen normal to inspection; abdomen not distended Musculoskeletal: no cyanosis or clubbing, extremities motor strength 5/5 Skin: no rashes, warm and dry Neurologic: moves all extremities and awake Psychiatric: Orientation: alert, oriented to person and cooperative _ (1) Depression Depression Type: unspecified Major depression recurrence: Active/Remission status: Major depression episode severity: Psychotic features: Trimester: Qualified Code(s): F32.9 - Major depressive disorder, single episode, unspecified (2) HTN (hypertension) Hypertension type: essential hypertension Qualified Code(s): I10 - Essential (primary) hypertension
[2018-06-09] MEDS: TRAMADOL HCL 50 MG TABLET PO PRN (16:11)
[2018-06-09] MEDS: GABAPENTIN 100 MG CAP PO SCH (21:52)
[2018-06-09] MEDS: FLURAZEPAM HCL 15 MG CAP PO SCH (21:53)
[2018-06-10] MEDS: ACETAMINOPHEN 325 MG TAB PO PRN (05:47)
[2018-06-10] MEDS: TRAMADOL HCL 50 MG TABLET PO PRN (05:47)
[2018-06-10 07:36] LABS: Basophils # (auto) 0.01 K/uL (0-0.2); Basophils % (auto) 0.3 %; Eosinophils # (auto) 0.51 K/uL (0-0.5); Eosinophils % (auto) 13.2 %; Hematocrit (blood only) 35.9 % (37-47); Hemoglobin 11.3 g/dL (12.0-16.0); Immature Granulocytes # (auto) 0.01 K/uL (0.00-0.02); Immature Granulocytes % (auto) 0.3 %; Lymphocytes # (auto) 1.23 K/uL (1.2-3.4); Lymphocytes % (auto) 31.9 %; Mean Corpuscular Hgb Conc 31.5 g/dL (32-36); Mean Corpuscular Volume 93.5 fL (80-100); Mean Platelet Volume 12.7 fL (7.4-10.4); Monocytes # (auto) 0.57 K/uL (0.11-0.59); Monocytes % (auto) 14.8 %; Neutrophils # (auto) 1.52 K/uL (1.4-6.5); Neutrophils % (auto) 39.5 %; Platelet Count 143 K/uL (130-400); RDW Coefficient of Variation 13.8 % (11.5-14.5); RDW Standard Deviation 47.3 fL (36.4-46.3); Red Blood Count 3.84 M/uL (4.2-5.4); White Blood Count 3.85 K/uL (4.8-10.8)
[2018-06-10 07:41] LABS: INR 1.2 (0.9-1.1); Prothrombin Time 11.7 Seconds (9.0-12.0)
[2018-06-10 08:18] LABS: Albumin Level 2.6 gm/dl (3.4-5.0); BUN Creatinine Ratio 24.6 (10-20); Bilirubin,Total 0.2 mg/dl (0.1-1); Calcium 8.5 mg/dl (8.5-10.1); Creatinine Clr Calc Pharmacy 18.4 ml/min; Est GFR (African American) 21.2; Est GFR (Non-African American) 18.3; Magnesium 1.5 mg/dl (1.8-2.4); Potassium 3.6 mmol/L (3.5-5.1)
[2018-06-10 08:19] LABS: Albumin Globulin Ratio 0.9 (0.9-2); Globulin 2.8 gm/dl (2.5-4.0); Total Protein 5.4 gm/dl (6.4-8.2)
[2018-06-10] MEDS ORDERED: LOPERAMIDE HCL 2 MG CAP PO PRN (08:35)
[2018-06-10] MEDS: CARVEDILOL 6.25 MG TAB PO SCH ×2 (08:36→20:52)
[2018-06-10] MEDS: APIXABAN 2.5 MG TAB PO SCH ×2 (08:37→20:52)
[2018-06-10] MEDS: FEBUXOSTAT 40 MG TABLET PO SCH (08:38)
[2018-06-10] MEDS: DULOXETINE HCL 30 MG CAP PO SCH (08:38)
[2018-06-10] MEDS ORDERED: MAGNESIUM SULFATE / D5W 1 GM/100 ML BAG IV ONE (08:39)
[2018-06-10] MEDS: AMIODARONE 200 MG TAB PO SCH (08:39)
--- NOTE | 2018-06-10 10:17 | Hospitalist Progress Note ---
Date of Service June 10, 2018 Assessment & Plan (1) Generalized weakness: Per patient, about 2-3 weeks ago, she stopped being able to ambulate when working with PT. No focal loss of strength or sensation in legs, no new/ different incontinence or retention of bladder or bowel, no saddle anesthesia, so I do not think it is a spinal cord or CVA issue. More likely multifactorial from UTI, progressive osteoarthritis, failure to thrive, and decreased oral intake. - Discussed with Dr. Schulz who will see her today and consider MRI - PT/OT - She may require a SNF stay as opposed to going straight back to personal [facility], though she is doing ok at present location. (2) Acute UTI: Had severe nause and vomiting as presenting symptom. UA on 06/08 showed infection with urine culture growing alpha Strep. Likely the cause of her nausea and vomiting which is improved. - Continue ceftriaxone while inpatient given her prior nausea - Consider switch to Keflex when ready for discharge for a 7-day course (End date: 06/14/18) - Having some diarrhea, likely due to abx. C. diff negative on 06/09. Giving Imodium. (3) Acute kidney injury superimposed on chronic kidney disease: Baseline Cr ~1.8 with eGFR of ~25. On admission, Cr was 3.2. Secondary to dehydration associated with nausea and vomiting and overall decreased intake over the past week. - Was on IVFs at 100 mL/hr, stopped on 06/09 for improved PO intake. - Cr improved to 2.35 on 06/10. - Monitor Cr given her diarrhea; be sure she is taking in adequate PO (4) Atrial fibrillation with RVR: History of atrial fib on prior admission. EKG on admission showed she was back in sinus. - Continue amiodarone, apixaban, and carvedilol. - Hold furosemide for JACKLYN. (5) Takotsubo cardiomyopathy: History of. Per cardiology on last admission, she does not have heart failure. (6) Depression: Anxiety with depression. - Continue duloxetine (7) HTN (hypertension): Labile BP with range of 100/50 to 160/70 this admission. - Continue home meds except for furosemide - Monitor BP (8) DVT prophylaxis: On apixaban for afib Dispo: Hopefully Monday after seen by Dr. Schulz, any further testing he orders/ requests, and being seen by PT/OT. Subjective 87yo F w/ hx of afib who presents with UTI causing nausea and vomiting. Reports continued low appetite. Also notes some diarrhea that occurred with the initiation of antibiotics. Less back pain, but she has not been up recently. Reports no fevers/chills, chest pain, shortness of breath, abdominal pain, nausea, or vomiting. Physical Exam 2 Vital Signs (Past 24 Hours): Last Vital Signs Temp 36.7 C 06/10/18 07:39 Pulse 56 L 06/10/18 07:39 Resp 16 06/10/18 07:39 BP 118/54 L 06/10/18 07:39 Pulse Ox 96 06/10/18 07:39 Constitutional: WD/WN, vitals as above cooperative and + lethargic Eyes: EOM intact bilaterally; no conjunctival abnormality ENMT: external ear and nose normal, oropharynx normal Neck: trachea midline, no thyromegaly normal visual inspection Respiratory: normal respiratory effort, lungs clear to auscultation no respiratory distress Cardiovascular: RRR, no murmur, no edema Gastrointestinal (Abdomen): Inspection/Auscultation: abdomen normal to inspection; abdomen not distended Musculoskeletal: no cyanosis or clubbing, extremities motor strength 5/5 Normal light touch sensation and 5/5 strength in ankles and quads. Skin: no rashes, warm and dry Neurologic: moves all extremities and awake Psychiatric: Orientation: alert, oriented to person and cooperative _ (1) Depression Depression Type: unspecified Major depression recurrence: Active/Remission status: Major depression episode severity: Psychotic features: Trimester: Qualified Code(s): F32.9 - Major depressive disorder, single episode, unspecified (2) HTN (hypertension) Hypertension type: essential hypertension Qualified Code(s): I10 - Essential (primary) hypertension
[2018-06-10] MEDS: PANTOprazole 40 MG in SYRINGE 0 ML IV SCH (10:20)
--- NOTE | 2018-06-10 10:42 | Orthopedic Consultation ---
Date of Consultation June 10, 2018 Assessment & Plan (1) Back pain: At this time we will obtain an MRI lumbar spine. X-rays lumbar spine taken yesterday demonstrate instillation be in place probe alignment evidence of severe degenerative change throughout the remainder of the lumbar spine. Present on Admission?: Yes History of Present Illness Reason for Consultation: Patient has complaints of back pain leg weakness and numbness and tingling. She is unable to specify what exacerbates or alleviates her symptom complex. She states the symptoms have been present for several months. She denies any specific trauma fall or event. Attending Physician: Kt Mayen MD History of Present Illness This is a pleasant 87-year-old female with chronic persistent back and bilateral leg pain weakness and tingling. Allergies Allergy/AdvReac Type Severity Reaction Status Date / Time amoxicillin Allergy Unknown RASH AND Verified 06/08/18 04:41 SWELLING TONGUE Bactrim Allergy Unknown ? Verified 01/01/18 11:34 cephalexin Allergy Unknown Unknown Verified 06/08/18 04:41 levofloxacin Allergy Unknown RASH AND Verified 06/08/18 04:41 SWELLING TONGUE Penicillins Allergy Unknown RASH & Verified 06/08/18 04:41 HIVES sulfamethoxazole Allergy Unknown Unknown Verified 06/08/18 04:41 trimethoprim Allergy Unknown Unknown Verified 06/08/18 04:41 nitrofurantoin AdvReac Mild HEADACHE Verified 06/08/18 04:41 Home Medications Home Medications Medication Instructions Recorded Confirmed Type duloxetine 30 mg PO QAM 02/25/18 06/08/18 History febuxostat [Uloric] 40 mg PO DAILY 02/25/18 06/08/18 History flurazepam 30 mg PO HS 02/25/18 06/08/18 History gabapentin 100 mg PO HS 02/25/18 06/08/18 History lidocaine 1 patch TOPICAL DAILY PRN 02/25/18 06/08/18 History tramadol 50 mg PO Q4 PRN 02/25/18 06/08/18 History acetaminophen [Tylenol] 650 mg PO Q4 PRN 03/08/18 06/08/18 History albuterol sulfate 2 - 4 puff INHALATION DIRECTED 04/07/18 06/08/18 History PRN dextromethorphan-guaifenesin 10 ml PO Q6H PRN 04/07/18 06/08/18 History [Robitussin Cough-Chest Jae DM] amiodarone 200 mg PO DAILY #30 tab 04/11/18 06/08/18 Rx apixaban [Eliquis] 2.5 mg PO BID #60 tab 04/11/18 06/08/18 Rx carvedilol 6.25 mg PO BID #0 tab 04/11/18 06/08/18 Rx furosemide 40 mg PO DAILY #0 tab 04/11/18 06/08/18 Rx prednisone See Taper PO DAILY #5 tab 04/11/18 06/08/18 Rx Patient History Medical History Hyperkalemia, diminished renal excretion Cardiomyopathy 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 (Acute) Chronic kidney disease (Acute) Anxiety CHF (congestive heart failure) 35% ef Depression Gout Hypertension Lumbar stenosis Single kidney Surgical History History of bilateral knee replacement Family History Other Family history non-contributory Social History Current Living Situation: Personal Care Facility Current Living Situation Comment: [facility] [place] Other Information That Helps Us Care for You: No Feels Safe at Home: Yes Safety Concerns: Feels Safe At This Time Smoking Status: Never smoker Hx Alcohol Use: No Hx Substance Use: No Beliefs That Will Affect Care: None Preferred Language: Icelandic Communication Ability: Effective Physical Exam 2 Vital Signs (Past 24 Hours): Last Vital Signs Temp 36.7 C 06/10/18 07:39 Pulse 56 L 06/10/18 07:39 Resp 16 06/10/18 07:39 BP 118/54 L 06/10/18 07:39 Pulse Ox 96 06/10/18 07:39 Physical Exam: On physical exam she is seems to have reasonable motor function to testing bilateral extremities. Equivocal Babinski signs. No clonus. Sensory appears to be symmetric and intact.
[2018-06-10] MEDS ORDERED: LORazepam 0.5 MG/1 ML VIAL IV STA (11:13)
[2018-06-10] MEDS: cefTRIAXone SODIUM 1,000 MG in DEXTROSE 5% 50 ML IV SCH (12:59)
--- NOTE | 2018-06-10 14:02 | Magnetic Resonance Report ---
MR lumbar spine wo con CLINICAL HISTORY: 87 years-old Female with back pain, leg weakness. Chronic low back pain with right leg numbness. History of prior lumbar spine surgery. COMPARISON: CT abdomen and pelvis 06/08/2018, MR lumbar spine 02/28/2011. TECHNIQUE: Multiplanar, multi sequence MRI of the lumbar spine was performed without intravenous cont rast. FINDINGS: The large [id number] software project manager localizer images demonstrate multiple T2 hyperintense lesions of the le ft kidney which are indeterminate, however, suggestive of cysts. Cortical scarring and parenchymal th inning about the left kidney noted. Absent right kidney. Trace left pleural effusion. Levoscoliosis o f the upper lumbar spine. Motion degraded exam. Postoperative changes from prior laminectomy with pos terior interbody britt and screw fusion and discectomy at L3-S1. Artifact from the hardware limits eval uation of the neural foramina at these levels. No acute fracture, subluxation or focal bone marrow ed latisha. 2 mm retrolisthesis T12 on L1, 3 mm retrolisthesis L1 on L2 and 3 mm retrolisthesis L2 on L3 erick ears degenerative in nature. 3 mm anterolisthesis L4 on L5, previously 2 mm on comparison. Multilevel foraminal narrowing as below has progressed from comparison. Conus medullaris terminates at the L1 l evel. Cauda equina appear unremarkable. Moderate atrophy of the paraspinal musculature. T12-L1: Moderate to severe intervertebral disc space narrowing with spondylitic spurring and posteri or annular disc bulge. Advanced facet arthrosis. Flattening of the ventral thecal sac without high-gr amelia central canal stenosis. Severe right foraminal stenosis. The left foramen is patent. L1-L2: Moderate to severe intervertebral disc space narrowing with spondylitic spurring, retrolisthe sis as above and posterior annular disc bulge with advanced facet arthrosis. Mild central canal steno sis. Severe right and mild to moderate left foraminal narrowing. L2-L3: Moderate intervertebral disc space narrowing with spondylitic spurring, circumferential annul ar disc bulge and advanced facet arthrosis. Flattening of the ventral thecal sac without high-grade c entral canal stenosis. Severe right and moderate left foraminal narrowing. L3-L4: Postoperative changes as above at this interspace. The central canal and left neural foramen appear patent. Mild right foraminal stenosis. L4-L5: Postoperative changes as above at this interspace. No significant central canal or foraminal narrowing. L5-S1: Disc desiccation without significant intervertebral disc space narrowing. Mild spondylitic sp urring with advanced facet arthrosis. No significant central canal or foraminal narrowing. IMPRESSION: 1. Motion degraded exam without acute fracture, subluxation or focal bone marrow edema. 2. Postoperative changes from laminectomy with discectomy and posterior interbody britt and screw fusio n at L3-L5. 3. Levoscoliosis. 4. Multilevel discogenic degenerative changes with facet arthrosis and spondylitic spurring resulting in multilevel foraminal narrowing as detailed above, progressively worsened from 2010. 5. No high-grade central canal narrowing. The above report was generated using voice recognition software. It may contain grammatical, syntax o r spelling errors. Dictated: 06/10/2018 12:46 PM Transcribed: 06/10/2018 2:01 PM Ann [id number] Electronically signed by: Justino Bloom M.D. 06/10/2018 2:28 PM
[2018-06-10] MEDS: GABAPENTIN 100 MG CAP PO SCH (20:52)
[2018-06-10] MEDS: FLURAZEPAM HCL 15 MG CAP PO SCH (21:20)
[2018-06-11 06:03] LABS: Basophils # (auto) 0.02 K/uL (0-0.2); Basophils % (auto) 0.5 %; Eosinophils # (auto) 0.55 K/uL (0-0.5); Eosinophils % (auto) 12.8 %; Hematocrit (blood only) 36.7 % (37-47); Hemoglobin 11.7 g/dL (12.0-16.0); Immature Granulocytes # (auto) 0.01 K/uL (0.00-0.02); Immature Granulocytes % (auto) 0.2 %; Lymphocytes # (auto) 1.16 K/uL (1.2-3.4); Mean Corpuscular Hgb Conc 31.9 g/dL (32-36); Mean Corpuscular Volume 91.8 fL (80-100); Mean Platelet Volume 12.6 fL (7.4-10.4); Monocytes # (auto) 0.53 K/uL (0.11-0.59); Monocytes % (auto) 12.3 %; Neutrophils # (auto) 2.03 K/uL (1.4-6.5); Neutrophils % (auto) 47.2 %; Platelet Count 147 K/uL (130-400); RDW Coefficient of Variation 13.4 % (11.5-14.5); RDW Standard Deviation 44.8 fL (36.4-46.3)
[2018-06-11 06:35] LABS: Albumin Level 2.7 gm/dl (3.4-5.0); BUN Creatinine Ratio 25.5 (10-20); Calcium 8.4 mg/dl (8.5-10.1); Creatinine Clr Calc Pharmacy 22.7 ml/min; Est GFR (African American) 27.4; Est GFR (Non-African American) 23.6; Magnesium 1.6 mg/dl (1.8-2.4); Potassium 3.3 mmol/L (3.5-5.1)
[2018-06-11 06:38] LABS: Albumin Globulin Ratio 0.9 (0.9-2); Bilirubin,Total 0.3 mg/dl (0.2-1); Total Protein 5.7 gm/dl (6.4-8.2)
[2018-06-11 06:45] LABS: INR 1.1 (0.9-1.1); Prothrombin Time 11.3 Seconds (9.0-12.0)
[2018-06-11] MEDS: AMIODARONE 200 MG TAB PO SCH (07:58)
[2018-06-11] MEDS: APIXABAN 2.5 MG TAB PO SCH ×2 (07:59→21:36)
[2018-06-11] MEDS: FEBUXOSTAT 40 MG TABLET PO SCH (07:59)
[2018-06-11] MEDS: CARVEDILOL 6.25 MG TAB PO SCH ×2 (07:59→21:35)
[2018-06-11] MEDS: DULOXETINE HCL 30 MG CAP PO SCH (07:59)
[2018-06-11] MEDS ORDERED: PANTOprazole 40 MG TAB PO SCH (09:00)
[2018-06-11] MEDS: TRAMADOL HCL 50 MG TABLET PO PRN ×2 (09:31→20:24)
[2018-06-11] MEDS: POTASSIUM CHLORIDE 20 MEQ TABCR PO SCH ×2 (09:31→21:36)
[2018-06-11] MEDS: cefTRIAXone SODIUM 1,000 MG in DEXTROSE 5% 50 ML IV SCH (11:48)
[2018-06-11] MEDS: LACTOBACILLUS ACIDOPHILUS (FLORANEX) TAB PO SCH ×2 (17:07→21:36)
[2018-06-11] MEDS: GABAPENTIN 100 MG CAP PO SCH (21:36)
[2018-06-11] MEDS: FLURAZEPAM HCL 15 MG CAP PO SCH (21:41)
--- NOTE | 2018-06-11 23:35 | Hospitalist Progress Note ---
Date of Service June 11, 2018 Assessment & Plan (1) Generalized weakness: Per patient, about 2-3 weeks ago, she stopped being able to ambulate when working with PT. No focal loss of strength or sensation in legs, no new/ different incontinence or retention of bladder or bowel, no saddle anesthesia, so I do not think it is a spinal cord or CVA issue. More likely multifactorial from UTI, progressive osteoarthritis, failure to thrive, and decreased oral intake. - Appreciate input from Dr. Schulz. Images were reviewed. Patient and family would like to continue conservative management. - Will continue PT/OT -Patient and family would rather continue with going back to her home and have PT there then to go to a SNF. (2) Acute UTI: Had severe nause and vomiting as presenting symptom. UA on 06/08 showed infection with urine culture growing alpha Strep. Likely the cause of her nausea and vomiting which is improved. - Continue ceftriaxone while inpatient given her prior nausea, however would like for patient to try oral cephalosporing prior to discharge. - Consider switch to cefuroxime in AM and continue for a 7-day course (End date : 06/14/18) - Having some diarrhea, likely due to abx. C. diff negative on 06/09. Giving Imodium. (3) Acute kidney injury superimposed on chronic kidney disease: Baseline Cr ~1.8 with eGFR of ~25. On admission, Cr was 3.2. Secondary to dehydration associated with nausea and vomiting and overall decreased intake over the past week. - Was on IVFs at 100 mL/hr, stopped on 06/09 for improved PO intake. - Cr improved to 1.9 on 06/11. - Monitor Cr given her diarrhea; (4) Atrial fibrillation with RVR: History of atrial fib on prior admission. EKG on admission showed she was back in sinus. - Continue amiodarone, apixaban, and carvedilol. - Hold furosemide for JACKLYN. (5) Takotsubo cardiomyopathy: History of. Per cardiology on last admission, she does not have heart failure. (6) Depression: Anxiety with depression. - Continue duloxetine (7) HTN (hypertension): Labile BP with range of 100/50 to 160/70 this admission. - Continue home meds except for furosemide - Monitor BP (8) DVT prophylaxis: On apixaban for afib Will continue to monitor, will see how patient tolerates oral antibiotics. Will continue to monitor her diarrhea. Will try to obtain hosptail bed due to frequent repositioning. Subjective 87yo F w/ hx of afib who presents with UTI causing nausea and vomiting. Daughter is at bedside and is updated. Patient reports that she continues to have diarrhea. She reports that she is also having back pain and is requesting a hospital bed after discussing with her PCP. It appears she requires multiple repositioning. Patient reports no fevers/chills, chest pain, shortness of breath, abdominal pain, nausea, or vomiting. Physical Exam 2 Vital Signs (Past 24 Hours): Last Vital Signs Temp 36.6 C 06/11/18 15:19 Pulse 68 06/11/18 21:33 Resp 20 06/11/18 15:19 BP 161/70 H 06/11/18 21:33 Pulse Ox 92 06/11/18 21:33 Physical Exam: Constitutional: WD/WN, vitals as above cooperative. Eyes: EOM intact bilaterally; no conjunctival abnormality ENMT: external ear and nose normal, oropharynx normal Neck: trachea midline, no thyromegaly normal visual inspection Respiratory: normal respiratory effort, lungs clear to auscultation no respiratory distress Cardiovascular: RRR, no murmur, no edema Gastrointestinal (Abdomen): Inspection/Auscultation: abdomen normal to inspection; abdomen not distended Musculoskeletal: no cyanosis or clubbing, extremities motor strength 5/5 Skin: no rashes, warm and dry Neurologic: moves all extremities and awake Psychiatric: Orientation: alert, oriented to person and cooperative _ (1) Depression Active/Remission status: Depression Type: unspecified Major depression episode severity: Major depression recurrence: Psychotic features: Trimester: Qualified Code(s): F32.9 - Major depressive disorder, single episode, unspecified (2) HTN (hypertension) Hypertension type: essential hypertension Qualified Code(s): I10 - Essential (primary) hypertension
[2018-06-12] MEDS ORDERED: POTASSIUM CHLORIDE 20 MEQ TABCR PO SCH
[2018-06-12] MEDS ORDERED: LACTOBACILLUS ACIDOPHILUS (FLORANEX) TAB PO SCH
[2018-06-12 07:51] VITALS: PULSE 63; TEMP 98.1; O2SAT 92
[2018-06-12] MEDS: DULOXETINE HCL 30 MG CAP PO SCH (08:16)
[2018-06-12] MEDS: CARVEDILOL 6.25 MG TAB PO SCH (08:16)
[2018-06-12] MEDS: LACTOBACILLUS ACIDOPHILUS (FLORANEX) TAB PO SCH ×2 (08:16→12:19)
[2018-06-12] MEDS: AMIODARONE 200 MG TAB PO SCH (08:16)
[2018-06-12] MEDS: FEBUXOSTAT 40 MG TABLET PO SCH (08:17)
[2018-06-12] MEDS: POTASSIUM CHLORIDE 20 MEQ TABCR PO SCH (08:17)
[2018-06-12] MEDS: APIXABAN 2.5 MG TAB PO SCH (08:17)
[2018-06-12] MEDS: TRAMADOL HCL 50 MG TABLET PO PRN (08:24)
[2018-06-12] MEDS: ACETAMINOPHEN 325 MG TAB PO PRN (08:25)
[2018-06-12 08:47] LABS: Basophils # (auto) 0.02 K/uL (0-0.2); Basophils % (auto) 0.5 %; Eosinophils # (auto) 0.38 K/uL (0-0.5); Eosinophils % (auto) 9.1 %; Hematocrit (blood only) 37.5 % (37-47); Immature Granulocytes # (auto) 0.01 K/uL (0.00-0.02); Immature Granulocytes % (auto) 0.2 %; Lymphocytes # (auto) 1.24 K/uL (1.2-3.4); Lymphocytes % (auto) 29.7 %; Mean Corpuscular Volume 91.7 fL (80-100); Mean Platelet Volume 11.6 fL (7.4-10.4); Monocytes # (auto) 0.41 K/uL (0.11-0.59); Monocytes % (auto) 9.8 %; Neutrophils # (auto) 2.12 K/uL (1.4-6.5); Neutrophils % (auto) 50.7 %; Platelet Count 162 K/uL (130-400); RDW Coefficient of Variation 13.5 % (11.5-14.5); RDW Standard Deviation 44.8 fL (36.4-46.3); Red Blood Count 4.09 M/uL (4.2-5.4); White Blood Count 4.18 K/uL (4.8-10.8)
[2018-06-12] MEDS ORDERED: cephALEXin 500 MG CAP PO SCH (09:00)
[2018-06-12] MEDS ORDERED: cefUROXime axetil 250 MG TABLET PO SCH (09:00)
[2018-06-12 09:06] LABS: BUN Creatinine Ratio 18.9 (10-20); Calcium 8.5 mg/dl (8.5-10.1); Creatinine Clr Calc Pharmacy 24.1 ml/min; Est GFR (Non-African American) 25.1; Potassium 3.7 mmol/L (3.5-5.1)
[2018-06-12] MEDS ORDERED: MAGNESIUM OXIDE 400 MG TAB PO SCH ×2 (12:30)
[2018-06-12 13:45] VITALS: BP 117/57
--- NOTE | 2018-06-13 07:57 | Discharge Summary ---
Date of Service June 12, 2018 Admission HPI Per Admitting Provider The patient is an 87-year-old female resident of [facility], who developed abdominal pain along with nausea and vomiting this morning prior to arrival. She reports decreased ability to ambulate over the past week due to generalized weakness in lower extremities, with chronic pain in her left knee and right hip. She denies any recent travels or sick exposures. She denies any unusual or questionable food intakes. She does have someone help her with medications to be taken properly. Principal Diagnosis Generalized Weakness Discharge Exam Constitutional: WD/WN, vitals as above cooperative. Eyes: EOM intact bilaterally; no conjunctival abnormality ENMT: external ear and nose normal, oropharynx normal Neck: trachea midline, no thyromegaly normal visual inspection Respiratory: normal respiratory effort, lungs clear to auscultation no respiratory distress Cardiovascular: RRR, no murmur, no edema Gastrointestinal (Abdomen): Inspection/Auscultation: abdomen normal to inspection; abdomen not distended Musculoskeletal: no cyanosis or clubbing, extremities motor strength 5/5 Skin: no rashes, warm and dry Neurologic: moves all extremities and awake Psychiatric: Orientation: alert, oriented to person and cooperative Discharge Data Allergies Allergy/AdvReac Type Severity Reaction Status Date / Time amoxicillin Allergy Unknown RASH AND Verified 06/14/18 07:00 SWELLING TONGUE Bactrim Allergy Unknown ? Verified 01/01/18 11:34 levofloxacin Allergy Unknown RASH AND Verified 06/14/18 07:00 SWELLING TONGUE Penicillins Allergy Unknown RASH & Verified 06/14/18 07:00 HIVES sulfamethoxazole Allergy Unknown Unknown Verified 06/14/18 07:00 trimethoprim Allergy Unknown Unknown Verified 06/08/18 04:41 cephalexin [From Keflex] Allergy Unknown Verified 06/14/18 07:02 nitrofurantoin AdvReac Mild HEADACHE Verified 06/14/18 07:00 Consultations 06/08/18 06:38 ED Decision to Admit Stat 06/08/18 07:17 Consult Case Management - Discharge Planning Routine 06/08/18 16:45 Consult Orthopedic Surgery Routine Ordered Studies 06/08/18 05:01 CT abd pelvis wo con Urgent 06/10/18 10:38 MR lumbar spine wo con Urgent Hospital Course (1) Generalized weakness: Per patient, about 2-3 weeks ago, she stopped being able to ambulate when working with PT. No focal loss of strength or sensation in legs, no new/ different incontinence or retention of bladder or bowel, no saddle anesthesia, so I do not think it is a spinal cord or CVA issue. More likely multifactorial from UTI, progressive osteoarthritis, failure to thrive, and decreased oral intake. - Appreciate input from Dr. Schulz. Images were reviewed. Patient and family would like to continue conservative management. - Will continue PT/OT -Patient and family would rather continue with going back to her home and have PT there then to go to a SNF. (2) Acute UTI: Questionable diagnosis. Had severe nause and vomiting as presenting symptom. UA on 06/08 showed infection with urine culture growing alpha Strep. Likely the cause of her nausea and vomiting which is improved. - Continue ceftriaxone while inpatient given her prior nausea, however would like for patient to try oral cephalosporin prior to discharge. - Patient received 5 days of antibiotics and improved. Her antibiotic that she received was a cephalosporin. -Cephalosporins do not treat E. Coli infections. The fact that the patient improved while being her brings the question as to if the patient really had a UTI, or if this was an incidental finding. - Having some diarrhea, likely due to abx. C. diff negative on 06/09. Giving Imodium. Her diarhea improved on day of discharge after 1 day of immodium. (3) Acute kidney injury superimposed on chronic kidney disease: Baseline Cr ~1.8 with eGFR of ~25. On admission, Cr was 3.2. Secondary to dehydration associated with nausea and vomiting and overall decreased intake over the past week. - Was on IVFs at 100 mL/hr, stopped on 06/09 for improved PO intake. - Cr improved to 1.9 on 06/11. - Monitor Cr given her diarrhea; -Creatinine appears to be at baseline. will recheck in a week. (4) Atrial fibrillation with RVR: History of atrial fib on prior admission. EKG on admission showed she was back in sinus. - Continue amiodarone, apixaban, and carvedilol. - Hold furosemide for JACKLYN -will resume as an outpatient at a lower dose [id number]. (5) Takotsubo cardiomyopathy: History of. Per cardiology on last admission, she does not have heart failure. (6) Depression: Anxiety with depression. - Continue duloxetine (7) HTN (hypertension): Labile BP with range of 100/50 to 160/70 this admission. - Continue home meds - Monitor BP (8) DVT prophylaxis: On apixaban for afib Patient appears to be close to her baseline. Patient states that she would like to be discarged. This was discussed with family who agree with plan. Also discussed will be holding antibiotics at discharge as the bacteruiria, was likely an incidental finding. Her improvement should not be explained by the cephalosporin. Total Time Total Time Spent Total Time Spent (In Minutes): 35 Total Time Includes: Examination of the Patient, Discharge Planning and Medication Reconciliation Discharge Plan Discharge Items Patient Disposition: Personal Usp Reason For Visit: UTI, GENERALIZED WEAKNESS, DEHYDRATION Discharge Diagnosis: Generalized weakness, dehydration Condition: Fair Discharge Goals: Decrease discomfort Activity: Resume your previous activity Non-emergency contact: Primary Care Provider Call non-emergency contact if: you have any medication questions Diet: Heart Healthy Addtl Provider Instructions: Followup with PCP on Monday. Recheck BMP in 1 week. Will have home health as an outpatient. Check her diapers every 2 hours. Prescriptions: New potassium chloride [Klor-Con M20] 20 mEq Tablet,Er Particles/Crystals 20 meq PO BID Qty: 6 RF: 0 magnesium oxide 400 mg (241.3 mg magnesium) Tablet 400 mg PO BID Qty: 20 RF: 0 Continue dextromethorphan-guaifenesin [Robitussin Cough-Chest Jae DM] 5-100 mg/5 mL Liquid 10 ml PO Q6H PRN (Reason: Cough) RF: 0 albuterol sulfate 90 mcg/actuation HFA aerosol inhaler 2 - 4 puff Inhalation DIRECTED PRN (Reason: Shortness Of Breath) RF: 0 amiodarone 200 mg Tablet 200 mg PO DAILY Qty: 30 RF: 0 apixaban [Eliquis] 2.5 mg Tablet 2.5 mg PO BID Qty: 60 RF: 0 carvedilol 12.5 mg Tablet 6.25 mg PO BID Qty: 0 RF: 0 febuxostat [Uloric] 40 mg Tablet 40 mg PO DAILY RF: 0 tramadol 50 mg Tablet 50 mg PO Q4 PRN (Reason: Pain) RF: 0 flurazepam 30 mg Capsule 30 mg PO HS RF: 0 lidocaine 5 % Adhesive Patch,Medicated 1 patch TOPICAL DAILY PRN (Reason: Pain) RF: 0 gabapentin 100 mg Capsule 100 mg PO HS RF: 0 acetaminophen [Tylenol] 325 mg Tablet 650 mg PO Q4 PRN (Reason: Fever Or Pain) RF: 0 Changed furosemide 40 mg Tablet 40 mg PO Q48H Qty: 0 RF: 0 No Action duloxetine 60 mg capsule,delayed release(DR/EC) 60 mg PO DAILY RF: 0 Lactobacillus acidoph-L.bulgar [Floranex] 1 million cell Tablet 4 tab PO QID RF: 0 benzonatate 100 mg Capsule 100 mg PO TID PRN (Reason: Cough) RF: 0 Stand-Alone Forms: [facility] Discharge Orders: Discharge Order (Routine); Ordered 06/12/18 Ordered By: Aaron Oneill Admission Data Admit Date/Time: 06/08/18 06:04 Attending Provider: Aaron Oneill Admit Provider: Jose Garcia Primary Care Provider: Dariusz Sloan Other Providers: Kt Mayen ; Warren Schulz Service: Medical Other Interventions: Discharge Summary Assessment (RN) Last Done: 06/12/18 13:43 DC Date/Time DO NOT enter until pt leaves facility: 06/12/18 14:25
== END 2018-06-12 14:25 | disposition home or self-care (01) | DRG 690 ==
LOC: ED 03:26 → SUATTDRO 06:04 → 2N 06:04

== ENCOUNTER 2018-06-14 05:29 | Observation (INO) ==
[2018-06-14 06:17] LABS: Albumin Level 3.4 gm/dl (3.4-5.0); BUN Creatinine Ratio 14.6 (10-20); Bilirubin,Total 0.7 mg/dl (0.2-1); Calcium 9.1 mg/dl (8.5-10.1); Creatinine Clr Calc Pharmacy 29.1 ml/min; Est GFR (African American) 35.3; Est GFR (Non-African American) 30.5; Globulin 3.5 gm/dl (2.5-4.0); Magnesium 1.8 mg/dl (1.8-2.4); Potassium 4.8 mmol/L (3.5-5.1); Total Protein 6.9 gm/dl (6.4-8.2)
[2018-06-14] MEDS ORDERED: ASPIRIN CHEW 324 MG PO STA (06:19)
[2018-06-14 06:24] LABS: Hematocrit (blood only) 43.5 % (37-47); Hemoglobin 14.3 g/dL (12.0-16.0); Mean Corpuscular Hgb Conc 32.9 g/dL (32-36); Mean Platelet Volume 12.3 fL (7.4-10.4); Platelet Count 262 K/uL (130-400); RDW Coefficient of Variation 13.9 % (11.5-14.5); RDW Standard Deviation 46.5 fL (36.4-46.3); Red Blood Count 4.73 M/uL (4.2-5.4); White Blood Count 13.48 K/uL (4.8-10.8)
[2018-06-14] MEDS ORDERED: FUROSEMIDE 40 MG/4 ML VIAL IV STA ×2 (06:26→10:05)
[2018-06-14 06:35] LABS: Influenza A virus by PCR Neg for Influ A (Neg); Influenza B virus by PCR Neg for Influ B (Neg)
[2018-06-14 06:46] LABS: Basophils # (auto) 0.07 K/uL (0-0.2); Basophils % (auto) 0.5 %; Eosinophils # (auto) 0.34 K/uL (0-0.5); Eosinophils % (auto) 2.5 %; Immature Granulocytes # (auto) 0.07 K/uL (0.00-0.02); Immature Granulocytes % (auto) 0.5 %; Monocytes # (auto) 1.31 K/uL (0.11-0.59); Monocytes % (auto) 9.7 %; Neutrophils # (auto) 8.19 K/uL (1.4-6.5); Neutrophils % (auto) 60.8 %
--- NOTE | 2018-06-14 06:48 | XRay Report ---
XR chest 1V portable CLINICAL HISTORY: Dyspnea. COMPARISON STUDY: Chest radiograph June 08, 2018. FINDINGS: Mild elevation of the left hemidiaphragm is unchanged. There is no pneumothorax. There may be a small left pleural effusion. Interstitial thickening has developed. Cardiomegaly is unchanged. IMPRESSION: 1. Interval improvement in interstitial thickening suggestive of mild pulmonary edema. 2. Suspected small left pleural effusion with mild left basilar opacity. Electronically signed by: Ender Coulter M.D. 06/14/2018 6:47 AM
[2018-06-14 06:49] LABS: INR 1.1 (0.9-1.1); Partial Thromboplastin Ratio 1.1; Partial Thromboplastin Time 27.3 Seconds (21.0-31.0); Prothrombin Time 11.1 Seconds (9.0-12.0)
[2018-06-14] MEDS ORDERED: HEPARIN SOD (PORCINE) 1000 UNIT/ML 10 ML VIAL ONE (06:50)
[2018-06-14] MEDS ORDERED: HEPARIN 25000 UNIT/500 ML D5W IV ONE (06:50)
--- NOTE | 2018-06-14 07:56 | Emergency Department Note ---
Entered by Rd Theodore acting as a scribe for Milena Vasques MD History of Present Illness General Chief complaint: Respiratory Problems Source: patient and RN notes reviewed Mode of arrival: EMS Limitations: other (some memory issue, SOB) History of Present Illness Onset (ago): unknown (This morning) Location: chest Pain Consistency: + intermittent Relieved By: + none Associated symptoms: + shortness of breath; no fever/chills The patient is an 89 year old female who presents to the ED via EMS due to intermittent SOB that began this morning. Patient was given two breathing treatments en route to the ER with IV solumedral by EMS. Patient was discharged from the hospital yesterday for UTI and JACKLYN. Patient denies any recent fevers or CP. Pt's history is limited by memory issues. Home Medications Home Medications Medication Instructions Recorded Confirmed Type febuxostat [Uloric] 40 mg PO DAILY 02/25/18 06/14/18 History flurazepam 30 mg PO HS 02/25/18 06/14/18 History gabapentin 100 mg PO HS 02/25/18 06/14/18 History lidocaine 1 patch TOPICAL DAILY PRN 02/25/18 06/14/18 History tramadol 50 mg PO Q4 PRN 02/25/18 06/14/18 History acetaminophen [Tylenol] 650 mg PO Q4 PRN 03/08/18 06/14/18 History albuterol sulfate 2 - 4 puff INHALATION DIRECTED 04/07/18 06/14/18 History PRN dextromethorphan-guaifenesin 10 ml PO Q6H PRN 04/07/18 06/14/18 History [Robitussin Cough-Chest Jae DM] amiodarone 200 mg PO DAILY #30 tab 04/11/18 06/14/18 Rx apixaban [Eliquis] 2.5 mg PO BID #60 tab 04/11/18 06/14/18 Rx carvedilol 6.25 mg PO BID #0 tab 04/11/18 06/14/18 Rx magnesium oxide 400 mg PO BID #20 tab 06/12/18 06/14/18 Rx Lactobacillus acidoph-L.bulgar 4 tab PO QID 06/14/18 06/14/18 History [Floranex] benzonatate 100 mg PO TID PRN 06/14/18 06/14/18 History duloxetine 60 mg PO DAILY 06/14/18 06/14/18 History benzonatate [Tessalon Perles] 100 mg PO TID #30 cap 06/15/18 Rx ciprofloxacin HCl 750 mg PO BID #7 tab 06/15/18 Rx furosemide 40 mg PO DAILY #0 tab 06/15/18 06/14/18 Rx prednisone 20 mg PO UD #5 tab 06/15/18 Rx Allergies Allergy/AdvReac Type Severity Reaction Status Date / Time amoxicillin Allergy Unknown RASH AND Verified 06/14/18 07:00 SWELLING TONGUE Bactrim Allergy Unknown ? 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 and A total of 10 systems reviewed and were otherwise negative Physical Exam Vital Signs Vital Signs - 24 hr 06/14/18 05:35 06/14/18 05:36 06/14/18 07:02 Temperature 36.4 C L Temperature Source Oral Sepsis Recent Fever Within 48 Hours No Sepsis Action Taken by Nursing No Action Required Pulse Rate 104 H 102 H Pulse Rate [Left Radial] Respiratory Rate 37 H 27 H Respiratory Effort / Characteristics Labored Short of Breath Short of Breath Respiratory Depth Shallow Shallow Respiratory Pattern Tachypnea Tachypnea Blood Pressure 134/70 Blood Pressure [Left Arm] Blood Pressure Mean 91 Blood Pressure Mean [Left Arm] Blood Pressure Position [Left Arm] Pulse Oximetry 100 92 89 L Oxygen Delivery Method Room Air CPAP Room Air Nasal Cannula Oxygen Flow Rate 0 0 Fraction of Inspired Oxygen 50 06/14/18 07:35 Temperature Temperature Source Sepsis Recent Fever Within 48 Hours Sepsis Action Taken by Nursing Pulse Rate Pulse Rate [Left Radial] 92 H Respiratory Rate 28 H Respiratory Effort / Characteristics Accessory Muscle Use Respiratory Depth Respiratory Pattern Tachypnea Blood Pressure Blood Pressure [Left Arm] 141/78 H Blood Pressure Mean Blood Pressure Mean [Left Arm] 99 Blood Pressure Position [Left Arm] Lying Pulse Oximetry 94 Oxygen Delivery Method Nasal Cannula Oxygen Flow Rate 4 Fraction of Inspired Oxygen Vital signs reviewed. General: Somewhat ill-appearing elderly female, in no significant distress. HEENT: No scleral icterus, PERRLA, neck supple. Atraumatic. Cardiovascular: Regular rate and rhythm, no extra sounds. Pulmonary: Crackles to lower lung mcmahan otherwise clear to auscultation bilaterally, on BiPAP with normal work of breathing. Abdomen: Soft, nontender, nondistended, positive bowel sounds. Musculoskeletal: Atraumatic, minimal peripheral edema. Neurologic: Patient awake alert and answers simple questions appropriately Skin: Warm, dry, no rash Course 0540: Past medical records reviewed. The patient was evaluated in room A9B, and a complete history and physical examination were performed. 0611: Patient was taken off BiPAP. 0640: Upon reevaluation, the patient will be further evaluated. I updated the patient on her treatment plan and findings. Patient is agreeable to the treatment plan. Patient will be assessed for further evaluation. Consultations Consultation #1: I reviewed the patient's case with Dr Oneill of [facility] hospitalist service. He will evaluate the patient for further management. Time: 06:35 Administered Medications Discontinued Medications Amiodarone HCl (Cordarone) 200 mg PO Q24H LARISSA Stop: 07/14/18 15:59 Last Admin: 06/15/18 15:24 Dose: 200 mg Admin: 06/14/18 16:13 Dose: 200 mg Apixaban (Eliquis) 2.5 mg PO ONE ONE Stop: 06/15/18 11:46 Last Admin: 06/15/18 12:09 Dose: 2.5 mg Aspirin (Aspirin) 324 mg PO NOW STA Stop: 06/14/18 06:20 Last Admin: 06/14/18 06:57 Dose: 324 mg Benzonatate (Tessalon Perle) 100 mg PO TID LARISSA Stop: 07/14/18 15:59 Last Admin: 06/15/18 13:05 Dose: 100 mg Admin: 06/15/18 07:21 Dose: 100 mg Admin: 06/14/18 20:52 Dose: 100 mg Admin: 06/14/18 16:16 Dose: 100 mg Carvedilol (Coreg) 6.25 mg PO BID LARISSA Stop: 07/14/18 15:29 Last Admin: 06/14/18 22:45 Dose: Not Given Carvedilol (Coreg) 6.25 mg PO BID LARISSA Stop: 07/14/18 20:59 Last Admin: 06/15/18 07:20 Dose: 6.25 mg Admin: 06/14/18 20:53 Dose: 6.25 mg Duloxetine HCl (Cymbalta) 60 mg PO Q24H LARISSA Stop: 07/14/18 15:59 Last Admin: 06/15/18 15:24 Dose: 60 mg Admin: 06/14/18 18:25 Dose: 60 mg Flurazepam HCl (Dalmane) 30 mg PO [facility] Stop: 07/14/18 20:59 Last Admin: 06/14/18 20:55 Dose: 30 mg Furosemide (Lasix) 20 mg IV NOW STA Stop: 06/14/18 06:27 Last Admin: 06/14/18 06:57 Dose: 20 mg Furosemide (Lasix) Confirm Administered Dose 40 mg IV .STK-MED ONE Stop: 06/14/18 10:34 Last Admin: 06/14/18 10:37 Dose: Not Given Furosemide (Lasix) 40 mg PO Q48H LARISSA Stop: 07/14/18 15:59 Last Admin: 06/14/18 16:15 Dose: 40 mg Gabapentin (Neurontin) 100 mg PO LARISSA Stop: 07/14/18 20:59 Last Admin: 06/14/18 20:53 Dose: 100 mg Guaifenesin (Mucinex) 1,200 mg PO Q12 LARISSA Stop: 07/14/18 11:33 Last Admin: 06/14/18 22:45 Dose: Not Given Heparin Sodium (Porcine) (Heparin Iv Bolus) Confirm Administered Dose 10,000 units .ROUTE .STK-MED ONE Stop: 06/14/18 06:51 Last Admin: 06/14/18 06:55 Dose: 6,000 units Heparin Sodium/Dextrose () 1 ea N/A NOW STA; Protocol Stop: 06/14/18 06:30 Last Admin: 06/14/18 07:01 Dose: Not Given Heparin Sodium/Dextrose (Heparin Sodium/Dextrose) Confirm Administered Dose 25, 000 units IV .STK-MED ONE Stop: 06/14/18 06:51 Last Admin: 06/14/18 06:55 Dose: 25 ml Cefepime HCl 2,000 mg/ Syringe 20 mls @ 5.5 mls/min IV Q24H LARISSA; Protocol Stop: 06/21/18 15:59 Last Admin: 06/14/18 18:04 Dose: 5.5 mls/min Ciprofloxacin (Cipro) 400 mg in 200 mls @ 100 mls/hr IV Q24H LARISSA; Protocol Stop: 06/21/18 15:59 Last Infusion: 06/14/18 21:45 Dose: Admin: 06/14/18 18:04 Dose: 100 mls/hr Heparin Sodium/Dextrose (Heparin Sodium/Dextrose) 25,000 units in 500 mls @ 21 mls/hr IV .[id number] LARISSA; Protocol Stop: 07/14/18 12:17 Last Titration: 06/15/18 10:26 Dose: 0 units/hr, 0 mls/hr Admin: 06/15/18 07:13 Dose: 1,050 units/hr, 21 mls/hr Titration: 06/15/18 07:13 Dose: 1,050 units/hr, 21 mls/hr Titration: 06/14/18 22:43 Dose: 1,050 units/hr, 21 mls/hr Titration: 06/14/18 19:56 Dose: 21 mls/hr Admin: 06/14/18 19:56 Dose: 25 mls/hr Vancomycin HCl 2,250 mg/ (Sodium Chloride) 545 mls @ 200 mls/hr IV NOW ONE Stop: 06/14/18 17:13 Last Infusion: 06/14/18 18:06 Dose: 0 mls/hr Admin: 06/14/18 14:51 Dose: 200 mls/hr Methylprednisolone 60 mg/ (Syringe) 0.96 mls @ 1.5 mls/min IV ONE STA Stop: 06/14/18 16:02 Last Admin: 06/14/18 16:22 Dose: 1.5 mls/min Methylprednisolone 40 mg/ (Syringe) 0.64 mls @ 1.5 mls/min IV BID LARISSA Stop: 07/15/18 08:59 Last Admin: 06/15/18 08:09 Dose: 1.5 mls/min Vancomycin HCl 1,250 mg/ (Sodium Chloride) 275 mls @ 125 mls/hr IV TODAY@1200 [facility] Stop: 06/15/18 14:11 Last Infusion: 06/15/18 14:25 Dose: 0 mls/hr Admin: 06/15/18 12:10 Dose: 125 mls/hr Furosemide 40 mg/ Syringe 4 mls @ 4 mls/min IV ONE ONE Stop: 06/15/18 13:36 Last Admin: 06/15/18 14:13 Dose: 4 mls/min Lactobacillus Acidophilus (Floranex) 4 tab PO QID [facility] Stop: 07/14/18 16:59 Last Admin: 06/15/18 13:05 Dose: 4 tab Admin: 06/15/18 07:20 Dose: 4 tab Admin: 06/14/18 20:53 Dose: 4 tab Admin: 06/14/18 16:13 Dose: 4 tab Levalbuterol HCl (Xopenex 1.25mg/0.5ml Neb) 1.25 mg NEB Q6H [facility] Stop: 07/14/18 11:33 Last Admin: 06/15/18 01:43 Dose: 1.25 mg Admin: 06/14/18 22:43 Dose: Not Given Admin: 06/14/18 22:43 Dose: Not Given Admin: 06/14/18 20:13 Dose: 1.25 mg Levalbuterol HCl (Xopenenx 1.25mg/3ml Neb) 1.25 mg NEB Q6R [facility] Stop: 07/15/18 01:59 Last Admin: 06/15/18 13:50 Dose: 1.25 mg Admin: 06/15/18 07:40 Dose: 1.25 mg Admin: 06/15/18 02:19 Dose: Not Given Lidocaine (Lidoderm 5%) 1 patch TD DAILY@0800 [facility] Stop: 07/14/18 15:59 Last Admin: 06/15/18 07:19 Dose: 1 patch Admin: 06/14/18 16:29 Dose: 1 patch Magnesium Oxide (Mag-Ox) 400 mg PO BID LARISSA Stop: 07/14/18 15:59 Last Admin: 06/15/18 07:20 Dose: 400 mg Admin: 06/14/18 20:52 Dose: 400 mg Admin: 06/14/18 16:15 Dose: 400 mg Miscellaneous (Order Awaiting Action) 1 ea N/A QS [facility] Stop: 07/14/18 15:59 Last Admin: 06/15/18 15:24 Dose: Not Given Admin: 06/15/18 07:18 Dose: Not Given Admin: 06/15/18 00:23 Dose: Not Given Admin: 06/14/18 16:16 Dose: Not Given Miscellaneous (Remove Lidoderm Patch) 1 ea N/A DAILY@1999 [facility] Stop: 07/14/18 19:59 Last Admin: 06/14/18 20:52 Dose: 1 ea Potassium Chloride (Klor-Con M20) 20 meq PO BID [facility] Stop: 07/14/18 15:59 Last Admin: 06/15/18 07:20 Dose: 20 meq Admin: 06/14/18 20:52 Dose: 20 meq Admin: 06/14/18 18:03 Dose: 20 meq Medical Decision Making Differential Diagnosis Differential diagnosis: Etiologies such as infections, reactive airway disease, COPD, pneumonia, pleural effusion, pulmonary edema, ARDS, pneumothorax, CHF, cardiac ischemia, cardiac tamponade, dysrhythmia, anemia, pulmonary embolism, musculoskeletal, gastrointestinal process, as well as others were entertained. Medical Records Attestation: I reviewed the patient's medical records. Home Medications Current Medication List: was personally reviewed by me Laboratory Data Attestation: I reviewed the patient's lab results. Result diagrams: 06/15/18 06:57 06/15/18 06:57 Lab Results 06/14/18 06/14/18 06/14/18 Range/Units 05:42 05:44 05:44 WBC 13.48 H (4.8-10.8) K/uL RBC 4.73 (4.2-5.4) M/uL Hgb 14.3 (12.0-16.0) g/dL Hct 43.5 (37-47) % MCV 92.0 (80-100) fL MCH 30.2 (25-34) pg MCHC 32.9 (32-36) g/dL RDW Std Deviation 46.5 H (36.4-46.3) fL RDW Coeff of Gina 13.9 (11.5-14.5) % Plt Count 262 D (130-400) K/uL MPV 12.3 H (7.4-10.4) fL Immature Gran % (Auto) 0.5 % Neut % (Auto) 60.8 % Lymph % (Auto) 26.0 % [place] % (Auto) 9.7 % Eos % (Auto) 2.5 % Baso % (Auto) 0.5 % Immature Gran # (Auto) 0.07 H (0.00-0.02) K/uL Neut # (Auto) 8.19 H (1.4-6.5) K/uL Lymph # (Auto) 3.50 H (1.2-3.4) K/uL [place] # (Auto) 1.31 H (0.11-0.59) K/uL Eos # (Auto) 0.34 (0-0.5) K/uL Baso # (Auto) 0.07 (0-0.2) K/uL PT 11.1 (9.0-12.0) Seconds INR 1.1 (0.9-1.1) APTT 27.3 (21.0-31.0) Seconds PTT Ratio 1.1 POC D-Dimer (0-450) ng/mlFEU Sodium (136-145) mmol/L Potassium (3.5-5.1) mmol/L Chloride (98-107) mmol/L Carbon Dioxide (21-32) mmol/L Anion Gap (3-11) BUN (7-18) mg/dl Creatinine (0.6-1.2) mg/dl Est Cr Clr Drug Dosing ml/min Est GFR ( Amer) Est GFR (Non-Af Amer) BUN/Creatinine Ratio (10-20) Glucose (70-99) mg/dl POC Lactic Acid Freddy 1.94 H (0.90-1.70) mmol/L Calcium (8.5-10.1) mg/dl Magnesium (1.8-2.4) mg/dl Total Bilirubin (0.2-1) mg/dl AST (15-37) U/L ALT (12-78) U/L Alkaline Phosphatase (45-117) U/L POC Troponin I (0-0.045) ng/ml Troponin I (0-0.045) ng/ml NT-Pro-B Natriuret Pep (0-1800) pg/ml Total Protein (6.4-8.2) gm/dl Albumin (3.4-5.0) gm/dl Globulin (2.5-4.0) gm/dl Albumin/Globulin Ratio (0.9-2) Procalcitonin (0-0.5) ng/ml Urine Color Urine Appearance (Clear) Urine pH (4.5-7.5) Ur Specific [place] (1.000-1.030) Urine Protein (Negative) Urine Glucose (UA) (Negative) Urine Ketones (Negative) Urine Blood (Negative) Urine Nitrite (Negative) Urine Bilirubin (Negative) Urine Urobilinogen (Negative) Ur Leukocyte Esterase (Negative) Urine WBC (Auto) (0-5) /hpf Urine RBC (Auto) (0-4) /hpf U Hyaline Cast (Auto) (0-5) /lpf U Epithel Cells (Auto) (0-5) /lpf Urine Bacteria (Auto) (Negative) Nasal Screen MRSA (PCR) (Negative) Random Vancomycin mcg/ml Influenza Type A (PCR) (Neg) Influenza Type B (PCR) (Neg) 06/14/18 06/14/18 06/14/18 Range/Units 05:44 05:44 05:44 WBC (4.8-10.8) K/uL RBC (4.2-5.4) M/uL Hgb (12.0-16.0) g/dL Hct (37-47) % MCV (80-100) fL MCH (25-34) pg MCHC (32-36) g/dL RDW Std Deviation (36.4-46.3) fL RDW Coeff of Gina (11.5-14.5) % Plt Count (130-400) K/uL MPV (7.4-10.4) fL Immature Gran % (Auto) % Neut % (Auto) % Lymph % (Auto) % [place] % (Auto) % Eos % (Auto) % Baso % (Auto) % Immature Gran # (Auto) (0.00-0.02) K/uL Neut # (Auto) (1.4-6.5) K/uL Lymph # (Auto) (1.2-3.4) K/uL [place] # (Auto) (0.11-0.59) K/uL Eos # (Auto) (0-0.5) K/uL Baso # (Auto) (0-0.2) K/uL PT (9.0-12.0) Seconds INR (0.9-1.1) APTT (21.0-31.0) Seconds PTT Ratio POC D-Dimer (0-450) ng/mlFEU Sodium 142 (136-145) mmol/L Potassium 4.8 D (3.5-5.1) mmol/L Chloride 112 H (98-107) mmol/L Carbon Dioxide 22 (21-32) mmol/L Anion Gap 8.0 (3-11) BUN 23 H (7-18) mg/dl Creatinine 1.54 H (0.6-1.2) mg/dl Est Cr Clr Drug Dosing 29.1 ml/min Est GFR ( Amer) 35.3 Est GFR (Non-Af Amer) 30.5 BUN/Creatinine Ratio 14.6 (10-20) Glucose 115 H (70-99) mg/dl POC Lactic Acid Freddy (0.90-1.70) mmol/L Calcium 9.1 (8.5-10.1) mg/dl Magnesium 1.8 (1.8-2.4) mg/dl Total Bilirubin 0.7 (0.2-1) mg/dl AST 30 (15-37) U/L ALT 32 (12-78) U/L Alkaline Phosphatase 119 H (45-117) U/L POC Troponin I (0-0.045) ng/ml Troponin I (0-0.045) ng/ml NT-Pro-B Natriuret Pep > 99389 H (0-1800) pg/ml Total Protein 6.9 (6.4-8.2) gm/dl Albumin 3.4 (3.4-5.0) gm/dl Globulin 3.5 (2.5-4.0) gm/dl Albumin/Globulin Ratio 1.0 (0.9-2) Procalcitonin 0.07 (0-0.5) ng/ml Urine Color Urine Appearance (Clear) Urine pH (4.5-7.5) Ur Specific [place] (1.000-1.030) Urine Protein (Negative) Urine Glucose (UA) (Negative) Urine Ketones (Negative) Urine Blood (Negative) Urine Nitrite (Negative) Urine Bilirubin (Negative) Urine Urobilinogen (Negative) Ur Leukocyte Esterase (Negative) Urine WBC (Auto) (0-5) /hpf Urine RBC (Auto) (0-4) /hpf U Hyaline Cast (Auto) (0-5) /lpf U Epithel Cells (Auto) (0-5) /lpf Urine Bacteria (Auto) (Negative) Nasal Screen MRSA (PCR) (Negative) Random Vancomycin mcg/ml Influenza Type A (PCR) (Neg) Influenza Type B (PCR) (Neg) 06/14/18 06/14/18 06/14/18 Range/Units 05:55 05:57 07:40 WBC (4.8-10.8) K/uL RBC (4.2-5.4) M/uL Hgb (12.0-16.0) g/dL Hct (37-47) % MCV (80-100) fL MCH (25-34) pg MCHC (32-36) g/dL RDW Std Deviation (36.4-46.3) fL RDW Coeff of Gina (11.5-14.5) % Plt Count (130-400) K/uL MPV (7.4-10.4) fL Immature Gran % (Auto) % Neut % (Auto) % Lymph % (Auto) % [place] % (Auto) % Eos % (Auto) % Baso % (Auto) % Immature Gran # (Auto) (0.00-0.02) K/uL Neut # (Auto) (1.4-6.5) K/uL Lymph # (Auto) (1.2-3.4) K/uL [place] # (Auto) (0.11-0.59) K/uL Eos # (Auto) (0-0.5) K/uL Baso # (Auto) (0-0.2) K/uL PT (9.0-12.0) Seconds INR (0.9-1.1) APTT (21.0-31.0) Seconds PTT Ratio POC D-Dimer > 450 H* (0-450) ng/mlFEU Sodium (136-145) mmol/L Potassium (3.5-5.1) mmol/L Chloride (98-107) mmol/L Carbon Dioxide (21-32) mmol/L Anion Gap (3-11) BUN (7-18) mg/dl Creatinine (0.6-1.2) mg/dl Est Cr Clr Drug Dosing ml/min Est GFR ( Amer) Est GFR (Non-Af Amer) BUN/Creatinine Ratio (10-20) Glucose (70-99) mg/dl POC Lactic Acid Freddy (0.90-1.70) mmol/L Calcium (8.5-10.1) mg/dl Magnesium (1.8-2.4) mg/dl Total Bilirubin (0.2-1) mg/dl AST (15-37) U/L ALT (12-78) U/L Alkaline Phosphatase (45-117) U/L POC Troponin I 0.37 H (0-0.045) ng/ml Troponin I (0-0.045) ng/ml NT-Pro-B Natriuret Pep (0-1800) pg/ml Total Protein (6.4-8.2) gm/dl Albumin (3.4-5.0) gm/dl Globulin (2.5-4.0) gm/dl Albumin/Globulin Ratio (0.9-2) Procalcitonin (0-0.5) ng/ml Urine Color Yellow Urine Appearance Clear (Clear) Urine pH 5.5 (4.5-7.5) Ur Specific [place] 1.012 (1.000-1.030) Urine Protein 2+ H (Negative) Urine Glucose (UA) Negative (Negative) Urine Ketones Trace H (Negative) Urine Blood Negative (Negative) Urine Nitrite Negative (Negative) Urine Bilirubin Negative (Negative) Urine Urobilinogen Negative (Negative) Ur Leukocyte Esterase Negative (Negative) Urine WBC (Auto) 5-10 H (0-5) /hpf Urine RBC (Auto) 0-4 (0-4) /hpf U Hyaline Cast (Auto) 1-5 (0-5) /lpf U Epithel Cells (Auto) >30 H (0-5) /lpf Urine Bacteria (Auto) Negative (Negative) Nasal Screen MRSA (PCR) (Negative) Random Vancomycin mcg/ml Influenza Type A (PCR) Neg for Influ A (Neg) Influenza Type B (PCR) Neg for Influ B (Neg) 06/14/18 06/14/18 06/14/18 Range/Units 10:21 12:50 12:50 WBC (4.8-10.8) K/uL RBC (4.2-5.4) M/uL Hgb (12.0-16.0) g/dL Hct (37-47) % MCV (80-100) fL MCH (25-34) pg MCHC (32-36) g/dL RDW Std Deviation (36.4-46.3) fL RDW Coeff of Gina (11.5-14.5) % Plt Count (130-400) K/uL MPV (7.4-10.4) fL Immature Gran % (Auto) % Neut % (Auto) % Lymph % (Auto) % [place] % (Auto) % Eos % (Auto) % Baso % (Auto) % Immature Gran # (Auto) (0.00-0.02) K/uL Neut # (Auto) (1.4-6.5) K/uL Lymph # (Auto) (1.2-3.4) K/uL [place] # (Auto) (0.11-0.59) K/uL Eos # (Auto) (0-0.5) K/uL Baso # (Auto) (0-0.2) K/uL PT (9.0-12.0) Seconds INR (0.9-1.1) APTT 173.2 H* (21.0-31.0) Seconds PTT Ratio 6.5 POC D-Dimer (0-450) ng/mlFEU Sodium (136-145) mmol/L Potassium (3.5-5.1) mmol/L Chloride (98-107) mmol/L Carbon Dioxide (21-32) mmol/L Anion Gap (3-11) BUN (7-18) mg/dl Creatinine (0.6-1.2) mg/dl Est Cr Clr Drug Dosing ml/min Est GFR ( Amer) Est GFR (Non-Af Amer) BUN/Creatinine Ratio (10-20) Glucose (70-99) mg/dl POC Lactic Acid Freddy (0.90-1.70) mmol/L Calcium (8.5-10.1) mg/dl Magnesium (1.8-2.4) mg/dl Total Bilirubin (0.2-1) mg/dl AST (15-37) U/L ALT (12-78) U/L Alkaline Phosphatase (45-117) U/L POC Troponin I (0-0.045) ng/ml Troponin I 0.386 H* 0.349 H* (0-0.045) ng/ml NT-Pro-B Natriuret Pep (0-1800) pg/ml Total Protein (6.4-8.2) gm/dl Albumin (3.4-5.0) gm/dl Globulin (2.5-4.0) gm/dl Albumin/Globulin Ratio (0.9-2) Procalcitonin (0-0.5) ng/ml Urine Color Urine Appearance (Clear) Urine pH (4.5-7.5) Ur Specific [place] (1.000-1.030) Urine Protein (Negative) Urine Glucose (UA) (Negative) Urine Ketones (Negative) Urine Blood (Negative) Urine Nitrite (Negative) Urine Bilirubin (Negative) Urine Urobilinogen (Negative) Ur Leukocyte Esterase (Negative) Urine WBC (Auto) (0-5) /hpf Urine RBC (Auto) (0-4) /hpf U Hyaline Cast (Auto) (0-5) /lpf U Epithel Cells (Auto) (0-5) /lpf Urine Bacteria (Auto) (Negative) Nasal Screen MRSA (PCR) (Negative) Random Vancomycin mcg/ml Influenza Type A (PCR) (Neg) Influenza Type B (PCR) (Neg) 06/14/18 06/14/18 06/14/18 Range/Units 15:06 15:06 17:44 WBC (4.8-10.8) K/uL RBC (4.2-5.4) M/uL Hgb (12.0-16.0) g/dL Hct (37-47) % MCV (80-100) fL MCH (25-34) pg MCHC (32-36) g/dL RDW Std Deviation (36.4-46.3) fL RDW Coeff of Gina (11.5-14.5) % Plt Count (130-400) K/uL MPV (7.4-10.4) fL Immature Gran % (Auto) % Neut % (Auto) % Lymph % (Auto) % [place] % (Auto) % Eos % (Auto) % Baso % (Auto) % Immature Gran # (Auto) (0.00-0.02) K/uL Neut # (Auto) (1.4-6.5) K/uL Lymph # (Auto) (1.2-3.4) K/uL [place] # (Auto) (0.11-0.59) K/uL Eos # (Auto) (0-0.5) K/uL Baso # (Auto) (0-0.2) K/uL PT 10.9 (9.0-12.0) Seconds INR 1.1 (0.9-1.1) APTT 55.6 H* (21.0-31.0) Seconds PTT Ratio 2.1 POC D-Dimer (0-450) ng/mlFEU Sodium (136-145) mmol/L Potassium (3.5-5.1) mmol/L Chloride (98-107) mmol/L Carbon Dioxide (21-32) mmol/L Anion Gap (3-11) BUN (7-18) mg/dl Creatinine (0.6-1.2) mg/dl Est Cr Clr Drug Dosing ml/min Est GFR ( Amer) Est GFR (Non-Af Amer) BUN/Creatinine Ratio (10-20) Glucose (70-99) mg/dl POC Lactic Acid Freddy (0.90-1.70) mmol/L Calcium (8.5-10.1) mg/dl Magnesium (1.8-2.4) mg/dl Total Bilirubin (0.2-1) mg/dl AST (15-37) U/L ALT (12-78) U/L Alkaline Phosphatase (45-117) U/L POC Troponin I (0-0.045) ng/ml Troponin I 0.253 H* (0-0.045) ng/ml NT-Pro-B Natriuret Pep (0-1800) pg/ml Total Protein (6.4-8.2) gm/dl Albumin (3.4-5.0) gm/dl Globulin (2.5-4.0) gm/dl Albumin/Globulin Ratio (0.9-2) Procalcitonin (0-0.5) ng/ml Urine Color Urine Appearance (Clear) Urine pH (4.5-7.5) Ur Specific [place] (1.000-1.030) Urine Protein (Negative) Urine Glucose (UA) (Negative) Urine Ketones (Negative) Urine Blood (Negative) Urine Nitrite (Negative) Urine Bilirubin (Negative) Urine Urobilinogen (Negative) Ur Leukocyte Esterase (Negative) Urine WBC (Auto) (0-5) /hpf Urine RBC (Auto) (0-4) /hpf U Hyaline Cast (Auto) (0-5) /lpf U Epithel Cells (Auto) (0-5) /lpf Urine Bacteria (Auto) (Negative) Nasal Screen MRSA (PCR) (Negative) Random Vancomycin mcg/ml Influenza Type A (PCR) (Neg) Influenza Type B (PCR) (Neg) 06/14/18 06/14/18 06/15/18 Range/Units 21:15 22:01 01:01 WBC (4.8-10.8) K/uL RBC (4.2-5.4) M/uL Hgb (12.0-16.0) g/dL Hct (37-47) % MCV (80-100) fL MCH (25-34) pg MCHC (32-36) g/dL RDW Std Deviation (36.4-46.3) fL RDW Coeff of Gina (11.5-14.5) % Plt Count (130-400) K/uL MPV (7.4-10.4) fL Immature Gran % (Auto) % Neut % (Auto) % Lymph % (Auto) % [place] % (Auto) % Eos % (Auto) % Baso % (Auto) % Immature Gran # (Auto) (0.00-0.02) K/uL Neut # (Auto) (1.4-6.5) K/uL Lymph # (Auto) (1.2-3.4) K/uL [place] # (Auto) (0.11-0.59) K/uL Eos # (Auto) (0-0.5) K/uL Baso # (Auto) (0-0.2) K/uL PT 11.4 (9.0-12.0) Seconds INR 1.1 (0.9-1.1) APTT 56.2 H* (21.0-31.0) Seconds PTT Ratio 2.2 POC D-Dimer (0-450) ng/mlFEU Sodium (136-145) mmol/L Potassium (3.5-5.1) mmol/L Chloride (98-107) mmol/L Carbon Dioxide (21-32) mmol/L Anion Gap (3-11) BUN (7-18) mg/dl Creatinine (0.6-1.2) mg/dl Est Cr Clr Drug Dosing ml/min Est GFR ( Amer) Est GFR (Non-Af Amer) BUN/Creatinine Ratio (10-20) Glucose (70-99) mg/dl POC Lactic Acid Freddy (0.90-1.70) mmol/L Calcium (8.5-10.1) mg/dl Magnesium (1.8-2.4) mg/dl Total Bilirubin (0.2-1) mg/dl AST (15-37) U/L ALT (12-78) U/L Alkaline Phosphatase (45-117) U/L POC Troponin I (0-0.045) ng/ml Troponin I 0.207 H* (0-0.045) ng/ml NT-Pro-B Natriuret Pep (0-1800) pg/ml Total Protein (6.4-8.2) gm/dl Albumin (3.4-5.0) gm/dl Globulin (2.5-4.0) gm/dl Albumin/Globulin Ratio (0.9-2) Procalcitonin (0-0.5) ng/ml Urine Color Urine Appearance (Clear) Urine pH (4.5-7.5) Ur Specific [place] (1.000-1.030) Urine Protein (Negative) Urine Glucose (UA) (Negative) Urine Ketones (Negative) Urine Blood (Negative) Urine Nitrite (Negative) Urine Bilirubin (Negative) Urine Urobilinogen (Negative) Ur Leukocyte Esterase (Negative) Urine WBC (Auto) (0-5) /hpf Urine RBC (Auto) (0-4) /hpf U Hyaline Cast (Auto) (0-5) /lpf U Epithel Cells (Auto) (0-5) /lpf Urine Bacteria (Auto) (Negative) Nasal Screen MRSA (PCR) Negative (Negative) Random Vancomycin mcg/ml Influenza Type A (PCR) (Neg) Influenza Type B (PCR) (Neg) 06/15/18 06/15/18 06/15/18 Range/Units 06:57 06:57 06:57 WBC 7.90 (4.8-10.8) K/uL RBC 4.14 L (4.2-5.4) M/uL Hgb 12.2 (12.0-16.0) g/dL Hct 38.1 (37-47) % MCV 92.0 (80-100) fL MCH 29.5 (25-34) pg MCHC 32.0 (32-36) g/dL RDW Std Deviation 48.3 H (36.4-46.3) fL RDW Coeff of Gina 14.4 (11.5-14.5) % Plt Count 164 (130-400) K/uL MPV 12.7 H (7.4-10.4) fL Immature Gran % (Auto) % Neut % (Auto) % Lymph % (Auto) % [place] % (Auto) % Eos % (Auto) % Baso % (Auto) % Immature Gran # (Auto) (0.00-0.02) K/uL Neut # (Auto) (1.4-6.5) K/uL Lymph # (Auto) (1.2-3.4) K/uL [place] # (Auto) (0.11-0.59) K/uL Eos # (Auto) (0-0.5) K/uL Baso # (Auto) (0-0.2) K/uL PT (9.0-12.0) Seconds INR (0.9-1.1) APTT (21.0-31.0) Seconds PTT Ratio POC D-Dimer (0-450) ng/mlFEU Sodium 142 (136-145) mmol/L Potassium 5.3 H (3.5-5.1) mmol/L Chloride 114 H (98-107) mmol/L Carbon Dioxide 22 (21-32) mmol/L Anion Gap 6.0 (3-11) BUN 33 H (7-18) mg/dl Creatinine 2.07 H D (0.6-1.2) mg/dl Est Cr Clr Drug Dosing 21.6 ml/min Est GFR ( Amer) 24.7 Est GFR (Non-Af Amer) 21.3 BUN/Creatinine Ratio 15.8 (10-20) Glucose 148 H (70-99) mg/dl POC Lactic Acid Freddy (0.90-1.70) mmol/L Calcium 8.6 (8.5-10.1) mg/dl Magnesium (1.8-2.4) mg/dl Total Bilirubin 0.4 (0.2-1) mg/dl AST 25 (15-37) U/L ALT 37 (12-78) U/L Alkaline Phosphatase 91 (45-117) U/L POC Troponin I (0-0.045) ng/ml Troponin I (0-0.045) ng/ml NT-Pro-B Natriuret Pep (0-1800) pg/ml Total Protein 6.3 L (6.4-8.2) gm/dl Albumin 2.9 L (3.4-5.0) gm/dl Globulin 3.4 (2.5-4.0) gm/dl Albumin/Globulin Ratio 0.9 (0.9-2) Procalcitonin (0-0.5) ng/ml Urine Color Urine Appearance (Clear) Urine pH (4.5-7.5) Ur Specific [place] (1.000-1.030) Urine Protein (Negative) Urine Glucose (UA) (Negative) Urine Ketones (Negative) Urine Blood (Negative) Urine Nitrite (Negative) Urine Bilirubin (Negative) Urine Urobilinogen (Negative) Ur Leukocyte Esterase (Negative) Urine WBC (Auto) (0-5) /hpf Urine RBC (Auto) (0-4) /hpf U Hyaline Cast (Auto) (0-5) /lpf U Epithel Cells (Auto) (0-5) /lpf Urine Bacteria (Auto) (Negative) Nasal Screen MRSA (PCR) (Negative) Random Vancomycin 18.5 mcg/ml Influenza Type A (PCR) (Neg) Influenza Type B (PCR) (Neg) 06/15/18 Range/Units 06:57 WBC (4.8-10.8) K/uL RBC (4.2-5.4) M/uL Hgb (12.0-16.0) g/dL Hct (37-47) % MCV (80-100) fL MCH (25-34) pg MCHC (32-36) g/dL RDW Std Deviation (36.4-46.3) fL RDW Coeff of Gina (11.5-14.5) % Plt Count (130-400) K/uL MPV (7.4-10.4) fL Immature Gran % (Auto) % Neut % (Auto) % Lymph % (Auto) % [place] % (Auto) % Eos % (Auto) % Baso % (Auto) % Immature Gran # (Auto) (0.00-0.02) K/uL Neut # (Auto) (1.4-6.5) K/uL Lymph # (Auto) (1.2-3.4) K/uL [place] # (Auto) (0.11-0.59) K/uL Eos # (Auto) (0-0.5) K/uL Baso # (Auto) (0-0.2) K/uL PT (9.0-12.0) Seconds INR (0.9-1.1) APTT 58.6 H* (21.0-31.0) Seconds PTT Ratio 2.3 POC D-Dimer (0-450) ng/mlFEU Sodium (136-145) mmol/L Potassium (3.5-5.1) mmol/L Chloride (98-107) mmol/L Carbon Dioxide (21-32) mmol/L Anion Gap (3-11) BUN (7-18) mg/dl Creatinine (0.6-1.2) mg/dl Est Cr Clr Drug Dosing ml/min Est GFR ( Amer) Est GFR (Non-Af Amer) BUN/Creatinine Ratio (10-20) Glucose (70-99) mg/dl POC Lactic Acid Freddy (0.90-1.70) mmol/L Calcium (8.5-10.1) mg/dl Magnesium (1.8-2.4) mg/dl Total Bilirubin (0.2-1) mg/dl AST (15-37) U/L ALT (12-78) U/L Alkaline Phosphatase (45-117) U/L POC Troponin I (0-0.045) ng/ml Troponin I (0-0.045) ng/ml NT-Pro-B Natriuret Pep (0-1800) pg/ml Total Protein (6.4-8.2) gm/dl Albumin (3.4-5.0) gm/dl Globulin (2.5-4.0) gm/dl Albumin/Globulin Ratio (0.9-2) Procalcitonin (0-0.5) ng/ml Urine Color Urine Appearance (Clear) Urine pH (4.5-7.5) Ur Specific [place] (1.000-1.030) Urine Protein (Negative) Urine Glucose (UA) (Negative) Urine Ketones (Negative) Urine Blood (Negative) Urine Nitrite (Negative) Urine Bilirubin (Negative) Urine Urobilinogen (Negative) Ur Leukocyte Esterase (Negative) Urine WBC (Auto) (0-5) /hpf Urine RBC (Auto) (0-4) /hpf U Hyaline Cast (Auto) (0-5) /lpf U Epithel Cells (Auto) (0-5) /lpf Urine Bacteria (Auto) (Negative) Nasal Screen MRSA (PCR) (Negative) Random Vancomycin mcg/ml Influenza Type A (PCR) (Neg) Influenza Type B (PCR) (Neg) Imaging Data Attestation: I personally reviewed and interpreted this imaging study as follows : My Impression: CHEST X-RAY X-ray shows right greater than left pleural effusion. ECG Data Attestation: I personally reviewed and interpreted this ECG as follows: Indication: SOB/dyspnea Rate (beats per minute): 104 Rhythm: sinus tachycardia Findings: + other (Low voltage, poor quality baseline for interpretation, previous inferior and septal infarcts, and nonspecific T-wave abnormality) Comparison ECG Date: from (06/08/18) Change: no significant change Blood Pressure Blood Pressure Findings: Elevated blood pressure Blood Pressure Disposition: further management by hospitalist ELIZABETH Narrative This pt was evaluated and appeared to be in no distress on BiPAP. VSS. Pt was weaned off of BiPAP but had increased WOB. SHe is noted to have pl effusion on CXR. Lab work reveals markedly elevated BNP. Troponin is mildly elevated. Pt was started on IV heparin gtt and given IV lasix. SHe is chronically anticoagulated, but does have positive ddimer. No CT was ordered at this time d /t recent kidney injury. I suspect pt is fluid overloaded. Case was d/w [facility] hospitalist service for further management. Impression & Plan Elevated troponin, SOB (shortness of breath), Elevated d-dimer Discharge Plan Visit Data *Final* Discharge Date/Time: 06/14/18 10:31 Chief Complaint: Respiratory Problems ED Provider: Milena Vasques Discharge Problem: Elevated troponin, SOB (shortness of breath), Elevated d-dimer Patient Disposition: Admitted As Inpatient Discharge Instructions Interventions: ED Discharge Assessment Last Done: 06/14/18 10:31 The scribe's documentation has been prepared under my direction and personally reviewed by me in its entirety. I confirm that the note above accurately reflects all work, treatment, procedures, and medical decision making performed by me.
[2018-06-14 07:57] LABS: Appearance Urine Clear (Clear); Bacteria Urine Automated Negative (Negative); Bilirubin Urine Negative (Negative); Color Urine Yellow; Epithelial Cell Urine Auto >30 /lpf (0-5); Glucose Urine UA Negative (Negative); Ketones Urine Trace (Negative); Leukocyte Esterase Urine Negative (Negative); Nitrite Urine Negative (Negative); Protein Urine 2+ (Negative); Specific Gravity Urine 1.012 (1.000-1.030); Urobilinogen Urine Negative (Negative); pH Urine 5.5 (4.5-7.5)
--- NOTE | 2018-06-14 08:08 | History & Physical Report ---
Date of Service June 14, 2018 Assessment & Plan (1) SOB (shortness of breath): -Admit to [facility] for observation -Started the patient on Solu-Medrol 60 mg -cover for bacterial infections with her being recently admitted here just 2 days ago and due to her residence at [facility] - IV cefepime, ciprofloxacin and vancomycin due to her listed allergies. -Mucinex, Tessalon Perles, incentive spirometry, Xopenex nebs -No sputum production to culture, if she does begin to produce then will order -Patient currently requiring 4 L via NC, and initially was placed on BiPAP in the ER. Does not require supplemental O2 at baseline (2) Elevated d-dimer: -Checking bilateral lower extremity Dopplers, await results -Patient is on Eliquis 2.5 BID (3) Elevated troponin: -Elevated troponin at 0.37, will trend x2 more sets (4) Atrial fibrillation with RVR: -History of, appears to be in sinus tach with rate of 104 on EKG (5) Takotsubo cardiomyopathy: -Stable, trending cardiac biomarkers (6) Cardiomyopathy: (7) HTN (hypertension): -Continue on carvedilol 6.25 mg p.o. bid, furosemide 40 mg p.o. every 48 hours, amiodarone 200 mg p.o. daily (8) Sciatica: -PT/OT consults -Can continue pain control with lidocaine patch and tramadol 50 mg p.o. every 4 as needed (9) Urinary tract infection: -Patient was to finish Keflex p.o. dosing today, from previous E. coli UTI. 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 -Follow with a.m. PRP (11) Depression: -Continue on Cymbalta 60 mg daily (12) Obesity: -Diet and exercise will need to be encouraged prior to discharge (13) DVT prophylaxis: Teds, Eliquis 2.5 mg p.o. bid History of Present Illness Chief Complaint: Shortness of breath Primary Care Provider: Dariusz Sloan MD This is an 87 yo female who was recently admitted to our facility from 06/08/18 to 06/12/18 where she was treated for a UTI with associated nausea vomiting and weakness. The patient was discharged to [facility]. 3 presents today with new onset of shortness of breath which began this morning. Patient notes that she was just unable to breathe and unable to do minimal ADLs without exertional dyspnea. Patient had been taking Keflex p.o. and was scheduled to finish this today for UTI. She denies any cough or sputum production, but does notice that she is wheezing. She denies any fevers, chills or sweats, and does not have any chest tightness or pain. Patient has been eating meals in common area at [facility] and notes that somebody is always sick, but does her best to avoid sick contacts. Allergies Allergy/AdvReac Type Severity Reaction Status Date / Time amoxicillin Allergy Unknown RASH AND Verified 06/14/18 07:00 SWELLING TONGUE Bactrim Allergy Unknown ? Verified 01/01/18 11:34 levofloxacin Allergy Unknown RASH AND Verified 06/14/18 07:00 SWELLING TONGUE Penicillins Allergy Unknown RASH & Verified 06/14/18 07:00 HIVES sulfamethoxazole Allergy Unknown Unknown Verified 06/14/18 07:00 trimethoprim Allergy Unknown Unknown Verified 06/08/18 04:41 cephalexin [From Keflex] Allergy Unknown Verified 06/14/18 07:02 nitrofurantoin AdvReac Mild HEADACHE Verified 06/14/18 07:00 Home Medications Home Medications Medication Instructions Recorded Confirmed Type febuxostat [Uloric] 40 mg PO DAILY 02/25/18 06/14/18 History flurazepam 30 mg PO HS 02/25/18 06/14/18 History gabapentin 100 mg PO HS 02/25/18 06/14/18 History lidocaine 1 patch TOPICAL DAILY PRN 02/25/18 06/14/18 History tramadol 50 mg PO Q4 PRN 02/25/18 06/14/18 History acetaminophen [Tylenol] 650 mg PO Q4 PRN 03/08/18 06/14/18 History albuterol sulfate 2 - 4 puff INHALATION DIRECTED 04/07/18 06/14/18 History PRN dextromethorphan-guaifenesin 10 ml PO Q6H PRN 04/07/18 06/14/18 History [Robitussin Cough-Chest Jae DM] amiodarone 200 mg PO DAILY #30 tab 04/11/18 06/14/18 Rx apixaban [Eliquis] 2.5 mg PO BID #60 tab 04/11/18 06/14/18 Rx carvedilol 6.25 mg PO BID #0 tab 04/11/18 06/14/18 Rx furosemide 40 mg PO Q48H #0 tab 06/12/18 06/14/18 Rx magnesium oxide 400 mg PO BID #20 tab 06/12/18 06/14/18 Rx potassium chloride [Klor-Con M20] 20 meq PO BID #6 tab 06/12/18 06/14/18 Rx Lactobacillus acidoph-L.bulgar 4 tab PO QID 06/14/18 06/14/18 History [Floranex] benzonatate 100 mg PO TID PRN 06/14/18 06/14/18 History duloxetine 60 mg PO DAILY 06/14/18 06/14/18 History Past Med/Surg History Social History Current Living Situation: Personal Care Facility Current Living Situation Comment: [facility] Other Information That Helps Us Care for You: No Feels Safe at Home: Yes Safety Concerns: Feels Safe At This Time Smoking Status: Never smoker Hx Alcohol Use: No Hx Substance Use: No Beliefs That Will Affect Care: None Preferred Language: Scottish Communication Ability: Effective Review of Systems Constitutional: No fever, sweats or chills Eyes: No diplopia, no worsening or blurred vision ENT: normal hearing, no trouble swallowing Respiratory: No cough, sputum, + dyspnea at rest and with minimal ADLs, see HPI Cardiovascular: No chest pain, tightness or palpitations Abdomen: No pain, nausea, vomiting, diarrhea or constipation Musculoskeletal: No joint pain, calf pain, swelling Neurologic: + Generalized weakness, + left-sided sciatic nerve pain down back of leg, otherwise no numbness/tingling, requires wheelchair/walker for ambulation and 1-2 person assist. Psychiatric: No anxiety or depression Skin: No rash or itch Physical Exam 2 Vital Signs (Past 24 Hours): Last Vital Signs Temp 36.4 C L 06/14/18 05:36 Pulse 92 H 06/14/18 07:35 Resp 28 H 06/14/18 07:35 BP 141/78 H 06/14/18 07:35 Pulse Ox 94 06/14/18 07:35 Physical Exam: General: awake, alert, no apparent distress, obese Head: Normocephalic, atraumatic ENT: PERRL, EOMI, no pharyngeal exudate, mucous membranes slightly dry Chest: On 4 L via NC, coarse breath sounds throughout and + rales in the LLL, audible wheeze, + expiratory wheeze on auscultation, + use of accessory muscles. Cardiac: Regular rate and rhythm, no murmur, no JVD, normal peripheral pulses, good capillary refill Abdominal: NABS x 4 quadrants, soft, nontender to palpation, no rebound, guarding or tenderness, Alba catheter in place draining clear yellow urine Extremities: Normal inspection, no peripheral edema or erythema, calfs nontender to palpation Psych: Normal mood and affect Neuro: AAO x 3, no motor deficits, speech is clear, no peripheral sensory deficits Results & Data Diagnostic Findings XR chest 1V portable CLINICAL HISTORY: Dyspnea. COMPARISON STUDY: Chest radiograph June 08, 2018. FINDINGS: Mild elevation of the left hemidiaphragm is unchanged. There is no pneumothorax. There may be a small left pleural effusion. Interstitial thickening has developed. Cardiomegaly is unchanged. IMPRESSION: 1. Interval improvement in interstitial thickening suggestive of mild pulmonary edema. 2. Suspected small left pleural effusion with mild left basilar opacity. Code Status & VTE Plan Code Status DNR Supervising Physician Co-Signing Physician Notes Patient was seen and examined by me at bedside. Patient has a mildly elevated trop at .37 During my encounter, bilateral wheezing on auscultation. Patient has h/o normal systolic function with grade 1 diastolic dysfunction. Her BNP is alos very high. Compared to back in March. Patient will receive an additional dose of lasix. For now will order procalcitonin, but doubt, infection. Will continue IV antibiotics for today however. Will need to monitor creatinine due to her renal function. Will have her go to a monitored tele floor. As concern over acute diastolic dysfunction. _ (1) Depression Active/Remission status: Depression Type: unspecified Major depression episode severity: Major depression recurrence: Psychotic features: Trimester: Qualified Code(s): F32.9 - Major depressive disorder, single episode, unspecified (2) HTN (hypertension) Hypertension type: essential hypertension Qualified Code(s): I10 - Essential (primary) hypertension (3) Obesity Body mass index: unspecified BMI Obesity classification: adult class 1 (BMI 30 - 34.9) Obesity type: unspecified obesity type Serious obesity comorbidity presence: unspecified whether serious comorbidity present Qualified Code(s): E66.9 - Obesity, unspecified
[2018-06-14] MEDS ORDERED: Heparin IV Standard *NO* Bolus SCH (10:08)
[2018-06-14] MEDS ORDERED: FUROSEMIDE 40 MG/4 ML VIAL IV ONE (10:33)
[2018-06-14] MEDS ORDERED: guaiFENesin 600 MG TABCR PO SCH (11:34)
[2018-06-14] MEDS ORDERED: ONDANSETRON INJ 2 MG/ML 2 ML VIAL IV PRN (11:34)
[2018-06-14] MEDS ORDERED: methylPREDNISolone 125 MG/2 ML VIAL IV SCH (11:34)
[2018-06-14] MEDS ORDERED: VANCOMYCIN HCL 500 MG in SODIUM CHLORIDE 0.9% 250 ML IV SCH (11:34)
[2018-06-14] MEDS ORDERED: BENZONATATE 100 MG CAPSULE PO PRN (11:34)
[2018-06-14] MEDS ORDERED: VANCOMYCIN CONSULT ACTIVE PRN (11:34)
[2018-06-14] MEDS ORDERED: GUAIFENESIN/DEXTROM SYRUP 200MG/20MG 10ML UDC PO PRN (11:34)
[2018-06-14] MEDS ORDERED: ACETAMINOPHEN 325 MG TAB PO PRN (11:34)
[2018-06-14] MEDS ORDERED: TRAMADOL HCL 50 MG TABLET PO PRN (11:34)
[2018-06-14] MEDS ORDERED: APIXABAN 2.5 MG TAB PO SCH (12:30)
--- NOTE | 2018-06-14 12:30 | Ultrasound Report ---
BILATERAL LOWER EXTREMITY VENOUS DOPPLER CLINICAL HISTORY: elevated ddimer COMPARISON STUDY: Bilateral lower extremity venous Doppler September. TECHNIQUE: Sonography of the deep venous system of the bilateral lower extremities was performed. Co mpression and augmentation were evaluated. FINDINGS: The bilateral common femoral, superficial femoral and popliteal veins were compressible. N ote is made of wall thickening of the bilateral femoral veins. This favors chronic thrombus. Augmenta tion was normal. Flow was shown within the deep calf vessels. IMPRESSION: 1. No evidence of acute deep venous thrombus within the bilateral lower extremities. 2. Wall thickening of the bilateral femoral veins which suggests chronic nonocclusive thrombus. Electronically signed by: Ender Coulter M.D. 06/14/2018 12:28 PM
[2018-06-14 13:48] LABS: Partial Thromboplastin Ratio 6.5
[2018-06-14 13:50] LABS: Partial Thromboplastin Time 173.2 Seconds (21.0-31.0)
[2018-06-14] MEDS ORDERED: VANCOMYCIN HCL 2,250 MG in SODIUM CHLORIDE 0.9% 500 ML IV ONE (14:30)
--- NOTE | 2018-06-14 14:30 | Pharmacy Report ---
Pharmacy Abx Initial Consult - Date of Service June 14, 2018 - Pharmacy Dosing Scope Date of Consult: 06/14/18 Consultation requested by: Farzana Henry PA-C Pharmacy is consulted to initiate Vancomycin IV dosing therapy, order appropriate labs and adjust drug dose/frequency. - Subjective The patient is a 87 year old F admitted on 06/14/18 08:58. - Objective Height: 5 ft 5 in Weight: 87.3 kg Vital Signs (Past 12hrs): Vital Signs Temp Pulse Pulse Resp BP BP Pulse Ox 06/14/18 13:59 73 18 97 06/14/18 11:13 36.6 C 85 20 121/70 96 06/14/18 11:00 84 06/14/18 10:30 84 25 H 125/67 96 06/14/18 09:40 84 24 123/69 97 06/14/18 07:35 92 H 28 H 141/78 H 94 06/14/18 07:02 89 L 06/14/18 05:36 36.4 C L 102 H 27 H 134/70 92 06/14/18 05:35 104 H 37 H 100 Lab Results (24hrs): Laboratory Tests (24 Hours) 06/14/18 06/14/18 06/14/18 05:44 05:44 05:44 WBC 13.48 H Neut # (Auto) 8.19 H Creatinine 1.54 H Est Cr Clr Drug Dosing 29.1 Procalcitonin 0.07 Micro Results: 06/14/18 06:01 Blood Culture - Pending Blood 06/14/18 05:44 Blood Culture - Pending Blood - Risk Factors for Resistance * Resident in a intermediate or extended-care facility - was recent admitted from 06/08/18 to 06/12/18, was then discharged to [facility]. * Hospitalization for 48 hours or more within the past 90 days * History of infection with a multidrug-resistant organism: urine culture from last admission grew enterococcus faecalis R to Ciprofloxacin and Levofloxacin * Antimicrobial use within the last 90 days - Discharged on 06/12 on Keflex for UTI - Assessment & Plan Assessment 87 year old F presents to ED from [facility] after recent admission on to 06/12/18. She now comes back with new onset SOB. Chest x ray shows small left pleural effusion. Plan Vancomycin for treatment of possible pneumonia. Vancomycin IV * Estimated PK Parameters: Vd 0.7 L/kg, Alexandro 0.028 hr-1, t1/2 ~24 hr * Loading dose: 2250 mg (25 mg/kg) x1 dose * Goal trough level : 15 to 20 mcg/mL * Due to extended estimated half-life will order a random level in the AM and dose based on levels. Pharmacy will continue to follow and will adjust dose/frequency as necessary. Thank you.
[2018-06-14] MEDS ORDERED: CARVEDILOL 12.5 MG TAB PO SCH (15:30)
[2018-06-14 15:31] LABS: INR 1.1 (0.9-1.1); Prothrombin Time 10.9 Seconds (9.0-12.0)
[2018-06-14] MEDS ORDERED: FUROSEMIDE 40 MG TAB PO SCH (16:00)
[2018-06-14] MEDS ORDERED: CEFEPIME 2,000 MG in SYRINGE 7.5 ML IV SCH (16:00)
[2018-06-14] MEDS ORDERED: CIPROFLOXACIN 400 MG/200 ML BAG IV SCH (16:00)
[2018-06-14] MEDS ORDERED: methylPREDNISolone 60 MG in SYRINGE 0 ML IV STA (16:01)
[2018-06-14] MEDS ORDERED: CIPROFLOXACIN CONSULT ACTIVE PRN (16:05)
[2018-06-14] MEDS ORDERED: CEFEPIME CONSULT ACTIVE PRN (16:05)
[2018-06-14] MEDS: AMIODARONE 200 MG TAB PO SCH (16:13)
[2018-06-14] MEDS: LACTOBACILLUS ACIDOPHILUS (FLORANEX) TAB PO SCH ×2 (16:13→20:53)
[2018-06-14] MEDS: MAGNESIUM OXIDE 400 MG TAB PO SCH ×2 (16:15→20:52)
[2018-06-14] MEDS: BENZONATATE 100 MG CAPSULE PO SCH ×2 (16:16→20:52)
[2018-06-14] MEDS: LIDOCAINE 5% 1 PATCH TD SCH (16:29)
[2018-06-14] MEDS: POTASSIUM CHLORIDE 20 MEQ TABCR PO SCH ×2 (18:03→20:52)
[2018-06-14] MEDS: DULOXETINE HCL 60 MG CAP PO SCH (18:25)
[2018-06-14 18:45] LABS: Partial Thromboplastin Ratio 2.1
[2018-06-14 18:51] LABS: Partial Thromboplastin Time 55.6 Seconds (21.0-31.0)
[2018-06-14] MEDS: HEPARIN SODIUM/DEXTROSE 25,000 UNITS/500 ML BAG IV SCH (19:56)
[2018-06-14] MEDS: LEVALBUTEROL 1.25MG/0.5ML NEB NEB SCH ×2 (20:13→22:43)
[2018-06-14] MEDS: CARVEDILOL 6.25 MG TAB PO SCH (20:53)
[2018-06-14] MEDS ORDERED: GABAPENTIN 100 MG CAP PO SCH (21:00)
[2018-06-14] MEDS ORDERED: FLURAZEPAM HCL 15 MG CAP PO SCH (21:00)
[2018-06-15 01:37] LABS: INR 1.1 (0.9-1.1); Partial Thromboplastin Ratio 2.2; Prothrombin Time 11.4 Seconds (9.0-12.0)
[2018-06-15 01:38] LABS: Partial Thromboplastin Time 56.2 Seconds (21.0-31.0)
[2018-06-15] MEDS: LEVALBUTEROL 1.25MG/0.5ML NEB NEB SCH (01:43)
[2018-06-15] MEDS: LEVALBUTEROL HCL 1.25 MG/3 ML NEB NEB SCH ×3 (02:19→13:50)
[2018-06-15 07:08] LABS: Hematocrit (blood only) 38.1 % (37-47); Hemoglobin 12.2 g/dL (12.0-16.0); Mean Platelet Volume 12.7 fL (7.4-10.4); Platelet Count 164 K/uL (130-400); RDW Coefficient of Variation 14.4 % (11.5-14.5); RDW Standard Deviation 48.3 fL (36.4-46.3); Red Blood Count 4.14 M/uL (4.2-5.4)
[2018-06-15] MEDS: HEPARIN SODIUM/DEXTROSE 25,000 UNITS/500 ML BAG IV SCH (07:13)
[2018-06-15] MEDS: LIDOCAINE 5% 1 PATCH TD SCH (07:19)
[2018-06-15] MEDS: LACTOBACILLUS ACIDOPHILUS (FLORANEX) TAB PO SCH ×2 (07:20→13:05)
[2018-06-15] MEDS: POTASSIUM CHLORIDE 20 MEQ TABCR PO SCH (07:20)
[2018-06-15] MEDS: CARVEDILOL 6.25 MG TAB PO SCH (07:20)
[2018-06-15] MEDS: MAGNESIUM OXIDE 400 MG TAB PO SCH (07:20)
[2018-06-15] MEDS: BENZONATATE 100 MG CAPSULE PO SCH ×2 (07:21→13:05)
[2018-06-15 07:28] LABS: Partial Thromboplastin Ratio 2.3
[2018-06-15 07:31] LABS: Partial Thromboplastin Time 58.6 Seconds (21.0-31.0)
[2018-06-15 07:50] LABS: Albumin Level 2.9 gm/dl (3.4-5.0); BUN Creatinine Ratio 15.8 (10-20); Calcium 8.6 mg/dl (8.5-10.1); Creatinine Clr Calc Pharmacy 21.6 ml/min; Est GFR (African American) 24.7; Est GFR (Non-African American) 21.3; Potassium 5.3 mmol/L (3.5-5.1)
[2018-06-15 07:53] LABS: Albumin Globulin Ratio 0.9 (0.9-2); Bilirubin,Total 0.4 mg/dl (0.2-1); Globulin 3.4 gm/dl (2.5-4.0); Total Protein 6.3 gm/dl (6.4-8.2)
[2018-06-15] MEDS ORDERED: methylPREDNISolone 40 MG in SYRINGE 0 ML IV SCH (09:00)
--- NOTE | 2018-06-15 11:40 | Pharmacy Report ---
Pharmacy Abx Dose Short Note - Date of Service June 15, 2018 - Assessment & Plan Laboratory Tests 06/15/18 06/15/18 06:57 06:57 Creatinine 2.07 H D Random Vancomycin 18.5 Assessment 87 year old F receiving Vancomycin for treatment of possible pneumonia. Day #2 of antimicrobial therapy Patient also on Cefepime and Cipro MRSA nasal swab negative. Blood cultures x 2 still pending. Plan Vancomycin * Random level of 18.5 mcg/mL is therapeutic, but this was only after one dose * Based on random level, patient's half life is about 18 hours * Give a one time dose of 1250mg and collect another random level with AM labs and dose accordingly * Goal trough level for Pneumonia : 15 to 20 mcg/mL Pharmacy will continue to follow and will adjust dose/frequency as necessary. Thank you.
[2018-06-15] MEDS ORDERED: APIXABAN 2.5 MG TAB PO ONE (11:45)
[2018-06-15] MEDS ORDERED: VANCOMYCIN HCL 1,250 MG in SODIUM CHLORIDE 0.9% 250 ML IV SCH (12:00)
[2018-06-15] MEDS ORDERED: FUROSEMIDE 40 MG in SYRINGE 0 ML IV ONE (13:35)
[2018-06-15] MEDS: AMIODARONE 200 MG TAB PO SCH (15:24)
[2018-06-15] MEDS: DULOXETINE HCL 60 MG CAP PO SCH (15:24)
[2018-06-15 16:14] VITALS: BP 107/56; PULSE 76; TEMP 97.5; O2SAT 93
--- NOTE | 2018-06-19 10:24 | Discharge Summary ---
Date of Service June 15, 2018 Admission HPI Per Admitting Provider This is an 87 yo female who was recently admitted to our facility from 06/08/18 to 06/12/18 where she was treated for a UTI with associated nausea vomiting and weakness. The patient was discharged to [facility]. 3 presents today with new onset of shortness of breath which began this morning. Patient notes that she was just unable to breathe and unable to do minimal ADLs without exertional dyspnea. Patient had been taking Keflex p.o. and was scheduled to finish this today for UTI. She denies any cough or sputum production, but does notice that she is wheezing. She denies any fevers, chills or sweats, and does not have any chest tightness or pain. Patient has been eating meals in common area at [facility] and notes that somebody is always sick, but does her best to avoid sick contacts. Principal Diagnosis acute respiratory failure secondary to pulmonary edema Discharge Exam General: awake, alert, no apparent distress, obese Head: Normocephalic, atraumatic ENT: PERRL, EOMI, no pharyngeal exudate, mucous membranes slightly dry Chest: ON room air, clear breath sounds. Cardiac: Regular rate and rhythm, no murmur, no JVD, normal peripheral pulses, good capillary refill Abdominal: NABS x 4 quadrants, soft, nontender to palpation, no rebound, guarding or tenderness, Extremities: Normal inspection, no peripheral edema or erythema, calfs nontender to palpation Psych: Normal mood and affect Neuro: AAO x 3, no motor deficits, speech is clear, no peripheral sensory deficits Discharge Data Allergies Allergy/AdvReac Type Severity Reaction Status Date / Time amoxicillin Allergy Unknown RASH AND Verified 06/14/18 07:00 SWELLING TONGUE Bactrim Allergy Unknown ? Verified 01/01/18 11:34 levofloxacin Allergy Unknown RASH AND Verified 06/14/18 07:00 SWELLING TONGUE Penicillins Allergy Unknown RASH & Verified 06/14/18 07:00 HIVES sulfamethoxazole Allergy Unknown Unknown Verified 06/14/18 07:00 trimethoprim Allergy Unknown Unknown Verified 06/08/18 04:41 cephalexin [From Keflex] Allergy Unknown Verified 06/14/18 07:02 nitrofurantoin AdvReac Mild HEADACHE Verified 06/14/18 07:00 Consultations 06/14/18 11:34 Consult Case Management - Discharge Planning Routine Ordered Studies 06/14/18 06:19 US venous doppler [facility] Hospital Course (1) SOB (shortness of breath): On Admission -Admit to [facility] for observation -Started the patient on Solu-Medrol 60 mg -cover for bacterial infections with her being recently admitted here just 2 days ago and due to her residence at [facility] - IV cefepime, ciprofloxacin and vancomycin due to her listed allergies. -Mucinex, Tessalon Perles, incentive spirometry, Xopenex nebs -No sputum production to culture, if she does begin to produce then will order -Patient currently requiring 4 L via NC, and initially was placed on BiPAP in the ER. Does not require supplemental O2 at baseline On discharrge On room air, but also intermittently on 2 liters 02 at rest. Will discharge on diuretics but daily instead of q48h. Patient was noyt on diuretics on last admission. This likely played a role in her decompensation. Main issue was likely fluid overload. will also discharge on cipro for possible bronchitis. recheck bmp in 1 week (2) Elevated d-dimer: -Checking bilateral lower extremity Dopplers, await results -Patient is on Eliquis 2.5 BID (3) Elevated troponin: -Elevated troponin peaked at 0.386, trended down (4) Atrial fibrillation with RVR: -History of, appears to be in sinus tach with rate of 104 on EKG (5) Takotsubo cardiomyopathy: -Stable, (6) Cardiomyopathy: (7) HTN (hypertension): -Continue on carvedilol 6.25 mg p.o. bid, amiodarone 200 mg p.o. daily will discharge on lasix 40 mg po daily (8) Sciatica: -PT/OT consults -Can continue pain control with lidocaine patch and tramadol 50 mg p.o. every 4 as needed (9) Urinary tract infection: -Patient was to finish Keflex p.o. dosing today, from previous E. coli UTI. 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 -Follow with a.m. PRP (11) Depression: -Continue on Cymbalta 60 mg daily (12) Obesity: -Diet and exercise will need to be encouraged prior to discharge (13) DVT prophylaxis: Teds, Eliquis 2.5 mg p.o. bid Patient will be discharged on hospice. Patient will need home oxygen, agency will arrange for this Total Time Total Time Spent Total Time Spent (In Minutes): 32 Total Time Includes: Examination of the Patient, Discharge Planning, Medication Reconciliation and Other (communication with daughter) Discharge Plan Discharge Items Patient Disposition: Personal Senior Living Reason For Visit: SOB Discharge Diagnosis: Bronchitis/ fluid overload. Discharge Goals: Decrease discomfort Activity: Resume your previous activity Non-emergency contact: Primary Care Provider Call non-emergency contact if: you have any medication questions Diet: Heart Healthy Addtl Provider Instructions: F/U with PCP in 1-2 weeks. Patient will be transitioning to hospice. Recheck BMP in 1 week Prescriptions: New benzonatate [Tessalon Perles] 100 mg Capsule 100 mg PO TID Qty: 30 RF: 0 ciprofloxacin HCl 750 mg tablet 750 mg PO BID Qty: 7 RF: 0 prednisone 20 mg tablet 20 mg PO UD Qty: 5 RF: 0 Continue dextromethorphan-guaifenesin [Robitussin Cough-Chest Jae DM] 5-100 mg/5 mL Liquid 10 ml PO Q6H PRN (Reason: Cough) RF: 0 albuterol sulfate 90 mcg/actuation HFA aerosol inhaler 2 - 4 puff Inhalation DIRECTED PRN (Reason: Shortness Of Breath) RF: 0 amiodarone 200 mg Tablet 200 mg PO DAILY Qty: 30 RF: 0 apixaban [Eliquis] 2.5 mg Tablet 2.5 mg PO BID Qty: 60 RF: 0 carvedilol 12.5 mg Tablet 6.25 mg PO BID Qty: 0 RF: 0 magnesium oxide 400 mg (241.3 mg magnesium) Tablet 400 mg PO BID Qty: 20 RF: 0 duloxetine 60 mg capsule,delayed release(DR/EC) 60 mg PO DAILY RF: 0 Lactobacillus acidoph-L.bulgar [Floranex] 1 million cell Tablet 4 tab PO QID RF: 0 benzonatate 100 mg Capsule 100 mg PO TID PRN (Reason: Cough) RF: 0 febuxostat [Uloric] 40 mg Tablet 40 mg PO DAILY RF: 0 tramadol 50 mg Tablet 50 mg PO Q4 PRN (Reason: Pain) RF: 0 flurazepam 30 mg Capsule 30 mg PO HS RF: 0 lidocaine 5 % Adhesive Patch,Medicated 1 patch TOPICAL DAILY PRN (Reason: Pain) RF: 0 gabapentin 100 mg Capsule 100 mg PO HS RF: 0 acetaminophen [Tylenol] 325 mg Tablet 650 mg PO Q4 PRN (Reason: Fever Or Pain) RF: 0 Changed furosemide 40 mg Tablet 40 mg PO DAILY Qty: 0 RF: 0 Discontinued potassium chloride [Klor-Con M20] 20 mEq Tablet,Er Particles/Crystals 20 meq PO BID Qty: 6 RF: 0 Stand-Alone Forms: [facility] Discharge Orders: Discharge Order (Routine); Ordered 06/15/18 Ordered By: Aaron Oneill Admission Data Admit Date/Time: 06/14/18 08:58 Attending Provider: Aaron Oneill Admit Provider: Aaron Oneill Primary Care Provider: Dariusz Sloan Service: Telemetry Other Interventions: Discharge Summary Assessment (RN) Last Done: 06/15/18 15:29 DC Date/Time DO NOT enter until pt leaves facility: 06/15/18 17:19
== END 2018-06-15 17:19 | disposition home or self-care (01) ==
LOC: ED 05:29 → 2S 05:29
DX: F41.9 Anxiety disorder, unspecified; I51.81 Takotsubo syndrome; Z79.899 Other long term (current) drug therapy; E66.9 Obesity, unspecified; F32.9 Major depressive disorder, single episode, unspecified; Z88.0 Allergy status to penicillin; M10.9 Gout, unspecified; N18.4 Chronic kidney disease, stage 4 (severe); I12.9 Hypertensive chronic kidney disease with stage 1 through stage 4 chronic kidney disease, or unspecified chronic kidney disease; J81.1 Chronic pulmonary edema; J40 Bronchitis, not specified as acute or chronic; Z88.1 Allergy status to other antibiotic agents; I48.91 Unspecified atrial fibrillation; Z88.2 Allergy status to sulfonamides